=== PATIENT | female | born 1970 | race Caucasian/White ===

== ENCOUNTER 2016-12-20 18:40 | Emergency (ER) | payer SELFPAY ==
[2016-12-20 18:58] VITALS: BP 121/84; BMI 19.0
--- NOTE | 2016-12-20 19:29 | DR.GENAD ---
HPI - PCP Primary Care Physician: ELAYNE - HPI Comment HPI Comment: PATIENT FELL ONE WEEK AGO. PROGRESSIVE LOWER BACK PAIN AND RIGHT HIP PAIN. MEDS AT HOME DID NOT HELP PAIN. HISTORY BACK PAIN. - Complaint/Symptoms Chief Complaint Doctors Comments: FELL, RIGHT HIP AND LOWER BACK PAIN TIMES ONE WEEK. Chief Complaint:: BACK ,HIP, BUTT, LEG PAIN FROM FALL Self Treatment fo Chief Complaint: PT HAS BEEN TAKING ABUPROFEN AND NAPROXEN, AND PAIN PILLS FROM A PREVIOUS BROKEN ARM - Nurses notes reviewed Nurses Notes Review: Yes - Source History Provided: Patient - Mode of Arrival Mode of Arrival: Ambulatory - Timing Onset of Chief Complaint: 12/13/16 Came on: Gradually - Duration Duration: Constant Duration: Days - Severity Severity: Moderate PMH - PMH Past Medical History: Yes Past Medical History: Anxiety, Depression, Hypertension Past Medical History Comment: HIV+ Past Surgical History: Yes Surgical History: , Hysterectomy, Tonsillectomy - Family History History of Family Medical Conditions: Yes Family Medical History: Coronary Artery Disease, Hypertension - Social History Does patient currently use any type of tobacco product: Yes Have you used tobacco products in the last 12 months: Yes Type of Tobacco Use: Cigarettes Does any household member use tobacco: No Alcohol Use: None Do you use any recreational Drugs:: No Lives With: Alone Lives Where: Home - infectious screening In the last 2 months have you had wt loss of >10#?: NO Have you had fever, night sweats or hemotysis?: No Have you traveled outside the country in the last 6 months?: No Isolation: Standard ROS - Review of Systems Constitutional: No Symptoms Reported Eyes: No Symptoms Reported ENTM: No Symptoms Reported Respiratoy: No Symptoms Reported Cardiovascular: No Symptoms Reported Gastrointestinal/Abdominal: No Symptoms Reported Genitourinary: No Symptoms Reported Neurological: Problems Walking Musculoskeletal: Back Pain, Right, Back, Pelvis, Hip, Leg Integumentary: No Symptoms Reported Hematologic/Lymphatic: No Symptoms Reported Endocrine: No Symptoms Reported All Other Systems: Reviewed and Negative PE - Vital Signs Vitals: Temperature 97.6 F Pulse Rate 90 Respiratory Rate 16 Blood Pressure 121/84 O2 Sat by Pulse Oximetry 100 - General Limitations: No Limitations General Appearance: Alert - Head Head Exam: Normal Inspection - Eyes Eye exam: Normal Appearance - ENT ENT Exam: Normal External Ear Exam External Ear Exam: Normal External Inspection TM/Canal Exam: Bilateral Normal Nose Exam: Normal Nose Exam Mouth Exam: Normal Inspection Throat Exam: Normal Inspection - Neck Neck Exam: Trachea Midline - Chest Chest Inspection: Symmetric Chest Wall Rise - Respiratory Respiratory Exam: Normal Lung Sounds Bilat Respiratory Exam: Bilateral Rhonchi, Lower Rhonchi - Cardiovascular Cardiovascular Exam: Regular Rate, Normal Rhythm, Normal Heart Sounds - Abdominal Exam Abdominal Exam: Normal Bowel Sounds, Soft. negative: Tenderness - Extremities Extremities Exam: Tenderness (RIGHT HIP) - Back Back Exam: Tenderness (LOWER BACK), Paraspinal Tenderness - Neurologic Neurological Exam: Alert, Oriented X3. negative: Motor Sensory Deficit - Psychiatric Psychiatric Exam: Normal Affect, Normal Mood - Skin Skin Exam: Normal Color MDM - Differential Diagnosis Differential Diagnosis: LOWER BACK PAIN, RIGHT HIP PAIN, ARTHRITIS Course - Treatment Treatment: SEE ORDERS - Reevaluation 1st: Improved (PAIN IMPROVE WITH IM MEDS IN ED.) - Education/Counseling Education/Counseling: Patient, Education Educated On: Treatment, Diagnosis, Needs for Follow Up ROR - XRAY XRAY Findings: REPORT DISCUSS WITH PATIENT. 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 Lower back pain Qualifiers: Chronicity: acute Back pain laterality: unspecified Sciatica presence: with sciatica Sciatica laterality: bilateral sciatica Qualified Code(s): M54.42 - Lumbago with sciatica, left side; M54.41 - Lumbago with sciatica, right side - Discharge Plan Disposition: 01 HOME, SELF-CARE Condition: Stable Prescriptions: Acetaminophen W/ Codeine [Tylenol/Codeine #3 300-30 mg] 1 tab PO Q4-6H PRN #15 tab PRN Reason: Pain Cyclobenzaprine HCl [FLEXERIL 10 MG *] 10 mg PO TID PRN #20 tab PRN Reason: Ibuprofen [MOTRIN TAB 600 MG *] 600 mg PO TID PRN #20 tab PRN Reason: Pain/Inflammation - Follow ups/Referrals Follow ups/Referrals: NFD,None [Primary Care Provider] - 2 days STONEY WEEMS [STAFF PHYSICIAN] - 2 days - Instructions Instructions: Degenerative Disk Disease, Spinal Stenosis, [id number], Back Pain, Adult, [id number], Hip Pain Additional Instructions: return to ed if worse.
[2016-12-20] MEDS ORDERED: TORADOL 60 MG VIAL IM ONE (19:39)
[2016-12-20] MEDS ORDERED: NORFLEX INJ IVP ONE (19:39)
--- NOTE | 2016-12-20 20:15 | RAD ---
The three views of the right hip Indication: Hip pain after fall. Findings: No fracture, dislocation or localizing soft tissue swelling within the right hip. No signi ficant degenerative change. Pubic symphysis and SI joints are intact. There is degenerative change w ithin bilateral L5-S1 facet joints. The Impression: No radiographic abnormality within the right hip. Reported By:
[2016-12-20] MEDS ORDERED: TORADOL 60 MG VIAL ONE (20:18)
[2016-12-20] MEDS ORDERED: NORFLEX INJ ONE (20:18)
[2016-12-20] MEDS ORDERED: TYLENOL #3 TAB (W/CODEINE) PO ONE ×2 (21:08→21:09)
== END 2016-12-20 21:14 | disposition home or self-care (01) ==
LOC: ER 18:40
DX: M19.90 Unspecified osteoarthritis, unspecified site (principal); M48.06 Spinal stenosis, lumbar region; M25.551 Pain in right hip; M15.8 Other polyosteoarthritis; M54.42 Lumbago with sciatica, left side; M54.41 Lumbago with sciatica, right side; W19.XXXA Unspecified fall, initial encounter; Y92.9 Unspecified place or not applicable
CPT/HCPCS: 72110; 73501; 96372; 99282; 99283; J1885; J2360

== ENCOUNTER 2016-12-30 12:29 | Emergency (ER) | payer SELFPAY ==
[2016-12-30 12:47] VITALS: BP 109/85; BMI 19.0
[2016-12-30 14:17] LABS: BILIRUBIN,URINE NEGATIVE (NEGATIVE); BLOOD/HEMOGLOBIN,URINE NEGATIVE (NEGATIVE); GLUCOSE, URINE NEGATIVE (NEGATIVE); KETONES,URINE NEGATIVE (NEGATIVE); LEUKOCYTE ESTERASE ,URINE NEGATIVE (NEGATIVE); NITRITES,URINE NEGATIVE (NEGATIVE); PROTEIN,URINE NEGATIVE (NEGATIVE); UROBILINOGEN,URINE NORMAL (NORMAL)
[2016-12-30 14:26] LABS: APPEARANCE,URINE HAZY (CLEAR); COLOR,URINE YELLOW (YELLOW)
[2016-12-30 14:27] LABS: BACTERIA,URINE TRACE /HPF (NEGATIVE); RBC,URINE 0-2 /HPF (NEGATIVE); SQUAMOUS EPITHELIAL CELL,UR RARE /HPF (NEGATIVE)
--- NOTE | 2016-12-30 14:33 | DR.GENAD ---
HPI - PCP Primary Care Physician: ELAYNE - Complaint/Symptoms Chief Complaint Doctors Comments: History as stated. Admits to left foot pain s /p falling Chief Complaint:: PT. STATES SHE PASSED OUT AT HOME, FALLING, HURTING HER LEFT FOOT AND LOWER BACK. PT STATES SHE FEELS LIGHTHEADED AT TIME OF TRIAGE. - Source History Provided: Patient - Mode of Arrival Mode of Arrival: Ambulatory - Timing Onset of Chief Complaint: 12/30/16 PMH - PMH Past Medical History: Yes Past Medical History: Anxiety, Depression, Hypertension Past Medical History Comment: AIDS Past Surgical History: Yes Surgical History: , Hysterectomy, Tonsillectomy - Family History History of Family Medical Conditions: Yes Family Medical History: Coronary Artery Disease, Hypertension - Social History Does patient currently use any type of tobacco product: Yes Have you used tobacco products in the last 12 months: Yes Type of Tobacco Use: Cigarettes Does any household member use tobacco: No Alcohol Use: None Do you use any recreational Drugs:: No Lives With: Alone Lives Where: Home - infectious screening In the last 2 months have you had wt loss of >10#?: NO Have you had fever, night sweats or hemotysis?: No Have you traveled outside the country in the last 6 months?: No Isolation: Standard PE - Vital Signs Vitals: Temperature 98.5 F Pulse Rate 99 Respiratory Rate 16 Blood Pressure 109/85 O2 Sat by Pulse Oximetry 99 - General Limitations: No Limitations General Appearance: Alert, In No Apparent Distress - Head Head Exam: Normal Inspection, Atraumatic - Eyes Eye exam: Normal Appearance, PERRL, EOMI - ENT ENT Exam: Normal Exam External Ear Exam: Normal External Inspection TM/Canal Exam: Bilateral Normal Nose Exam: Normal Nose Exam Mouth Exam: Normal Inspection Throat Exam: Normal Inspection - Neck Neck Exam: Normal Inspection - Chest Chest Inspection: Normal Inspection - Respiratory Respiratory Exam: Normal Lung Sounds Bilat Respiratory Exam: Bilateral Clear to Auscultation - Cardiovascular Cardiovascular Exam: Regular Rate, Normal Rhythm - Abdominal Exam Abdominal Exam: Normal Inspection, Normal Bowel Sounds Abdominal Tenderness: negative: RUQ, RLQ, LUQ, LLQ, Epigastrium, Suprapubic, Diffuse, Mild, Moderate, Severe, Other - Extremities Extremities Exam: Tenderness (swelling and erythema of left foot) - Back Back Exam: Normal Inspection, Full ROM - Neurologic Neurological Exam: Alert, CN II-XII Intact ROR - Labs Reviewed Result Diagrams: 12/30/16 14:56 12/30/16 14:56 Laboratory: Sodium 143 mmol/L (136-145) 12/30/16 14:56 Corrected Sodium TNP 12/30/16 14:56 Potassium 4.2 mmol/L (3.5-5.1) 12/30/16 14:56 Chloride 107 mmol/L (98-107) 12/30/16 14:56 Carbon Dioxide 23.7 mmol/L (21-32) 12/30/16 14:56 BUN 7 mg/dL (7-18) 12/30/16 14:56 Creatinine 0.84 mg/dL (0.55-1.02) 12/30/16 14:56 Est GFR (MDRD) Af Amer > 60 (>60) 12/30/16 14:56 Est GFR (MDRD) Non-Af > 60 (>60) 12/30/16 14:56 Glucose 70 mg/dL (65-99) 12/30/16 14:56 Calcium 8.9 mg/dL (8.5-10.1) 12/30/16 14:56 Corrected Calcium TNP 12/30/16 14:56 Total Bilirubin 0.90 mg/dL (0.2-1.0) 12/30/16 14:56 AST 25 Units/L (15-37) 12/30/16 14:56 ALT 15 Units/L (12-78) 12/30/16 14:56 Alkaline Phosphatase 160 Units/L (46-116) H 12/30/16 14:56 Total Protein 8.7 g/dL (6.4-8.2) H 12/30/16 14:56 Albumin 3.8 g/dL (3.4-5.0) 12/30/16 14:56 Globulin 4.9 g/dL (2.5-4.5) H 12/30/16 14:56 Albumin/Globulin Ratio 0.8 Ratio (1.1-2.1) L 12/30/16 14:56 Specimen Type Clean catch urine 12/30/16 13:59 Urine Color Yellow (YELLOW) 12/30/16 13:59 Urine Appearance Hazy (CLEAR) 12/30/16 13:59 Urine pH 6.0 (5.0 - 8.0) 12/30/16 13:59 Ur Specific [place] 1.005 (1.000-1.030) 12/30/16 13:59 Urine Protein Negative (NEGATIVE) 12/30/16 13:59 Urine Glucose (UA) Negative (NEGATIVE) 12/30/16 13:59 Urine Ketones Negative (NEGATIVE) 12/30/16 13:59 Urine Occult Blood Negative (NEGATIVE) 12/30/16 13:59 Urine Nitrite Negative (NEGATIVE) 12/30/16 13:59 Urine Bilirubin Negative (NEGATIVE) 12/30/16 13:59 Urine Urobilinogen Normal (NORMAL) 12/30/16 13:59 Ur Leukocyte Esterase Negative (NEGATIVE) 12/30/16 13:59 Urine RBC 0-2 /HPF (NEGATIVE) 12/30/16 13:59 Urine WBC 0-2 /HPF (NEGATIVE) 12/30/16 13:59 Ur Squamous Epith Cells Rare /HPF (NEGATIVE) 12/30/16 13:59 Urine Bacteria Trace /HPF (NEGATIVE) 12/30/16 13:59 Ur Culture Indicated? No/not indicated 12/30/16 13:59 - XRAY XRAY Interpreted by: Radiologist (Degenerative changes of the left foot without acute osseous abnormality) - Diagnosis Discharge Problem: DJD (degenerative joint disease) Qualifiers: Osteoarthritis location: foot Osteoarthritis type: unspecified Laterality: left Qualified Code(s): M19.072 - Primary osteoarthritis, left ankle and foot - Discharge Plan Condition: Stable - Follow ups/Referrals Follow ups/Referrals: ARIA HOLLY [Primary Care Provider] - 3 days - Instructions
[2016-12-30] MEDS ORDERED: DEMEROL INJ IM ONE (14:36)
[2016-12-30] MEDS ORDERED: DEMEROL INJ ONE (14:50)
[2016-12-30 15:08] LABS: HEMOGLOBIN 13.6 g/dL (12.0-16.0); MONOCYTES # (AUTO) 0.4 x10^3/uL (0.3-0.8); NEUTROPHILS # (AUTO) 2.1 x10^3/uL (2.2-4.8); RED CELL DISTRIBUTION WIDTH 13.4 % (11.6-16.5)
[2016-12-30 15:12] LABS: BASOPHILS % (AUTO) 0.4 % (0.2-1.0); EOSINOPHILS # (AUTO) 0.2 x10^3/uL (0.0-0.2); EOSINOPHILS % (AUTO) 4.6 % (0.9-2.9); HEMATOCRIT 40.6 % (36.0-47.0); LYMPHOCYTES # (AUTO) 0.7 X10^3/uL (1.3-2.9); LYMPHOCYTES % (AUTO) 19.9 % (21.0-51.0); MEAN CORPUSCULAR HEMOGLOBIN 31.2 pg (27.0-34.0); MEAN CORPUSCULAR HGB CONC 33.5 g/dL (33.0-35.0); MEAN CORPUSCULAR VOLUME 93.3 fL (80.0-100.0); MEAN PLATELET VOLUME 10.4 fL (7.4-11.0); MONOCYTES % (AUTO) 11.8 % (0.0-13.0); NEUTROPHILS % (AUTO) 63.3 % (42.0-75.0); PLATELET COUNT 120 X10^3/uL (150.0-450.0); RED BLOOD COUNT 4.36 X10^6/uL (3.5-5.4)
[2016-12-30 15:15] LABS: ALANINE AMINOTRANSFERASE 15 Units/L (12-78); ALBUMIN 3.8 g/dL (3.4-5.0); ALKALINE PHOSPHATASE 160 Units/L (46-116); ASPARTATE AMINO TRANSFERASE 25 Units/L (15-37); BLOOD UREA NITROGEN 7 mg/dL (7-18); CALCIUM 8.9 mg/dL (8.5-10.1); CARBON DIOXIDE 23.7 mmol/L (21-32); CHLORIDE 107 mmol/L (98-107); CREATININE 0.84 mg/dL (0.55-1.02); GLUCOSE 70 mg/dL (65-99); SODIUM 143 mmol/L (136-145); TOTAL PROTEIN 8.7 g/dL (6.4-8.2); eGFR BLACK RACES > 60 (>60); eGFR NON BLACK RACES > 60 (>60)
--- NOTE | 2016-12-30 15:17 | RAD ---
HISTORY: Injury today, foot pain and swelling Study: Three views left foot Comparison: None Findings: Normal alignment. No acute fracture or dislocation. The soft tissues are unremarkable. There are de generative changes of the midfoot and mild calcaneal spurring at the Achilles insertion. There are m oderate degenerative changes of the 1st MTP joint. IMPRESSION: 1. Degenerative changes of the left foot without acute osseous abnormality. Reported By:
[2016-12-30] MEDS ORDERED: TORADOL 60 MG VIAL IM ONE (15:25)
[2016-12-30 15:34] LABS: WHITE BLOOD COUNT 3.4 X10^3/uL (3.6-10.0)
[2016-12-30 15:35] LABS: HYPOCHROMASIA SLIGHT; PLATELET MORPHOLOGY COMMENT NORMAL (NORMAL)
[2016-12-30] MEDS ORDERED: TORADOL 60 MG VIAL ONE (15:37)
== END 2016-12-30 15:47 | disposition home or self-care (01) ==
LOC: ER 12:54
DX: M19.072 Primary osteoarthritis, left ankle and foot (principal); W19.XXXA Unspecified fall, initial encounter; Y92.009 Unspecified place in unspecified non-institutional (private) residence as the place of occurrence of the external cause
CPT/HCPCS: 36415; 73630; 80053; 81001; 85025; 93005; 93010; 96372; 99283; J1885; J2175

== ENCOUNTER 2017-01-16 11:02 | Emergency (ER) | payer SELFPAY ==
[2017-01-16 11:10] VITALS: BMI 19.0
--- NOTE | 2017-01-16 11:55 | DR.GENAD ---
HPI - PCP Primary Care Physician: [facility] - HPI Comment HPI Comment: PATIENT HAD BLOOD WORK DONE YESTERDAY. CALL TODAY AND ASK HER TO GO TO ED FOR POTASSIUM CHECK. SHE HAVE NO COMPLAINTS EXCEPT PAIN IN EXTREMITIES FROM HEALING FRACTURES. SH WAS TOLD POTASSIUM WAS 7.3. - Complaint/Symptoms Chief Complaint Doctors Comments: ELEVATED POTASSIUM. Chief Complaint:: PT STATES SHE WAS CALLED BY THE [facility] AND WAS TOLD TO COME TO THE HOSPITAL DUE TO HER LAB RESULTS FROM YESTERDAY BEING ABNORMAL. PT STATES THEY ADILSON MY POTASSIUM WAS TO HIGH. - Nurses notes reviewed Nurses Notes Review: Yes - Source History Provided: Patient - Mode of Arrival Mode of Arrival: Ambulatory - Timing Onset of Chief Complaint: 01/16/17 Came on: Suddenly - Duration Duration: Constant Duration: Days - Severity Severity: Moderate PMH - PMH Past Medical History: Yes Past Medical History: Anxiety, Depression, Hypertension Past Medical History Comment: HIV Past Surgical History: Yes Surgical History: , Hysterectomy, Tonsillectomy - Family History History of Family Medical Conditions: Yes Family Medical History: Coronary Artery Disease, Hypertension - Social History Does patient currently use any type of tobacco product: Yes Have you used tobacco products in the last 12 months: Yes Type of Tobacco Use: Cigarettes Does any household member use tobacco: Yes Alcohol Use: None Do you use any recreational Drugs:: No Lives With: Family Lives Where: Home - infectious screening In the last 2 months have you had wt loss of >10#?: NO Have you had fever, night sweats or hemotysis?: No Have you traveled outside the country in the last 6 months?: No Isolation: Standard ROS - Review of Systems Constitutional: No Symptoms Reported Eyes: No Symptoms Reported ENTM: No Symptoms Reported Respiratoy: No Symptoms Reported Cardiovascular: No Symptoms Reported Gastrointestinal/Abdominal: No Symptoms Reported Genitourinary: No Symptoms Reported Neurological: No Symptoms Reported Musculoskeletal: Left, Wrist, Ankle Integumentary: No Symptoms Reported Hematologic/Lymphatic: No Symptoms Reported Endocrine: No Symptoms Reported All Other Systems: Reviewed and Negative PE - Vital Signs Vitals: Temperature 98.4 F Pulse Rate 102 Respiratory Rate 20 Blood Pressure [Right Arm] 129/93 Blood Pressure 157/106 O2 Sat by Pulse Oximetry 99 - General Limitations: No Limitations General Appearance: Alert - Head Head Exam: Normal Inspection - Eyes Eye exam: Normal Appearance - ENT ENT Exam: Normal External Ear Exam Mouth Exam: Normal Inspection Throat Exam: Normal Inspection - Neck Neck Exam: Trachea Midline - Chest Chest Inspection: Symmetric Chest Wall Rise - Respiratory Respiratory Exam: Bilateral Rhonchi, Lower Rhonchi - Cardiovascular Cardiovascular Exam: Regular Rate, Normal Rhythm, Normal Heart Sounds - Abdominal Exam Abdominal Exam: Normal Bowel Sounds, Soft. negative: Tenderness - Extremities Extremities Exam: Tenderness, Joint Swelling - Back Back Exam: Normal Inspection - Neurologic Neurological Exam: Alert, Oriented X3 - Psychiatric Psychiatric Exam: Normal Affect, Normal Mood - Skin Skin Exam: Normal Color MDM - Differential Diagnosis Differential Diagnosis: POSSIBLE HYPERKALEMIA. Course - Treatment Treatment: SEE ORDERS - Education/Counseling Education/Counseling: Patient Educated On: Diagnosis, Needs for Follow Up ROR - Labs Reviewed Laboratory Results Reviewed?: Yes Result Diagrams: 01/16/17 11:30 Laboratory: Potassium 4.6 mmol/L (3.5-5.1) 01/16/17 11:30 - Diagnosis Discharge Problem: Abnormal laboratory test - Discharge Plan Disposition: HOME, SELF-CARE Condition: Stable - Follow ups/Referrals Follow ups/Referrals: Jackie KONGc [Primary Care Provider] - 3 days - Instructions Instructions: Potassium (K) Test Additional Instructions: RETURN TO ED IF WORSE.
[2017-01-16 12:00] VITALS: BP 129/93
== END 2017-01-16 12:25 | disposition home or self-care (01) ==
LOC: ER 11:24
DX: R79.89 Other specified abnormal findings of blood chemistry (principal)
CPT/HCPCS: 36415; 84132; 99282

== ENCOUNTER → 2017-01-23 | Outpatient (CLI) | payer SELFPAY ==
[2017-01-16 12:00] VITALS: BP 129/93
--- NOTE | 2017-01-23 10:05 | RAD ---
HISTORY: Follow up fracture Study: Left foot three view Comparison: December 30, 2016 Findings: Fractures of the diametaphyseal regions of the 2nd, 3rd, 4th metatarsals are again identified. There is evidence for early healing in the form of resorption along the fracture lines. No callus is yet identified. The remainder of the bones and joints of the left foot are intact and normally aligned. IMPRESSION: Fractures of the distal 2nd, 3rd, 4th metatarsals unchanged in position from the prior examination d emonstrating some evidence of early healing in the form of worse or mracus along the fracture lines. N o callus as yet Reported By:
== END ==
LOC: RAD 09:32
PROVIDERS: ATTEND Specialist
DX: S99.122D Salter-Harris Type II physeal fracture of left metatarsal, subsequent encounter for fracture with routine healing (principal); X58.XXXD Exposure to other specified factors, subsequent encounter
CPT/HCPCS: 73630

== ENCOUNTER 2017-03-29 15:31 | Emergency (ER) | payer SELFPAY ==
[2017-03-29 15:35] VITALS: BP 112/73; BMI 18.8
[2017-03-29] MEDS ORDERED: TORADOL 60 MG VIAL IM ONE (17:46)
[2017-03-29] MEDS ORDERED: NORFLEX INJ IM ONE (17:47)
[2017-03-29] MEDS ORDERED: PREDNISONE TAB 20 MG PO ONE ×2 (17:48→18:00)
--- NOTE | 2017-03-29 17:51 | DR.GENAD ---
HPI - PCP Primary Care Physician: ALEJANDRA - HPI Comment HPI Comment: PAIN WORSE TODAY. HISTORY ARTHRITIS. SIMILAR PAIN IN PAST. NO TRAUMA. - Complaint/Symptoms Chief Complaint Doctors Comments: HIP AND BACK LOWER PAIN TIMES 2 DAYS. Chief Complaint:: PATIENT IS HAVING SEVERE HIP AND BACK PAIN FOR 2 DAYS - Nurses notes reviewed Nurses Notes Review: Yes - Source History Provided: Patient - Mode of Arrival Mode of Arrival: Ambulatory - Timing Onset of Chief Complaint: 03/27/17 Came on: Suddenly - Duration Duration: Constant Duration: Days - Severity Severity: Moderate PMH - PMH Past Medical History: Yes Past Medical History: Anxiety, Depression, Hypertension Past Medical History Comment: HIV/AIDS Past Surgical History: Yes Surgical History: , Hysterectomy, Tonsillectomy - Family History History of Family Medical Conditions: Yes Family Medical History: Coronary Artery Disease, Hypertension - Social History Does patient currently use any type of tobacco product: No Have you used tobacco products in the last 12 months: No Type of Tobacco Use: None Does any household member use tobacco: No Alcohol Use: None Do you use any recreational Drugs:: No Lives With: Alone Lives Where: Home - infectious screening In the last 2 months have you had wt loss of >10#?: NO Have you had fever, night sweats or hemotysis?: No Have you traveled outside the country in the last 6 months?: No Isolation: Standard ROS - Review of Systems Constitutional: No Symptoms Reported Eyes: No Symptoms Reported ENTM: No Symptoms Reported Respiratoy: No Symptoms Reported Cardiovascular: No Symptoms Reported Gastrointestinal/Abdominal: No Symptoms Reported Genitourinary: negative: Dysuria, Frequency, Hematuria Neurological: No Symptoms Reported Musculoskeletal: Back Pain, Back, Hip Integumentary: No Symptoms Reported Hematologic/Lymphatic: No Symptoms Reported Endocrine: No Symptoms Reported All Other Systems: Reviewed and Negative PE - Vital Signs Vitals: Temperature 98.7 F Pulse Rate 100 Respiratory Rate 20 Blood Pressure [Right Arm] 129/93 Blood Pressure 112/73 O2 Sat by Pulse Oximetry 97 - General Limitations: No Limitations General Appearance: Alert - Head Head Exam: Normal Inspection - Eyes Eye exam: Normal Appearance - ENT ENT Exam: Normal External Ear Exam External Ear Exam: Normal External Inspection TM/Canal Exam: Bilateral Normal Nose Exam: Normal Nose Exam Mouth Exam: Normal Inspection Throat Exam: Normal Inspection - Neck Neck Exam: Trachea Midline - Chest Chest Inspection: Symmetric Chest Wall Rise - Respiratory Respiratory Exam: Normal Lung Sounds Bilat Respiratory Exam: Bilateral Clear to Auscultation - Cardiovascular Cardiovascular Exam: Regular Rate, Normal Rhythm, Normal Heart Sounds - Abdominal Exam Abdominal Exam: Normal Inspection - Extremities Extremities Exam: Normal Inspection - Back Back Exam: Paraspinal Tenderness (LOWER BACK.), Vertebral Tenderness (LUMBER SPINE.) - Neurologic Neurological Exam: Alert, Oriented X3 - Psychiatric Psychiatric Exam: Normal Affect, Normal Mood - Skin Skin Exam: Normal Color [facility] - Additional Information Additional Information Obtained From: Family - Differential Diagnosis Differential Diagnosis: ARTHRITIS, SCIATICA, LOW BACK PAIN Course - Treatment Treatment: SEE ORDERS - Education/Counseling Education/Counseling: Patient, Family, Education Educated On: Treatment, Diagnosis, Needs for Follow Up - Diagnosis Discharge Problem: Low back pain Qualifiers: Chronicity: acute Back pain laterality: bilateral Sciatica presence: with sciatica Sciatica laterality: sciatica of right side Qualified Code(s): M54.41 - Lumbago with sciatica, right side - Discharge Plan Disposition: 01 HOME, SELF-CARE Condition: Stable - Follow ups/Referrals Follow ups/Referrals: MDMisc [Primary Care Provider] - 3 days - Instructions Instructions: Back Pain, Adult, [id number] Additional Instructions: RETURN TO ED IF WORSE. CONTINUE WITH MEDS AT HOME.
[2017-03-29] MEDS ORDERED: TORADOL 60 MG VIAL ONE (18:00)
[2017-03-29] MEDS ORDERED: NORFLEX INJ ONE (18:00)
== END 2017-03-29 19:44 | disposition home or self-care (01) ==
LOC: ER 15:52
DX: M54.41 Lumbago with sciatica, right side (principal)
CPT/HCPCS: 96372; 99282; J1885; J2360; J7506

== ENCOUNTER 2017-04-01 22:26 | Observation (INO) | payer SELFPAY ==
[2017-04-01] MEDS ORDERED: ROMAZICON INJ 0.5 MG IVP ONE (22:34)
--- NOTE | 2017-04-01 22:35 | DR.PCP ---
HPI - Time Seen Time seen: 22:30 - Complaint Chief Complaint Doctor Comments: Patient presented to the ED via EMS with c/o ingestion of some unknown medication. She was unresponsive to arousable to sternal rub but non verble. She was give narcan and flumazenil w/o response. The friend reported that patient was in her usual state of health until she had to teeth remove. She started hallucinating and at some point took the cyclobenzaprine and unknown quanity. Souleymane johnston was contacted and instruction were given for observation sine the medication has a long half life >14 hours should be in observation status. PMH - Past Surgical History Past Surgical History: Yes - Vaccines Hx Measles, Mumps, Rubella Vaccination: Yes Hx Varicella Vaccination: Yes Pneumococcal Vaccine Every 5 Yrs: Yes Hx Meningococcal Vaccination: No ROS (Ped) - Review of Systems Eyes: No Symptoms Reported ENTM: No Symptoms Reported Respiratoy: No Symptoms Reported Cardiovascular: No Symptoms Reported Gastrointestinal/Abdominal: No Symptoms Reported Genitourinary: No Symptoms Reported Neurological: No Symptoms Reported Musculoskeletal: No Symptoms Reported Integumentary: No Symptoms Reported Hematologic/Lymphatic: No Symptoms Reported Endocrine: No Symptoms Reported Psychiatric: No Symptoms Reported All Other Systems: Reviewed and Negative PE - Vitals Vitals: Temperature 97.9 F Pulse Rate [Apical] 86 Pulse Rate [Right Radial] 77 Pulse Rate 92 Respiratory Rate 14 Blood Pressure [Right Arm] 115/76 Blood Pressure 124/76 O2 Sat by Pulse Oximetry 97 - General Limitations: Language Barrier General Appearance: Obtunded, In Distress - Head Head Exam: Normal Inspection, Atraumatic - Eyes Eye exam: Normal Appearance, Other (pupils dilated) - ENT ENT Exam: Normal Exam, Mucous Membranes Dry - Chest Chest Inspection: Normal Inspection, Symmetric Chest Wall Rise - Respiratory Respiratory Exam: Normal Lung Sounds Bilat Respiratory Exam: Bilateral Clear to Auscultation - Cardiovascular Cardiovascular Exam: Regular Rate, Normal Rhythm Pulse: Normal, Radial Edema: Normal - Abdominal Exam Abdominal Exam: Normal Inspection, Normal Bowel Sounds, Dimnished Bowel Sounds Abdominal Tenderness: negative: RUQ, RLQ, LUQ, LLQ, Epigastrium, Suprapubic, Diffuse, Mild, Moderate, Severe, Other - Extremities Extremities Exam: Edema - Back Back Exam: Normal Inspection. negative: Tenderness - Neurologic Neurological Exam: Motor Sensory Deficit - Psychiatric Psychiatric Exam: Depressed - Skin Skin Exam: Warm, Dry, Intact Course - Treatment Treatment: Contacted poison control concerning the ingestion advised to observe due to prolong half life of cyclobenzaprine. ROR - Labs Reviewed Result Diagrams: 04/01/17 22:15 04/01/17 22:15 Laboratory: WBC 11.7 X10^3/uL (3.6-10.0) H 04/01/17 22:15 RBC 3.77 X10^6/uL (3.5-5.4) 04/01/17 22:15 Hgb 11.8 g/dL (12.0-16.0) L 04/01/17 22:15 Hct 34.7 % (36.0-47.0) L 04/01/17 22:15 MCV 92.1 fL (80.0-100.0) 04/01/17 22:15 MCH 31.1 pg (27.0-34.0) 04/01/17 22:15 MCHC 33.8 g/dL (33.0-35.0) 04/01/17 22:15 RDW 13.4 % (11.6-16.5) 04/01/17 22:15 Plt Count 134 X10^3/uL (150.0-450.0) L 04/01/17 22:15 MPV 10.0 fL (7.4-11.0) 04/01/17 22:15 Neut % 90.0 % (42.0-75.0) H 04/01/17 22:15 Lymph % 3.7 % (21.0-51.0) L 04/01/17 22:15 [place] % 5.5 % (0.0-13.0) 04/01/17 22:15 Eos % 0.7 % (0.9-2.9) L 04/01/17 22:15 Baso % 0.1 % (0.2-1.0) L 04/01/17 22:15 Neut # 10.6 x10^3/uL (2.2-4.8) H 04/01/17 22:15 Lymph # 0.4 X10^3/uL (1.3-2.9) L 04/01/17 22:15 [place] # 0.6 x10^3/uL (0.3-0.8) 04/01/17 22:15 Eos # 0.1 x10^3/uL (0.0-0.2) 04/01/17 22:15 Baso # 0.0 X10^3/uL (0.0-0.1) 04/01/17 22:15 Absolute Nucleated RBC 0.0 /100WBC 04/01/17 22:15 Sample Site Lb 04/01/17 22:36 ABG pH 7.420 (7.35-7.45) 04/01/17 22:36 ABG pCO2 45.0 mmHg (35.0-45.0) 04/01/17 22:36 ABG pO2 362.0 mmHg (80.0-100.0) H 04/01/17 22:36 ABG HCO3 29.2 mmol/L (22-26) H 04/01/17 22:36 ABG O2 Saturation 100.0 % (90-100) 04/01/17 22:36 ABG Base Excess 4.1 mmol/L (-2.0-2.0) H 04/01/17 22:36 Russell Test Na 04/01/17 22:36 A-a Gradient 295.0 mmHg 04/01/17 22:36 FiO2 100.000 04/01/17 22:36 Blood Gas Comments [place] well ae 04/01/17 22:36 Sodium 136 mmol/L (136-145) 04/01/17 22:15 Corrected Sodium TNP 04/01/17 22:15 Potassium 3.6 mmol/L (3.5-5.1) 04/01/17 22:15 Chloride 101 mmol/L (98-107) 04/01/17 22:15 Carbon Dioxide 26.9 mmol/L (21-32) 04/01/17 22:15 BUN 5 mg/dL (7-18) L 04/01/17 22:15 Creatinine 0.90 mg/dL (0.55-1.02) 04/01/17 22:15 Est GFR (MDRD) Af Amer > 60 (>60) 04/01/17 22:15 Est GFR (MDRD) Non-Af > 60 (>60) 04/01/17 22:15 Glucose 104 mg/dL (65-99) H 04/01/17 22:15 Lactic Acid 0.6 mmol/L (0.4-2.0) 04/02/17 00:24 Calcium 8.5 mg/dL (8.5-10.1) 04/01/17 22:15 Corrected Calcium 9.3 mg/dL (8.5-10.1) 04/01/17 22:15 Total Bilirubin 0.40 mg/dL (0.2-1.0) 04/01/17 22:15 AST 44 Units/L (15-37) H 04/01/17 22:15 ALT 41 Units/L (12-78) 04/01/17 22:15 Alkaline Phosphatase 104 Units/L (46-116) 04/01/17 22:15 Total Protein 6.7 g/dL (6.4-8.2) 04/01/17 22:15 Albumin 3.0 g/dL (3.4-5.0) L 04/01/17 22:15 Globulin 3.7 g/dL (2.5-4.5) 04/01/17 22:15 Albumin/Globulin Ratio 0.8 Ratio (1.1-2.1) L 04/01/17 22:15 Specimen Type Catherized urine 04/01/17 22:34 Urine Color Pale yellow (YELLOW) 04/01/17 22:34 Urine Appearance Slightly hazy (CLEAR) 04/01/17 22:34 Urine pH 6.0 (5.0 - 8.0) 04/01/17 22:34 Ur Specific [place] 1.010 (1.000-1.030) 04/01/17 22:34 Urine Protein Negative (NEGATIVE) 04/01/17 22:34 Urine Glucose (UA) Negative (NEGATIVE) 04/01/17 22:34 Urine Ketones Negative (NEGATIVE) 04/01/17 22:34 Urine Occult Blood 1+ (NEGATIVE) 04/01/17 22:34 Urine Nitrite Positive (NEGATIVE) 04/01/17 22:34 Urine Bilirubin Negative (NEGATIVE) 04/01/17 22:34 Urine Urobilinogen Normal (NORMAL) 04/01/17 22:34 Ur Leukocyte Esterase Negative (NEGATIVE) 04/01/17 22:34 Urine RBC 2-3 /HPF (NEGATIVE) 04/01/17 22:34 Urine WBC 3-4 /HPF (NEGATIVE) 04/01/17 22:34 Ur Squamous Epith Cells Rare /HPF (NEGATIVE) 04/01/17 22:34 Urine Bacteria 3+ /HPF (NEGATIVE) 04/01/17 22:34 Ur Culture Indicated? Yes/culture set up 04/01/17 22:34 Salicylates 3.9 mg/dL (2.8-20) 04/01/17 22:15 Urine Opiates Screen Negative (NEG=<300) 04/01/17 22:34 Urine Methadone Screen Negative (NEG=<300) 04/01/17 22:34 Acetaminophen 0.1 ug/mL (10-30) L 04/01/17 22:15 Ur Barbiturates Screen Negative (NEG=<200) 04/01/17 22:34 Ur Phencyclidine Scrn Negative (NEG=<25) 04/01/17 22:34 Ur Amphetamines Screen Negative (NEG=<1000) 04/01/17 22:34 U Benzodiazepines Scrn Negative (NEG=<200) 04/01/17 22:34 Urine Cocaine Screen Negative (NEG=<300) 04/01/17 22:34 U Marijuana (THC) Screen Negative (NEG=<50) 04/01/17 22:34 - XRAY XRAY Interpreted by: Radiologist (Chest:Focal airspace consolidation of the lower ellie thorax bilaterally; atelectasis vs infectious process; Brain CT: negative) - Diagnosis Discharge Problem: Ingestion, drug, inadvertent or accidental Qualifiers: Encounter type: initial encounter Qualified Code(s): T50.901A - Poisoning by unspecified drugs, medicaments and biological substances, accidental ( unintentional), initial encounter Lower lobe pneumonia Qualifiers: Pneumonia type: due to unspecified organism Laterality: bilateral Qualified Code(s): J18.9 - Pneumonia, unspecified organism UTI (urinary tract infection) Qualifiers: Urinary tract infection type: acute cystitis Hematuria presence: with hematuria Qualified Code(s): N30.01 - Acute cystitis with hematuria - Discharge Plan Condition: Stable - Follow ups/Referrals Follow ups/Referrals: MDMisc [Primary Care Provider] - 3 days - Instructions
[2017-04-01] MEDS ORDERED: ROMAZICON INJ 0.5 MG ONE (22:36)
[2017-04-01] MEDS ORDERED: NARCAN INJ IVP ONE (22:39)
[2017-04-01] MEDS ORDERED: NS 1000 ML 1,000 ML IV ONE (22:40)
[2017-04-01 22:41] LABS: ABG BASE EXCESS 4.1 mmol/L (-2.0-2.0); ABG HCO3 29.2 mmol/L (22-26)
[2017-04-01 22:42] LABS: BILIRUBIN,URINE NEGATIVE (NEGATIVE); BLOOD/HEMOGLOBIN,URINE 1+ (NEGATIVE); GLUCOSE, URINE NEGATIVE (NEGATIVE); KETONES,URINE NEGATIVE (NEGATIVE); LEUKOCYTE ESTERASE ,URINE NEGATIVE (NEGATIVE); NITRITES,URINE POSITIVE (NEGATIVE); PROTEIN,URINE NEGATIVE (NEGATIVE); UROBILINOGEN,URINE NORMAL (NORMAL)
[2017-04-01] MEDS ORDERED: NARCAN INJ ONE (22:45)
[2017-04-01 22:59] LABS: APPEARANCE,URINE SLIGHTLY HAZY (CLEAR); BACTERIA,URINE 3+ /HPF (NEGATIVE); COLOR,URINE PALE YELLOW (YELLOW); SQUAMOUS EPITHELIAL CELL,UR RARE /HPF (NEGATIVE)
[2017-04-01 23:10] LABS: BASOPHILS % (AUTO) 0.1 % (0.2-1.0); EOSINOPHILS # (AUTO) 0.1 x10^3/uL (0.0-0.2); EOSINOPHILS % (AUTO) 0.7 % (0.9-2.9); HEMATOCRIT 34.7 % (36.0-47.0); HEMOGLOBIN 11.8 g/dL (12.0-16.0); LYMPHOCYTES # (AUTO) 0.4 X10^3/uL (1.3-2.9); LYMPHOCYTES % (AUTO) 3.7 % (21.0-51.0); MEAN CORPUSCULAR HEMOGLOBIN 31.1 pg (27.0-34.0); MEAN CORPUSCULAR HGB CONC 33.8 g/dL (33.0-35.0); MEAN CORPUSCULAR VOLUME 92.1 fL (80.0-100.0); MONOCYTES # (AUTO) 0.6 x10^3/uL (0.3-0.8); MONOCYTES % (AUTO) 5.5 % (0.0-13.0); NEUTROPHILS # (AUTO) 10.6 x10^3/uL (2.2-4.8); PLATELET COUNT 134 X10^3/uL (150.0-450.0); RED BLOOD COUNT 3.77 X10^6/uL (3.5-5.4); RED CELL DISTRIBUTION WIDTH 13.4 % (11.6-16.5); WHITE BLOOD COUNT 11.7 X10^3/uL (3.6-10.0)
[2017-04-01 23:18] LABS: ACETAMINOPHEN 0.1 ug/mL (10-30); SALICYLATE 3.9 mg/dL (2.8-20)
--- NOTE | 2017-04-01 23:21 | CT ---
CT HEAD WITHOUT CONTRAST CLINICAL HISTORY: 47-year-old female unresponsive. COMPARISON: CT head November 11, 2012. TECHNIQUE: Multiple axial CT images were obtained from the skull base to the cranial vertex without the administration of contrast. FINDINGS: No evidence of abnormal intra- or extra axial fluid collections, midline shift, or mass ef fect. Cuevas white differentiation is maintained. Mild age advanced cortical volume loss with commensu rate ventricular and sulcal prominence. The basal cisterns are normal in appearance. The imaged paranasal sinuses, mastoid air cells, and tympanic cavities are clear. IMPRESSION: No acute intracranial process. Reported By:
[2017-04-01 23:22] LABS: ALANINE AMINOTRANSFERASE 41 Units/L (12-78); ALKALINE PHOSPHATASE 104 Units/L (46-116); ASPARTATE AMINO TRANSFERASE 44 Units/L (15-37); BLOOD UREA NITROGEN 5 mg/dL (7-18); CALCIUM 8.5 mg/dL (8.5-10.1); CARBON DIOXIDE 26.9 mmol/L (21-32); CHLORIDE 101 mmol/L (98-107); COR CA(FOR HYPOALB) 9.3 mg/dL (8.5-10.1); GLUCOSE 104 mg/dL (65-99); SODIUM 136 mmol/L (136-145); TOTAL PROTEIN 6.7 g/dL (6.4-8.2); eGFR BLACK RACES > 60 (>60); eGFR NON BLACK RACES > 60 (>60)
--- NOTE | 2017-04-01 23:36 | RAD ---
HISTORY: 47-year-old female found unresponsive. Study: Single frontal view of the chest. Comparison: None. Findings: The trachea is midline. The cardiac silhouette is unremarkable. Focal consolidations of the lower ellie thorax bilaterally without pneumothorax or large effusion. The bony thorax is unremarkable. IMPRESSION: 1. Focal airspace consolidations of the lower ellie thorax bilaterally, atelectasis versus underlyin g infectious process, correlate clinically. Reported By:
[2017-04-02] MEDS ORDERED: ROCEPHIN VIAL 1 GM 1 GM in NS 50 ML IV + SPIKE MINIBAG* 50 ML IV ONE (00:01)
[2017-04-02] MEDS ORDERED: ROCEPHIN VIAL 1 GM ONE (00:15)
[2017-04-02] MEDS ORDERED: NS 50 ML IV + SPIKE MINIBAG* 50 ML IV ONE (00:15)
[2017-04-02] MEDS ORDERED: NS 1000 ML 1,000 ML IV SCH (04:00)
[2017-04-02] MEDS ORDERED: NS 1000 ML 1,000 ML ONE (04:53)
[2017-04-02] MEDS ORDERED: NS 1/2 1000 ML IV 1,000 ML IV SCH (07:00)
[2017-04-02 07:21] LABS: BASOPHILS % (AUTO) 0.3 % (0.2-1.0); EOSINOPHILS # (AUTO) 0.1 x10^3/uL (0.0-0.2); EOSINOPHILS % (AUTO) 1.9 % (0.9-2.9); HEMATOCRIT 38.3 % (36.0-47.0); HEMOGLOBIN 12.9 g/dL (12.0-16.0); LYMPHOCYTES # (AUTO) 0.5 X10^3/uL (1.3-2.9); MEAN CORPUSCULAR HEMOGLOBIN 31.2 pg (27.0-34.0); MEAN CORPUSCULAR HGB CONC 33.7 g/dL (33.0-35.0); MEAN CORPUSCULAR VOLUME 92.6 fL (80.0-100.0); MEAN PLATELET VOLUME 9.9 fL (7.4-11.0); MONOCYTES # (AUTO) 0.5 x10^3/uL (0.3-0.8); MONOCYTES % (AUTO) 6.8 % (0.0-13.0); NEUTROPHILS # (AUTO) 5.8 x10^3/uL (2.2-4.8); PLATELET COUNT 163 X10^3/uL (150.0-450.0); RED BLOOD COUNT 4.13 X10^6/uL (3.5-5.4); RED CELL DISTRIBUTION WIDTH 13.9 % (11.6-16.5); WHITE BLOOD COUNT 6.9 X10^3/uL (3.6-10.0)
[2017-04-02 07:29] LABS: ALANINE AMINOTRANSFERASE 39 Units/L (12-78); ALBUMIN 2.9 g/dL (3.4-5.0); ALKALINE PHOSPHATASE 114 Units/L (46-116); ASPARTATE AMINO TRANSFERASE 37 Units/L (15-37); BLOOD UREA NITROGEN 4 mg/dL (7-18); CALCIUM 8.6 mg/dL (8.5-10.1); CARBON DIOXIDE 28.2 mmol/L (21-32); CHLORIDE 111 mmol/L (98-107); COR CA(FOR HYPOALB) 9.5 mg/dL (8.5-10.1); CREATININE 0.76 mg/dL (0.55-1.02); GLUCOSE 88 mg/dL (65-99); SODIUM 146 mmol/L (136-145); TOTAL PROTEIN 7.1 g/dL (6.4-8.2); eGFR BLACK RACES > 60 (>60); eGFR NON BLACK RACES > 60 (>60)
[2017-04-02] MEDS ORDERED: DUONEB 0.5 MG/3 MG ONE (08:51)
[2017-04-02 09:03] VITALS: BMI 20.1
[2017-04-02] MEDS ORDERED: NS 1/2 1000 ML IV 1,000 ML IV ONE ×2 (09:10→20:20)
[2017-04-02] MEDS: ROBITUSSIN DM PO SCH ×3 (09:51→20:24)
[2017-04-02] MEDS: LEVAQUIN PREMIX IV 750 MG 750 MG/150 ML BAG IV SCH (09:51)
[2017-04-02] MEDS: NS 1/2 1000 ML IV 1,000 ML IV SCH ×2 (11:00→20:24)
--- NOTE | 2017-04-02 11:00 | DR.H&P ---
H&P - History & Physical for Day of: H&P Date: 04/02/17 - Chief Complaint Chief Complaint: unresponsive - Allergies Allergies/Adverse Reactions: Allergies Allergy/AdvReac Type Severity Reaction Status Date / Time No Known Drug Allergies Allergy Verified 04/02/17 09:44 - History of Present Illness History of Present Illness: Patient is a 47yo female who presented to the emergency room with complaints ingestion of unknown medication, patient arrived unresponsive but arousalable to sternal rub but not verbal. Patient given narcan and flumazenil without any response. Patient friend stated that she was normal until she had her teeth removed, and stated she started having hallucinations and took cyclobenzaprine but unsure of the amount she took. Poison control was contacted and gave the instructions that she need to be observed due to the long half life of greater than 14hours. Vital signs on arrival 98.4, 92, 16, 100% on non rebreather, 124/76. Labs on arrival were within normal limits with the exception of WBC 11.7, Hgb 11.8, Hct 34.7, Plt Count 134, Neut% 90.0, Lymph% 3.7, Eos% 0.7, Baso% 0.1, Neut# 10.6, Lymph# 0.4, BUN 5, Glucose 104, AST 44. ABG within normal limits with the exception of pO2 362, HCO3 29.2, Base Excess 4.1. Brain CT shows no intracranial process. Chest Xray shows Focal airspace consolidations of the lower ellie thorax bilaterally, atelectasis versus underlying infectious process. EKG shows Sinus rhythm rate of 87, probable left atrial enlargement, left atrial enlargement, left anterior fasicular block, abnormal r-wave progression, early transition. Patient admitted as observation for drug ingestion and left lower lobe pneumonia and UTI. Patient started on Duonebs Q4hr, robitussin 10ml Po QID, Levaquin 750mg IV Daily, NS@125ml/hr, NS @ 75ml/hr. Labs this am are within normal limits with the exception of Neut% 84.0, Lymph% 7.0, Neut# 5.8, Lymph# 0.5, Sodium 146 , Chloride 111, BUN 4, Albumin 2.9, Albumin/globulin ratio 0.7. Patient is still only responsive to painful stimuli and pupil non reactive to light. We are going to continue her current treatment plan and discontinue her current fluids since her sodium and chloride are slightly elevated to just NS @ 125ml/ hr. We will follow up in the am with repeat labs. - Past Medical History Past Medical History: Anxiety, Depression, Hypertension - Past Surgical History Surgical History: [employer] Surgery, Hysterectomy - Family History Family Medical History: Cancer, Heart Failure - Social History Does patient currently use any type of tobacco product: Yes Have you used tobacco products in the last 12 months: Yes Type of Tobacco Use: Cigarettes How many years tobacco product used: 10 Packs per day or dips/chews per day: 1 Drug Use: Prescription Drugs - Medications Home Medications: Amoxicillin 1 tab PO Q6HR 04/02/17 [History Confirmed 04/02/17] Atazanavir Sulfate [Reyataz] 1 tab PO DAILY 04/02/17 [History Confirmed 04/02/17 ] Buspirone HCl 1 tab PO BID PRN 04/02/17 [History Confirmed 04/02/17] Cyclobenzaprine HCl [FLEXERIL 10 MG *] 1 tab PO TID 04/02/17 [History Confirmed 04/02/17] Duloxetine HCl [CYMBALTA 30 MG *] 1 tab PO HS 04/02/17 [History Confirmed ] Duloxetine HCl [CYMBALTA 60 MG *] 1 tab PO DAILY 04/02/17 [History Confirmed 03/14] Emtricitabine/Tenofovir (Tdf) [Truvada 200 mg-300 mg Tablet] 1 tab PO DAILY 03/14 [History Confirmed 04/02/17] Fluconazole [DIFLUCAN TAB 100 MG *] 1 tab PO DAILY 04/02/17 [History Confirmed 04/02/17] Hydrocodone/Acetaminophen [Hydrocodon-Acetaminoph 7.5-300] 1 tab PO Q4-6H PRN [History Confirmed 04/02/17] Multivitamin [Multi-Vitamin Daily] 1 tab PO DAILY 04/02/17 [History Confirmed ] Quetiapine Fumarate [Seroquel] 1 tab PO HS 04/02/17 [History Confirmed 04/02/17] Ritonavir [Norvir] 1 tab PO DAILY 04/02/17 [History Confirmed 04/02/17] Sulfamethoxazole-Trimethoprim [BACTRIM DS TAB 800/160 MG *] 1 tab PO DAILY 04/02 [History Confirmed 04/02/17] - Review of Systems Constitutional: No Symptoms Reported Eyes: No Symptoms Reported ENT: No Symptoms Reported Respiratory: No Symptoms Reported Cardiovascular: No Symptoms Reported Gastrointestinal: No Symptoms Reported Genitourinary: No Symptoms Reported Musculoskeletal: No Symptoms Reported Skin: No Symptoms Reported Neurological: No Symptoms Reported - Physical Exam Vital Signs: Temperature 97.6 F Pulse Rate [Apical] 84 Pulse Rate [Right Radial] 75 Pulse Rate 86 Respiratory Rate 15 Blood Pressure [Right Arm] 165/94 O2 Sat by Pulse Oximetry 99 Oriented: Unable to test Eyes: Normal, Other (pupils unresponsive to light) Ear: Normal Nose: Normal Throat: Normal Respiratory: Clear Throughout Cardiovascular: Normal : Normal Auscultation: Bowel Sounds: Normal Palpation: Normal Tenderness: Normal Skin: Normal Musculoskeletal: Normal Psychiatric: Other (unresponsive) Mood Description: Withdrawn (unresponsive) Affect: Normal Speech Pattern: Aphasic - Assessment/Plan (1) Ingestion, drug, inadvertent or accidental Qualifiers: Encounter type: initial encounter Qualified Code(s): T50.901A - Poisoning by unspecified drugs, medicaments and biological substances, accidental ( unintentional), initial encounter Status: Acute Plan: monitor (2) Lower lobe pneumonia Qualifiers: Pneumonia type: due to unspecified organism Aspiration pneumonia type: A Laterality: bilateral Qualified Code(s): J18.9 - Pneumonia, unspecified organism Status: Acute Plan: Duonebs Q4hr, robitussin 10ml Po QID, Levaquin 750mg IV Daily (3) UTI (urinary tract infection) Qualifiers: Urinary tract infection type: acute cystitis Hematuria presence: with hematuria Indwelling urinary catheter type: I Encounter type: E Qualified Code(s): N30.01 - Acute cystitis with hematuria Status: Acute Plan: Levaquin 750mg IV Daily
[2017-04-02] MEDS: DUONEB 0.5 MG/3 MG NEB SCH ×3 (12:10→21:30)
[2017-04-02] MEDS: ULTRAM PO PRN (19:08)
[2017-04-03] MEDS: ULTRAM PO PRN ×2 (01:10→07:51)
[2017-04-03] MEDS: DUONEB 0.5 MG/3 MG NEB SCH ×3 (01:47→09:48)
[2017-04-03] MEDS ORDERED: NS 1/2 1000 ML IV 1,000 ML IV ONE (04:08)
[2017-04-03] MEDS: NS 1/2 1000 ML IV 1,000 ML IV SCH (04:09)
[2017-04-03] MEDS: LEVAQUIN PREMIX IV 750 MG 750 MG/150 ML BAG IV SCH (07:52)
[2017-04-03] MEDS: ROBITUSSIN DM PO SCH ×2 (07:53→11:43)
[2017-04-03] MEDS ORDERED: ROCEPHIN VIAL 2 GM 2 GM in NS 50 ML IV + SPIKE MINIBAG* 50 ML IV ONE (09:07)
[2017-04-03] MEDS ORDERED: NS 50 ML IV + SPIKE MINIBAG* 50 ML IV ONE (09:16)
[2017-04-03] MEDS ORDERED: ROCEPHIN VIAL 1 GM ONE ×2 (09:17→10:16)
[2017-04-03] MEDS ORDERED: XYLOCAINE 1 % (PLAIN) ONE (10:15)
[2017-04-03 10:57] VITALS: BP 140/90
== END 2017-04-03 11:00 | disposition home or self-care (01) ==
LOC: ER 22:26 → ICU 04-02 06:28
PROVIDERS: ADMIT Obstetrics & Gynecology Obstetrics; ATTEND Obstetrics & Gynecology Obstetrics
DX: T48.1X1A Poisoning by skeletal muscle relaxants [neuromuscular blocking agents], accidental (unintentional), initial encounter (principal); Z79.899 Other long term (current) drug therapy; J18.1 Lobar pneumonia, unspecified organism; N30.01 Acute cystitis with hematuria; R94.31 Abnormal electrocardiogram [ECG] [EKG]; R41.82 Altered mental status, unspecified; B96.29 Other Escherichia coli [E. coli] as the cause of diseases classified elsewhere
CPT/HCPCS: 36415; 36600; 51702; 70450; 71010; 80053; 80307; 81001; 82803; 83605; 85025; 87040; 87086; 87088; 87186; 93005; 93010; 94640; 96365; 96367; 96372; 96374; 96375; 99284; A4222; G0378; G0434; G6038; G6039; J0696; J1956; J2001; J2310; J3490; J7620

== ENCOUNTER 2017-05-14 15:08 | Emergency (ER) | payer SELFPAY ==
[2017-05-14 15:16] VITALS: BMI 18.8
[2017-05-14] MEDS ORDERED: CATAPRES TAB 0.1 MG ONE (15:30)
[2017-05-14] MEDS ORDERED: CATAPRES TAB 0.1 MG PO ONE (15:32)
--- NOTE | 2017-05-14 16:10 | DR.HTN ---
HPI - Time Seen Time seen: 13:50 - Primary Care Physician Primary Care Physician: ELAYNE IZQUIERDO - HPI Comment HPI Comment: Pt c/o awakening this morning with severe headache and elevated BP. She denies fever, chills, nausea and vomiting. She reports dizziness, nocturia,insomnia and L arm numbness. She is HIV +. - Complaints Chief Complaint Doctors Comments: "HEADACHE" Chief Complaint:: PT STATES " I GOT UP THIS AM WITH A SEVERE ROJAS AND MY LEFT HAND STARTED TINGLING".. Self Treatment fo Chief Complaint: TYLENOL, MOTRIN - Source History Provided: Patient - Mode of Arrival Mode of Arrival: Ambulatory - Timing Onset of Chief Complaint: 05/14/17 - Severity What was the maximum recorded B/P?: 162/100 - Associated Signs and Symptoms HTN Associated Signs and Symptoms: Dizziness PMH - PMH Past Medical History: Yes Past Medical History: Anxiety, Depression, Hypertension Past Surgical History: Yes Surgical History: Hysterectomy, Tonsillectomy - Family History History of Family Medical Conditions: Yes Family Medical History: Cancer, Heart Failure - Social History Does patient currently use any type of tobacco product: Yes Have you used tobacco products in the last 12 months: Yes Type of Tobacco Use: None How many years tobacco product used: 20 Does any household member use tobacco: No Alcohol Use: None Do you use any recreational Drugs:: No Lives With: Family Lives Where: Home - infectious screening In the last 2 months have you had wt loss of >10#?: NO Have you had fever, night sweats or hemotysis?: No Have you traveled outside the country in the last 6 months?: No Isolation: Standard ROS - Review of Systems Constitutional: Malaise, Weakness Eyes: No Symptoms Reported ENTM: No Symptoms Reported Respiratoy: No Symptoms Reported Cardiovascular: No Symptoms Reported Gastrointestinal/Abdominal: No Symptoms Reported Genitourinary: No Symptoms Reported Neurological: See HPI, Headache Musculoskeletal: No Symptoms Reported Integumentary: No Symptoms Reported Hematologic/Lymphatic: No Symptoms Reported Endocrine: No Symptoms Reported Psychiatric: Anxiety All Other Systems: Reviewed and Negative PE - Vital Signs Vitals: Temperature 98.9 F Pulse Rate [Standing] 88 Pulse Rate [Sitting] 89 Pulse Rate [Lying] 88 Pulse Rate 90 Respiratory Rate 20 Blood Pressure [Right Arm] 140/90 Blood Pressure [Standing] 146/94 Blood Pressure [Sitting] 147/96 Blood Pressure [Lying] 148/88 Blood Pressure 178/95 O2 Sat by Pulse Oximetry 100 - General Limitations: No Limitations General Appearance: Alert, Anxious - Head Head Exam: Normal Inspection, Atraumatic - Eyes Eye exam: Normal Appearance, PERRL, EOMI - ENT ENT Exam: Normal Exam, Normal Oropharynx, Normal External Ear Exam, Mucous Membranes Moist - Neck Neck Exam: Normal Inspection, Full ROM, Trachea Midline - Chest Chest Inspection: Normal Inspection, Symmetric Chest Wall Rise - Respiratory Respiratory Exam: Normal Lung Sounds Bilat Respiratory Exam: Bilateral Clear to Auscultation - Cardiovascular Cardiovascular Exam: Regular Rate, Normal Rhythm, Normal Heart Sounds - Abdominal Exam Abdominal Exam: Normal Inspection, Normal Bowel Sounds, Soft - Extremities Extremities Exam: Normal Inspection, Full ROM - Back Back Exam: Normal Inspection - Neurologic Neurological Exam: Alert, Oriented X3, CN II-XII Intact - Psychiatric Psychiatric Exam: Anxious - Skin Skin Exam: Warm, Dry, Intact, Normal Color MDM - Differential Diagnosis Differential Diagnosis: Hyertension, essential, Hypertensive emergency, Pulmonary edema Course - Reevaluation 1st: Improved (Headache 3-4 josé but BP is still elevated.) ROR - Labs Reviewed Result Diagrams: 05/14/17 16:08 05/14/17 16:08 Laboratory: WBC 5.9 X10^3/uL (3.6-10.0) 05/14/17 16:08 RBC 4.12 X10^6/uL (3.5-5.4) 05/14/17 16:08 Hgb 13.4 g/dL (12.0-16.0) 05/14/17 16:08 Hct 39.0 % (36.0-47.0) 05/14/17 16:08 MCV 94.6 fL (80.0-100.0) 05/14/17 16:08 MCH 32.4 pg (27.0-34.0) 05/14/17 16:08 MCHC 34.3 g/dL (33.0-35.0) 05/14/17 16:08 RDW 15.6 % (11.6-16.5) 05/14/17 16:08 Plt Count 212 X10^3/uL (150.0-450.0) 05/14/17 16:08 MPV 8.9 fL (7.4-11.0) 05/14/17 16:08 Neut % 79.7 % (42.0-75.0) H 05/14/17 16:08 Lymph % 11.6 % (21.0-51.0) L 05/14/17 16:08 Story % 7.2 % (0.0-13.0) 05/14/17 16:08 Eos % 0.8 % (0.9-2.9) L 05/14/17 16:08 Baso % 0.7 % (0.2-1.0) 05/14/17 16:08 Neut # 4.7 x10^3/uL (2.2-4.8) 05/14/17 16:08 Lymph # 0.7 X10^3/uL (1.3-2.9) L 05/14/17 16:08 Story # 0.4 x10^3/uL (0.3-0.8) 05/14/17 16:08 Eos # 0.0 x10^3/uL (0.0-0.2) 05/14/17 16:08 Baso # 0.0 X10^3/uL (0.0-0.1) 05/14/17 16:08 Absolute Nucleated RBC 0.0 /100WBC 05/14/17 16:08 Sodium 137 mmol/L (136-145) 05/14/17 16:08 Corrected Sodium TNP 05/14/17 16:08 Potassium 5.2 mmol/L (3.5-5.1) H 05/14/17 16:08 Chloride 100 mmol/L (98-107) 05/14/17 16:08 Carbon Dioxide 31.9 mmol/L (21-32) 05/14/17 16:08 BUN 9 mg/dL (7-18) 05/14/17 16:08 Creatinine 1.01 mg/dL (0.55-1.02) 05/14/17 16:08 Est GFR (MDRD) Af Amer > 60 (>60) 05/14/17 16:08 Est GFR (MDRD) Non-Af > 60 (>60) 05/14/17 16:08 Glucose 94 mg/dL (65-99) 05/14/17 16:08 Calcium 8.4 mg/dL (8.5-10.1) L 05/14/17 16:08 Corrected Calcium TNP 05/14/17 16:08 Total Bilirubin 0.20 mg/dL (0.2-1.0) 05/14/17 16:08 AST 17 Units/L (15-37) 05/14/17 16:08 ALT 15 Units/L (12-78) 05/14/17 16:08 Alkaline Phosphatase 138 Units/L (46-116) H 05/14/17 16:08 Total Protein 7.7 g/dL (6.4-8.2) 05/14/17 16:08 Albumin 3.6 g/dL (3.4-5.0) 05/14/17 16:08 Globulin 4.1 g/dL (2.5-4.5) 05/14/17 16:08 Albumin/Globulin Ratio 0.9 Ratio (1.1-2.1) L 05/14/17 16:08 Specimen Type Clean catch urine 05/14/17 17:09 Urine Color Yellow (YELLOW) 05/14/17 17:09 Urine Appearance Clear (CLEAR) 05/14/17 17:09 Urine pH 7.0 (5.0 - 8.0) 05/14/17 17:09 Ur Specific [place] 1.005 (1.000-1.030) 05/14/17 17:09 Urine Protein Negative (NEGATIVE) 05/14/17 17:09 Urine Glucose (UA) Negative (NEGATIVE) 05/14/17 17:09 Urine Ketones Negative (NEGATIVE) 05/14/17 17:09 Urine Occult Blood Negative (NEGATIVE) 05/14/17 17:09 Urine Nitrite Negative (NEGATIVE) 05/14/17 17:09 Urine Bilirubin Negative (NEGATIVE) 05/14/17 17:09 Urine Urobilinogen Normal (NORMAL) 05/14/17 17:09 Ur Leukocyte Esterase 1+ (NEGATIVE) 05/14/17 17:09 Urine RBC 0-2 /HPF (NEGATIVE) 05/14/17 17:09 Urine WBC 0-2 /HPF (NEGATIVE) 05/14/17 17:09 Ur Squamous Epith Cells Negative /HPF (NEGATIVE) 05/14/17 17:09 Urine Bacteria Negative /HPF (NEGATIVE) 05/14/17 17:09 Ur Culture Indicated? No/not indicated 05/14/17 17:09 - Diagnosis Discharge Problem: Hyperkalemia Headache Qualifiers: Headache type: tension-type Headache chronicity pattern: acute headache Intractability: not intractable Qualified Code(s): G44.209 - Tension-type headache, unspecified, not intractable Hypertension Qualifiers: Hypertension type: other secondary hypertension Qualified Code(s): I15.8 - Other secondary hypertension - Discharge Plan Condition: Stable - Follow ups/Referrals Follow ups/Referrals: ARIA HOLLY [Primary Care Provider] - 3 days - Instructions
[2017-05-14 16:16] LABS: BASOPHILS % (AUTO) 0.7 % (0.2-1.0); EOSINOPHILS % (AUTO) 0.8 % (0.9-2.9); HEMOGLOBIN 13.4 g/dL (12.0-16.0); LYMPHOCYTES # (AUTO) 0.7 X10^3/uL (1.3-2.9); LYMPHOCYTES % (AUTO) 11.6 % (21.0-51.0); MEAN CORPUSCULAR HEMOGLOBIN 32.4 pg (27.0-34.0); MEAN CORPUSCULAR HGB CONC 34.3 g/dL (33.0-35.0); MEAN CORPUSCULAR VOLUME 94.6 fL (80.0-100.0); MEAN PLATELET VOLUME 8.9 fL (7.4-11.0); MONOCYTES # (AUTO) 0.4 x10^3/uL (0.3-0.8); MONOCYTES % (AUTO) 7.2 % (0.0-13.0); NEUTROPHILS # (AUTO) 4.7 x10^3/uL (2.2-4.8); NEUTROPHILS % (AUTO) 79.7 % (42.0-75.0); PLATELET COUNT 212 X10^3/uL (150.0-450.0); RED BLOOD COUNT 4.12 X10^6/uL (3.5-5.4); RED CELL DISTRIBUTION WIDTH 15.6 % (11.6-16.5); WHITE BLOOD COUNT 5.9 X10^3/uL (3.6-10.0)
[2017-05-14 16:29] LABS: ALANINE AMINOTRANSFERASE 15 Units/L (12-78); ALBUMIN 3.6 g/dL (3.4-5.0); ALKALINE PHOSPHATASE 138 Units/L (46-116); ASPARTATE AMINO TRANSFERASE 17 Units/L (15-37); BLOOD UREA NITROGEN 9 mg/dL (7-18); CALCIUM 8.4 mg/dL (8.5-10.1); CARBON DIOXIDE 31.9 mmol/L (21-32); CHLORIDE 100 mmol/L (98-107); CREATININE 1.01 mg/dL (0.55-1.02); GLUCOSE 94 mg/dL (65-99); SODIUM 137 mmol/L (136-145); TOTAL PROTEIN 7.7 g/dL (6.4-8.2); eGFR BLACK RACES > 60 (>60); eGFR NON BLACK RACES > 60 (>60)
[2017-05-14] MEDS ORDERED: KAYEXALATE PO ONE (16:36)
--- NOTE | 2017-05-14 16:36 | CT ---
HISTORY: headaches Study: CT brain without contrast Comparison: 04/01/2017 Technique: Multiple axial images of the brain were obtained from the skull base to the vertex without administr ation of IV contrast. Automated dose control technique was utilized. Findings: The ventricles are normal. No intracranial hemorrhage or edema is seen. There is minimal periventric ular low density bilaterally which is unchanged. No intracranial hemorrhage or edema is seen and the re is no extra-axial fluid collection or mass. The midline structures are unremarkable. IMPRESSION: Minimal chronic microischemic changes in the deep white matter which are unchanged with no acute int racranial abnormality seen. Reported By:
[2017-05-14] MEDS ORDERED: PHENERGAN INJ 25 MG IVP ONE (16:44)
[2017-05-14] MEDS ORDERED: DECADRON INJ IM ONE (16:46)
[2017-05-14] MEDS ORDERED: TORADOL 60 MG VIAL IVP ONE (16:48)
[2017-05-14] MEDS ORDERED: TORADOL 30 MG VIAL ONE (16:52)
[2017-05-14] MEDS ORDERED: PHENERGAN INJ 25 MG ONE (16:52)
[2017-05-14] MEDS ORDERED: DECADRON INJ ONE (16:53)
[2017-05-14 17:17] LABS: BILIRUBIN,URINE NEGATIVE (NEGATIVE); BLOOD/HEMOGLOBIN,URINE NEGATIVE (NEGATIVE); GLUCOSE, URINE NEGATIVE (NEGATIVE); KETONES,URINE NEGATIVE (NEGATIVE); LEUKOCYTE ESTERASE ,URINE 1+ (NEGATIVE); NITRITES,URINE NEGATIVE (NEGATIVE); PROTEIN,URINE NEGATIVE (NEGATIVE); UROBILINOGEN,URINE NORMAL (NORMAL)
[2017-05-14] MEDS ORDERED: NIFEDIPINE CAP 10 MG PO ONE (17:24)
[2017-05-14 17:46] LABS: APPEARANCE,URINE CLEAR (CLEAR); BACTERIA,URINE NEGATIVE /HPF (NEGATIVE); COLOR,URINE YELLOW (YELLOW); RBC,URINE 0-2 /HPF (NEGATIVE); SQUAMOUS EPITHELIAL CELL,UR NEGATIVE /HPF (NEGATIVE)
[2017-05-14] MEDS ORDERED: NIFEDIPINE CAP 10 MG ONE (17:54)
[2017-05-14 18:31] VITALS: BP 148/88
== END 2017-05-14 20:34 | disposition home or self-care (01) ==
LOC: ER 15:18
DX: G44.209 Tension-type headache, unspecified, not intractable (principal); E87.5 Hyperkalemia; I15.8 Other secondary hypertension
CPT/HCPCS: 36415; 70450; 80053; 81001; 85025; 93005; 93010; 96365; 96372; 96374; 96375; 99283; A4222; J1100; J1885; J2550

== ENCOUNTER 2017-06-19 13:00 | Emergency (ER) | payer SELFPAY ==
[2017-06-19 13:23] VITALS: BMI 19.1
[2017-06-19] MEDS ORDERED: DEMEROL INJ IM ONE (13:38)
[2017-06-19] MEDS ORDERED: PHENERGAN INJ 25 MG IM ONE (13:38)
--- NOTE | 2017-06-19 13:38 | DR.HEADACH ---
HPI - Time Seen Time seen: 13:35 - Primary Care Physician Primary Care Physician: ELAYNE - HPI Comment HPI Comment: WOKE UP WITH SEVERE HEADACHE THAT IS GETTING WORSE. HISTORY HEADACHE, BRAIN CT DONE ONE MONTH AGO. REPORTED NO ACUTE FINDINGS. - Complaint/Symptoms Chief Complaint Doctors Comments: HEADACHE FOR HOURS. Chief Complaint:: SEVERE PAIN TO HEAD THAT WILL NOT GO AWAY. WOKE UP AT 6AM TODAY WITH THE PAIN AND IT IS GETTING WORSE Pertinent History: Dizziness/Weakness, Headache - Reviewed Nurses Notes Reviewed: Yes - Source History Provided: Patient - Mode of Arrival Mode of Arrival: Ambulatory - Timing Onset of Chief Complaint: 06/19/17 - Duration Since Onset: Constant Duration: Hours - Location Headache Location: Generalized - Quality Quality: Throbbing - Severity Headache Severity: Like Previous Headaches - Context Headache Onset Circumstances: Spontaneous History of: Hypertension Prior Work Up: CT (ONE MONTH AGO. NO ACUTE FINDINGS) - Modifying Factors Improves With: Nothing Worsens: Nothing - Associated Signs and Symptoms Associated Symptoms: Nausea Aura: denies: Visual, Sensory, Motor, Mood PMH - PMH Past Medical History: Yes Past Medical History: Anxiety, Depression, Hypertension Past Surgical History: Yes Surgical History: Hysterectomy, Tonsillectomy - Family History History of Family Medical Conditions: Yes Family Medical History: Cancer, Heart Failure - Social History Type of Tobacco Use: Cigarettes Alcohol Use: None Do you use any recreational Drugs:: No Lives With: Alone Lives Where: Home - infectious screening In the last 2 months have you had wt loss of >10#?: NO Have you had fever, night sweats or hemotysis?: No Have you traveled outside the country in the last 6 months?: No Isolation: Standard ROS - Review of Systems Constitutional: No Symptoms Reported Eyes: Photophobia. negative: Eye Pain, Blurred Vision, Discharge ENTM: No Symptoms Reported. negative: Ear Pain, Nose Discharge, Nose Congestion , Throat Pain Respiratoy: No Symptoms Reported. negative: Productive Cough, Non-Productive Cough, Short of Breath, Wheezing, Hemoptysis Cardiovascular: No Symptoms Reported Gastrointestinal/Abdominal: Nausea Genitourinary: No Symptoms Reported. negative: Dysuria, Frequency, Hematuria Neurological: Headache, Dizziness. negative: Weakness Musculoskeletal: Muscle Pain Integumentary: No Symptoms Reported Hematologic/Lymphatic: No Symptoms Reported Endocrine: No Symptoms Reported All Other Systems: Reviewed and Negative PE - Vital Signs Vitals: Temperature 98.7 F Pulse Rate 99 Respiratory Rate 14 Blood Pressure [Right Arm] 138/93 Blood Pressure [Standing] 146/94 Blood Pressure [Sitting] 147/96 Blood Pressure [Lying] 148/88 Blood Pressure 151/94 O2 Sat by Pulse Oximetry 100 - General Limitations: No Limitations General Appearance: Alert - Head Head Exam: Normal Inspection - Eyes Eye exam: Normal Appearance, PERRL, EOMI. negative: Scleral Icterus, Conjunctival Injection, Periorbital Swelling, Periorbital Tenderness Eyelids: Normal Inspection: Bilateral Pupils: Regular, Round: Bilateral, Reactive: Bilateral Sclera/Conjunctival: Normal Inspection: Bilateral - ENT ENT Exam: Normal Exam, Normal Oropharynx, Normal External Ear Exam, Mucous Membranes Moist, TM's Normal Bilaterally External Ear Exam: Normal External Inspection TM/Canal Exam: Bilateral Normal Nose Exam: Normal Nose Exam Mouth Exam: Normal Inspection Teeth Exam: Normal Inspection Throat Exam: Normal Inspection - Neck Neck Exam: Trachea Midline - Chest Chest Inspection: Symmetric Chest Wall Rise - Respiratory Respiratory Exam: Normal Lung Sounds Bilat Respiratory Exam: Bilateral Clear to Auscultation - Cardiovascular Cardiovascular Exam: Regular Rate, Normal Heart Sounds - Abdominal Exam Abdominal Exam: Normal Bowel Sounds, Soft. negative: Tenderness - Extremities Extremities Exam: Normal Inspection - Back Back Exam: Normal Inspection - Neurologic Neurological Exam: Alert, Oriented X3, CN II-XII Intact, Normal Gait, Reflexes Normal. negative: Motor Sensory Deficit - Psychiatric Psychiatric Exam: Normal Affect, Normal Mood - Skin Skin Exam: Normal Color MDM - Differential Diagnosis Differential Diagnosis Comment: MIGRAINE HEADACHE, HYPERTENSION, SINUSITIS Course - Treatment Treatment: SEE ORDERS. IM DEMOROL AND ZOFRAM, HEADACHE NOT IMPROVE. BP HIGH. CLONIDINE PO BP IMPROVED. HEADACHE RESOLVE. - Reevaluation 1st: Improved - Education/Counseling Education/Counseling: Patient, Education Educated On: Diagnosis, Needs for Follow Up - Diagnosis Discharge Problem: Headache Qualifiers: Headache type: unspecified Headache chronicity pattern: acute headache Intractability: intractable Qualified Code(s): R51 - Headache Hypertension Qualifiers: Hypertension type: essential hypertension Qualified Code(s): I10 - Essential ( primary) hypertension - Discharge Plan Disposition: HOME, SELF-CARE Condition: Stable Prescriptions: [id number] [Fioricet Tab] 1 tab PO Q8H PRN #20 tab PRN Reason: Migraine Headache Clonidine HCl [CATAPRES 0.1 MG TAB *] 0.1 mg PO DAILY #30 tab - Follow ups/Referrals Follow ups/Referrals: N[facility],None [Primary Care Provider] - 3 days - Instructions Instructions: Headache and Arthritis, Hypertension, [id number] Additional Instructions: RETURN TO ED IF WORSE.
[2017-06-19] MEDS ORDERED: DEMEROL INJ ONE (13:41)
[2017-06-19] MEDS ORDERED: PHENERGAN INJ 25 MG ONE (13:41)
[2017-06-19] MEDS ORDERED: CATAPRES TAB 0.1 MG PO ONE (15:08)
[2017-06-19] MEDS ORDERED: CATAPRES TAB 0.1 MG ONE (15:10)
[2017-06-19 16:04] VITALS: BP 138/93
== END 2017-06-19 16:48 | disposition home or self-care (01) ==
LOC: ER 13:25
DX: R51 Headache (principal); I10 Essential (primary) hypertension
CPT/HCPCS: 96372; 99282; J2175; J2550

== ENCOUNTER 2017-06-25 05:51 | Inpatient (IN) | payer SELFPAY ==
--- NOTE | 2017-06-25 06:13 | DR.SA ---
HPI - Time Seen Time seen: 06:00 - PCP Primary Care Physician: ELAYNE - Complaint / Symptoms Chief Complaint Doctors Comments: Patient states that she was depressed and took 27 clonidine 0.1 and ~20 fioricet. She states that she gets depressed at times. The depression is dueto her in , and her two children were murdered in 2010. She states that she keeps her appointments with [facility][1]. Patient states that she took some of the medication around 2100 and the remainder around 0200. Chief Complaint:: SUICIDAL, STATES SHE TOOK 28 CLONIDINE 0.1 MG AND 20 FIORCET APROX 2 HRS AGO, Self Treatment fo Chief Complaint: NONE - Source History Provided: Patient, EMS - Mode of Arrival Mode of Arrival: EMS - Timing Onset of Chief Complaint: 06/25/17 <PEPPER GONZALEZ - Last Filed: 06/25/17 07:54> PMH - PMH Past Medical History: Yes Past Medical History: Anxiety, Depression, Hypertension Past Surgical History: Yes Surgical History: Hysterectomy, Tonsillectomy - Family History History of Family Medical Conditions: Yes Family Medical History: Cancer, Heart Failure - Social History Does patient currently use any type of tobacco product: Yes Have you used tobacco products in the last 12 months: Yes Type of Tobacco Use: Cigarettes Does any household member use tobacco: No Alcohol Use: None Do you use any recreational Drugs:: No Lives With: Alone - infectious screening In the last 2 months have you had wt loss of >10#?: NO Have you had fever, night sweats or hemotysis?: No Have you traveled outside the country in the last 6 months?: No Isolation: Standard <PEPPER GONZALEZ - Last Filed: 06/25/17 07:54> ROS - Review of Systems Eyes: No Symptoms Reported ENTM: No Symptoms Reported Respiratoy: No Symptoms Reported Cardiovascular: No Symptoms Reported Gastrointestinal/Abdominal: No Symptoms Reported Genitourinary: No Symptoms Reported Neurological: No Symptoms Reported Musculoskeletal: No Symptoms Reported Integumentary: No Symptoms Reported Hematologic/Lymphatic: No Symptoms Reported Endocrine: No Symptoms Reported Psychiatric: No Symptoms Reported All Other Systems: Reviewed and Negative <PEPPER GONZALEZ - Last Filed: 06/25/17 07:54> PE - General Limitations: No Limitations, Language Barrier General Appearance: Alert - Head Head Exam: Normal Inspection, Atraumatic - Eyes Eye exam: Normal Appearance, PERRL, EOMI Eyelids: Normal Inspection: Bilateral Pupils: Regular, Round: Left Sclera/Conjunctival: Normal Inspection: Bilateral Anterior Chamber: Normal Inspection: Bilateral - ENT ENT Exam: Normal Exam - Neck Neck Exam: Normal Inspection, Full ROM - Chest Chest Inspection: Normal Inspection, Symmetric Chest Wall Rise - Respiratory Respiratory Exam: Normal Lung Sounds Bilat Respiratory Exam: Bilateral Clear to Auscultation - Cardiovascular Cardiovascular Exam: Regular Rate, Normal Rhythm - Abdominal Exam Abdominal Exam: Normal Inspection, Normal Bowel Sounds Abdominal Tenderness: negative: RUQ, RLQ, LUQ, LLQ, Epigastrium, Suprapubic, Diffuse, Mild, Moderate, Severe, Other - Extremities Extremities Exam: Normal Inspection, Full ROM - Back Back Exam: Normal Inspection, Full ROM - Neurologic Neurological Exam: Alert, Oriented X3, CN II-XII Intact - Psychiatric Psychiatric Exam: Normal Affect, Normal Mood - Skin Skin Exam: Warm, Dry, Intact Type of Lesion: Rash Distribution: Generalized, Involves Palms/Soles Description: Size <PEPPER GONZALEZ - Last Filed: 06/25/17 07:54> - Vital Signs Vitals: Temperature 97.9 F Pulse Rate [Right Radial] 51 Pulse Rate 54 Respiratory Rate 18 Blood Pressure [Right Arm] 121/78 Blood Pressure [Standing] 146/94 Blood Pressure [Sitting] 147/96 Blood Pressure [Lying] 148/88 Blood Pressure 174/93 O2 Sat by Pulse Oximetry 100 MDM - Differential Diagnosis Differential Diagnosis: Depression, Suicidal, Other (drug overdose) <SURINDER NOGUERA - Last Filed: 06/25/17 21:55> Course - Reevaluation 1st: Improved <PEPPER GONZALEZ - Last Filed: 06/25/17 07:54> - Treatment Treatment: see orders - Consultation Consultation Comments: discuss patient with dr. guidry. he will admit patient. - Education/Counseling Education/Counseling: Education Educated On: Treatment, Diagnosis <SURINDER NOGUERA - Last Filed: 06/25/17 21:55> ROR - Labs Reviewed Result Diagrams: 06/25/17 06:20 06/25/17 06:20 - XRAY XRAY Interpreted by: Radiologist (Chest; lungs are clear ) <PEPPER GONZALEZ - Last Filed: 06/25/17 07:54> - Labs Reviewed Laboratory Results Reviewed?: Yes Result Diagrams: 06/25/17 06:20 06/25/17 06:20 - XRAY XRAY Interpreted by: Radiologist - EKG Rhythm: NSR <SURINDER NOGUERA - Last Filed: 06/25/17 21:55> - Labs Reviewed Laboratory: WBC 10.9 X10^3/uL (3.6-10.0) H 06/25/17 06:20 RBC 3.91 X10^6/uL (3.5-5.4) 06/25/17 06:20 Hgb 12.9 g/dL (12.0-16.0) 06/25/17 06:20 Hct 37.4 % (36.0-47.0) 06/25/17 06:20 MCV 95.6 fL (80.0-100.0) 06/25/17 06:20 MCH 33.0 pg (27.0-34.0) 06/25/17 06:20 MCHC 34.6 g/dL (33.0-35.0) 06/25/17 06:20 RDW 14.4 % (11.6-16.5) 06/25/17 06:20 Plt Count 174 X10^3/uL (150.0-450.0) 06/25/17 06:20 MPV 9.6 fL (7.4-11.0) 06/25/17 06:20 Neut % 83.6 % (42.0-75.0) H 06/25/17 06:20 Lymph % 7.7 % (21.0-51.0) L 06/25/17 06:20 [place] % 6.2 % (0.0-13.0) 06/25/17 06:20 Eos % 2.0 % (0.9-2.9) 06/25/17 06:20 Baso % 0.5 % (0.2-1.0) 06/25/17 06:20 Neut # 9.1 x10^3/uL (2.2-4.8) H 06/25/17 06:20 Lymph # 0.8 X10^3/uL (1.3-2.9) L 06/25/17 06:20 [place] # 0.7 x10^3/uL (0.3-0.8) 06/25/17 06:20 Eos # 0.2 x10^3/uL (0.0-0.2) 06/25/17 06:20 Baso # 0.1 X10^3/uL (0.0-0.1) 06/25/17 06:20 Absolute Nucleated RBC 0.0 /100WBC 06/25/17 06:20 Sodium 142 mmol/L (136-145) 06/25/17 06:20 Corrected Sodium 143 mmol/L (136-145) 06/25/17 06:20 Potassium 3.8 mmol/L (3.5-5.1) 06/25/17 06:20 Chloride 105 mmol/L (98-107) 06/25/17 06:20 Carbon Dioxide 28.9 mmol/L (21-32) 06/25/17 06:20 BUN 12 mg/dL (7-18) 06/25/17 06:20 Creatinine 0.97 mg/dL (0.55-1.02) 06/25/17 06:20 Est GFR (MDRD) Af Amer > 60 (>60) 06/25/17 06:20 Est GFR (MDRD) Non-Af > 60 (>60) 06/25/17 06:20 Glucose 125 mg/dL (65-99) H 06/25/17 06:20 Calcium 8.9 mg/dL (8.5-10.1) 06/25/17 06:20 Corrected Calcium 9.5 mg/dL (8.5-10.1) 06/25/17 06:20 Magnesium 1.9 mg/dL (1.7-2.9) 06/25/17 06:20 Total Bilirubin 0.50 mg/dL (0.2-1.0) 06/25/17 06:20 AST 21 Units/L (15-37) 06/25/17 06:20 ALT 19 Units/L (12-78) 06/25/17 06:20 Alkaline Phosphatase 108 Units/L (46-116) 06/25/17 06:20 Creatine Kinase 69 Units/L (26-192) 06/25/17 06:20 CK-MB (CK-2) 1.0 ng/mL (0-4.0) 06/25/17 06:20 CK/CKMB % Calc 1.5 % (<4) 06/25/17 06:20 Troponin I < 0.02 ng/mL (0-1.5) 06/25/17 06:20 Total Protein 7.0 g/dL (6.4-8.2) 06/25/17 06:20 Albumin 3.3 g/dL (3.4-5.0) L 06/25/17 06:20 Globulin 3.7 g/dL (2.5-4.5) 06/25/17 06:20 Albumin/Globulin Ratio 0.9 Ratio (1.1-2.1) L 06/25/17 06:20 Specimen Type Catherized urine 06/25/17 06:40 Urine Color Yellow (YELLOW) 06/25/17 06:40 Urine Appearance Clear (CLEAR) 06/25/17 06:40 Urine pH 7.0 (5.0 - 8.0) 06/25/17 06:40 Ur Specific [place] 1.010 (1.000-1.030) 06/25/17 06:40 Urine Protein Negative (NEGATIVE) 06/25/17 06:40 Urine Glucose (UA) Negative (NEGATIVE) 06/25/17 06:40 Urine Ketones Negative (NEGATIVE) 06/25/17 06:40 Urine Occult Blood Negative (NEGATIVE) 06/25/17 06:40 Urine Nitrite Negative (NEGATIVE) 06/25/17 06:40 Urine Bilirubin Negative (NEGATIVE) 06/25/17 06:40 Urine Urobilinogen Normal (NORMAL) 06/25/17 06:40 Ur Leukocyte Esterase Negative (NEGATIVE) 06/25/17 06:40 Urine RBC None seen /HPF (NEGATIVE) 06/25/17 06:40 Urine WBC None seen /HPF (NEGATIVE) 06/25/17 06:40 Ur Squamous Epith Cells Rare /HPF (NEGATIVE) 06/25/17 06:40 Amorphous Sediment Trace /HPF (NEGATIVE) 06/25/17 06:40 Urine Bacteria Negative /HPF (NEGATIVE) 06/25/17 06:40 Ur Culture Indicated? No/not indicated 06/25/17 06:40 Salicylates 5.6 mg/dL (2.8-20) 06/25/17 06:20 Urine Opiates Screen Negative (NEG=<300) 06/25/17 06:40 Urine Methadone Screen Negative (NEG=<300) 06/25/17 06:40 Acetaminophen 0.0 ug/mL (10-30) L 06/25/17 06:20 Ur Barbiturates Screen Positive (NEG=<200) A 06/25/17 06:40 Ur Phencyclidine Scrn Negative (NEG=<25) 06/25/17 06:40 Ur Amphetamines Screen Negative (NEG=<1000) 06/25/17 06:40 U Benzodiazepines Scrn Negative (NEG=<200) 06/25/17 06:40 Urine Cocaine Screen Negative (NEG=<300) 06/25/17 06:40 U Marijuana (THC) Screen Negative (NEG=<50) 06/25/17 06:40 <PEPPER GONZALEZ - Last Filed: 06/25/17 07:54> <SURINDER NOGUERA - Last Filed: 06/25/17 21:55> - Diagnosis Discharge Problem: Drug abuse and dependence Suicidal behavior Qualifiers: Attempted self-injury: with attempted self-injury Qualified Code(s): T14.91 - Suicide attempt Depression Qualifiers: Depression Type: major depressive disorder Major depression recurrence: recurrent Active/Remission status: currently active Major depression episode severity: unspecified Qualified Code(s): F33.9 - Major depressive disorder, recurrent, unspecified - Discharge Plan Disposition: ADMITTED INPATIENT Condition: Stable
[2017-06-25] MEDS ORDERED: ATROPINE SULFATE ABBOJECT IVP ONE (06:33)
[2017-06-25 06:40] LABS: BASOPHILS # (AUTO) 0.1 X10^3/uL (0.0-0.1); BASOPHILS % (AUTO) 0.5 % (0.2-1.0); EOSINOPHILS # (AUTO) 0.2 x10^3/uL (0.0-0.2); HEMATOCRIT 37.4 % (36.0-47.0); HEMOGLOBIN 12.9 g/dL (12.0-16.0); LYMPHOCYTES # (AUTO) 0.8 X10^3/uL (1.3-2.9); LYMPHOCYTES % (AUTO) 7.7 % (21.0-51.0); MEAN CORPUSCULAR HGB CONC 34.6 g/dL (33.0-35.0); MEAN CORPUSCULAR VOLUME 95.6 fL (80.0-100.0); MEAN PLATELET VOLUME 9.6 fL (7.4-11.0); MONOCYTES # (AUTO) 0.7 x10^3/uL (0.3-0.8); MONOCYTES % (AUTO) 6.2 % (0.0-13.0); NEUTROPHILS # (AUTO) 9.1 x10^3/uL (2.2-4.8); NEUTROPHILS % (AUTO) 83.6 % (42.0-75.0); PLATELET COUNT 174 X10^3/uL (150.0-450.0); RED BLOOD COUNT 3.91 X10^6/uL (3.5-5.4); RED CELL DISTRIBUTION WIDTH 14.4 % (11.6-16.5); WHITE BLOOD COUNT 10.9 X10^3/uL (3.6-10.0)
--- NOTE | 2017-06-25 06:45 | RAD ---
HISTORY: Drug overdose Study: Chest AP portable Comparison: April 01, 2017 Findings: The heart is within normal limits in size. The elliot are normal. The lungs are hyperinflated but free of acute alveolar infiltrates. No pleural effusions are identified. The bony thorax is unremarkable. IMPRESSION: Lungs hyperinflated but clear Reported By:
[2017-06-25 06:47] LABS: SALICYLATE 5.6 mg/dL (2.8-20)
[2017-06-25] MEDS ORDERED: ATROPINE SULFATE ABBOJECT ONE (06:48)
[2017-06-25 06:51] LABS: BILIRUBIN,URINE NEGATIVE (NEGATIVE); BLOOD/HEMOGLOBIN,URINE NEGATIVE (NEGATIVE); GLUCOSE, URINE NEGATIVE (NEGATIVE); KETONES,URINE NEGATIVE (NEGATIVE); LEUKOCYTE ESTERASE ,URINE NEGATIVE (NEGATIVE); NITRITES,URINE NEGATIVE (NEGATIVE); PROTEIN,URINE NEGATIVE (NEGATIVE); UROBILINOGEN,URINE NORMAL (NORMAL)
[2017-06-25 06:52] LABS: ALANINE AMINOTRANSFERASE 19 Units/L (12-78); ALBUMIN 3.3 g/dL (3.4-5.0); ALKALINE PHOSPHATASE 108 Units/L (46-116); ASPARTATE AMINO TRANSFERASE 21 Units/L (15-37); BLOOD UREA NITROGEN 12 mg/dL (7-18); CALCIUM 8.9 mg/dL (8.5-10.1); CARBON DIOXIDE 28.9 mmol/L (21-32); CHLORIDE 105 mmol/L (98-107); COR CA(FOR HYPOALB) 9.5 mg/dL (8.5-10.1); COR NA(FOR HYPERGLY) 143 mmol/L (136-145); CREATININE 0.97 mg/dL (0.55-1.02); SODIUM 142 mmol/L (136-145); eGFR BLACK RACES > 60 (>60); eGFR NON BLACK RACES > 60 (>60)
[2017-06-25] MEDS: NS 1000 ML 1,000 ML IV SCH ×2 (06:53→19:10)
[2017-06-25 06:58] LABS: CKMB % 1.5 % (<4); CREATINE KINASE 69 Units/L (26-192); TROPONIN I < 0.02 ng/mL (0-1.5)
[2017-06-25 07:03] LABS: APPEARANCE,URINE CLEAR (CLEAR); BACTERIA,URINE NEGATIVE /HPF (NEGATIVE); COLOR,URINE YELLOW (YELLOW); RBC,URINE NONE SEEN /HPF (NEGATIVE); SQUAMOUS EPITHELIAL CELL,UR RARE /HPF (NEGATIVE)
[2017-06-25 07:04] LABS: AMORPHOUS SEDIMENT,UR TRACE /HPF (NEGATIVE)
[2017-06-25 13:14] LABS: CKMB % 1.7 % (<4); CREATINE KINASE 58 Units/L (26-192); CREATINE KINASE MB < 1.0 ng/mL (0-4.0); TROPONIN I < 0.02 ng/mL (0-1.5)
[2017-06-25] MEDS ORDERED: PHENERGAN TAB 25 MG PO ONE (15:14)
[2017-06-25] MEDS: PHENERGAN TAB 25 MG PO PRN (15:19)
[2017-06-25 19:12] LABS: CKMB % 2.2 % (<4); CREATINE KINASE 45 Units/L (26-192); CREATINE KINASE MB < 1.0 ng/mL (0-4.0); TROPONIN I < 0.02 ng/mL (0-1.5)
[2017-06-26] MEDS ORDERED: FIORICET TAB PO PRN (01:47)
[2017-06-26] MEDS ORDERED: PHENERGAN TAB 25 MG PO PRN (01:47)
[2017-06-26] MEDS ORDERED: PATIENT'S HOME MEDICATION (Buspirone Hcl [Buspirone Hcl] 1 TAB) PO PRN (01:47)
[2017-06-26] MEDS ORDERED: ULTRAM PO PRN (01:47)
[2017-06-26] MEDS: NS 1000 ML 1,000 ML IV SCH ×5 (02:08→15:48)
[2017-06-26] MEDS: PHENERGAN TAB 25 MG PO PRN ×2 (04:41→13:14)
[2017-06-26] MEDS: NEURONTIN CAP 400 MG PO SCH ×3 (05:25→21:11)
[2017-06-26] MEDS ORDERED: PATIENT'S HOME MEDICATION (Gabapentin [Gabapentin] 800 MG) PO SCH (06:00)
[2017-06-26 06:18] LABS: EOSINOPHILS # (AUTO) 0.2 x10^3/uL (0.0-0.2); EOSINOPHILS % (AUTO) 6.3 % (0.9-2.9); HEMATOCRIT 36.5 % (36.0-47.0); HEMOGLOBIN 12.4 g/dL (12.0-16.0); LYMPHOCYTES # (AUTO) 0.7 X10^3/uL (1.3-2.9); MEAN CORPUSCULAR HEMOGLOBIN 32.9 pg (27.0-34.0); MEAN CORPUSCULAR VOLUME 96.7 fL (80.0-100.0); MEAN PLATELET VOLUME 10.6 fL (7.4-11.0); MONOCYTES # (AUTO) 0.4 x10^3/uL (0.3-0.8); MONOCYTES % (AUTO) 15.1 % (0.0-13.0); NEUTROPHILS # (AUTO) 1.5 x10^3/uL (2.2-4.8); NEUTROPHILS % (AUTO) 51.6 % (42.0-75.0); PLATELET COUNT 151 X10^3/uL (150.0-450.0); RED BLOOD COUNT 3.77 X10^6/uL (3.5-5.4); RED CELL DISTRIBUTION WIDTH 14.1 % (11.6-16.5); WHITE BLOOD COUNT 2.9 X10^3/uL (3.6-10.0)
[2017-06-26 06:22] LABS: ALANINE AMINOTRANSFERASE 14 Units/L (12-78); ALKALINE PHOSPHATASE 98 Units/L (46-116); ASPARTATE AMINO TRANSFERASE 15 Units/L (15-37); BLOOD UREA NITROGEN 6 mg/dL (7-18); CALCIUM 8.6 mg/dL (8.5-10.1); CARBON DIOXIDE 26.8 mmol/L (21-32); CHLORIDE 105 mmol/L (98-107); COR CA(FOR HYPOALB) 9.4 mg/dL (8.5-10.1); COR NA(FOR HYPERGLY) 139 mmol/L (136-145); CREATININE 0.81 mg/dL (0.55-1.02); MAGNESIUM 1.8 mg/dL (1.7-2.9); SODIUM 138 mmol/L (136-145); TOTAL PROTEIN 6.5 g/dL (6.4-8.2); eGFR BLACK RACES > 60 (>60); eGFR NON BLACK RACES > 60 (>60)
[2017-06-26] MEDS ORDERED: BUSPAR PO PRN (07:46)
[2017-06-26] MEDS ORDERED: ATAZANAVIR SULFATE PO SCH (09:00)
[2017-06-26] MEDS ORDERED: RITONAVIR PO SCH (09:00)
[2017-06-26] MEDS: TAB-A-VITE PO SCH (13:16)
--- NOTE | 2017-06-26 14:23 | DR.H&P ---
H&P - History & Physical for Day of: H&P Date: 06/25/17 - Chief Complaint Chief Complaint: Patient states that she was depressed and took 27 clonidine 0.1 and ~20 fioricet. She states that she gets depressed at times. The depression is due to her in , and her two children were murdered in 2010. She states that she keeps her appointments with [facility]. - Allergies Allergies/Adverse Reactions: Allergies Allergy/AdvReac Type Severity Reaction Status Date / Time No Known Drug Allergies Allergy Verified 06/19/17 13:15 - History of Present Illness History of Present Illness: patient is a 47-year-old white female who was an admission from the ER after presenting with suicidal ideations and suicide attempt. Patient states she ingested multiple clonidine and butalbital. The patient made it to the ICU for further cardiac monitoring, 1013 signed per ER physician on chart, patient admits to suicide attempt, patient agrees she needs help and agrees for mental health evaluation and placement. - Past Medical History Past Medical History: Anxiety, Depression, Hypertension - Past Surgical History Surgical History: Hysterectomy - Family History Family Medical History: Cancer, [place], Heart Failure, Hypertension - Social History Does patient currently use any type of tobacco product: Yes Have you used tobacco products in the last 12 months: Yes Type of Tobacco Use: Cigarettes Does any household member use tobacco: No Alcohol Use: None Drug Use: Prescription Drugs - Medications Home Medications: Promethazine HCl 1 tab PO .Q8-12HR PRN 06/25/17 [History Confirmed 06/25/17] Tramadol HCl [ULTRAM 50 MG *] 50 mg PO Q12H PRN 06/25/17 [History Confirmed ] - Review of Systems Constitutional: Malaise Eyes: No Symptoms Reported ENT: No Symptoms Reported Respiratory: Wheezing Cardiovascular: No Symptoms Reported Gastrointestinal: Nausea Genitourinary: No Symptoms Reported Musculoskeletal: No Symptoms Reported Skin: No Symptoms Reported Neurological: No Symptoms Reported - Physical Exam Vital Signs: Temperature 98.2 F Pulse Rate [Right Radial] 57 Pulse Rate 54 Respiratory Rate 21 Blood Pressure [Right Arm] 112/63 Blood Pressure [Standing] 146/94 Blood Pressure [Sitting] 147/96 Blood Pressure [Lying] 148/88 Blood Pressure 174/93 O2 Sat by Pulse Oximetry 100 Oriented: Normal Eyes: Normal Ear: Normal Nose: Normal Throat: Normal Respiratory: RLL Exp. Wheeze, LLL Exp. Wheeze Cardiovascular: Bradycardia (58/min) Auscultation: Bowel Sounds: Normal Palpation: Normal Tenderness: Normal Skin: Normal Musculoskeletal: Normal Psychiatric: Depression Mood Description: Depressed Speech Pattern: Clear, Appropriate - Assessment/Plan (1) Suicidal behavior Qualifiers: Attempted self-injury: with attempted self-injury Qualified Code(s): T14.91 - Suicide attempt Status: Acute Plan: 1013 on chart, pt to received mental health evaluation and placement after medically cleared. repeat am labs, continuous cardiac moniotring and bp monitoring, supplemental o2 as needed. resume home HIV meds (2) Depression Qualifiers: Depression Type: major depressive disorder Major depression recurrence: recurrent Active/Remission status: currently active Major depression episode severity: unspecified Qualified Code(s): F33.9 - Major depressive disorder, recurrent, unspecified Status: Acute (3) DJD (degenerative joint disease) Qualifiers: Osteoarthritis location: foot Osteoarthritis type: unspecified Laterality : left Qualified Code(s): M19.072 - Primary osteoarthritis, left ankle and foot Status: Acute (4) HIV disease Status: Acute
[2017-06-26] MEDS: CYMBALTA PO SCH ×2 (15:25→21:19)
[2017-06-26] MEDS ORDERED: QUETIAPINE FUMARATE PO SCH (21:00)
[2017-06-26] MEDS: ATAZANAVIR SULFATE PO SCH (21:09)
[2017-06-26] MEDS: RITONAVIR PO SCH (21:10)
[2017-06-26] MEDS: SEROquel TAB 100 MG PO SCH (21:11)
[2017-06-27] MEDS: NS 1000 ML 1,000 ML IV SCH ×3 (02:11→21:21)
[2017-06-27] MEDS: NEURONTIN CAP 400 MG PO SCH ×4 (06:01→21:15)
[2017-06-27 06:26] LABS: ALANINE AMINOTRANSFERASE 15 Units/L (12-78); ALBUMIN 2.7 g/dL (3.4-5.0); ALKALINE PHOSPHATASE 83 Units/L (46-116); ASPARTATE AMINO TRANSFERASE 19 Units/L (15-37); BASOPHILS % (AUTO) 0.4 % (0.2-1.0); BLOOD UREA NITROGEN 11 mg/dL (7-18); CALCIUM 8.1 mg/dL (8.5-10.1); CARBON DIOXIDE 24.9 mmol/L (21-32); CHLORIDE 112 mmol/L (98-107); COR CA(FOR HYPOALB) 9.1 mg/dL (8.5-10.1); CREATININE 0.77 mg/dL (0.55-1.02); EOSINOPHILS # (AUTO) 0.1 x10^3/uL (0.0-0.2); HEMATOCRIT 33.2 % (36.0-47.0); HEMOGLOBIN 11.4 g/dL (12.0-16.0); LYMPHOCYTES # (AUTO) 0.7 X10^3/uL (1.3-2.9); LYMPHOCYTES % (AUTO) 28.8 % (21.0-51.0); MEAN CORPUSCULAR HEMOGLOBIN 33.7 pg (27.0-34.0); MEAN CORPUSCULAR HGB CONC 34.4 g/dL (33.0-35.0); MEAN CORPUSCULAR VOLUME 97.9 fL (80.0-100.0); MEAN PLATELET VOLUME 10.9 fL (7.4-11.0); MONOCYTES # (AUTO) 0.4 x10^3/uL (0.3-0.8); MONOCYTES % (AUTO) 17.4 % (0.0-13.0); NEUTROPHILS # (AUTO) 1.1 x10^3/uL (2.2-4.8); NEUTROPHILS % (AUTO) 48.4 % (42.0-75.0); PLATELET COUNT 116 X10^3/uL (150.0-450.0); RED CELL DISTRIBUTION WIDTH 14.3 % (11.6-16.5); SODIUM 143 mmol/L (136-145); TOTAL PROTEIN 5.9 g/dL (6.4-8.2); WHITE BLOOD COUNT 2.3 X10^3/uL (3.6-10.0); eGFR BLACK RACES > 60 (>60); eGFR NON BLACK RACES > 60 (>60)
[2017-06-27 07:55] LABS: PLATELET MORPHOLOGY COMMENT NORMAL (NORMAL)
[2017-06-27] MEDS: CYMBALTA PO SCH ×2 (08:30→21:20)
[2017-06-27] MEDS: TAB-A-VITE PO SCH (08:30)
[2017-06-27] MEDS: SEROquel TAB 100 MG PO SCH (21:14)
[2017-06-27] MEDS: ATAZANAVIR SULFATE PO SCH (21:15)
[2017-06-27] MEDS: RITONAVIR PO SCH (21:17)
[2017-06-28] MEDS: NEURONTIN CAP 400 MG PO SCH ×2 (05:39→14:34)
[2017-06-28 06:46] LABS: EOSINOPHILS # (AUTO) 0.1 x10^3/uL (0.0-0.2); EOSINOPHILS % (AUTO) 4.7 % (0.9-2.9); HEMATOCRIT 35.3 % (36.0-47.0); HEMOGLOBIN 12.1 g/dL (12.0-16.0); LYMPHOCYTES # (AUTO) 0.5 X10^3/uL (1.3-2.9); LYMPHOCYTES % (AUTO) 23.5 % (21.0-51.0); MEAN CORPUSCULAR HEMOGLOBIN 32.9 pg (27.0-34.0); MEAN CORPUSCULAR HGB CONC 34.3 g/dL (33.0-35.0); MEAN PLATELET VOLUME 10.3 fL (7.4-11.0); MONOCYTES # (AUTO) 0.3 x10^3/uL (0.3-0.8); MONOCYTES % (AUTO) 15.2 % (0.0-13.0); NEUTROPHILS # (AUTO) 1.2 x10^3/uL (2.2-4.8); NEUTROPHILS % (AUTO) 55.6 % (42.0-75.0); PLATELET COUNT 140 X10^3/uL (150.0-450.0); RED BLOOD COUNT 3.68 X10^6/uL (3.5-5.4); RED CELL DISTRIBUTION WIDTH 14.3 % (11.6-16.5); WHITE BLOOD COUNT 2.2 X10^3/uL (3.6-10.0)
[2017-06-28 07:08] LABS: PLATELET MORPHOLOGY COMMENT NORMAL (NORMAL)
[2017-06-28] MEDS: TAB-A-VITE PO SCH (09:42)
[2017-06-28] MEDS: CYMBALTA PO SCH (09:45)
[2017-06-28 13:47] LABS: ALANINE AMINOTRANSFERASE 17 Units/L (12-78); ALBUMIN 2.9 g/dL (3.4-5.0); ALKALINE PHOSPHATASE 90 Units/L (46-116); ASPARTATE AMINO TRANSFERASE 19 Units/L (15-37); BLOOD UREA NITROGEN 8 mg/dL (7-18); CALCIUM 8.5 mg/dL (8.5-10.1); CHLORIDE 110 mmol/L (98-107); COR CA(FOR HYPOALB) 9.4 mg/dL (8.5-10.1); CREATININE 0.84 mg/dL (0.55-1.02); SODIUM 143 mmol/L (136-145); TOTAL PROTEIN 6.4 g/dL (6.4-8.2); eGFR BLACK RACES > 60 (>60); eGFR NON BLACK RACES > 60 (>60)
[2017-06-28] MEDS: PHENERGAN TAB 25 MG PO PRN (14:34)
[2017-06-28 18:10] VITALS: BP 155/78
== END 2017-06-28 18:45 | disposition home or self-care (01) | DRG 917 ==
LOC: ER 05:51 → ICU 11:02
PROVIDERS: ADMIT Internal Medicine; ATTEND Internal Medicine
DX: T50.992A Poisoning by other drugs, medicaments and biological substances, intentional self-harm, initial encounter (principal); B20 Human immunodeficiency virus [HIV] disease; F33.8 Other recurrent depressive disorders; F19.20 Other psychoactive substance dependence, uncomplicated; T14.91XA Suicide attempt, initial encounter; F41.8 Other specified anxiety disorders; I10 Essential (primary) hypertension; R94.31 Abnormal electrocardiogram [ECG] [EKG]; M19.072 Primary osteoarthritis, left ankle and foot; Y92.89 Other specified places as the place of occurrence of the external cause
CPT/HCPCS: 36415; 51702; 71010; 80053; 80307; 81001; 82550; 82553; 83735; 84484; 85025; 85610; 85730; 93005; 93010; 93041; 96365; 96374; 96375; 99231; 99284; Q0169; G0434; G6038; G6039

== ENCOUNTER 2017-10-27 15:39 | Emergency (ER) | payer SELFPAY ==
[2017-10-27 15:46] VITALS: BP 137/86; BMI 20.7
--- NOTE | 2017-10-27 16:23 | DR.GENAD ---
HPI - PCP Primary Care Physician: franco - Complaint/Symptoms Chief Complaint:: patient stated she feel last night and since then she has been having left knee pain,lower back pain and both hips hurts - Source History Provided: Patient - Mode of Arrival Mode of Arrival: Ambulatory - Timing Onset of Chief Complaint: 10/26/17 PMH - PMH Past Medical History: Yes Past Medical History: Anxiety, Depression, Hypertension Past Surgical History: Yes Surgical History: Hysterectomy - Family History History of Family Medical Conditions: Yes Family Medical History: Cancer, [place], Heart Failure, Hypertension - Social History Does patient currently use any type of tobacco product: No Have you used tobacco products in the last 12 months: No Type of Tobacco Use: None Does any household member use tobacco: No Alcohol Use: None Do you use any recreational Drugs:: No Lives With: Alone Lives Where: Home - infectious screening In the last 2 months have you had wt loss of >10#?: NO Have you had fever, night sweats or hemotysis?: No Have you traveled outside the country in the last 6 months?: No Isolation: Standard ROS - Review of Systems Constitutional: No Symptoms Reported Eyes: No Symptoms Reported ENTM: No Symptoms Reported Respiratoy: No Symptoms Reported Cardiovascular: No Symptoms Reported Gastrointestinal/Abdominal: No Symptoms Reported Genitourinary: No Symptoms Reported Neurological: No Symptoms Reported Musculoskeletal: No Symptoms Reported Integumentary: No Symptoms Reported Hematologic/Lymphatic: No Symptoms Reported Endocrine: No Symptoms Reported Psychiatric: No Symptoms Reported All Other Systems: Reviewed and Negative PE - Vital Signs Vitals: Temperature 98.6 F Pulse Rate 100 Respiratory Rate 18 Blood Pressure [Right Arm] 155/78 Blood Pressure [Standing] 146/94 Blood Pressure [Sitting] 147/96 Blood Pressure [Lying] 148/88 Blood Pressure 137/86 O2 Sat by Pulse Oximetry 100 - General General Appearance: Alert, In No Apparent Distress - Head Head Exam: Normal Inspection, Atraumatic - Eyes Eye exam: Normal Appearance, PERRL, EOMI - ENT ENT Exam: Normal Exam External Ear Exam: Normal External Inspection TM/Canal Exam: Bilateral Normal Nose Exam: Normal Nose Exam Mouth Exam: Normal Inspection Throat Exam: Normal Inspection - Neck Neck Exam: Normal Inspection, Full ROM - Chest Chest Inspection: Normal Inspection, Symmetric Chest Wall Rise - Respiratory Respiratory Exam: Normal Lung Sounds Bilat Respiratory Exam: Bilateral Clear to Auscultation - Cardiovascular Cardiovascular Exam: Regular Rate, Normal Rhythm - Abdominal Exam Abdominal Exam: Normal Inspection, Normal Bowel Sounds Abdominal Tenderness: negative: RUQ, RLQ, LUQ, LLQ, Epigastrium, Suprapubic, Diffuse, Mild, Moderate, Severe, Other - Extremities Extremities Exam: Normal Inspection. negative: Joint Swelling - Back Back Exam: Normal Inspection, Tenderness (mid low back) - Neurologic Neurological Exam: Alert, Oriented X3, CN II-XII Intact - Psychiatric Psychiatric Exam: Normal Affect - Skin Skin Exam: Warm, Dry, Intact - Other Exam Other Exam: wnl ROR - XRAY XRAY Interpreted by: Radiologist (The most caudal, fully intervertebral disc will be labeled L5-S1 for the purpose of this dictation. 3 views of the lumbar spine were obtained. There are 5 nonrib-bearing lumbar type vertebral bodies. Straightening of the lumbar lordosis as imaged. Vertebral body heights are maintained. Significant loss of dis space L5-S1 with endplate sclerosis and multilevel facet hypertrophy and anterior osteophytosis. No radiographic evidence of acute fracture or malalignment. There is no sacroiliac diastasis. Significant calcific atherosclerotic cysts of the aorta.) - Diagnosis Discharge Problem: DJD (degenerative joint disease) Qualifiers: Osteoarthritis location: shoulder Osteoarthritis type: unspecified Laterality: bilateral Qualified Code(s): M19.011 - Primary osteoarthritis, right shoulder; M19.012 - Primary osteoarthritis, left shoulder; M19.012 - Primary osteoarthritis, left shoulder - Discharge Plan Condition: Stable - Follow ups/Referrals Follow ups/Referrals: ARIA HOLLY [Primary Care Provider] - 3 days - Instructions
[2017-10-27] MEDS ORDERED: DEMEROL INJ IM ONE (16:41)
[2017-10-27] MEDS ORDERED: DEMEROL INJ ONE (16:45)
--- NOTE | 2017-10-27 17:37 | RAD ---
LUMBAR SPINE RADIOGRAPHS CLINICAL HISTORY: 47-year-old male status post fall last night with back pain. COMPARISON: None. FINDINGS: The most caudad, fully-formed intervertebral disc will be labeled L5-S1 for the purpose of this dictation. 3 views of the lumbar spine were obtained. There are 5 nonrib-bearing lumbar type edi tebral bodies. Straightening of the lumbar lordosis as imaged. Vertebral body heights are maintained. Significant loss of disc space L5-S1 with endplate sclerosis and multilevel facet hypertrophy and a nterior osteophytosis. No radiographic evidence of acute fracture or malalignment. There is no sacro iliac diastasis. Significant calcific atherosclerotic cysts of the aorta. IMPRESSION: 1. No radiographic evidence of acute compression fracture deformity or malalignment on screening lumb ar spine radiographs. 2. Multilevel degenerative change as described. Consider MR lumbar spine on a nonemergent outpatient basis for radicular symptoms. Reported By:
--- NOTE | 2017-10-27 17:40 | RAD ---
Indication: Pain Exam: Left knee series Technique: AP , lateral, and oblique views. Findings: There is mild joint space narrowing in the knee. No acute fracture or dislocation is seen . The bones are osteopenic. There is a 1.2 cm calcification seen just above the patella on the lateral view which appears well corticated. The patella is intact with mild soft tissue swelling anterior . There is a questionable small suprapatellar effusion. Impression: Mild joint space narrowing in the knee with no acute bony abnormality . 12 mm calcifications seen just above the patella which may represent a loose body in the joint space or possible old fracture. Suggest MRI correlation , if indicated . Mild soft tissue swelling anterior to the knee and a questionable small suprapatellar effusion. Reported By:
== END 2017-10-27 17:56 | disposition home or self-care (01) ==
LOC: ER 16:02
DX: M19.011 Primary osteoarthritis, right shoulder (principal); M19.012 Primary osteoarthritis, left shoulder
CPT/HCPCS: 72100; 73560; 96372; 99282; J2175

== ENCOUNTER 2018-02-17 17:32 | Emergency (ER) | payer SELFPAY ==
[2018-02-17 17:45] VITALS: BP 120/68; BMI 21.9
--- NOTE | 2018-02-17 18:11 | DR.GENAD ---
HPI - Complaint/Symptoms Chief Complaint Doctors Comments: History as stated Chief Complaint:: severe pain in left knee. 2009 broke knee and thigh.. knee gives out when walking. has fell and broken arm and foot before because of how knee gives out when walking. now 5 or 6 days ago she thinks she may have hurt by falling again and she is having severe pain. Self Treatment fo Chief Complaint: 800 mg ibuprofen, advil, naproxen - Source History Provided: Patient - Mode of Arrival Mode of Arrival: Ambulatory - Timing Onset of Chief Complaint: 02/12/18 PMH - PMH Past Medical History: Yes Past Medical History: Anxiety, Arthritis, CVA, Depression, Migraines, Hypertension Past Surgical History: Yes Surgical History: Hysterectomy Past Surgical History Comment: 2 c-sections - Family History History of Family Medical Conditions: Yes Family Medical History: Cancer, [place], Coronary Artery Disease, Sudden Cardiac , Hypertension - Social History Does patient currently use any type of tobacco product: Yes Have you used tobacco products in the last 12 months: Yes Type of Tobacco Use: Cigarettes Alcohol Use: None Do you use any recreational Drugs:: No Lives With: Alone Lives Where: Home - infectious screening In the last 2 months have you had wt loss of >10#?: NO Have you had fever, night sweats or hemotysis?: No Have you traveled outside the country in the last 6 months?: No Isolation: Standard PE - Vital Signs Vitals: Temperature 98.7 F Pulse Rate 111 Respiratory Rate 16 Blood Pressure [Right Arm] 155/78 Blood Pressure [Standing] 146/94 Blood Pressure [Sitting] 147/96 Blood Pressure [Lying] 148/88 Blood Pressure 120/68 O2 Sat by Pulse Oximetry 98 ROR - XRAY XRAY Interpreted by: Radiologist (Left Knee:2 views of the left knee demonstrate no acute fracture or malalignment. There is no suprapatella joint effusion. Stable calcification superolateral to the patella with re- demonstration of the fabella. There no aggressive bone lesion or abnormal periosteal reaction. There is no soft tissue calcificiation or gas. Impression : No radiographic evidence for acute fracture or osseous abnormality of the left knee.) - Diagnosis Discharge Problem: Left knee pain Qualifiers: Chronicity: chronic Qualified Code(s): M25.562 - Pain in left knee; G89.29 - Other chronic pain; G89.29 - Other chronic pain - Discharge Plan Condition: Stable - Follow ups/Referrals Follow ups/Referrals: Jackie KONGc [Primary Care Provider] - 3 days - Instructions
[2018-02-17] MEDS ORDERED: TORADOL 60 MG VIAL IM ONE (18:30)
[2018-02-17] MEDS ORDERED: TORADOL 60 MG VIAL ONE (18:35)
--- NOTE | 2018-02-17 19:23 | RAD ---
[facility] RADIOGRAPHS CLINICAL HISTORY: 47-year-old female with left knee pain status post fall on Thursday. COMPARISON: Left knee radiographs 10/27/2017. FINDINGS: 2 views of the left knee demonstrate no acute fracture or malalignment. There is no suprap atellar joint effusion. Stable calcification superolateral to the patella with re-demonstration of f ezekiel. There is no aggressive bone lesion or abnormal periosteal reaction. There is no soft tissue calcification or gas. IMPRESSION: No radiographic evidence for acute fracture or osseous abnormality of the left knee. Reported By:
[2018-02-17] MEDS ORDERED: ZOFRAN TAB 4 MG ONE (20:10)
[2018-02-17] MEDS ORDERED: ZOFRAN TAB 4 MG PO ONE (20:10)
== END 2018-02-17 20:14 | disposition home or self-care (01) ==
LOC: ER 17:47
DX: M25.562 Pain in left knee (principal); G89.29 Other chronic pain
CPT/HCPCS: 73560; 96372; 99282; S0181; J1885

== ENCOUNTER 2018-02-21 13:39 | Emergency (ER) | payer SELFPAY ==
[2018-02-21 13:45] VITALS: BP 92/52; BMI 21.9
[2018-02-21] MEDS ORDERED: TORADOL 60 MG VIAL ONE (14:55)
[2018-02-21] MEDS ORDERED: TORADOL 60 MG VIAL IM ONE (15:05)
--- NOTE | 2018-02-21 15:14 | RAD ---
Examination: Left knee, three views History: Pain, possible arthritis Comparison reference 02/17/2018 Findings: There is no evidence for fracture, dislocation or bone destruction. A well defined ossicle is present at the upper-outer margin of the patella. No synovial effusion or bone destruction. Joint spaces are maintained. Impression: No acute findings or interval change. The ossicle adjacent to the upper pole of the colon la may be of developmental or posttraumatic origin. Reported By:
[2018-02-21] MEDS ORDERED: PHENERGAN TAB 25 MG PO ONE (16:01)
== END 2018-02-21 16:22 | disposition home or self-care (01) ==
LOC: ER 13:49
DX: M25.562 Pain in left knee (principal)
CPT/HCPCS: 29530; 73564; 96372; 99282; Q0169; J1885

== ENCOUNTER 2018-02-25 13:35 | Inpatient (IN) ==
[2018-02-25 13:52] VITALS: BMI 23.5
[2018-02-25] MEDS ORDERED: NS 1000 ML 1,000 ML IV ONE ×2 (14:15→15:30)
[2018-02-25] MEDS ORDERED: NS 1000 ML 1,000 ML ONE ×3 (14:16→16:38)
[2018-02-25 14:46] LABS: BASOPHILS % (AUTO) 0.3 % (0.2-1.0); EOSINOPHILS # (AUTO) 0.2 x10^3/uL (0.0-0.2); EOSINOPHILS % (AUTO) 2.4 % (0.9-2.9); HEMATOCRIT 25.7 % (36.0-47.0); LYMPHOCYTES # (AUTO) 0.4 X10^3/uL (1.3-2.9); MEAN CORPUSCULAR HEMOGLOBIN 31.6 pg (27.0-34.0); MEAN CORPUSCULAR HGB CONC 34.8 g/dL (33.0-35.0); MEAN PLATELET VOLUME 10.3 fL (7.4-11.0); MONOCYTES # (AUTO) 0.4 x10^3/uL (0.3-0.8); NEUTROPHILS # (AUTO) 5.4 x10^3/uL (2.2-4.8); NEUTROPHILS % (AUTO) 84.3 % (42.0-75.0); PLATELET COUNT 37 X10^3/uL (150.0-450.0); RED BLOOD COUNT 2.83 X10^6/uL (3.5-5.4); RED CELL DISTRIBUTION WIDTH 13.3 % (11.6-16.5); WHITE BLOOD COUNT 6.4 X10^3/uL (3.6-10.0)
--- NOTE | 2018-02-25 14:52 | RAD ---
History: Dyspnea and respiratory distress. Exam: Single-view chest. Comparison: 06/25/2017. Findings: The trachea is midline. The cardiac silhouette is enlarged. Since the prior examination, there has be en development of diffuse ground-glass disease throughout the lung ceron with abnormal interstitial disease throughout the lung ceron as well. These findings would imply either acute interstitial alecia a or an atypical infection. Please correlate for clinical signs of volume overload. No large effusion is seen. There is no pneumothorax. Bones are stable. Impression: Since the prior examination, there has been development of diffuse ground-glass disease t hroughout the lung ceron with abnormal interstitial disease throughout the lung ceron as well. Thes e findings would imply either acute interstitial edema or an atypical infection. Please correlate for clinical signs of volume overload/infection. No large effusions. Reported By:
[2018-02-25 14:55] LABS: GIANT PLATELET FEW; PLATELET MORPHOLOGY COMMENT ABNORMAL (NORMAL)
[2018-02-25 15:02] LABS: ALANINE AMINOTRANSFERASE 8 Units/L (12-78); ALBUMIN 2.3 g/dL (3.4-5.0); ALKALINE PHOSPHATASE 85 Units/L (46-116); ASPARTATE AMINO TRANSFERASE 15 Units/L (15-37); BLOOD UREA NITROGEN 13 mg/dL (7-18); CALCIUM 6.6 mg/dL (8.5-10.1); CARBON DIOXIDE 24.6 mmol/L (21-32); CHLORIDE 101 mmol/L (98-107); CREATININE 1.41 mg/dL (0.55-1.02); SODIUM 132 mmol/L (136-145); TOTAL PROTEIN 5.5 g/dL (6.4-8.2); eGFR NON BLACK RACES 42 (>60)
[2018-02-25 15:14] LABS: CKMB % 2.2 % (<4); CREATINE KINASE 45 Units/L (26-192); CREATINE KINASE MB < 1.0 ng/mL (0-4.0); TROPONIN I < 0.02 ng/mL (0-1.5)
[2018-02-25] MEDS ORDERED: DOPAMINE IV PREMIX 400 MG/250 ML 400 MG/250 ML BAG IV ONE (15:23)
[2018-02-25] MEDS ORDERED: DOPAMINE IV PREMIX 400 MG/250 ML 400 MG/250 ML BAG IV PRN (15:30)
--- NOTE | 2018-02-25 15:35 | DR.AMS ---
HPI - PCP Primary Care Physician: YOANA - Complaint Chief Complaint:: PT C/O DIZZINESS, SHAKING, AND PASSING OUT. PT STATES SHE HAS BEEN FEELING BAD FOR A FEW DAYS. PT STATES SHE STARTED FEELING FUNNY AND SHE PASSED OUT. PT STATES SHE FELT EARLIER LIKE HER BLOOD PRESSURE WAS HIGH SO SHE TOOK A CLONIDINE 0.1MG. - Reviewed Nurses Notes Reviewed: Yes - Source History Provided: Patient - Mode of Arrival Mode of Arrival: EMS - Timing Onset of Chief Complaint: 02/25/18 PMH - PMH Past Medical History: Yes Past Medical History: Arthritis, Hypertension Past Medical History Comment: HIV, HEP C Past Surgical History: Yes Surgical History: , Hysterectomy - Family History History of Family Medical Conditions: Yes Family Medical History: Cancer, [place], Coronary Artery Disease, Sudden Cardiac , Hypertension - Social History Does patient currently use any type of tobacco product: Yes Have you used tobacco products in the last 12 months: Yes Type of Tobacco Use: Cigarettes Does any household member use tobacco: Yes Do you use any recreational Drugs:: No Lives With: Family Lives Where: Home - infectious screening In the last 2 months have you had wt loss of >10#?: NO Have you had fever, night sweats or hemotysis?: No Have you traveled outside the country in the last 6 months?: No Isolation: Standard PE - Vitals Vital Signs: Pulse Pulse Resp BP BP BP BP 02/25/18 15:20 65 16 76/50 02/25/18 15:07 67 22 79/47 02/25/18 14:13 75 18 83/45 02/25/18 14:00 74 18 73/50 02/25/18 13:35 75 18 89/52 02/21/18 13:40 92/52 06/28/17 18:00 155/78 05/14/17 18:30 148/88 147/96 BP Pulse Ox 02/25/18 15:20 94 L 02/25/18 15:07 94 L 02/25/18 14:13 95 02/25/18 14:00 95 02/25/18 13:35 16 L 02/21/18 13:40 06/28/17 18:00 05/14/17 18:30 146/94 ROR - Labs Reviewed Result Diagrams: 02/25/18 14:38 02/25/18 14:38 Laboratory: WBC 6.4 X10^3/uL (3.6-10.0) 02/25/18 14:38 RBC 2.83 X10^6/uL (3.5-5.4) L 02/25/18 14:38 Hgb 9.0 g/dL (12.0-16.0) L 02/25/18 14:38 Hct 25.7 % (36.0-47.0) L 02/25/18 14:38 MCV 91.0 fL (80.0-100.0) 02/25/18 14:38 MCH 31.6 pg (27.0-34.0) 02/25/18 14:38 MCHC 34.8 g/dL (33.0-35.0) 02/25/18 14:38 RDW 13.3 % (11.6-16.5) 02/25/18 14:38 Plt Count 37 X10^3/uL (150.0-450.0) L 02/25/18 14:38 Plt Count Comment Decreased (ADEQUATE) A 02/25/18 14:38 MPV 10.3 fL (7.4-11.0) 02/25/18 14:38 Neut % (Auto) 84.3 % (42.0-75.0) H 02/25/18 14:38 Lymph % (Auto) 7.0 % (21.0-51.0) L 02/25/18 14:38 [place] % (Auto) 6.0 % (0.0-13.0) 02/25/18 14:38 Eos % (Auto) 2.4 % (0.9-2.9) 02/25/18 14:38 Baso % (Auto) 0.3 % (0.2-1.0) 02/25/18 14:38 Neut # (Auto) 5.4 x10^3/uL (2.2-4.8) H 02/25/18 14:38 Lymph # (Auto) 0.4 X10^3/uL (1.3-2.9) L 02/25/18 14:38 [place] # (Auto) 0.4 x10^3/uL (0.3-0.8) 02/25/18 14:38 Eos # (Auto) 0.2 x10^3/uL (0.0-0.2) 02/25/18 14:38 Baso # (Auto) 0.0 X10^3/uL (0.0-0.1) 02/25/18 14:38 Absolute Nucleated RBC 0.0 /100WBC 02/25/18 14:38 Giant Platelets Few 02/25/18 14:38 Plt Morphology Comment Abnormal (NORMAL) A 02/25/18 14:38 RBC Morphology Normal (NORMAL) 02/25/18 14:38 Sodium 132 mmol/L (136-145) L 02/25/18 14:38 Corrected Sodium TNP 02/25/18 14:38 Potassium 3.6 mmol/L (3.5-5.1) 02/25/18 14:38 Chloride 101 mmol/L (98-107) 02/25/18 14:38 Carbon Dioxide 24.6 mmol/L (21-32) 02/25/18 14:38 BUN 13 mg/dL (7-18) 02/25/18 14:38 Creatinine 1.41 mg/dL (0.55-1.02) H 02/25/18 14:38 Est GFR (MDRD) Af Amer 51 (>60) L 02/25/18 14:38 Est GFR (MDRD) Non-Af 42 (>60) L 02/25/18 14:38 Glucose 72 mg/dL (65-99) 02/25/18 14:38 Calcium 6.6 mg/dL (8.5-10.1) L 02/25/18 14:38 Corrected Calcium 8.0 mg/dL (8.5-10.1) L 02/25/18 14:38 Total Bilirubin 0.30 mg/dL (0.2-1.0) 02/25/18 14:38 AST 15 Units/L (15-37) 02/25/18 14:38 ALT 8 Units/L (12-78) L 02/25/18 14:38 Alkaline Phosphatase 85 Units/L (46-116) 02/25/18 14:38 Creatine Kinase 45 Units/L (26-192) 02/25/18 14:38 CK-MB (CK-2) < 1.0 ng/mL (0-4.0) 02/25/18 14:38 CK/CKMB % Calc 2.2 % (<4) 02/25/18 14:38 Troponin I < 0.02 ng/mL (0-1.5) 02/25/18 14:38 Total Protein 5.5 g/dL (6.4-8.2) L 02/25/18 14:38 Albumin 2.3 g/dL (3.4-5.0) L 02/25/18 14:38 Globulin 3.2 g/dL (2.5-4.5) 02/25/18 14:38 Albumin/Globulin Ratio 0.7 Ratio (1.1-2.1) L 02/25/18 14:38 - Discharge Plan Condition: Stable - Follow ups/Referrals Follow ups/Referrals: ARIA HOLLY [Primary Care Provider] - 3 days - Instructions
[2018-02-25 15:53] LABS: ABG ALLEN TEST POS; ABG BASE EXCESS -3.3 mmol/L (-2.0-2.0); ABG HCO3 22.1 mmol/L (22-26)
[2018-02-25] MEDS ORDERED: ROCEPHIN 1 GRAM IV PREMIX 1 GM/50 ML IV.SOLN. IV ONE ×2 (15:55→16:12)
[2018-02-25 16:27] LABS: LACTIC ACID 0.8 mmol/L (0.4-2.0)
[2018-02-25] MEDS: NS 1000 ML 1,000 ML IV SCH (16:44)
[2018-02-25] MEDS: DUONEB 0.5 MG/3 MG NEB SCH ×3 (16:49→20:50)
[2018-02-25] MEDS ORDERED: NS 1000 ML 1,000 ML IV SCH (17:00)
[2018-02-25] MEDS ORDERED: SALINE 3% 15 ML NEB TX ONE (17:37)
[2018-02-25] MEDS: ROBITUSSIN DM PO SCH ×2 (18:11→21:57)
[2018-02-25] MEDS: LEVAQUIN PREMIX IV 750 MG 750 MG/150 ML BAG IV SCH (18:11)
[2018-02-25 19:48] LABS: BILIRUBIN,URINE NEGATIVE (NEGATIVE); BLOOD/HEMOGLOBIN,URINE NEGATIVE (NEGATIVE); GLUCOSE, URINE NEGATIVE (NEGATIVE); KETONES,URINE NEGATIVE (NEGATIVE); LEUKOCYTE ESTERASE ,URINE NEGATIVE (NEGATIVE); NITRITES,URINE NEGATIVE (NEGATIVE); PROTEIN,URINE NEGATIVE (NEGATIVE); UROBILINOGEN,URINE NORMAL (NORMAL)
[2018-02-25 19:52] LABS: APPEARANCE,URINE CLEAR (CLEAR); COLOR,URINE PALE YELLOW (YELLOW)
[2018-02-25] MEDS: TUSSIONEX PENNKINETIC SUSP PO PRN (21:58)
[2018-02-26] MEDS ORDERED: ULTRAM ONE (04:15)
[2018-02-26] MEDS ORDERED: CYMBALTA PO ONE (09:56)
[2018-02-26] MEDS ORDERED: BUSPAR ONE (09:56)
[2018-02-26] MEDS ORDERED: ULTRAM PO PRN (13:49)
[2018-02-26] MEDS ORDERED: PHENERGAN TAB 25 MG PO PRN (13:49)
[2018-02-26] MEDS ORDERED: BUSPIRONE PO PRN (13:49)
[2018-02-26] MEDS ORDERED: PATIENT'S HOME MEDICATION (Gabapentin [Gabapentin] 800 MG) PO SCH (14:00)
[2018-02-26 14:09] LABS: ALANINE AMINOTRANSFERASE 10 Units/L (12-78); ALBUMIN 2.3 g/dL (3.4-5.0); ALKALINE PHOSPHATASE 103 Units/L (46-116); ASPARTATE AMINO TRANSFERASE 23 Units/L (15-37); BLOOD UREA NITROGEN 10 mg/dL (7-18); CALCIUM 6.7 mg/dL (8.5-10.1); CARBON DIOXIDE 22.2 mmol/L (21-32); CHLORIDE 108 mmol/L (98-107); COR CA(FOR HYPOALB) 8.1 mg/dL (8.5-10.1); COR NA(FOR HYPERGLY) 141 mmol/L (136-145); CREATININE 1.12 mg/dL (0.55-1.02); SODIUM 140 mmol/L (136-145); eGFR NON BLACK RACES 55 (>60)
[2018-02-26 14:10] LABS: BASOPHILS % (AUTO) 0.2 % (0.2-1.0); EOSINOPHILS % (AUTO) 0.7 % (0.9-2.9); HEMATOCRIT 29.5 % (36.0-47.0); LYMPHOCYTES # (AUTO) 0.4 X10^3/uL (1.3-2.9); LYMPHOCYTES % (AUTO) 6.8 % (21.0-51.0); MEAN CORPUSCULAR HEMOGLOBIN 31.4 pg (27.0-34.0); MEAN CORPUSCULAR HGB CONC 33.8 g/dL (33.0-35.0); MEAN CORPUSCULAR VOLUME 92.8 fL (80.0-100.0); MEAN PLATELET VOLUME 11.8 fL (7.4-11.0); MONOCYTES # (AUTO) 0.4 x10^3/uL (0.3-0.8); MONOCYTES % (AUTO) 7.6 % (0.0-13.0); NEUTROPHILS # (AUTO) 4.5 x10^3/uL (2.2-4.8); NEUTROPHILS % (AUTO) 84.7 % (42.0-75.0); PLATELET COUNT 27 X10^3/uL (150.0-450.0); RED BLOOD COUNT 3.18 X10^6/uL (3.5-5.4); RED CELL DISTRIBUTION WIDTH 13.7 % (11.6-16.5); WHITE BLOOD COUNT 5.3 X10^3/uL (3.6-10.0)
[2018-02-26 15:35] LABS: PLATELET MORPHOLOGY COMMENT NORMAL (NORMAL)
[2018-02-26] MEDS: LEVAQUIN PREMIX IV 750 MG 750 MG/150 ML BAG IV SCH (16:05)
[2018-02-26] MEDS: ROBITUSSIN DM PO SCH ×2 (16:05→21:20)
[2018-02-26] MEDS: DUONEB 0.5 MG/3 MG NEB SCH ×2 (16:19→20:28)
[2018-02-26] MEDS: ULTRAM PO PRN (16:29)
[2018-02-26] MEDS: NORVASC TAB 5 MG PO SCH (18:09)
[2018-02-26] MEDS: TUSSIONEX PENNKINETIC SUSP PO PRN (19:37)
[2018-02-26] MEDS ORDERED: CYMBALTA PO SCH (21:00)
[2018-02-26] MEDS ORDERED: SEROquel TAB 100 MG PO ONE (21:12)
[2018-02-26] MEDS: QUETIAPINE PO SCH (21:16)
[2018-02-26] MEDS: SEROquel TAB 100 MG PO SCH (21:17)
[2018-02-26] MEDS: NEURONTIN CAP 400 MG PO SCH (21:19)
[2018-02-26] MEDS: BUSPAR PO SCH (21:19)
[2018-02-26] MEDS: CYMBALTA PO SCH (21:24)
[2018-02-26] MEDS: RITONAVIR PO SCH (21:25)
[2018-02-26] MEDS: ATAZANAVIR PO SCH (21:25)
[2018-02-26] MEDS: EMTRICITABINE TENOFOVIR PO SCH (21:26)
[2018-02-27] MEDS: DUONEB 0.5 MG/3 MG NEB SCH ×6 (01:37→20:52)
[2018-02-27] MEDS: NS 1000 ML 1,000 ML IV SCH ×3 (03:01→16:43)
[2018-02-27 06:18] LABS: BASOPHILS % (AUTO) 0.2 % (0.2-1.0); EOSINOPHILS % (AUTO) 0.8 % (0.9-2.9); HEMOGLOBIN 10.5 g/dL (12.0-16.0); LYMPHOCYTES # (AUTO) 0.4 X10^3/uL (1.3-2.9); LYMPHOCYTES % (AUTO) 8.7 % (21.0-51.0); MEAN CORPUSCULAR VOLUME 91.2 fL (80.0-100.0); MEAN PLATELET VOLUME 11.5 fL (7.4-11.0); MONOCYTES # (AUTO) 0.4 x10^3/uL (0.3-0.8); MONOCYTES % (AUTO) 9.5 % (0.0-13.0); NEUTROPHILS # (AUTO) 3.6 x10^3/uL (2.2-4.8); NEUTROPHILS % (AUTO) 80.8 % (42.0-75.0); PLATELET COUNT 48 X10^3/uL (150.0-450.0); RED BLOOD COUNT 3.39 X10^6/uL (3.5-5.4); RED CELL DISTRIBUTION WIDTH 13.5 % (11.6-16.5); WHITE BLOOD COUNT 4.5 X10^3/uL (3.6-10.0)
--- NOTE | 2018-02-27 06:21 | DR.H&P ---
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 CXR REVEALED PNEUMONIA. PT ADMITTED TO ICU FOR TREATMENT AND EVALUATION, BP AND CARDIAC MONITORING, PNEUMONIA PROTOCOL. PT HAS PMH OF HEP C, HIV AND MENTAL ILLNESS, HTN - Past Medical History Past Medical History: Arthritis, Hypertension - Past Surgical History Surgical History: , Hysterectomy - Family History Family Medical History: Cancer, [place], Coronary Artery Disease, Sudden Cardiac , Hypertension - Social History Does patient currently use any type of tobacco product: Yes Have you used tobacco products in the last 12 months: Yes Type of Tobacco Use: Cigarettes Does any household member use tobacco: No Alcohol Use: None Drug Use: Prescription Drugs - Review of Systems Constitutional: Weakness Eyes: No Symptoms Reported ENT: No Symptoms Reported Respiratory: Cough, Shortness of Breath, Wheezing Cardiovascular: No Symptoms Reported Genitourinary: No Symptoms Reported Musculoskeletal: Back Pain, Leg Pain Neurological: Weakness, Confusion - Physical Exam Vital Signs: Temperature 98.7 F Pulse Rate [Apical] 93 Pulse Rate 83 Respiratory Rate 22 Blood Pressure [Right Arm] 135/69 Blood Pressure [Standing] 146/94 Blood Pressure [Sitting] 147/96 Blood Pressure [Lying] 148/88 Blood Pressure 89/52 O2 Sat by Pulse Oximetry 96 Oriented: Person Eyes: Normal Ear: Normal Nose: Normal Throat: Normal Respiratory: Wheezes Throughout, RLL Diminished, LLL Diminished Cardiovascular: Normal : Normal Auscultation: Bowel Sounds: Normal Palpation: Normal Tenderness: Normal Skin: Normal Musculoskeletal: Back:Lumbar Psychiatric: Anxiety Affect: Depressed Speech Pattern: Delayed - Assessment/Plan (1) Altered mental status Status: Acute Plan: DUE TO HYPOTENSION AND GENERALIZED WEAKNESS, PNEUMONIA-. PT ADMITTED ICU , IV ATBX, RESP THERAPY DOPAMINE DRIP FOR BP STABILITY, CARDIAC MONITORING. VERIFY HOME MEDS, BLEEDING PRECAUTIONS. PNEUMONIA PATHWAY, HYDRATION (2) Hypotension Status: Acute (3) Thrombocytopenia Status: Acute (4) Pneumonia Status: Acute (5) Depression Qualifiers: Depression Type: major depressive disorder Major depression recurrence: recurrent Active/Remission status: currently active Major depression episode severity: unspecified Qualified Code(s): F33.9 - Major depressive disorder, recurrent, unspecified Status: Acute (6) HIV disease Status: Chronic (7) DJD (degenerative joint disease) Qualifiers: Osteoarthritis location: shoulder Osteoarthritis type: unspecified Laterality: bilateral Qualified Code(s): M19.011 - Primary osteoarthritis, right shoulder; M19.012 - Primary osteoarthritis, left shoulder; M19.012 - Primary osteoarthritis, left shoulder Status: Chronic (8) Hypertension Qualifiers: Hypertension type: essential hypertension Qualified Code(s): I10 - Essential (primary) hypertension Status: Chronic - Allergies Allergies/Adverse Reactions: Allergies Allergy/AdvReac Type Severity Reaction Status Date / Time No Known Drug Allergies Allergy Verified 10/27/17 15:40
[2018-02-27 06:49] LABS: ALBUMIN 2.5 g/dL (3.4-5.0); ALKALINE PHOSPHATASE 119 Units/L (46-116); ASPARTATE AMINO TRANSFERASE 23 Units/L (15-37); BLOOD UREA NITROGEN 6 mg/dL (7-18); CALCIUM 7.7 mg/dL (8.5-10.1); CARBON DIOXIDE 24.1 mmol/L (21-32); CHLORIDE 107 mmol/L (98-107); COR CA(FOR HYPOALB) 8.9 mg/dL (8.5-10.1); SODIUM 140 mmol/L (136-145); TOTAL PROTEIN 6.8 g/dL (6.4-8.2); eGFR NON BLACK RACES > 60 (>60)
[2018-02-27 07:24] LABS: PLATELET MORPHOLOGY COMMENT NORMAL (NORMAL)
[2018-02-27 07:28] LABS: ALANINE AMINOTRANSFERASE 12 Units/L (12-78)
--- NOTE | 2018-02-27 08:46 | RAD ---
Examination: Portable AP chest History: Pneumonia Comparison 02/25/2018 Findings: Continued normal heart size. Slight improvement in aeration of the lungs with residual cent ral vascular distention and diffuse interstitial pulmonary prominence. No localized consolidation, or pneumothorax. Impression: Slight interval improvement in appearance of the lungs. Residual central vascular congest ion. No definite pneumonia or faiza pulmonary edema. Reported By:
[2018-02-27] MEDS ORDERED: CYMBALTA PO SCH (09:00)
[2018-02-27] MEDS: ROCEPHIN 1 GRAM IV PREMIX 1 GM/50 ML IV.SOLN. IV SCH (09:24)
[2018-02-27] MEDS: LEVAQUIN PREMIX IV 750 MG 750 MG/150 ML BAG IV SCH (09:24)
[2018-02-27] MEDS: NORVASC TAB 5 MG PO SCH (09:25)
[2018-02-27] MEDS: BUSPAR PO SCH ×2 (09:25→21:34)
[2018-02-27] MEDS: TAB-A-VITE PO SCH (09:25)
[2018-02-27] MEDS: ROBITUSSIN DM PO SCH ×4 (09:25→21:31)
[2018-02-27] MEDS: CYMBALTA PO SCH ×2 (09:27→21:35)
[2018-02-27] MEDS: ULTRAM PO PRN (10:01)
--- NOTE | 2018-02-27 12:42 | PCM.PROG ---
Progress Note - Progress Note for Day of Date: 02/27/18 - Subjective Subjective: 47 WF ER ADMIT ON 02/25 WITH PNEUMONIA, CURRENTLY ON IV ATBX WITH RESP THERAPY, PENDING SPUTUM CUTLURE. PT REPORTS CONTINUED COUGH BUT IMPROVING SOB ON EXERTION AND IMPROVING SPUTUM PRODUCTION. - Past Medical Family Social History Past Med/Fam/Surg Hx: No changes since H&P Allergies: Allergies No Known Drug Allergies Allergy (Verified 10/27/17 15:40) - Review of Systems ROS: No change since H&P - Vital Signs and I&O's Vital Signs: Temperature 98.6 F Pulse Rate [Apical] 86 Pulse Rate 86 Respiratory Rate 20 Blood Pressure [Right Arm] 154/92 Blood Pressure [Standing] 146/94 Blood Pressure [Sitting] 147/96 Blood Pressure [Lying] 148/88 Blood Pressure 89/52 O2 Sat by Pulse Oximetry 100 Intake and Output: Intake & Output 02/25/18 02/26/18 02/27/18 02/28/18 11:59 11:59 11:59 11:59 Intake Total 2277 / 2277 3285 / 3285 Output Total 1800 / 1800 2200 / 2200 Balance 477 / 477 1085 / 1085 - Physical Exam Oriented: Normal Eyes: Normal Ear: Normal Nose: Normal Throat: Normal Respiratory: Diminished, Rhonchi Cardiovascular: Normal : Normal Auscultation: Bowel Sounds: Normal Tenderness: Normal Skin: Normal Musculoskeletal: Back:Lumbar Psychiatric: Anxiety Affect: Depressed Speech Pattern: Clear, Appropriate - Laboratory and Diagnostics Result Diagrams: 02/27/18 05:37 02/27/18 05:37 Labs: 02/25/18 15:57 Blood Blood Culture - Preliminary 02/25/18 15:54 Blood Blood Culture - Preliminary Laboratory WBC 4.5 X10^3/uL (3.6-10.0) 02/27/18 05:37 RBC 3.39 X10^6/uL (3.5-5.4) L 02/27/18 05:37 Hgb 10.5 g/dL (12.0-16.0) L 02/27/18 05:37 Hct 31.0 % (36.0-47.0) L 02/27/18 05:37 MCV 91.2 fL (80.0-100.0) 02/27/18 05:37 MCH 31.0 pg (27.0-34.0) 02/27/18 05:37 MCHC 34.0 g/dL (33.0-35.0) 02/27/18 05:37 RDW 13.5 % (11.6-16.5) 02/27/18 05:37 Plt Count 48 X10^3/uL (150.0-450.0) L 02/27/18 05:37 Plt Count Comment Decreased (ADEQUATE) A 02/27/18 05:37 MPV 11.5 fL (7.4-11.0) H 02/27/18 05:37 Neut % (Auto) 80.8 % (42.0-75.0) H 02/27/18 05:37 Lymph % (Auto) 8.7 % (21.0-51.0) L 02/27/18 05:37 [place] % (Auto) 9.5 % (0.0-13.0) 02/27/18 05:37 Eos % (Auto) 0.8 % (0.9-2.9) L 02/27/18 05:37 Baso % (Auto) 0.2 % (0.2-1.0) 02/27/18 05:37 Neut # (Auto) 3.6 x10^3/uL (2.2-4.8) 02/27/18 05:37 Lymph # (Auto) 0.4 X10^3/uL (1.3-2.9) L 02/27/18 05:37 [place] # (Auto) 0.4 x10^3/uL (0.3-0.8) 02/27/18 05:37 Eos # (Auto) 0.0 x10^3/uL (0.0-0.2) 02/27/18 05:37 Baso # (Auto) 0.0 X10^3/uL (0.0-0.1) 02/27/18 05:37 Absolute Nucleated RBC 0.1 /100WBC 02/27/18 05:37 Giant Platelets Few 02/25/18 14:38 Plt Morphology Comment Normal (NORMAL) 02/27/18 05:37 RBC Morphology Normal (NORMAL) 02/27/18 05:37 Sample Site Rr 02/25/18 15:34 ABG pH 7.350 (7.35-7.45) 02/25/18 15:34 ABG pCO2 40.0 mmHg (35.0-45.0) 02/25/18 15:34 ABG pO2 55.0 mmHg (80.0-100.0) L 02/25/18 15:34 ABG HCO3 22.1 mmol/L (22-26) 02/25/18 15:34 ABG O2 Saturation 86.0 % (90-100) L 02/25/18 15:34 ABG Base Excess -3.3 mmol/L (-2.0-2.0) L 02/25/18 15:34 Russell Test Pos 02/25/18 15:34 A-a Gradient 45.0 mmHg 02/25/18 15:34 FiO2 21.000 02/25/18 15:34 Blood Gas Comments Pt radha well lj 02/25/18 15:34 Sodium 140 mmol/L (136-145) 02/27/18 05:37 Corrected Sodium TNP 02/27/18 05:37 Potassium 3.9 mmol/L (3.5-5.1) 02/27/18 05:37 Chloride 107 mmol/L (98-107) 02/27/18 05:37 Carbon Dioxide 24.1 mmol/L (21-32) 02/27/18 05:37 BUN 6 mg/dL (7-18) L 02/27/18 05:37 Creatinine 0.80 mg/dL (0.55-1.02) 02/27/18 05:37 Est GFR (MDRD) Af Amer > 60 (>60) 02/27/18 05:37 Est GFR (MDRD) Non-Af > 60 (>60) 02/27/18 05:37 Glucose 95 mg/dL (65-99) 02/27/18 05:37 Lactic Acid 0.8 mmol/L (0.4-2.0) 02/25/18 15:54 Calcium 7.7 mg/dL (8.5-10.1) L 02/27/18 05:37 Corrected Calcium 8.9 mg/dL (8.5-10.1) 02/27/18 05:37 Total Bilirubin 0.30 mg/dL (0.2-1.0) 02/27/18 05:37 AST 23 Units/L (15-37) 02/27/18 05:37 ALT 12 Units/L (12-78) 02/27/18 05:37 Alkaline Phosphatase 119 Units/L (46-116) H 02/27/18 05:37 Creatine Kinase 45 Units/L (26-192) 02/25/18 14:38 CK-MB (CK-2) < 1.0 ng/mL (0-4.0) 02/25/18 14:38 CK/CKMB % Calc 2.2 % (<4) 02/25/18 14:38 Troponin I < 0.02 ng/mL (0-1.5) 02/25/18 14:38 C-Reactive Protein 73.90 mg/L (0-3.0) H 02/25/18 15:54 Total Protein 6.8 g/dL (6.4-8.2) 02/27/18 05:37 Albumin 2.5 g/dL (3.4-5.0) L 02/27/18 05:37 Globulin 4.3 g/dL (2.5-4.5) 02/27/18 05:37 Albumin/Globulin Ratio 0.6 Ratio (1.1-2.1) L 02/27/18 05:37 Specimen Type Clean catch urine 02/25/18 19:35 Urine Color Pale yellow (YELLOW) 02/25/18 19:35 Urine Appearance Clear (CLEAR) 02/25/18 19:35 Urine pH 5.0 (5.0 - 8.0) 02/25/18 19:35 Ur Specific [place] 1.005 (1.000-1.030) 02/25/18 19:35 Urine Protein Negative (NEGATIVE) 02/25/18 19:35 Urine Glucose (UA) Negative (NEGATIVE) 02/25/18 19:35 Urine Ketones Negative (NEGATIVE) 02/25/18 19:35 Urine Occult Blood Negative (NEGATIVE) 02/25/18 19:35 Urine Nitrite Negative (NEGATIVE) 02/25/18 19:35 Urine Bilirubin Negative (NEGATIVE) 02/25/18 19:35 Urine Urobilinogen Normal (NORMAL) 02/25/18 19:35 Ur Leukocyte Esterase Negative (NEGATIVE) 02/25/18 19:35 Urine Opiates Screen Negative (NEG=<300) 02/25/18 19:35 Urine Methadone Screen Negative (NEG=<300) 02/25/18 19:35 Ur Barbiturates Screen Negative (NEG=<200) 02/25/18 19:35 Ur Phencyclidine Scrn Negative (NEG=<25) 02/25/18 19:35 Ur Amphetamines Screen Negative (NEG=<1000) 02/25/18 19:35 U Benzodiazepines Scrn Negative (NEG=<200) 02/25/18 19:35 Urine Cocaine Screen Negative (NEG=<300) 02/25/18 19:35 U Marijuana (THC) Screen Negative (NEG=<50) 02/25/18 19:35 - Plan (1) Altered mental status Status: Acute Plan: DUE TO HYPOTENSION AND GENERALIZED WEAKNESS, PNEUMONIA-. PT ADMITTED ICU , IV ATBX, RESP THERAPY,. MONITOR BP STABILITY, CARDIAC MONITORING. VERIFY HOME MEDS, BLEEDING PRECAUTIONS. PNEUMONIA PATHWAY, HYDRATION (2) Hypotension Status: Acute (3) Thrombocytopenia Status: Acute (4) Pneumonia Status: Acute Plan: CONTINUE IV ATBX, RESP THERAPY (5) Depression Status: Acute Qualifiers: Depression Type: major depressive disorder Major depression recurrence: recurrent Active/Remission status: currently active Major depression episode severity: unspecified Qualified Code(s): F33.9 - Major depressive disorder, recurrent, unspecified (6) HIV disease Status: Chronic (7) DJD (degenerative joint disease) Status: Chronic Qualifiers: Osteoarthritis location: shoulder Osteoarthritis type: unspecified Laterality: bilateral Qualified Code(s): M19.011 - Primary osteoarthritis, right shoulder; M19.012 - Primary osteoarthritis, left shoulder; M19.012 - Primary osteoarthritis, left shoulder (8) Hypertension Status: Chronic Qualifiers: Hypertension type: essential hypertension Qualified Code(s): I10 - Essential (primary) hypertension
[2018-02-27] MEDS: NEURONTIN CAP 400 MG PO SCH ×2 (13:44→21:34)
[2018-02-27] MEDS: EMTRICITABINE TENOFOVIR PO SCH (21:32)
[2018-02-27] MEDS: SEROquel TAB 100 MG PO SCH (21:33)
[2018-02-27] MEDS: RITONAVIR PO SCH (21:35)
[2018-02-27] MEDS: QUETIAPINE PO SCH (21:36)
[2018-02-27] MEDS: ATAZANAVIR PO SCH (21:36)
[2018-02-28] MEDS: DUONEB 0.5 MG/3 MG NEB SCH ×6 (01:46→21:49)
[2018-02-28] MEDS: NS 1000 ML 1,000 ML IV SCH ×6 (03:13→21:09)
[2018-02-28] MEDS: NEURONTIN CAP 400 MG PO SCH ×3 (05:37→21:11)
[2018-02-28 06:13] LABS: BASOPHILS % (AUTO) 0.4 % (0.2-1.0); EOSINOPHILS # (AUTO) 0.1 x10^3/uL (0.0-0.2); EOSINOPHILS % (AUTO) 3.8 % (0.9-2.9); HEMOGLOBIN 10.2 g/dL (12.0-16.0); LYMPHOCYTES # (AUTO) 0.4 X10^3/uL (1.3-2.9); LYMPHOCYTES % (AUTO) 12.9 % (21.0-51.0); MEAN CORPUSCULAR HEMOGLOBIN 31.3 pg (27.0-34.0); MEAN CORPUSCULAR HGB CONC 34.1 g/dL (33.0-35.0); MEAN CORPUSCULAR VOLUME 91.9 fL (80.0-100.0); MONOCYTES # (AUTO) 0.4 x10^3/uL (0.3-0.8); NEUTROPHILS % (AUTO) 68.9 % (42.0-75.0); PLATELET COUNT 51 X10^3/uL (150.0-450.0); RED BLOOD COUNT 3.26 X10^6/uL (3.5-5.4); RED CELL DISTRIBUTION WIDTH 13.5 % (11.6-16.5); WHITE BLOOD COUNT 2.9 X10^3/uL (3.6-10.0)
--- NOTE | 2018-02-28 06:26 | RAD ---
Examination: Portable AP chest History: Pneumonia Comparison 02/27/2018 Findings: Continued normal heart size. Increasing interstitial densities noted in both lung bases, es pecially the left; the left diaphragm and costophrenic angle are now obscured. No large pleural effus ion or complicating pneumothorax is identified. Impression: Increasing opacity left base since 1 day earlier consistent with pneumonia or localized p ulmonary edema. Correlation with clinical findings may assist in this distinction. Reported By:
[2018-02-28 06:32] LABS: ALANINE AMINOTRANSFERASE 10 Units/L (12-78); ALBUMIN 2.5 g/dL (3.4-5.0); ALKALINE PHOSPHATASE 108 Units/L (46-116); ASPARTATE AMINO TRANSFERASE 15 Units/L (15-37); BLOOD UREA NITROGEN 7 mg/dL (7-18); CALCIUM 7.8 mg/dL (8.5-10.1); CARBON DIOXIDE 27.4 mmol/L (21-32); CHLORIDE 108 mmol/L (98-107); CREATININE 0.93 mg/dL (0.55-1.02); SODIUM 143 mmol/L (136-145); TOTAL PROTEIN 6.9 g/dL (6.4-8.2); eGFR NON BLACK RACES > 60 (>60)
[2018-02-28 07:09] LABS: GIANT PLATELET FEW
[2018-02-28 07:10] LABS: PLATELET MORPHOLOGY COMMENT NORMAL (NORMAL)
[2018-02-28] MEDS: ROBITUSSIN DM PO SCH ×4 (09:00→21:13)
[2018-02-28] MEDS: ULTRAM PO PRN ×2 (09:01→21:16)
[2018-02-28] MEDS: TAB-A-VITE PO SCH (09:01)
[2018-02-28] MEDS: LEVAQUIN PREMIX IV 750 MG 750 MG/150 ML BAG IV SCH (09:01)
[2018-02-28] MEDS: NORVASC TAB 5 MG PO SCH (09:01)
[2018-02-28] MEDS: BUSPAR PO SCH ×2 (09:02→21:10)
[2018-02-28] MEDS: ROCEPHIN 1 GRAM IV PREMIX 1 GM/50 ML IV.SOLN. IV SCH (09:02)
[2018-02-28] MEDS: CYMBALTA PO SCH ×2 (09:03→21:11)
[2018-02-28] MEDS: ATAZANAVIR PO SCH (21:12)
[2018-02-28] MEDS: RITONAVIR PO SCH (21:12)
[2018-02-28] MEDS: SEROquel TAB 100 MG PO SCH (21:12)
[2018-02-28] MEDS: QUETIAPINE PO SCH (21:12)
[2018-02-28] MEDS: EMTRICITABINE TENOFOVIR PO SCH (21:14)
[2018-02-28] MEDS ORDERED: K-LYTE EFFERVESCENT PO PRN (22:06)
[2018-02-28] MEDS ORDERED: MAGNESIUM SULFATE 1 GRAM/100 mL PREMIX 1 GM/100 ML BAG IV PRN (22:06)
[2018-02-28] MEDS ORDERED: POTASSIUM CHL 60 MEQ/NS 0.45% 500 ML IV PRN (22:06)
[2018-02-28] MEDS ORDERED: POTASSIUM CHL 40 MEQ/NS 0.45% 500 ML IV PRN (22:06)
[2018-02-28] MEDS ORDERED: K-RIDER 10 MEQ/NS 100 ML 10 MEQ/100 ML BAG IV PRN (22:06)
[2018-02-28] MEDS ORDERED: POTASSIUM CHLORIDE LIQ 20 MEQ UDC PO PRN (22:06)
[2018-03-01] MEDS: DUONEB 0.5 MG/3 MG NEB SCH ×6 (01:38→20:27)
[2018-03-01] MEDS: NEURONTIN CAP 400 MG PO SCH ×4 (05:06→21:18)
[2018-03-01] MEDS: NS 1000 ML 1,000 ML IV SCH ×3 (05:08→16:30)
[2018-03-01 06:10] LABS: BASOPHILS % (AUTO) 0.6 % (0.2-1.0); EOSINOPHILS # (AUTO) 0.1 x10^3/uL (0.0-0.2); HEMATOCRIT 29.5 % (36.0-47.0); HEMOGLOBIN 10.1 g/dL (12.0-16.0); LYMPHOCYTES # (AUTO) 0.4 X10^3/uL (1.3-2.9); LYMPHOCYTES % (AUTO) 15.8 % (21.0-51.0); MEAN CORPUSCULAR HEMOGLOBIN 31.6 pg (27.0-34.0); MEAN CORPUSCULAR HGB CONC 34.4 g/dL (33.0-35.0); MONOCYTES # (AUTO) 0.4 x10^3/uL (0.3-0.8); MONOCYTES % (AUTO) 15.8 % (0.0-13.0); NEUTROPHILS # (AUTO) 1.4 x10^3/uL (2.2-4.8); NEUTROPHILS % (AUTO) 61.8 % (42.0-75.0); PLATELET COUNT 57 X10^3/uL (150.0-450.0); RED BLOOD COUNT 3.21 X10^6/uL (3.5-5.4); RED CELL DISTRIBUTION WIDTH 13.7 % (11.6-16.5)
[2018-03-01 06:49] LABS: ALANINE AMINOTRANSFERASE 9 Units/L (12-78); ALBUMIN 2.4 g/dL (3.4-5.0); ALKALINE PHOSPHATASE 100 Units/L (46-116); ASPARTATE AMINO TRANSFERASE 14 Units/L (15-37); BLOOD UREA NITROGEN 7 mg/dL (7-18); CALCIUM 7.6 mg/dL (8.5-10.1); CARBON DIOXIDE 23.7 mmol/L (21-32); CHLORIDE 109 mmol/L (98-107); COR CA(FOR HYPOALB) 8.9 mg/dL (8.5-10.1); CREATININE 0.85 mg/dL (0.55-1.02); MAGNESIUM 1.8 mg/dL (1.7-2.9); SODIUM 143 mmol/L (136-145); TOTAL PROTEIN 6.6 g/dL (6.4-8.2); eGFR NON BLACK RACES > 60 (>60)
[2018-03-01 07:12] LABS: PLATELET MORPHOLOGY COMMENT NORMAL (NORMAL); WHITE BLOOD COUNT 2.3 X10^3/uL (3.6-10.0)
[2018-03-01] MEDS: TAB-A-VITE PO SCH (08:03)
[2018-03-01] MEDS: CYMBALTA PO SCH ×2 (08:03→21:18)
[2018-03-01] MEDS: BUSPAR PO SCH ×2 (08:03→21:17)
[2018-03-01] MEDS: ROBITUSSIN DM PO SCH ×4 (08:04→21:16)
[2018-03-01] MEDS: NORVASC TAB 5 MG PO SCH (08:04)
[2018-03-01] MEDS: ROCEPHIN 1 GRAM IV PREMIX 1 GM/50 ML IV.SOLN. IV SCH (08:05)
[2018-03-01] MEDS: LEVAQUIN PREMIX IV 750 MG 750 MG/150 ML BAG IV SCH (08:05)
[2018-03-01] MEDS: TUSSIONEX PENNKINETIC SUSP PO PRN (08:05)
[2018-03-01] MEDS: ULTRAM PO PRN ×2 (08:10→21:20)
--- NOTE | 2018-03-01 11:52 | PCM.PROG ---
Progress Note - Progress Note for Day of Date: 02/28/18 - Subjective Subjective: 47 WF ER ADMIT ON 02/25 WITH PNEUMONIA, CURRENTLY ON IV ATBX WITH RESP THERAPY, PENDING SPUTUM CUTLURE. PT REPORTS CONTINUED COUGH BUT IMPROVING SOB ON EXERTION AND IMPROVING SPUTUM PRODUCTION. - Past Medical Family Social History Past Med/Fam/Surg Hx: No changes since H&P Allergies: Allergies No Known Drug Allergies Allergy (Verified 10/27/17 15:40) - Review of Systems ROS: No change since H&P - Vital Signs and I&O's Vital Signs: Temperature 98.3 F Pulse Rate [Apical] 97 Pulse Rate 87 Respiratory Rate 16 Blood Pressure [Right Arm] 139/79 Blood Pressure [Standing] 146/94 Blood Pressure [Sitting] 147/96 Blood Pressure [Lying] 148/88 Blood Pressure 89/52 O2 Sat by Pulse Oximetry 100 Intake and Output: Intake & Output 02/26/18 02/27/18 02/28/18 03/01/18 11:59 11:59 11:59 11:59 Intake Total 2277 / 2277 3285 / 3285 3852 / 3852 4121 / 4121 Output Total 1800 / 1800 2200 / 2200 701 / 701 Balance 477 / 477 1085 / 1085 3151 / 3151 4120 / 4120 - Physical Exam Oriented: Normal Eyes: Normal Ear: Normal Nose: Normal Throat: Normal Respiratory: Diminished, Rhonchi Cardiovascular: Normal : Normal Auscultation: Bowel Sounds: Normal Tenderness: Normal Skin: Normal Musculoskeletal: Back:Lumbar Psychiatric: Anxiety Affect: Depressed Speech Pattern: Clear, Appropriate - Laboratory and Diagnostics Result Diagrams: 03/01/18 04:18 03/01/18 04:18 Labs: 02/25/18 15:57 Blood Blood Culture - Preliminary 02/25/18 15:54 Blood Blood Culture - Preliminary Laboratory WBC 2.3 X10^3/uL (3.6-10.0) L 03/01/18 04:18 RBC 3.21 X10^6/uL (3.5-5.4) L 03/01/18 04:18 Hgb 10.1 g/dL (12.0-16.0) L 03/01/18 04:18 Hct 29.5 % (36.0-47.0) L 03/01/18 04:18 MCV 92.0 fL (80.0-100.0) 03/01/18 04:18 MCH 31.6 pg (27.0-34.0) 03/01/18 04:18 MCHC 34.4 g/dL (33.0-35.0) 03/01/18 04:18 RDW 13.7 % (11.6-16.5) 03/01/18 04:18 Plt Count 57 X10^3/uL (150.0-450.0) L 03/01/18 04:18 Plt Count Comment Decreased (ADEQUATE) A 03/01/18 04:18 MPV 11.0 fL (7.4-11.0) 03/01/18 04:18 Neut % (Auto) 61.8 % (42.0-75.0) 03/01/18 04:18 Lymph % (Auto) 15.8 % (21.0-51.0) L 03/01/18 04:18 [place] % (Auto) 15.8 % (0.0-13.0) H 03/01/18 04:18 Eos % (Auto) 6.0 % (0.9-2.9) H 03/01/18 04:18 Baso % (Auto) 0.6 % (0.2-1.0) 03/01/18 04:18 Neut # (Auto) 1.4 x10^3/uL (2.2-4.8) L 03/01/18 04:18 Lymph # (Auto) 0.4 X10^3/uL (1.3-2.9) L 03/01/18 04:18 [place] # (Auto) 0.4 x10^3/uL (0.3-0.8) 03/01/18 04:18 Eos # (Auto) 0.1 x10^3/uL (0.0-0.2) 03/01/18 04:18 Baso # (Auto) 0.0 X10^3/uL (0.0-0.1) 03/01/18 04:18 Absolute Nucleated RBC 0.3 /100WBC 03/01/18 04:18 Total Counted 50 03/01/18 04:18 Neutrophils % (Manual) 71 % (39-76) 03/01/18 04:18 Lymphocytes % (Manual) 19 % (13-43) 03/01/18 04:18 Monocytes % (Manual) 4 % (4-9) 03/01/18 04:18 Eosinophils % (Manual) 6 % (0-6) 03/01/18 04:18 Giant Platelets Few 02/28/18 04:57 Plt Morphology Comment Normal (NORMAL) 03/01/18 04:18 RBC Morphology Normal (NORMAL) 03/01/18 04:18 Sample Site Rr 02/25/18 15:34 ABG pH 7.350 (7.35-7.45) 02/25/18 15:34 ABG pCO2 40.0 mmHg (35.0-45.0) 02/25/18 15:34 ABG pO2 55.0 mmHg (80.0-100.0) L 02/25/18 15:34 ABG HCO3 22.1 mmol/L (22-26) 02/25/18 15:34 ABG O2 Saturation 86.0 % (90-100) L 02/25/18 15:34 ABG Base Excess -3.3 mmol/L (-2.0-2.0) L 02/25/18 15:34 Russell Test Pos 02/25/18 15:34 A-a Gradient 45.0 mmHg 02/25/18 15:34 FiO2 21.000 02/25/18 15:34 Blood Gas Comments Pt radha well lj 02/25/18 15:34 Sodium 143 mmol/L (136-145) 03/01/18 04:18 Corrected Sodium TNP 03/01/18 04:18 Potassium 3.5 mmol/L (3.5-5.1) 03/01/18 04:18 Chloride 109 mmol/L (98-107) H 03/01/18 04:18 Carbon Dioxide 23.7 mmol/L (21-32) 03/01/18 04:18 BUN 7 mg/dL (7-18) 03/01/18 04:18 Creatinine 0.85 mg/dL (0.55-1.02) 03/01/18 04:18 Est GFR (MDRD) Af Amer > 60 (>60) 03/01/18 04:18 Est GFR (MDRD) Non-Af > 60 (>60) 03/01/18 04:18 Glucose 87 mg/dL (65-99) 03/01/18 04:18 Lactic Acid 0.8 mmol/L (0.4-2.0) 02/25/18 15:54 Calcium 7.6 mg/dL (8.5-10.1) L 03/01/18 04:18 Corrected Calcium 8.9 mg/dL (8.5-10.1) 03/01/18 04:18 Magnesium 1.8 mg/dL (1.7-2.9) 03/01/18 04:18 Total Bilirubin 0.20 mg/dL (0.2-1.0) 03/01/18 04:18 AST 14 Units/L (15-37) L 03/01/18 04:18 ALT 9 Units/L (12-78) L 03/01/18 04:18 Alkaline Phosphatase 100 Units/L (46-116) 03/01/18 04:18 Creatine Kinase 45 Units/L (26-192) 02/25/18 14:38 CK-MB (CK-2) < 1.0 ng/mL (0-4.0) 02/25/18 14:38 CK/CKMB % Calc 2.2 % (<4) 02/25/18 14:38 Troponin I < 0.02 ng/mL (0-1.5) 02/25/18 14:38 C-Reactive Protein 73.90 mg/L (0-3.0) H 02/25/18 15:54 Total Protein 6.6 g/dL (6.4-8.2) 03/01/18 04:18 Albumin 2.4 g/dL (3.4-5.0) L 03/01/18 04:18 Globulin 4.2 g/dL (2.5-4.5) 03/01/18 04:18 Albumin/Globulin Ratio 0.6 Ratio (1.1-2.1) L 03/01/18 04:18 Specimen Type Clean catch urine 02/25/18 19:35 Urine Color Pale yellow (YELLOW) 02/25/18 19:35 Urine Appearance Clear (CLEAR) 02/25/18 19:35 Urine pH 5.0 (5.0 - 8.0) 02/25/18 19:35 Ur Specific [place] 1.005 (1.000-1.030) 02/25/18 19:35 Urine Protein Negative (NEGATIVE) 02/25/18 19:35 Urine Glucose (UA) Negative (NEGATIVE) 02/25/18 19:35 Urine Ketones Negative (NEGATIVE) 02/25/18 19:35 Urine Occult Blood Negative (NEGATIVE) 02/25/18 19:35 Urine Nitrite Negative (NEGATIVE) 02/25/18 19:35 Urine Bilirubin Negative (NEGATIVE) 02/25/18 19:35 Urine Urobilinogen Normal (NORMAL) 02/25/18 19:35 Ur Leukocyte Esterase Negative (NEGATIVE) 02/25/18 19:35 Urine Opiates Screen Negative (NEG=<300) 02/25/18 19:35 Urine Methadone Screen Negative (NEG=<300) 02/25/18 19:35 Ur Barbiturates Screen Negative (NEG=<200) 02/25/18 19:35 Ur Phencyclidine Scrn Negative (NEG=<25) 02/25/18 19:35 Ur Amphetamines Screen Negative (NEG=<1000) 02/25/18 19:35 U Benzodiazepines Scrn Negative (NEG=<200) 02/25/18 19:35 Urine Cocaine Screen Negative (NEG=<300) 02/25/18 19:35 U Marijuana (THC) Screen Negative (NEG=<50) 02/25/18 19:35 - Plan (1) Altered mental status Status: Acute Plan: DUE TO HYPOTENSION AND GENERALIZED WEAKNESS, PNEUMONIA, IV ATBX, RESP THERAPY,. MONITOR BP STABILITY, CARDIAC MONITORING. VERIFY HOME MEDS, BLEEDING PRECAUTIONS. PNEUMONIA PATHWAY, HYDRATION (2) Hypotension Status: Resolved (3) Thrombocytopenia Status: Acute (4) Pneumonia Status: Acute Plan: CONTINUE IV ATBX, RESP THERAPY (5) Depression Status: Acute Qualifiers: Depression Type: major depressive disorder Major depression recurrence: recurrent Active/Remission status: currently active Major depression episode severity: unspecified Qualified Code(s): F33.9 - Major depressive disorder, recurrent, unspecified (6) HIV disease Status: Chronic (7) DJD (degenerative joint disease) Status: Chronic Qualifiers: Osteoarthritis location: shoulder Osteoarthritis type: unspecified Laterality: bilateral Qualified Code(s): M19.011 - Primary osteoarthritis, right shoulder; M19.012 - Primary osteoarthritis, left shoulder; M19.012 - Primary osteoarthritis, left shoulder (8) Hypertension Status: Chronic Qualifiers: Hypertension type: essential hypertension Qualified Code(s): I10 - Essential (primary) hypertension
[2018-03-01] MEDS: PEPCID 20 MG IV PREMIX* 20 MG/50 ML BAG IV SCH (18:24)
[2018-03-01] MEDS: SEROquel TAB 100 MG PO SCH (21:17)
[2018-03-01] MEDS: ATAZANAVIR PO SCH (21:19)
[2018-03-01] MEDS: RITONAVIR PO SCH (21:19)
[2018-03-01] MEDS: EMTRICITABINE TENOFOVIR PO SCH (21:19)
[2018-03-02] MEDS: DUONEB 0.5 MG/3 MG NEB SCH ×3 (01:25→09:47)
[2018-03-02] MEDS: NS 1000 ML 1,000 ML IV SCH ×2 (03:00→09:25)
[2018-03-02] MEDS: NEURONTIN CAP 400 MG PO SCH (05:25)
[2018-03-02 06:09] LABS: ALANINE AMINOTRANSFERASE 9 Units/L (12-78); ALBUMIN 2.6 g/dL (3.4-5.0); ALKALINE PHOSPHATASE 99 Units/L (46-116); ASPARTATE AMINO TRANSFERASE 13 Units/L (15-37); BLOOD UREA NITROGEN 7 mg/dL (7-18); CALCIUM 7.7 mg/dL (8.5-10.1); CARBON DIOXIDE 26.1 mmol/L (21-32); CHLORIDE 107 mmol/L (98-107); COR CA(FOR HYPOALB) 8.8 mg/dL (8.5-10.1); CREATININE 0.81 mg/dL (0.55-1.02); SODIUM 142 mmol/L (136-145); TOTAL PROTEIN 6.6 g/dL (6.4-8.2); eGFR NON BLACK RACES > 60 (>60)
[2018-03-02 06:24] LABS: BASOPHILS % (AUTO) 0.4 % (0.2-1.0); EOSINOPHILS # (AUTO) 0.2 x10^3/uL (0.0-0.2); EOSINOPHILS % (AUTO) 4.8 % (0.9-2.9); HEMOGLOBIN 9.9 g/dL (12.0-16.0); LYMPHOCYTES # (AUTO) 0.6 X10^3/uL (1.3-2.9); LYMPHOCYTES % (AUTO) 13.3 % (21.0-51.0); MEAN CORPUSCULAR HEMOGLOBIN 31.7 pg (27.0-34.0); MEAN CORPUSCULAR HGB CONC 34.2 g/dL (33.0-35.0); MEAN CORPUSCULAR VOLUME 92.7 fL (80.0-100.0); MEAN PLATELET VOLUME 10.1 fL (7.4-11.0); MONOCYTES # (AUTO) 0.7 x10^3/uL (0.3-0.8); MONOCYTES % (AUTO) 15.3 % (0.0-13.0); NEUTROPHILS # (AUTO) 2.8 x10^3/uL (2.2-4.8); NEUTROPHILS % (AUTO) 66.2 % (42.0-75.0); PLATELET COUNT 58 X10^3/uL (150.0-450.0); RED BLOOD COUNT 3.13 X10^6/uL (3.5-5.4); RED CELL DISTRIBUTION WIDTH 13.2 % (11.6-16.5); WHITE BLOOD COUNT 4.3 X10^3/uL (3.6-10.0)
[2018-03-02] MEDS ORDERED: NS 100 ML IV 100 ML IV ONE (06:24)
[2018-03-02 07:09] LABS: PLATELET MORPHOLOGY COMMENT NORMAL (NORMAL)
--- NOTE | 2018-03-02 07:48 | CT ---
HISTORY: Pneumonia, shortness of breath Study: CT chest with IV contrast Comparison: No priors Technique: Multiple axial images of the chest were obtained from the thoracic inlet to the upper abdo men during the administration of IV contrast. In addition to standard multi planar reconstructions, M IP reconstructions were performed in the axial plane. Dose reduction techniques utilized automatic ex posure control. Findings: The mediastinum does not demonstrate significant pathological lymphadenopathy. There is no pericardi al effusion observed. The thoracic aorta is normal in its contour without evidence for aneurysmal di latation. There are bilateral coronary artery calcifications. There is insufficient opacification of the pulmonary arteries to exclude small branch emboli. No large central pulmonary embolus is seen. Evaluation of the lung parenchyma reveals changes of moderately severe COPD with cylindrical bronchie ctasis, centrilobular and paraseptal emphysema and interstitial fibrotic change. There is some honeyc ombing present in the lung bases. Faint ground-glass opacities present bilaterally, likely indicating mild inflammation. No dense consolidation is seen.. No pulmonary nodule or mass can be identified. The bony thorax is unremarkable in its appearance. The visualized portions of the upper abdomen are grossly unremarkable. IMPRESSION: No evidence of thoracic aortic aneurysm or central pulmonary embolus. The smaller pulmonary artery br anches are insufficiently opacified to exclude small emboli. Moderately severe COPD as described. There are faint ground-glass opacities bilaterally which likely represent mild inflammation. No dense consolidation is seen. Reported By:
[2018-03-02] MEDS: ROBITUSSIN DM PO SCH ×2 (09:24→13:21)
[2018-03-02] MEDS: TAB-A-VITE PO SCH (09:24)
[2018-03-02] MEDS: BUSPAR PO SCH (09:24)
[2018-03-02] MEDS: ULTRAM PO PRN (09:24)
[2018-03-02] MEDS: NORVASC TAB 5 MG PO SCH (09:24)
[2018-03-02] MEDS: TUSSIONEX PENNKINETIC SUSP PO PRN (09:25)
[2018-03-02] MEDS: ROCEPHIN 1 GRAM IV PREMIX 1 GM/50 ML IV.SOLN. IV SCH (09:25)
[2018-03-02] MEDS: LEVAQUIN PREMIX IV 750 MG 750 MG/150 ML BAG IV SCH (09:25)
[2018-03-02] MEDS: PEPCID 20 MG IV PREMIX* 20 MG/50 ML BAG IV SCH (09:25)
[2018-03-02] MEDS: CYMBALTA PO SCH (09:27)
[2018-03-02 13:21] VITALS: BP 159/88
--- NOTE | 2018-03-23 22:51 | PCM.DCPLAN ---
Discharge Summary - Admission Date Date of Admission: 02/25/18 - Discharge Date Discharge Date: 03/02/18 - Admission Diagnoses (1) Altered mental status Status: Acute (2) Pneumonia Status: Acute (3) HIV disease Status: Chronic (4) Hypertension Status: Chronic - Discharge Diagnoses Discharge Diagnosis: SAME ADMISSION DIAGNOSIS - Discharge Medications Discharge Medications: Prescriptions: - Hospital Course Vital Signs: Temperature 98.6 F Pulse Rate [Apical] 85 Pulse Rate 82 Respiratory Rate 17 Blood Pressure [Right Arm] 159/88 Blood Pressure [Standing] 146/94 Blood Pressure [Sitting] 147/96 Blood Pressure [Lying] 148/88 Blood Pressure 89/52 O2 Sat by Pulse Oximetry 97 Latest Lab Results: Laboratory Last Values WBC 4.3 X10^3/uL (3.6-10.0) 03/02/18 04:11 RBC 3.13 X10^6/uL (3.5-5.4) L 03/02/18 04:11 Hgb 9.9 g/dL (12.0-16.0) L 03/02/18 04:11 Hct 29.0 % (36.0-47.0) L 03/02/18 04:11 MCV 92.7 fL (80.0-100.0) 03/02/18 04:11 MCH 31.7 pg (27.0-34.0) 03/02/18 04:11 MCHC 34.2 g/dL (33.0-35.0) 03/02/18 04:11 RDW 13.2 % (11.6-16.5) 03/02/18 04:11 Plt Count 58 X10^3/uL (150.0-450.0) L 03/02/18 04:11 Plt Count Comment Decreased (ADEQUATE) A 03/02/18 04:11 MPV 10.1 fL (7.4-11.0) 03/02/18 04:11 Neut % (Auto) 66.2 % (42.0-75.0) 03/02/18 04:11 Lymph % (Auto) 13.3 % (21.0-51.0) L 03/02/18 04:11 [place] % (Auto) 15.3 % (0.0-13.0) H 03/02/18 04:11 Eos % (Auto) 4.8 % (0.9-2.9) H 03/02/18 04:11 Baso % (Auto) 0.4 % (0.2-1.0) 03/02/18 04:11 Neut # (Auto) 2.8 x10^3/uL (2.2-4.8) 03/02/18 04:11 Lymph # (Auto) 0.6 X10^3/uL (1.3-2.9) L 03/02/18 04:11 [place] # (Auto) 0.7 x10^3/uL (0.3-0.8) 03/02/18 04:11 Eos # (Auto) 0.2 x10^3/uL (0.0-0.2) 03/02/18 04:11 Baso # (Auto) 0.0 X10^3/uL (0.0-0.1) 03/02/18 04:11 Absolute Nucleated RBC 0.0 /100WBC 03/02/18 04:11 Total Counted 50 03/01/18 04:18 Neutrophils % (Manual) 71 % (39-76) 03/01/18 04:18 Lymphocytes % (Manual) 19 % (13-43) 03/01/18 04:18 Monocytes % (Manual) 4 % (4-9) 03/01/18 04:18 Eosinophils % (Manual) 6 % (0-6) 03/01/18 04:18 Plt Clumps, EDTA Few 03/02/18 04:11 Giant Platelets Few 02/28/18 04:57 Plt Morphology Comment Normal (NORMAL) 03/02/18 04:11 RBC Morphology Normal (NORMAL) 03/02/18 04:11 Sample Site Rr 02/25/18 15:34 ABG pH 7.350 (7.35-7.45) 02/25/18 15:34 ABG pCO2 40.0 mmHg (35.0-45.0) 02/25/18 15:34 ABG pO2 55.0 mmHg (80.0-100.0) L 02/25/18 15:34 ABG HCO3 22.1 mmol/L (22-26) 02/25/18 15:34 ABG O2 Saturation 86.0 % (90-100) L 02/25/18 15:34 ABG Base Excess -3.3 mmol/L (-2.0-2.0) L 02/25/18 15:34 Russell Test Pos 02/25/18 15:34 A-a Gradient 45.0 mmHg 02/25/18 15:34 FiO2 21.000 02/25/18 15:34 Blood Gas Comments Pt radha well lj 02/25/18 15:34 Sodium 142 mmol/L (136-145) 03/02/18 04:11 Corrected Sodium TNP 03/02/18 04:11 Potassium 3.3 mmol/L (3.5-5.1) L 03/02/18 04:11 Chloride 107 mmol/L (98-107) 03/02/18 04:11 Carbon Dioxide 26.1 mmol/L (21-32) 03/02/18 04:11 BUN 7 mg/dL (7-18) 03/02/18 04:11 Creatinine 0.81 mg/dL (0.55-1.02) 03/02/18 04:11 Est GFR (MDRD) Af Amer > 60 (>60) 03/02/18 04:11 Est GFR (MDRD) Non-Af > 60 (>60) 03/02/18 04:11 Glucose 92 mg/dL (65-99) 03/02/18 04:11 Lactic Acid 0.8 mmol/L (0.4-2.0) 02/25/18 15:54 Calcium 7.7 mg/dL (8.5-10.1) L 03/02/18 04:11 Corrected Calcium 8.8 mg/dL (8.5-10.1) 03/02/18 04:11 Magnesium 1.8 mg/dL (1.7-2.9) 03/01/18 04:18 Total Bilirubin 0.20 mg/dL (0.2-1.0) 03/02/18 04:11 AST 13 Units/L (15-37) L 03/02/18 04:11 ALT 9 Units/L (12-78) L 03/02/18 04:11 Alkaline Phosphatase 99 Units/L (46-116) 03/02/18 04:11 Creatine Kinase 45 Units/L (26-192) 02/25/18 14:38 CK-MB (CK-2) < 1.0 ng/mL (0-4.0) 02/25/18 14:38 CK/CKMB % Calc 2.2 % (<4) 02/25/18 14:38 Troponin I < 0.02 ng/mL (0-1.5) 02/25/18 14:38 C-Reactive Protein 73.90 mg/L (0-3.0) H 02/25/18 15:54 Total Protein 6.6 g/dL (6.4-8.2) 03/02/18 04:11 Albumin 2.6 g/dL (3.4-5.0) L 03/02/18 04:11 Globulin 4.0 g/dL (2.5-4.5) 03/02/18 04:11 Albumin/Globulin Ratio 0.7 Ratio (1.1-2.1) L 03/02/18 04:11 Specimen Type Clean catch urine 02/25/18 19:35 Urine Color Pale yellow (YELLOW) 02/25/18 19:35 Urine Appearance Clear (CLEAR) 02/25/18 19:35 Urine pH 5.0 (5.0 - 8.0) 02/25/18 19:35 Ur Specific [place] 1.005 (1.000-1.030) 02/25/18 19:35 Urine Protein Negative (NEGATIVE) 02/25/18 19:35 Urine Glucose (UA) Negative (NEGATIVE) 02/25/18 19:35 Urine Ketones Negative (NEGATIVE) 02/25/18 19:35 Urine Occult Blood Negative (NEGATIVE) 02/25/18 19:35 Urine Nitrite Negative (NEGATIVE) 02/25/18 19:35 Urine Bilirubin Negative (NEGATIVE) 02/25/18 19:35 Urine Urobilinogen Normal (NORMAL) 02/25/18 19:35 Ur Leukocyte Esterase Negative (NEGATIVE) 02/25/18 19:35 Urine Opiates Screen Negative (NEG=<300) 02/25/18 19:35 Urine Methadone Screen Negative (NEG=<300) 02/25/18 19:35 Ur Barbiturates Screen Negative (NEG=<200) 02/25/18 19:35 Ur Phencyclidine Scrn Negative (NEG=<25) 02/25/18 19:35 Ur Amphetamines Screen Negative (NEG=<1000) 02/25/18 19:35 U Benzodiazepines Scrn Negative (NEG=<200) 02/25/18 19:35 Urine Cocaine Screen Negative (NEG=<300) 02/25/18 19:35 U Marijuana (THC) Screen Negative (NEG=<50) 02/25/18 19:35 Hospital Course: 47 WF ER ADMISSION AFTER PRESENTING WITH DIFFUSE WEAKNESS PT STATES SHE TOOK [employer] THINKING HER BP WAS ELEVATED, HOWEVER IT WAS LOW AND CAUSED DIFFUSE WEAKNESS, HYPOTENSION. CXR REVEALED PNEUMONIA. PT ADMITTED TO ICU FOR TREATMENT AND EVALUATION, BP AND CARDIAC MONITORING, PNEUMONIA PROTOCOL WERE INITIATED. PT HAS PMH OF HEP C, HIV AND MENTAL ILLNESS, HTN. PATIENT WAS GIVEN IV ANTIBIOTICS AND NEB TREATMENTS. DID HAVE IMPROVEMENT OF SYMPTOMS AND WAS DISCHARGED TO BE FOLLOWED ON OP BASIS. - Discharge Plan Disposition: HOME, SELF-CARE Condition: Stable - Follow ups/Referrals Follow ups/Referrals: ARIA HOLLY [Primary Care Provider] - 03/11/18 9:30 am - Instructions Instructions: Steps to Quit Smoking, [id number], How to Take Your Blood Pressure, [id number], How to Use a Nebulizer, Adult, Hypertension, Easy-to- Read, Community-Acquired Pneumonia, Adult, [id number] Additional Instructions: increase po fluids, rest jet nebs qid resume home meds levaquin 500mg po dailyx 7 days Forms: Patient Portal
== END 2018-03-02 13:15 | disposition home or self-care (01) | DRG 975 ==
LOC: ER 13:35 → ICU 16:26
PROVIDERS: ADMIT Internal Medicine; ATTEND Internal Medicine
DX: R09.02 Hypoxemia; I95.89 Other hypotension; R26.89 Other abnormalities of gait and mobility; F33.8 Other recurrent depressive disorders; J18.8 Other pneumonia, unspecified organism; I10 Essential (primary) hypertension; F41.8 Other specified anxiety disorders; M19.011 Primary osteoarthritis, right shoulder; R41.82 Altered mental status, unspecified; D69.6 Thrombocytopenia, unspecified; B20 Human immunodeficiency virus [HIV] disease; M19.012 Primary osteoarthritis, left shoulder; R79.82 Elevated C-reactive protein (CRP)
CPT/HCPCS: 36415; 36600; 71010; 71045; 71260; 80053; 80307; 81003; 82550; 82553; 82803; 83605; 83735; 84484; 85025; 86140; 87040; 93005; 93010; 94640; 94669; 96365; 96367; 96374; 96375; 97162; 97165; 99231; 99284; A4222; S0028; G0434; J0696; J1265; J1956; J7030; J7050; J7620; J8499

== ENCOUNTER 2018-04-10 13:30 | Inpatient (IN) ==
--- NOTE | 2018-04-10 14:03 | DR.GENAD ---
HPI - PCP Primary Care Physician: ELAYNE - Complaint/Symptoms Chief Complaint Doctors Comments: Patient is complaining of jerking spells, dizziness and falling a lot recently. states she has fallen in the grocery store and [employer] recently. States she had a mini stroke in 2013 that affected her right side. States she is a patient of Dr. Chapa from [facility]. States he is treating her for her HIV and she is going to a clinic for her nerves since she has lost so many family members recently due to . States she is taking Seroquel 600mg qhs, Cymbalta; Tenex, Prozac and nebulizer treatment every four hours. States she has been forgetting a lot. states she has family members to stay with her recenlty and help her. States the jerking in her legs has gotten worst since she started on the Tenex to help keep her focused. She denies any recent trauma. She denies cold, cough, fever or chills. Chief Complaint:: PT. C/O FREQUENT FALLS, POSSIBLE SYNCOPE, WEAKNESS, FEELING JITTERY AND SHAKY, AND SHORTNESS OF BREATH. PT. STATES THIS HAS BEEN GOING ON FOR 2-3 WEEKS BUT HER FALLS HAVE BECOME MORE FREQUENT. PT. C/O GENERALIZED PAIN. - Nurses notes reviewed Nurses Notes Review: Yes - Source History Provided: Patient, EMS - Mode of Arrival Mode of Arrival: EMS - Timing Onset of Chief Complaint: 03/27/18 Came on: Gradually - Duration Duration: Constant How lon Duration: Weeks - Location Location: dizziness with jerking - Severity Severity: Moderate - Modifying Factors Worsens:: nothing Improves:: nothing PMH - PMH Past Medical History: Yes Past Medical History: Arthritis, Hypertension Past Medical History Comment: HIV Past Surgical History: Yes Surgical History: , Hysterectomy - Family History History of Family Medical Conditions: Yes Family Medical History: Cancer, [place], Coronary Artery Disease, Sudden Cardiac , Hypertension - Social History Does patient currently use any type of tobacco product: No Have you used tobacco products in the last 12 months: No Type of Tobacco Use: None Does any household member use tobacco: No Alcohol Use: None Do you use any recreational Drugs:: No Lives With: Alone Lives Where: Home - infectious screening In the last 2 months have you had wt loss of >10#?: NO Have you had fever, night sweats or hemotysis?: No Have you traveled outside the country in the last 6 months?: No Isolation: Standard ROS - Review of Systems Constitutional: No Symptoms Reported, Weakness. negative: See HPI, Chills, Diaphoresis, Fever, Malaise, Irritable, Fatigue, Loss of Appetite, Other Eyes: No Symptoms Reported ENTM: No Symptoms Reported Respiratoy: No Symptoms Reported Cardiovascular: No Symptoms Reported, Syncope Gastrointestinal/Abdominal: No Symptoms Reported. negative: See HPI, Abdominal Pain, Constipation, Diarrhea, Nausea, Vomiting, Food Intolerance, Other Genitourinary: No Symptoms Reported. negative: See HPI, Discharge, Dysuria, Frequency, Hematuria, Pain, Bleeding, Other Neurological: No Symptoms Reported, Depressed, Tremors, Dizziness Musculoskeletal: No Symptoms Reported Integumentary: No Symptoms Reported. negative: See HPI, Change in Color, Change in Hair/Nails, Dryness, Lesions, Lumps, Rash, Itching, Wound, Bruises, Juandice, Other Hematologic/Lymphatic: No Symptoms Reported Endocrine: No Symptoms Reported Psychiatric: No Symptoms Reported, Depression PE - General Limitations: No Limitations General Appearance: Alert, In No Apparent Distress - Head Head Exam: Normal Inspection, Atraumatic, Normocephalic - Eyes Eye exam: Normal Appearance, PERRL, EOMI. negative: Scleral Icterus, Conjunctival Injection, Nystagmus, Miosis, Mydrasis, Periorbital Swelling, Periorbital Tenderness, Other - ENT ENT Exam: Normal Exam, Normal Oropharynx, Normal External Ear Exam, Mucous Membranes Moist, TM's Normal Bilaterally External Ear Exam: Normal External Inspection TM/Canal Exam: Bilateral Normal Nose Exam: Normal Nose Exam Mouth Exam: Normal Inspection. negative: Drooling, Trismus, Lip Swelling, Tongue Elevation, Tongue Swelling, Laceration, Other Throat Exam: Normal Inspection - Neck Neck Exam: Normal Inspection, Full ROM, Trachea Midline - Chest Chest Inspection: Normal Inspection, Symmetric Chest Wall Rise - Respiratory Respiratory Exam: Normal Lung Sounds Bilat Respiratory Exam: Bilateral Clear to Auscultation - Cardiovascular Cardiovascular Exam: Regular Rate, Normal Rhythm, Normal Heart Sounds - Abdominal Exam Abdominal Exam: Normal Inspection, Normal Bowel Sounds, Soft Abdominal Tenderness: negative: RUQ, RLQ, LUQ, LLQ, Epigastrium, Suprapubic, Diffuse, Mild, Moderate, Severe, Other - Extremities Extremities Exam: Normal Inspection, Full ROM, Normal Capillary Refill. negative: Tenderness, Edema, Joint Swelling, Calf Tenderness, Other - Back Back Exam: Normal Inspection, Full ROM. negative: Tenderness, (R) CVA Tenderness, (L) CVA Tenderness, Muscle Spasm, Paraspinal Tenderness, Vertebral Tenderness, Rashes, (R) Sciatic Notch Tenderness, (L) Sciatic Notch Tendern, (R ) Straight Leg Raise, (L) Straight Leg Raise, Other - Neurologic Neurological Exam: Alert, Oriented X3, CN II-XII Intact, Reflexes Normal. negative: Normal Gait (gait not tested) - Psychiatric Psychiatric Exam: Normal Affect, Normal Mood - Skin Skin Exam: Warm, Dry, Intact, Normal Color - Vital Signs Vitals: Temperature 99.4 F Pulse Rate [Left Brachial] 76 Pulse Rate 86 Respiratory Rate 17 Blood Pressure [Right Arm] 114/52 Blood Pressure [Standing] 146/94 Blood Pressure [Sitting] 147/96 Blood Pressure [Lying] 148/88 Blood Pressure 114/68 O2 Sat by Pulse Oximetry 99 Course - Consultation Called: 16:23 Call Returned: 16:24 (Patient to be admitted per case management) - Education/Counseling Education/Counseling: Patient, Family Educated On: Treatment, Diagnosis, Needs for Follow Up ROR - Labs Reviewed Laboratory Results Reviewed?: Yes (All labs and x-ray results reviewed and discussed with patient) Result Diagrams: 04/10/18 14:15 04/10/18 14:15 - XRAY XRAY Interpreted by: Radiologist (CT brain: No acute intracranial process identified.) XRAY Findings: CXR: Persistent pulmonary vascular distention. Bibasal infiltrates - EKG Rate: 84 [place]: Normal Rhythm: NSR Block: None ST: Old, Ant, Infarct - Labs Reviewed Laboratory: WBC 8.1 X10^3/uL (3.6-10.0) 04/10/18 14:15 RBC 3.18 X10^6/uL (3.5-5.4) L 04/10/18 14:15 Hgb 10.1 g/dL (12.0-16.0) L 04/10/18 14:15 Hct 29.7 % (36.0-47.0) L 04/10/18 14:15 MCV 93.3 fL (80.0-100.0) 04/10/18 14:15 MCH 31.8 pg (27.0-34.0) 04/10/18 14:15 MCHC 34.1 g/dL (33.0-35.0) 04/10/18 14:15 RDW 15.6 % (11.6-16.5) 04/10/18 14:15 Plt Count 52 X10^3/uL (150.0-450.0) L 04/10/18 14:15 Plt Count Comment Decreased (ADEQUATE) A 04/10/18 14:15 MPV 12.0 fL (7.4-11.0) H 04/10/18 14:15 Neut % (Auto) 92.0 % (42.0-75.0) H 04/10/18 14:15 Lymph % (Auto) 3.4 % (21.0-51.0) L 04/10/18 14:15 [place] % (Auto) 3.8 % (0.0-13.0) 04/10/18 14:15 Eos % (Auto) 0.6 % (0.9-2.9) L 04/10/18 14:15 Baso % (Auto) 0.2 % (0.2-1.0) 04/10/18 14:15 Neut # (Auto) 7.5 x10^3/uL (2.2-4.8) H 04/10/18 14:15 Lymph # (Auto) 0.3 X10^3/uL (1.3-2.9) L 04/10/18 14:15 [place] # (Auto) 0.3 x10^3/uL (0.3-0.8) 04/10/18 14:15 Eos # (Auto) 0.1 x10^3/uL (0.0-0.2) 04/10/18 14:15 Baso # (Auto) 0.0 X10^3/uL (0.0-0.1) 04/10/18 14:15 Absolute Nucleated RBC 0.0 /100WBC 04/10/18 14:15 Total Counted 100 04/10/18 14:15 Neutrophils % (Manual) 80 % (39-76) H 04/10/18 14:15 Band Neutrophils % 14 % (0-10) H 04/10/18 14:15 Lymphocytes % (Manual) 4 % (13-43) L 04/10/18 14:15 Eosinophils % (Manual) 2 % (0-6) 04/10/18 14:15 Plt Morphology Comment Normal (NORMAL) 04/10/18 14:15 RBC Morphology Normal (NORMAL) 04/10/18 14:15 INR Target Range - 04/10/18 14:15 INR 0.96 (0.8-1.3) 04/10/18 14:15 APTT 29.5 SECONDS (22.9-36.5) 04/10/18 14:15 PTT Comment - 04/10/18 14:15 D-Dimer 578 ng/mL (0-400) H* 04/10/18 14:15 Sodium 137 mmol/L (136-145) 04/10/18 14:15 Corrected Sodium 137 mmol/L (136-145) 04/10/18 14:15 Potassium 3.7 mmol/L (3.5-5.1) 04/10/18 14:15 Chloride 103 mmol/L (98-107) 04/10/18 14:15 Carbon Dioxide 21.9 mmol/L (21-32) 04/10/18 14:15 BUN 21 mg/dL (7-18) H 04/10/18 14:15 Creatinine 2.00 mg/dL (0.55-1.02) H 04/10/18 14:15 Est GFR (MDRD) Af Amer 34 (>60) L 04/10/18 14:15 Est GFR (MDRD) Non-Af 28 (>60) L 04/10/18 14:15 Glucose 118 mg/dL (65-99) H 04/10/18 14:15 Calcium 8.8 mg/dL (8.5-10.1) 04/10/18 14:15 Corrected Calcium TNP 04/10/18 14:15 Magnesium 1.9 mg/dL (1.7-2.9) 04/10/18 14:15 Total Bilirubin 0.60 mg/dL (0.2-1.0) 04/10/18 14:15 AST 15 Units/L (15-37) 04/10/18 14:15 ALT 7 Units/L (12-78) L 04/10/18 14:15 Alkaline Phosphatase 104 Units/L (46-116) 04/10/18 14:15 Creatine Kinase 51 Units/L (26-192) 04/10/18 14:15 CK-MB (CK-2) < 1.0 ng/mL (0-4.0) 04/10/18 14:15 CK/CKMB % Calc 2.0 % (<4) 04/10/18 14:15 Troponin I < 0.02 ng/mL (0-1.5) 04/10/18 14:15 Total Protein 7.7 g/dL (6.4-8.2) 04/10/18 14:15 Albumin 3.4 g/dL (3.4-5.0) 04/10/18 14:15 Globulin 4.3 g/dL (2.5-4.5) 04/10/18 14:15 Albumin/Globulin Ratio 0.8 Ratio (1.1-2.1) L 04/10/18 14:15 - Diagnosis Discharge Problem: Pulmonary infiltrates on CXR, Syncope and collapse, Thrombocytopenia, HIV disease, Hyperglycemia Chronic kidney disease Qualifiers: Chronic kidney disease stage: stage 3 (moderate) Qualified Code(s): N18.3 - Chronic kidney disease, stage 3 (moderate) COPD (chronic obstructive pulmonary disease) Qualifiers: COPD type: unspecified COPD Qualified Code(s): J44.9 - Chronic obstructive pulmonary disease, unspecified Dyspnea Qualifiers: Dyspnea type: shortness of breath Qualified Code(s): R06.02 - Shortness of breath; R06.00 - Dyspnea, unspecified; R06.01 - Orthopnea - Discharge Plan Disposition: ADMITTED INPATIENT Condition: Stable - Follow ups/Referrals Follow ups/Referrals: ARIA HOLLY [Primary Care Provider] - 3 days - Instructions
[2018-04-10] MEDS ORDERED: BENADRYL INJ 50 MG VIAL IM STA (14:05)
[2018-04-10 14:29] LABS: BASOPHILS % (AUTO) 0.2 % (0.2-1.0); EOSINOPHILS # (AUTO) 0.1 x10^3/uL (0.0-0.2); EOSINOPHILS % (AUTO) 0.6 % (0.9-2.9); HEMATOCRIT 29.7 % (36.0-47.0); HEMOGLOBIN 10.1 g/dL (12.0-16.0); LYMPHOCYTES # (AUTO) 0.3 X10^3/uL (1.3-2.9); LYMPHOCYTES % (AUTO) 3.4 % (21.0-51.0); MEAN CORPUSCULAR HEMOGLOBIN 31.8 pg (27.0-34.0); MEAN CORPUSCULAR HGB CONC 34.1 g/dL (33.0-35.0); MEAN CORPUSCULAR VOLUME 93.3 fL (80.0-100.0); MONOCYTES # (AUTO) 0.3 x10^3/uL (0.3-0.8); MONOCYTES % (AUTO) 3.8 % (0.0-13.0); NEUTROPHILS # (AUTO) 7.5 x10^3/uL (2.2-4.8); PLATELET COUNT 52 X10^3/uL (150.0-450.0); RED BLOOD COUNT 3.18 X10^6/uL (3.5-5.4); RED CELL DISTRIBUTION WIDTH 15.6 % (11.6-16.5); WHITE BLOOD COUNT 8.1 X10^3/uL (3.6-10.0)
[2018-04-10] MEDS ORDERED: BENADRYL INJ 50 MG VIAL ONE (14:31)
--- NOTE | 2018-04-10 14:40 | RAD ---
Examination: AP chest, portable History: Falls, syncope, weakness Comparison reference 02/28/2018 Findings: Continued normal heart size with significant distention of central pulmonary vessels. Persi stent airspace disease left base obscuring the diaphragm and retrocardiac area. Interval development of similar process at the right lower lung as well. No large pleural effusion or pneumothorax. Impression: Persistent pulmonary vascular distention. Bibasal infiltrates may represent pneumonia/pul monary edema, increasing in the right lung since prior study. Reported By:
--- NOTE | 2018-04-10 14:41 | CT ---
HISTORY: Subacute progressive frequent falls with weakness, tremors, dyspnea, generalized pain Study: CT brain without contrast Comparison: May 14, 2017 Technique: Multiple axial images of the brain were obtained from the skull base to the vertex withou t administration of IV contrast. AEC was utilized. Findings: No acute intraparenchymal hemorrhage or mass can be identified. No extra-axial fluid collections are seen. No alteration in the attenuation of the brain parenchyma can be identified to suggest acute o r subacute ischemic change. The ventricular system is symmetric and nondilated. The extracranial st ructures are grossly unremarkable. IMPRESSION: No acute intracranial process can be identified. Reported By:
[2018-04-10 14:53] LABS: BLOOD UREA NITROGEN 21 mg/dL (7-18); CALCIUM 8.8 mg/dL (8.5-10.1); CARBON DIOXIDE 21.9 mmol/L (21-32); CHLORIDE 103 mmol/L (98-107); COR NA(FOR HYPERGLY) 137 mmol/L (136-145); SODIUM 137 mmol/L (136-145); TROPONIN I < 0.02 ng/mL (0-1.5); eGFR NON BLACK RACES 28 (>60)
[2018-04-10 14:57] LABS: ALANINE AMINOTRANSFERASE 7 Units/L (12-78); ALBUMIN 3.4 g/dL (3.4-5.0); ALKALINE PHOSPHATASE 104 Units/L (46-116); ASPARTATE AMINO TRANSFERASE 15 Units/L (15-37); CREATINE KINASE 51 Units/L (26-192); CREATINE KINASE MB < 1.0 ng/mL (0-4.0); MAGNESIUM 1.9 mg/dL (1.7-2.9); TOTAL PROTEIN 7.7 g/dL (6.4-8.2)
[2018-04-10 14:59] LABS: BAND NEUTROPHILS % 14 % (0-10)
[2018-04-10 15:00] LABS: PLATELET MORPHOLOGY COMMENT NORMAL (NORMAL)
[2018-04-10] MEDS ORDERED: ROCEPHIN 1 GRAM IV PREMIX 1 G/50 ML IV.SOLN. IV ONE (15:30)
[2018-04-10] MEDS ORDERED: ROCEPHIN VIAL 1 GRAM ONE (15:35)
[2018-04-10] MEDS ORDERED: NS 1000 ML 1,000 ML ONE ×2 (15:35→17:52)
[2018-04-10] MEDS ORDERED: NS 100 ML IV 100 ML IV ONE (15:35)
[2018-04-10] MEDS ORDERED: TUSSIONEX PENNKINETIC SUSP PO PRN (16:34)
[2018-04-10] MEDS ORDERED: NS 1000 ML 1,000 ML IV ONE ×3 (16:45→19:43)
[2018-04-10] MEDS ORDERED: ROBITUSSIN DM PO SCH (17:00)
[2018-04-10] MEDS ORDERED: SALINE 3% 15 ML NEB TX ONE (17:28)
[2018-04-10] MEDS: DUONEB 0.5 MG/3 MG NEB SCH ×2 (17:35→20:15)
[2018-04-10] MEDS ORDERED: SALINE 3% 15 ML NEB TX NEB ONE (17:50)
[2018-04-10] MEDS ORDERED: MERREM PREMIX IV 500 MG 500 MG/50 ML BAG IV SCH (19:00)
[2018-04-10] MEDS ORDERED: NS 1/2 1000 ML IV 1,000 ML IV ONE (19:32)
[2018-04-10] MEDS ORDERED: LEVAQUIN PREMIX IV 250 MG 250 MG/50 ML BAG IV ONE (19:32)
[2018-04-10] MEDS: NS 1/2 1000 ML IV 1,000 ML IV SCH (19:39)
[2018-04-10] MEDS: LEVAQUIN PREMIX IV 250 MG 250 MG/50 ML BAG IV SCH (19:39)
[2018-04-10 21:03] LABS: APPEARANCE,URINE CLEAR (CLEAR); BILIRUBIN,URINE NEGATIVE (NEGATIVE); BLOOD/HEMOGLOBIN,URINE NEGATIVE (NEGATIVE); COLOR,URINE YELLOW (YELLOW); GLUCOSE, URINE NEGATIVE (NEGATIVE); KETONES,URINE NEGATIVE (NEGATIVE); LEUKOCYTE ESTERASE ,URINE NEGATIVE (NEGATIVE); NITRITES,URINE NEGATIVE (NEGATIVE); PROTEIN,URINE 1+ (NEGATIVE); UROBILINOGEN,URINE NORMAL (NORMAL)
[2018-04-10 21:11] LABS: BACTERIA,URINE TRACE /HPF (NEGATIVE); RBC,URINE NONE SEEN /HPF (NONE SEEN); SQUAMOUS EPITHELIAL CELL,UR FEW /HPF (NEGATIVE)
[2018-04-10] MEDS: RITONAVIR PO SCH (23:12)
[2018-04-10] MEDS: EMTRICITABINE TENOFOVIR PO SCH (23:12)
[2018-04-10] MEDS: ATAZANAVIR PO SCH (23:12)
[2018-04-10] MEDS ORDERED: MERREM VIAL ONE (23:30)
[2018-04-10] MEDS ORDERED: NS 100 ML IV + SPIKE MINIBAG* 100 ML IV ONE (23:30)
[2018-04-10] MEDS: SPIKE MINIBAG IV SCH (23:36)
[2018-04-10] MEDS: MERREM IV SCH (23:36)
[2018-04-10] MEDS: NS IV SCH (23:36)
[2018-04-11] MEDS: DUONEB 0.5 MG/3 MG NEB SCH ×6 (00:25→21:30)
[2018-04-11 05:19] LABS: BASOPHILS % (AUTO) 0.3 % (0.2-1.0); EOSINOPHILS # (AUTO) 0.1 x10^3/uL (0.0-0.2); EOSINOPHILS % (AUTO) 1.3 % (0.9-2.9); HEMOGLOBIN 8.9 g/dL (12.0-16.0); LYMPHOCYTES # (AUTO) 0.5 X10^3/uL (1.3-2.9); LYMPHOCYTES % (AUTO) 9.1 % (21.0-51.0); MEAN CORPUSCULAR HEMOGLOBIN 32.5 pg (27.0-34.0); MEAN CORPUSCULAR HGB CONC 34.3 g/dL (33.0-35.0); MEAN CORPUSCULAR VOLUME 94.6 fL (80.0-100.0); MEAN PLATELET VOLUME 12.5 fL (7.4-11.0); MONOCYTES # (AUTO) 0.3 x10^3/uL (0.3-0.8); MONOCYTES % (AUTO) 5.1 % (0.0-13.0); NEUTROPHILS # (AUTO) 4.4 x10^3/uL (2.2-4.8); NEUTROPHILS % (AUTO) 84.2 % (42.0-75.0); PLATELET COUNT 40 X10^3/uL (150.0-450.0); RED BLOOD COUNT 2.75 X10^6/uL (3.5-5.4); RED CELL DISTRIBUTION WIDTH 15.8 % (11.6-16.5); WHITE BLOOD COUNT 5.2 X10^3/uL (3.6-10.0)
[2018-04-11 05:31] LABS: BLOOD UREA NITROGEN 18 mg/dL (7-18); CALCIUM 8.1 mg/dL (8.5-10.1); CARBON DIOXIDE 22.4 mmol/L (21-32); CHLORIDE 110 mmol/L (98-107); SODIUM 143 mmol/L (136-145); eGFR NON BLACK RACES 32 (>60)
[2018-04-11] MEDS ORDERED: NS 1/2 1000 ML IV 1,000 ML IV ONE ×2 (05:48→15:23)
[2018-04-11 05:49] LABS: PLATELET MORPHOLOGY COMMENT NORMAL (NORMAL)
[2018-04-11 05:58] LABS: CKMB % 1.8 % (<4); CREATINE KINASE 55 Units/L (26-192); CREATINE KINASE MB < 1.0 ng/mL (0-4.0); TROPONIN I < 0.02 ng/mL (0-1.5)
[2018-04-11] MEDS: NS 1/2 1000 ML IV 1,000 ML IV SCH ×3 (06:09→21:30)
--- NOTE | 2018-04-11 06:17 | RAD ---
Examination: Chest, PA and lateral views History: Follow-up infiltrate, SOB Comparison reference 04/10/2018 Findings: Continued normal heart size. Persistent bibasal infiltrates and vascular congestion althoug h interval improvement of the lower lobes is noted since 1 day earlier. No new abnormality demonstrat ed. Impression: Slight improvement in appearance of the bibasal infiltrates since 04/10/2018. Reported By:
[2018-04-11] MEDS ORDERED: NS 100 ML IV 100 ML IV ONE (07:13)
[2018-04-11] MEDS ORDERED: MERREM VIAL ONE (07:13)
[2018-04-11] MEDS: MILK OF MAGNESIA PO SCH (09:20)
[2018-04-11] MEDS: SOLU-Medrol 40 MG VIAL IVP SCH ×2 (09:20→16:47)
[2018-04-11] MEDS: LEVAQUIN PREMIX IV 250 MG 250 MG/50 ML BAG IV SCH (09:20)
[2018-04-11] MEDS ORDERED: PHENERGAN TAB 25 MG PO PRN (10:47)
[2018-04-11] MEDS ORDERED: ZOFRAN TAB 4 MG PO PRN (10:47)
[2018-04-11] MEDS ORDERED: ULTRAM PO PRN (10:47)
[2018-04-11] MEDS ORDERED: BUSPAR PO PRN (10:47)
[2018-04-11] MEDS: NS IV SCH ×2 (10:48→23:00)
[2018-04-11] MEDS: SPIKE MINIBAG IV SCH ×2 (10:48→23:00)
[2018-04-11] MEDS: MERREM IV SCH ×2 (10:48→23:00)
[2018-04-11] MEDS ORDERED: ZOFRAN INJ 4 MG VIAL IVP PRN (10:48)
[2018-04-11] MEDS: CYMBALTA PO SCH ×2 (10:49→20:34)
[2018-04-11] MEDS: TAB-A-VITE PO SCH (10:50)
[2018-04-11] MEDS: ULTRAM PO PRN (10:53)
[2018-04-11 12:25] VITALS: BMI 21.1
--- NOTE | 2018-04-11 14:23 | VAS ---
HISTORY: Elevated D-dimer, syncope Study: Right lower extremity venous Doppler ultrasound Comparison: None TECHNIQUE: Multiple arora scale and color flow Doppler images of the deep venous system were obtained of the right lower extremity. FINDINGS: The deep venous system of the right lower extremity was evaluated from the level of the common femora l vein through the popliteal vein. Normal color flow and augmentation can be observed. In addition, normal compression is seen throughout the deep venous system. IMPRESSION: 1. Negative for DVT. Reported By:
[2018-04-11] MEDS: HumuLIN R SC PRN ×2 (16:48→20:35)
--- NOTE | 2018-04-11 18:40 | DR.H&P ---
H&P - History & Physical for Day of: H&P Date: 04/10/18 - Chief Complaint Chief Complaint: weakness, pain, near syncope, cough, short of breath - History of Present Illness History of Present Illness: is a 48 year old white female who presented to the emergency room via EMS with reports of jerking, dizziness and frequent falls. Patient reports symptoms started a few weeks ago and have worsened since onset. Associated symptoms include weakness, feeling faint, generalized weakness, cough, and shortness of breath. Patient has a medical history significant for a TIA in 2012 that affected her right side. Other medical history includes HIV, COPD, depression, anxiety, arthritis, and hypertension. On arrival, vitals were 99.4, 86, 18, 100% 2L NC, 114/68. Labs were obtained. Abnormal lab values include the following: RBC 3.18, Hgb 10.1, Hct 29.7, Plt Count 52, MPV 12.0, D-Dimer 578, BUN 21, Creatinine 2.00, GFR af 34, GFR non 28, Glucose 118, ALT 7, A/G Ratio 0.8. Blood Cultures x2 and urine culture Pending. Chest x-ray was obtained and revealed: persistent pulmonary vascular distention and bibasilar infiltrates representing pneumonia or pulmonary edema. Brain CT revealed: No acute intracranial process can be identified. EKG revealed: Sinus Rhythm. Rate=84. Patient admitted to the hospital and started on IV fluids, IV antibiotics and aggressive neb treatments. Will follow up with labs and chest xray in the morning. - Past Medical History Past Medical History: Anxiety, Arthritis, COPD, Depression, Hypertension Additional Medical History: HIV, TIA - Past Surgical History Surgical History: , Hysterectomy - Family History Family Medical History: Cancer, [place], Coronary Artery Disease, Sudden Cardiac , Hypertension - Social History Does patient currently use any type of tobacco product: Yes Have you used tobacco products in the last 12 months: Yes Type of Tobacco Use: Cigarettes How many years tobacco product used: 30 Does any household member use tobacco: No Alcohol Use: None Drug Use: Prescription Drugs - Medications Home Medications: No Known Drug Allergies Allergy (Verified 04/10/18 13:38) - Review of Systems Constitutional: Weakness Eyes: No Symptoms Reported ENT: No Symptoms Reported Respiratory: See HPI, Cough, Shortness of Breath Cardiovascular: Light Headedness Gastrointestinal: No Symptoms Reported Genitourinary: No Symptoms Reported Musculoskeletal: Leg Pain (RIGHT LEG PAIN AND SWELLING ) Skin: No Symptoms Reported Neurological: Weakness - Physical Exam Vital Signs: Temperature 99.1 F Pulse Rate [Left Brachial] 79 Pulse Rate 70 Respiratory Rate 20 Blood Pressure [Left Arm] 120/61 Blood Pressure [Right Arm] 94/55 Blood Pressure [Standing] 146/94 Blood Pressure [Sitting] 147/96 Blood Pressure [Lying] 148/88 Blood Pressure 114/68 O2 Sat by Pulse Oximetry 98 Oriented: Normal Eyes: Normal Ear: Normal Nose: Normal Throat: Normal Respiratory: Diminished Throughout Cardiovascular: Normal. negative: S3, S4, Murmur : Normal Auscultation: Bowel Sounds: Normal Palpation: Normal Tenderness: Normal Skin: Normal Musculoskeletal: Right, Leg, Swelling, Tender Psychiatric: Normal Mood Description: Calm Affect: Depressed Speech Pattern: Clear - Assessment/Plan (1) Pneumonia Qualifiers: Pneumonia type: due to unspecified organism Laterality: bilateral Lung location: lower lobe of lung Qualified Code(s): J18.1 - Lobar pneumonia, unspecified organism Status: Acute Plan: ADMIT, IV ANTIBIOTICS, RESPIRATORY TREATMENTS, SUPPLEMENTAL OXYGEN, CONTINUE TO MONITOR (2) COPD (chronic obstructive pulmonary disease) Qualifiers: COPD type: unspecified COPD Qualified Code(s): J44.9 - Chronic obstructive pulmonary disease, unspecified Status: Acute Plan: ADMIT, IV ANTIBIOTICS, SOLU-MEDROL 80MG IV Q8H, RESPIRATORY TREATMENTS, SUPPLEMENTAL OXYGEN, CONTINUE TO MONITOR - Allergies Allergies/Adverse Reactions: Allergies Allergy/AdvReac Type Severity Reaction Status Date / Time No Known Drug Allergies Allergy Verified 04/10/18 13:38
--- NOTE | 2018-04-11 18:50 | PCM.PROG ---
Progress Note - Progress Note for Day of Date of Exam: 04/11/18 - Subjective Subjective: WAS ADMITTED FOR PNEUMONIA AND COPD EXACERBATION. TODAY , SHE IS ALERT AND ORIENTED, SITTING UP IN BED ON MORNING ROUNDS. SHE CONTINUES WITH COMPLAINTS OF WEAKNESS, A NON-PRODUCTIVE COUGH, SHORTNESS OF BREATH, AND RIGHT LEG PAIN. ON EXAMINATION, HEART IS REGULAR IN RATE AND RHYTHM. BILATERAL LUNGS ARE NOTED WITH SCATTERED WHEEZING THROUGHOUT. ABDOMEN IS ROUND, SOFT, AND NON-TENDER WITH NORMAL BOWEL SOUNDS NOTED IN ALL QUADRANTS. RIGHT LEG IS NOTED WITH TRACE EDEMA AND REDNESS. HER VITALS THIS MORNING ARE 97.6-68-18-100%-95/ 50. LABS WERE OBTAINED. ABNORMAL LAB VALUES INCLUDE THE FOLLOWING: RBC 2.75, HGB 8.9, HCT 26.0, PLT COUNT 40, CHLORIDE 110, CREATININE 1.80, GLUCOSE 107, CALCIUM 8.1. URINE CULTURE AND BLOOD CULTURES ARE PENDING. A CHEST XRAY WAS OBTAINED AND REVEALED: Slight improvement in appearance of the bibasal infiltrates since 04/10/2018. TODAY, WE WILL CONTINUE WITH IV ANTIBIOTICS, RESPIRATORY TREATMENTS, AND SUPPLEMENTAL OXYGEN. WE WILL OBTAIN A RIGHT LOWER EXTREMITY VENOUS DOPPLER. OTHERWISE, WE WILL CONTINUE WITH CURRENT PLAN OF CARE AND CONTINUE TO MONITOR PATIENT. - Past Medical Family Social History Past Med/Fam/Surg Hx: No changes since H&P Allergies: Allergies No Known Drug Allergies Allergy (Verified 04/10/18 13:38) - Review of Systems ROS: No change since H&P - Vital Signs and I&O's Vital Signs: Temperature 99.1 F Pulse Rate [Left Brachial] 79 Pulse Rate 70 Respiratory Rate 20 Blood Pressure [Left Arm] 120/61 Blood Pressure [Right Arm] 94/55 Blood Pressure [Standing] 146/94 Blood Pressure [Sitting] 147/96 Blood Pressure [Lying] 148/88 Blood Pressure 114/68 O2 Sat by Pulse Oximetry 98 Intake and Output: Intake & Output 04/09/18 04/10/18 04/11/18 04/12/18 11:59 11:59 11:59 11:59 Intake Total 1932 1700 / 1700 Balance 1932 / 1699 - Physical Exam Oriented: Normal Eyes: Normal Ear: Normal Nose: Normal Throat: Normal Respiratory: Generalized, Wheezes Cardiovascular: Normal. negative: S3, S4, Murmur : Normal Auscultation: Bowel Sounds: Normal Palpation: Normal Tenderness: Normal Skin: Normal Musculoskeletal: Right, Leg, Swelling, Tender Psychiatric: Normal Mood Description: Calm Affect: Depressed Speech Pattern: Clear - Laboratory and Diagnostics Result Diagrams: 04/11/18 04:14 04/11/18 04:14 Labs: 04/10/18 20:37 Urine,Clean Catch Urine Culture - Preliminary Laboratory WBC 5.2 X10^3/uL (3.6-10.0) 04/11/18 04:14 RBC 2.75 X10^6/uL (3.5-5.4) L 04/11/18 04:14 Hgb 8.9 g/dL (12.0-16.0) L 04/11/18 04:14 Hct 26.0 % (36.0-47.0) L 04/11/18 04:14 MCV 94.6 fL (80.0-100.0) 04/11/18 04:14 MCH 32.5 pg (27.0-34.0) 04/11/18 04:14 MCHC 34.3 g/dL (33.0-35.0) 04/11/18 04:14 RDW 15.8 % (11.6-16.5) 04/11/18 04:14 Plt Count 40 X10^3/uL (150.0-450.0) L 04/11/18 04:14 Plt Count Comment Decreased (ADEQUATE) A 04/11/18 04:14 MPV 12.5 fL (7.4-11.0) H 04/11/18 04:14 Neut % (Auto) 84.2 % (42.0-75.0) H 04/11/18 04:14 Lymph % (Auto) 9.1 % (21.0-51.0) L 04/11/18 04:14 [place] % (Auto) 5.1 % (0.0-13.0) 04/11/18 04:14 Eos % (Auto) 1.3 % (0.9-2.9) 04/11/18 04:14 Baso % (Auto) 0.3 % (0.2-1.0) 04/11/18 04:14 Neut # (Auto) 4.4 x10^3/uL (2.2-4.8) 04/11/18 04:14 Lymph # (Auto) 0.5 X10^3/uL (1.3-2.9) L 04/11/18 04:14 [place] # (Auto) 0.3 x10^3/uL (0.3-0.8) 04/11/18 04:14 Eos # (Auto) 0.1 x10^3/uL (0.0-0.2) 04/11/18 04:14 Baso # (Auto) 0.0 X10^3/uL (0.0-0.1) 04/11/18 04:14 Absolute Nucleated RBC 0.0 /100WBC 04/11/18 04:14 Total Counted 100 04/10/18 14:15 Neutrophils % (Manual) 80 % (39-76) H 04/10/18 14:15 Band Neutrophils % 14 % (0-10) H 04/10/18 14:15 Lymphocytes % (Manual) 4 % (13-43) L 04/10/18 14:15 Eosinophils % (Manual) 2 % (0-6) 04/10/18 14:15 Plt Morphology Comment Normal (NORMAL) 04/11/18 04:14 RBC Morphology Normal (NORMAL) 04/11/18 04:14 INR Target Range - 04/10/18 14:15 INR 0.96 (0.8-1.3) 04/10/18 14:15 APTT 29.5 SECONDS (22.9-36.5) 04/10/18 14:15 PTT Comment - 04/10/18 14:15 D-Dimer 578 ng/mL (0-400) H* 04/10/18 14:15 Sodium 143 mmol/L (136-145) 04/11/18 04:14 Corrected Sodium TNP 04/11/18 04:14 Potassium 3.6 mmol/L (3.5-5.1) 04/11/18 04:14 Chloride 110 mmol/L (98-107) H 04/11/18 04:14 Carbon Dioxide 22.4 mmol/L (21-32) 04/11/18 04:14 BUN 18 mg/dL (7-18) 04/11/18 04:14 Creatinine 1.80 mg/dL (0.55-1.02) H 04/11/18 04:14 Est GFR (MDRD) Af Amer 38 (>60) L 04/11/18 04:14 Est GFR (MDRD) Non-Af 32 (>60) L 04/11/18 04:14 Glucose 107 mg/dL (65-99) H 04/11/18 04:14 POC Glucose (mg/dL) 224 mg/dL (65-99) H 04/11/18 16:43 Calcium 8.1 mg/dL (8.5-10.1) L 04/11/18 04:14 Corrected Calcium TNP 04/10/18 14:15 Magnesium 1.9 mg/dL (1.7-2.9) 04/10/18 14:15 Total Bilirubin 0.60 mg/dL (0.2-1.0) 04/10/18 14:15 AST 15 Units/L (15-37) 04/10/18 14:15 ALT 7 Units/L (12-78) L 04/10/18 14:15 Alkaline Phosphatase 104 Units/L (46-116) 04/10/18 14:15 Creatine Kinase 55 Units/L (26-192) 04/11/18 04:14 CK-MB (CK-2) < 1.0 ng/mL (0-4.0) 04/11/18 04:14 CK/CKMB % Calc 1.8 % (<4) 04/11/18 04:14 Troponin I < 0.02 ng/mL (0-1.5) 04/11/18 04:14 Total Protein 7.7 g/dL (6.4-8.2) 04/10/18 14:15 Albumin 3.4 g/dL (3.4-5.0) 04/10/18 14:15 Globulin 4.3 g/dL (2.5-4.5) 04/10/18 14:15 Albumin/Globulin Ratio 0.8 Ratio (1.1-2.1) L 04/10/18 14:15 Specimen Type Clean catch urine 04/10/18 20:37 Urine Color Yellow (YELLOW) 04/10/18 20:37 Urine Appearance Clear (CLEAR) 04/10/18 20:37 Urine pH 6.0 (5.0 - 8.0) 04/10/18 20:37 Ur Specific [place] 1.005 (1.000-1.030) 04/10/18 20:37 Urine Protein 1+ (NEGATIVE) 04/10/18 20:37 Urine Glucose (UA) Negative (NEGATIVE) 04/10/18 20:37 Urine Ketones Negative (NEGATIVE) 04/10/18 20:37 Urine Occult Blood Negative (NEGATIVE) 04/10/18 20:37 Urine Nitrite Negative (NEGATIVE) 04/10/18 20:37 Urine Bilirubin Negative (NEGATIVE) 04/10/18 20:37 Urine Urobilinogen Normal (NORMAL) 04/10/18 20:37 Ur Leukocyte Esterase Negative (NEGATIVE) 04/10/18 20:37 Urine RBC None seen /HPF (NONE SEEN) 04/10/18 20:37 Urine WBC None seen /HPF (NONE SEEN) 04/10/18 20:37 Ur Squamous Epith Cells Few /HPF (NEGATIVE) 04/10/18 20:37 Urine Bacteria Trace /HPF (NEGATIVE) 04/10/18 20:37 Ur Culture Indicated? Yes/culture set up 04/10/18 20:37 Urine Opiates Screen Positive (NEG=<300) A 04/10/18 20:37 Urine Methadone Screen Negative (NEG=<300) 04/10/18 20:37 Ur Barbiturates Screen Negative (NEG=<200) 04/10/18 20:37 Ur Phencyclidine Scrn Negative (NEG=<25) 04/10/18 20:37 Ur Amphetamines Screen Negative (NEG=<1000) 04/10/18 20:37 U Benzodiazepines Scrn Negative (NEG=<200) 04/10/18 20:37 Urine Cocaine Screen Negative (NEG=<300) 04/10/18 20:37 U Marijuana (THC) Screen Negative (NEG=<50) 04/10/18 20:37 - Plan (1) Pneumonia Status: Acute Qualifiers: Pneumonia type: due to unspecified organism Laterality: bilateral Lung location: lower lobe of lung Qualified Code(s): J18.1 - Lobar pneumonia, unspecified organism Plan: IV ANTIBIOTICS, RESPIRATORY TREATMENTS, SUPPLEMENTAL OXYGEN, CONTINUE TO MONITOR (2) COPD (chronic obstructive pulmonary disease) Status: Acute Qualifiers: COPD type: unspecified COPD Qualified Code(s): J44.9 - Chronic obstructive pulmonary disease, unspecified Plan: ADMIT, IV ANTIBIOTICS, SOLU-MEDROL 80MG IV Q8H, RESPIRATORY TREATMENTS, SUPPLEMENTAL OXYGEN, CONTINUE TO MONITOR (3) Right leg pain Status: Acute Plan: RIGHT LOWER EXTREMITY VENOUS DOPPLER, CONTINUE TO MONITOR
[2018-04-11] MEDS: COLACE CAP 100 MG PO SCH (20:33)
[2018-04-11] MEDS: ATAZANAVIR PO SCH (20:34)
[2018-04-11] MEDS: EMTRICITABINE TENOFOVIR PO SCH (20:34)
[2018-04-11] MEDS: RITONAVIR PO SCH (20:35)
[2018-04-12] MEDS: DUONEB 0.5 MG/3 MG NEB SCH ×6 (00:45→21:13)
[2018-04-12] MEDS ORDERED: NS 1/2 1000 ML IV 1,000 ML IV ONE ×3 (01:48→22:39)
[2018-04-12] MEDS: SOLU-Medrol 40 MG VIAL IVP SCH ×3 (01:58→17:43)
[2018-04-12 05:33] LABS: BASOPHILS % (AUTO) 0.1 % (0.2-1.0); HEMATOCRIT 26.7 % (36.0-47.0); HEMOGLOBIN 9.2 g/dL (12.0-16.0); LYMPHOCYTES # (AUTO) 0.1 X10^3/uL (1.3-2.9); LYMPHOCYTES % (AUTO) 1.5 % (21.0-51.0); MEAN CORPUSCULAR HEMOGLOBIN 32.2 pg (27.0-34.0); MEAN CORPUSCULAR HGB CONC 34.5 g/dL (33.0-35.0); MEAN CORPUSCULAR VOLUME 93.5 fL (80.0-100.0); MEAN PLATELET VOLUME 13.3 fL (7.4-11.0); MONOCYTES # (AUTO) 0.1 x10^3/uL (0.3-0.8); MONOCYTES % (AUTO) 1.1 % (0.0-13.0); NEUTROPHILS # (AUTO) 7.1 x10^3/uL (2.2-4.8); NEUTROPHILS % (AUTO) 97.3 % (42.0-75.0); PLATELET COUNT 54 X10^3/uL (150.0-450.0); RED BLOOD COUNT 2.86 X10^6/uL (3.5-5.4); RED CELL DISTRIBUTION WIDTH 15.7 % (11.6-16.5); WHITE BLOOD COUNT 7.3 X10^3/uL (3.6-10.0)
[2018-04-12 05:44] LABS: ALBUMIN 2.5 g/dL (3.4-5.0); CALCIUM 8.5 mg/dL (8.5-10.1); CARBON DIOXIDE 20.4 mmol/L (21-32); COR CA(FOR HYPOALB) 9.7 mg/dL (8.5-10.1); CREATININE 1.57 mg/dL (0.55-1.02); TOTAL PROTEIN 6.6 g/dL (6.4-8.2)
[2018-04-12 06:28] LABS: PLATELET MORPHOLOGY COMMENT NORMAL (NORMAL)
--- NOTE | 2018-04-12 07:41 | RAD ---
HISTORY: Follow-up lung infiltrates Study: Chest AP portable Comparison: 04/11/2018 Findings: The heart is within normal limits in size. The elliot are normal. The lungs are well inflated. Improvem ent is noted in the right basilar lung infiltrate being followed. Residual infiltrate remains. The pr eviously noted left basilar infiltrate has resolved. The upper lung ceron are clear. No pleural effu sions are identified. IMPRESSION: Improving right basilar lung infiltrate Left basilar infiltrate resolved Reported By:
[2018-04-12] MEDS: MILK OF MAGNESIA PO SCH (09:11)
[2018-04-12] MEDS: LEVAQUIN PREMIX IV 250 MG 250 MG/50 ML BAG IV SCH (09:11)
[2018-04-12] MEDS: TAB-A-VITE PO SCH (09:11)
[2018-04-12] MEDS: CYMBALTA PO SCH ×2 (09:12→20:58)
[2018-04-12] MEDS: MERREM IV SCH (10:58)
[2018-04-12] MEDS: NS 1/2 1000 ML IV 1,000 ML IV SCH (10:58)
[2018-04-12] MEDS: SPIKE MINIBAG IV SCH (10:58)
[2018-04-12] MEDS: NS IV SCH (10:58)
[2018-04-12] MEDS: ULTRAM PO PRN (14:42)
[2018-04-12] MEDS ORDERED: MAALOX or MYLANTA PO PRN (17:25)
--- NOTE | 2018-04-12 20:51 | PCM.PROG ---
Progress Note - Progress Note for Day of Date of Exam: 04/12/18 - Subjective Subjective: WAS ADMITTED FOR PNEUMONIA AND COPD EXACERBATION. TODAY , SHE IS ALERT AND ORIENTED, SITTING UP IN BED ON MORNING ROUNDS. SHE CONTINUES WITH COMPLAINTS OF WEAKNESS, A NON-PRODUCTIVE COUGH, SHORTNESS OF BREATH. ON EXAMINATION, HEART IS REGULAR IN RATE AND RHYTHM. BILATERAL LUNGS ARE NOTED WITH SCATTERED WHEEZING THROUGHOUT. ABDOMEN IS ROUND, SOFT, AND NON-TENDER WITH NORMAL BOWEL SOUNDS NOTED IN ALL QUADRANTS. HER VITALS THIS MORNING ARE 97.6-83- 18-100%-116/61. LABS WERE OBTAINED. ABNORMAL LAB VALUES INCLUDE THE FOLLOWING: RBC 2.86, HGB 9.2, HCT 26.7, PLT COUNT 54, CHLORIDE 109, CARBON DIOXIDE 20.4, BUN 22, CREATININE 1.57, GFR 37, GLUCOSE 171, AST 10, ALT 10, ALBUMIN 2.5. URINE CULTURE AND BLOOD CULTURES ARE PENDING. A CHEST XRAY WAS OBTAINED AND REVEALED: Improving right basilar lung infiltrate. Left basilar infiltrate resolved. TODAY, WE WILL CONTINUE WITH IV ANTIBIOTICS, RESPIRATORY TREATMENTS, AND SUPPLEMENTAL OXYGEN. OTHERWISE, WE WILL CONTINUE WITH CURRENT PLAN OF CARE, FOLLOW UP WITH AM LABS AND CHEST XRAY, AND CONTINUE TO MONITOR PATIENT. - Past Medical Family Social History Past Med/Fam/Surg Hx: No changes since H&P Allergies: Allergies No Known Drug Allergies Allergy (Verified 04/10/18 13:38) - Review of Systems ROS: No change since H&P - Vital Signs and I&O's Vital Signs: Temperature 98.3 F Pulse Rate [Left Brachial] 83 Pulse Rate 80 Respiratory Rate 18 Blood Pressure [Left Arm] 117/70 Blood Pressure [Right Arm] 94/55 Blood Pressure [Standing] 146/94 Blood Pressure [Sitting] 147/96 Blood Pressure [Lying] 148/88 Blood Pressure 114/68 O2 Sat by Pulse Oximetry 99 Intake and Output: Intake & Output 04/10/18 04/11/18 04/12/18 04/13/18 11:59 11:59 11:59 11:59 Intake Total 1932 3540 / 3540 600 / 600 Balance 1932 3540 / 3540 600 / 600 - Physical Exam Oriented: Normal Eyes: Normal Ear: Normal Nose: Normal Throat: Normal Respiratory: Generalized, Wheezes Cardiovascular: Normal. negative: S3, S4, Murmur : Normal Auscultation: Bowel Sounds: Normal Palpation: Normal Tenderness: Normal Skin: Normal Musculoskeletal: Right, Leg, Swelling, Tender Psychiatric: Normal Mood Description: Calm Affect: Depressed Speech Pattern: Clear, Appropriate - Laboratory and Diagnostics Result Diagrams: 04/12/18 04:20 04/12/18 04:20 Labs: 04/10/18 15:40 Blood Blood Culture - Preliminary 04/10/18 15:25 Blood Blood Culture - Preliminary 04/10/18 20:37 Urine,Clean Catch Urine Culture - Final Laboratory WBC 7.3 X10^3/uL (3.6-10.0) 04/12/18 04:20 RBC 2.86 X10^6/uL (3.5-5.4) L 04/12/18 04:20 Hgb 9.2 g/dL (12.0-16.0) L 04/12/18 04:20 Hct 26.7 % (36.0-47.0) L 04/12/18 04:20 MCV 93.5 fL (80.0-100.0) 04/12/18 04:20 MCH 32.2 pg (27.0-34.0) 04/12/18 04:20 MCHC 34.5 g/dL (33.0-35.0) 04/12/18 04:20 RDW 15.7 % (11.6-16.5) 04/12/18 04:20 Plt Count 54 X10^3/uL (150.0-450.0) L 04/12/18 04:20 Plt Count Comment Decreased (ADEQUATE) A 04/12/18 04:20 MPV 13.3 fL (7.4-11.0) H 04/12/18 04:20 Neut % (Auto) 97.3 % (42.0-75.0) H 04/12/18 04:20 Lymph % (Auto) 1.5 % (21.0-51.0) L 04/12/18 04:20 [place] % (Auto) 1.1 % (0.0-13.0) 04/12/18 04:20 Eos % (Auto) 0.0 % (0.9-2.9) L 04/12/18 04:20 Baso % (Auto) 0.1 % (0.2-1.0) L 04/12/18 04:20 Neut # (Auto) 7.1 x10^3/uL (2.2-4.8) H 04/12/18 04:20 Lymph # (Auto) 0.1 X10^3/uL (1.3-2.9) L 04/12/18 04:20 [place] # (Auto) 0.1 x10^3/uL (0.3-0.8) L 04/12/18 04:20 Eos # (Auto) 0.0 x10^3/uL (0.0-0.2) 04/12/18 04:20 Baso # (Auto) 0.0 X10^3/uL (0.0-0.1) 04/12/18 04:20 Absolute Nucleated RBC 0.0 /100WBC 04/12/18 04:20 Total Counted 100 04/12/18 04:20 Neutrophils % (Manual) 99 % (39-76) H 04/12/18 04:20 Band Neutrophils % 14 % (0-10) H 04/10/18 14:15 Lymphocytes % (Manual) 1 % (13-43) L 04/12/18 04:20 Eosinophils % (Manual) 2 % (0-6) 04/10/18 14:15 Plt Morphology Comment Normal (NORMAL) 04/12/18 04:20 RBC Morphology Normal (NORMAL) 04/12/18 04:20 INR Target Range - 04/10/18 14:15 INR 0.96 (0.8-1.3) 04/10/18 14:15 APTT 29.5 SECONDS (22.9-36.5) 04/10/18 14:15 PTT Comment - 04/10/18 14:15 D-Dimer 578 ng/mL (0-400) H* 04/10/18 14:15 Sodium 142 mmol/L (136-145) 04/12/18 04:20 Corrected Sodium 144 mmol/L (136-145) 04/12/18 04:20 Potassium 3.6 mmol/L (3.5-5.1) 04/12/18 04:20 Chloride 109 mmol/L (98-107) H 04/12/18 04:20 Carbon Dioxide 20.4 mmol/L (21-32) L 04/12/18 04:20 BUN 22 mg/dL (7-18) H 04/12/18 04:20 Creatinine 1.57 mg/dL (0.55-1.02) H 04/12/18 04:20 Est GFR (MDRD) Af Amer 45 (>60) L 04/12/18 04:20 Est GFR (MDRD) Non-Af 37 (>60) L 04/12/18 04:20 Glucose 171 mg/dL (65-99) H 04/12/18 04:20 POC Glucose (mg/dL) 239 mg/dL (65-99) H 04/12/18 19:28 Calcium 8.5 mg/dL (8.5-10.1) 04/12/18 04:20 Corrected Calcium 9.7 mg/dL (8.5-10.1) 04/12/18 04:20 Magnesium 1.9 mg/dL (1.7-2.9) 04/10/18 14:15 Total Bilirubin 0.20 mg/dL (0.2-1.0) 04/12/18 04:20 AST 10 Units/L (15-37) L 04/12/18 04:20 ALT 10 Units/L (12-78) L 04/12/18 04:20 Alkaline Phosphatase 84 Units/L (46-116) 04/12/18 04:20 Creatine Kinase 55 Units/L (26-192) 04/11/18 04:14 CK-MB (CK-2) < 1.0 ng/mL (0-4.0) 04/11/18 04:14 CK/CKMB % Calc 1.8 % (<4) 04/11/18 04:14 Troponin I < 0.02 ng/mL (0-1.5) 04/11/18 04:14 Total Protein 6.6 g/dL (6.4-8.2) 04/12/18 04:20 Albumin 2.5 g/dL (3.4-5.0) L 04/12/18 04:20 Globulin 4.1 g/dL (2.5-4.5) 04/12/18 04:20 Albumin/Globulin Ratio 0.6 Ratio (1.1-2.1) L 04/12/18 04:20 Specimen Type Clean catch urine 04/10/18 20:37 Urine Color Yellow (YELLOW) 04/10/18 20:37 Urine Appearance Clear (CLEAR) 04/10/18 20:37 Urine pH 6.0 (5.0 - 8.0) 04/10/18 20:37 Ur Specific [place] 1.005 (1.000-1.030) 04/10/18 20:37 Urine Protein 1+ (NEGATIVE) 04/10/18 20:37 Urine Glucose (UA) Negative (NEGATIVE) 04/10/18 20:37 Urine Ketones Negative (NEGATIVE) 04/10/18 20:37 Urine Occult Blood Negative (NEGATIVE) 04/10/18 20:37 Urine Nitrite Negative (NEGATIVE) 04/10/18 20:37 Urine Bilirubin Negative (NEGATIVE) 04/10/18 20:37 Urine Urobilinogen Normal (NORMAL) 04/10/18 20:37 Ur Leukocyte Esterase Negative (NEGATIVE) 04/10/18 20:37 Urine RBC None seen /HPF (NONE SEEN) 04/10/18 20:37 Urine WBC None seen /HPF (NONE SEEN) 04/10/18 20:37 Ur Squamous Epith Cells Few /HPF (NEGATIVE) 04/10/18 20:37 Urine Bacteria Trace /HPF (NEGATIVE) 04/10/18 20:37 Ur Culture Indicated? Yes/culture set up 04/10/18 20:37 Urine Opiates Screen Positive (NEG=<300) A 04/10/18 20:37 Urine Methadone Screen Negative (NEG=<300) 04/10/18 20:37 Ur Barbiturates Screen Negative (NEG=<200) 04/10/18 20:37 Ur Phencyclidine Scrn Negative (NEG=<25) 04/10/18 20:37 Ur Amphetamines Screen Negative (NEG=<1000) 04/10/18 20:37 U Benzodiazepines Scrn Negative (NEG=<200) 04/10/18 20:37 Urine Cocaine Screen Negative (NEG=<300) 04/10/18 20:37 U Marijuana (THC) Screen Negative (NEG=<50) 04/10/18 20:37 - Plan (1) Pneumonia Status: Acute Qualifiers: Pneumonia type: due to unspecified organism Laterality: bilateral Lung location: lower lobe of lung Qualified Code(s): J18.1 - Lobar pneumonia, unspecified organism Plan: IV ANTIBIOTICS, RESPIRATORY TREATMENTS, SUPPLEMENTAL OXYGEN, CONTINUE TO MONITOR (2) COPD (chronic obstructive pulmonary disease) Status: Acute Qualifiers: COPD type: unspecified COPD Qualified Code(s): J44.9 - Chronic obstructive pulmonary disease, unspecified Plan: ADMIT, IV ANTIBIOTICS, SOLU-MEDROL 80MG IV Q8H, RESPIRATORY TREATMENTS, SUPPLEMENTAL OXYGEN, CONTINUE TO MONITOR (3) Right leg pain Status: Resolved Plan: RIGHT LOWER EXTREMITY VENOUS DOPPLER, CONTINUE TO MONITOR (4) HIV disease Status: Chronic Plan: CONTINUE ANTIVIRAL MEDICATION (5) Hypertension Status: Chronic Qualifiers: Hypertension type: essential hypertension Qualified Code(s): I10 - Essential (primary) hypertension Plan: CONTINUE HOME MEDS
[2018-04-12] MEDS: MERREM VIAL 500 MG in NS 100 ML IV + SPIKE MINIBAG* 100 ML IV SCH (20:59)
[2018-04-12] MEDS: COLACE CAP 100 MG PO SCH (20:59)
[2018-04-12] MEDS: HumuLIN R SC PRN (21:00)
[2018-04-13] MEDS: NS 1/2 1000 ML IV 1,000 ML IV SCH ×2 (00:31→09:28)
[2018-04-13] MEDS: DUONEB 0.5 MG/3 MG NEB SCH ×4 (00:55→13:00)
[2018-04-13] MEDS: SOLU-Medrol 40 MG VIAL IVP SCH ×2 (01:30→09:42)
[2018-04-13 05:20] LABS: BASOPHILS % (AUTO) 0 % (0.2-1.0); HEMATOCRIT 26.3 % (36.0-47.0); HEMOGLOBIN 9.1 g/dL (12.0-16.0); LYMPHOCYTES # (AUTO) 0.2 X10^3/uL (1.3-2.9); LYMPHOCYTES % (AUTO) 1.6 % (21.0-51.0); MEAN CORPUSCULAR HEMOGLOBIN 32.4 pg (27.0-34.0); MEAN CORPUSCULAR HGB CONC 34.5 g/dL (33.0-35.0); MEAN CORPUSCULAR VOLUME 93.8 fL (80.0-100.0); MEAN PLATELET VOLUME 12.3 fL (7.4-11.0); MONOCYTES # (AUTO) 0.2 x10^3/uL (0.3-0.8); MONOCYTES % (AUTO) 2.2 % (0.0-13.0); NEUTROPHILS # (AUTO) 10.5 x10^3/uL (2.2-4.8); NEUTROPHILS % (AUTO) 96.2 % (42.0-75.0); PLATELET COUNT 96 X10^3/uL (150.0-450.0); RED CELL DISTRIBUTION WIDTH 16.2 % (11.6-16.5); WHITE BLOOD COUNT 10.9 X10^3/uL (3.6-10.0)
[2018-04-13 05:32] LABS: ALBUMIN 2.5 g/dL (3.4-5.0); CALCIUM 8.3 mg/dL (8.5-10.1); CARBON DIOXIDE 24.7 mmol/L (21-32); COR CA(FOR HYPOALB) 9.5 mg/dL (8.5-10.1); CREATININE 1.39 mg/dL (0.55-1.02); TOTAL PROTEIN 6.1 g/dL (6.4-8.2)
[2018-04-13 05:41] LABS: BAND NEUTROPHILS % 1 % (0-10); PLATELET MORPHOLOGY COMMENT NORMAL (NORMAL)
--- NOTE | 2018-04-13 06:57 | RAD ---
HISTORY: Follow-up lung infiltrates Study: Chest AP portable Comparison: 04/12/2018 Findings: The heart is within normal limits in size. The elliot are normal. The lungs are well inflated. Intersti tial lung changes are present. Right basilar lung infiltrate is unchanged from the prior examination. A small right pleural effusion is likely present. The left lung is clear. The bony thorax is unremar kable. IMPRESSION: No change right basilar lung infiltrate Reported By:
[2018-04-13] MEDS ORDERED: NS 1/2 1000 ML IV 1,000 ML IV ONE (09:09)
[2018-04-13] MEDS: MILK OF MAGNESIA PO SCH (09:28)
[2018-04-13] MEDS: CYMBALTA PO SCH (09:28)
[2018-04-13] MEDS: TAB-A-VITE PO SCH (09:29)
[2018-04-13] MEDS: MERREM VIAL 500 MG in NS 100 ML IV + SPIKE MINIBAG* 100 ML IV SCH (09:29)
[2018-04-13] MEDS: LEVAQUIN PREMIX IV 250 MG 250 MG/50 ML BAG IV SCH (10:59)
[2018-04-13 14:11] VITALS: BP 148/76
--- NOTE | 2018-04-26 23:23 | DR.CARTERD ---
- Discharge Summary for: Discharge Summary for Date of:: 04/13/18 - Admission Date Date of Admission: 04/10/18 - Admission Diagnoses Admission Diagnosis: (1) Pneumonia (2) COPD exacerbation - Discharge Date Discharge Date: 04/13/18 - Discharge Diagnoses Discharge Diagnosis: (1) Pneumonia (2) COPD exacerbation (3) Right leg pain (4) HIV disease (5) Hypertension - Hospital Course Hospital Course: DAY ONE, MS. JURADO IS A 48 YEAR OLD WHITE FEMALE WHO PRESENTED TO THE EMERGENCY ROOM VIA EMS WITH REPORTS OF JERKING, DIZZINESS, AND FREQUENT FALLS. PATIENT REPORTED SYMPTOMS STARTED A FEW WEEKS PRIOR AND HAD WORSENED SINCE ONSET. ASSOCIATED SYMPTOMS INCLUDED WEAKNESS, FEELING FAINT, GENERALIZED WEAKNESS, COUGH, AND SHORTNESS OF BREATH. PATIENT HAD A MEDICAL HISTORY OF A TIA IN 2012 THAT AFFECTED HER RIGHT SIDE. OTHER MEDICAL HISTORY INCLUDED HIV, COPD, DEPRESSION, ANXIETY, ARTHRITIS, AND HYPERTENSION. ON ARRIVAL, VITALS WERE 99.4-86-18-100% 2L NC, 114/68. ABNORMAL LABS WERE: RBC 3.18, HGB 10.1, HCT 29.7 , PLT COUNT 52, MPV 12.0, D-DIMER 578, BUN 21, CREATININE 2.00, GLUCOSE 118. BLOOD AND URINE CULTURES OBTAINED. CHEST XRAY REPORTED PERSISTENT PULMONARY DISTENTION AND BIBASILAR INFILTRATES REPRESENTING PNEUMONIA OR PULMONARY EDEMA. BRAIN CT REPORTED: NO ACUTE INTRACRANIAL PROCESS. EKG: SINUS RHYTHM, RATE 84. PATIENT WAS ADMITTED TO THE HOSPITAL AND STARTED ON IV FLUIDS, IV ANTIBIOTICS, AND AGGRESSIVE NEB TREATMENTS. DAY TWO, MS. JURADO WAS ADMITTED FOR PNEUMONIA AND COPD EXACERBATION. SHE WAS ALERT AND ORIENTED, SITTING UP IN BED ON MORNING ROUNDS. SHE CONTINUED WITH COMPLAINTS OF WEAKNESS, A NON-PRODUCTIVE COUGH, SHORTNESS OF BREATH, AND RIGHT LEG PAIN. ON EXAMINATION, HEART WAS REGULAR IN RATE AND RHYTHM. BILATERAL LUNGS WERE NOTED WITH SCATTERED WHEEZING THROUGHOUT. ABDOMEN WAS ROUND, SOFT, AND NON- TENDER WITH NORMAL BOWEL SOUNDS NOTED IN ALL QUADRANTS. RIGHT LEG WAS NOTED WITH TRACE EDEMA AND REDNESS. HER VITALS WERE 97.6-68-18-100%-95/50. LABS WERE OBTAINED. ABNORMAL LAB VALUES INCLUDED THE FOLLOWING: RBC 2.75, HGB 8.9, HCT 26.0, PLT COUNT 40, CHLORIDE 110, CREATININE 1.80, GLUCOSE 107, CALCIUM 8.1. A CHEST XRAY WAS OBTAINED AND REVEALED: SLIGHT IMPROVEMENT IN APPEARANCE OF THE BIBASAL INFILTRATES SEEN ON 04/10/18. WE CONTINUED WITH IV ANTIBIOTICS, RESPIRATORY TREATMENTS, AND SUPPLEMENTAL OXYGEN. DAY THREE, SHE WAS ALERT AND ORIENTED, SITTING UP IN BED ON MORNING ROUNDS. SHE CONTINUED WITH COMPLAINTS OF WEAKNESS, A NON-PRODUCTIVE COUGH, SHORTNESS OF BREATH. ON EXAMINATION, HEART WAS REGULAR IN RATE AND RHYTHM. BILATERAL LUNGS WERE NOTED WITH SCATTERED WHEEZING THROUGHOUT. ABDOMEN WAS ROUND, SOFT, AND NON- TENDER WITH NORMAL BOWEL SOUNDS NOTED IN ALL QUADRANTS. HER VITALS WERE 97.6-83- 18-100%-116/61. LABS WERE OBTAINED. ABNORMAL LAB VALUES INCLUDED THE FOLLOWING: RBC 2.86, HGB 9.2, HCT 26.7, PLT COUNT 54, CHLORIDE 109, CARBON DIOXIDE 20.4, BUN 22, CREATININE 1.57, GFR 37, GLUCOSE 171, AST 10, ALT 10, ALBUMIN 2.5. A CHEST XRAY WAS OBTAINED AND REVEALED: IMPROVING RIGHT BASILAR LUNG INFILTRATE; LEFT BASILAR INFILTRATE RESOLVED. WE CONTINUED WITH IV ANTIBIOTICS, RESPIRATORY TREATMENTS, AND SUPPLEMENTAL OXYGEN. DAY FOUR, PATIENT REPORTED SIGNIFICANT IMPROVEMENT IN SYMPTOMS. SHE DENIED SHORTNESS OF BREATH OR DIZZINESS. SHE REPORTED COUGH HAD IMPROVED AND WAS INTERMITTENT. FINAL BLOOD AND URINE CULTURES WERE NEGATIVE FOR GROWTH. ON AUSCULTATION, LUNGS WERE NOTED WITH SCATTERED RHONCHI. VITAL SIGNS STABLE. LABS WNL. WE PLANNED FOR DISCHARGE. INSTRUCTIONS FOR MEDICATIONS AND FOLLOW UP WERE DISCUSSED WITH PATIENT AND FAMILY, BOTH VOICED UNDERSTANDING. PATIENT WAS DISCHARGED HOME IN STABLE CONDITION WITH FAMILY. - Discharge Medications Discharge Medications: Home Medication List benzonatate [Tessalon Perles] 200 mg PO TID PRN #30 cap 04/13/18 [Rx] ipratropium-albuterol 1 ea NEB TID #50 ml 04/13/18 [Rx] levofloxacin [Levaquin] 750 mg PO DAILY #10 tab 04/13/18 [Rx] Prescriptions: benzonatate [Tessalon Perles] [place] ipratropium-albuterol [place] levofloxacin [Levaquin] [place] Home medications atazanavir [Reyataz] 1 tab PO 2100 04/02/17 buspirone 1 tab PO BID PRN 04/02/17 duloxetine 1 tab PO DAILY 04/02/17 duloxetine 1 tab PO HS 04/02/17 emtricitabine-tenofovir (TDF) [Truvada] 1 tab PO 2100 04/02/17 gabapentin 800 mg PO TID 04/02/17 multivitamin [Daily Multi-Vitamin] 1 tab PO DAILY 04/02/17 quetiapine [Seroquel] 2 tab PO HS 04/02/17 ritonavir [Norvir] 1 tab PO 209904/02/17 tramadol 50 mg PO Q12H PRN 06/25/17 promethazine 25 mg PO Q6H PRN #14 tab 02/17/18 - Discharge Disposition Discharge Disposition: PATIENT IS TO FOLLOW UP WITH DR. MARIA C HOLLY IN ONE WEEK.
== END 2018-04-13 16:00 | disposition home or self-care (01) | DRG 193 ==
LOC: ER 13:30 → MED/SURG 16:30
PROVIDERS: ADMIT Internal Medicine; ATTEND Internal Medicine
DX: B20 Human immunodeficiency virus [HIV] disease; F41.8 Other specified anxiety disorders; R42 Dizziness and giddiness; R06.02 Shortness of breath; R73.09 Other abnormal glucose; M79.604 Pain in right leg; R29.6 Repeated falls; R55 Syncope and collapse; D69.6 Thrombocytopenia, unspecified; J18.0 Bronchopneumonia, unspecified organism; J44.1 Chronic obstructive pulmonary disease with (acute) exacerbation; R53.1 Weakness; R94.31 Abnormal electrocardiogram [ECG] [EKG]; I10 Essential (primary) hypertension
CPT/HCPCS: 36415; 70450; 71010; 71020; 71045; 71046; 80048; 80053; 80307; 81001; 82550; 82553; 83735; 84484; 85025; 85378; 85610; 85730; 86361; 87040; 87086; 93005; 93971; 94640; 94669; 94760; 96365; 96367; 96372; 96374; 96375; 97161; 97166; 97535; 99284; A4216; A4222; Q0169; G0434; J0696; J1200; J1815; J1956; J2185; J2920; J7030; J7050; J7620; S0181

== ENCOUNTER 2018-11-18 16:37 | Inpatient (IN) ==
--- NOTE | 2018-11-18 17:46 | DR.WEAKNES ---
HPI Time Seen Time Seen by Provider: 11/18/18 16:53 Primary Care Physician Primary Care Physician: ELAYNE IZQUIERDO HPI Comment HPI Comment: PATIENT LAYING ON FLOOR FOR SEVERAL HOURS AND APPEAR TO HAVE UNCLEAR SPEECH. SHE IS WEAK. SHE IS TRYING TO ANSWER QUESTIONS AND FOLLOW COMMAND. NO FEVER. NO DYSURIA. PATIENT HAVE POSITIVE HIV AND HEP C. Complaints Chief Complaint Doctors Comments: AMS, SPEECH NOT CLEAR. Chief Complaint:: PT C/O BIENG WEAK PT DOES APPEAR TO BE UNDER THE INFLUENCE OF AN UNKNOWN SUBSTANCE , PT HAS A SORE TO PTS NOSE AND PTS HAS A BLISTER TO LEFT HAND, Self Treatment fo Chief Complaint: PT MOVES ALL EXTS WELL Reviewed Nurses Notes Reviewed: Yes Source History Provided: Patient Mode of Arrival Mode of Arrival: Wheelchair Timing Onset of Chief Complaint: 11/18/18 Since onset, symptoms are:: Worsened Symptom Onset: Unknown Duration Duration: Constant Duration: Hours Context Onset: Spontaneous Symptoms: Weakness; denies Slurred Speech (SLOW UNCLEAR SPEECH.) History of: Hypoglycemia Stroke Symptoms: Dizziness Location Weakness Location: Generalized Associated Signs and Symptoms Associated Signs and Symptoms: Altered Mental Status PMH PMH Past Medical History: Yes Past Medical History: Anxiety, Arthritis, COPD, Depression and Hypertension Past Medical History Comment: HIV, HEPATITIS Past Surgical History: Yes Surgical History: and Hysterectomy Family History History of Family Medical Conditions: Yes Family Medical History: Cancer, ID, Coronary Artery Disease, Sudden Cardiac and Hypertension Social History Does patient currently use any type of tobacco product: Yes Have you used tobacco products in the last 12 months: Yes Type of Tobacco Use: Cigarettes Does any household member use tobacco: No Alcohol Use: None Do you use any recreational Drugs:: No Lives With: Family Lives Where: Home infectious screening In the last 2 months have you had wt loss of >10#?: NO Have you had fever, night sweats or hemotysis?: No Have you traveled outside the country in the last 6 months?: No ROS Review of Systems Constitutional: Weakness and Fatigue; negative Fever Eyes: No Symptoms Reported ENTM: Nose Congestion Respiratoy: Moist Cough and Short of Breath Cardiovascular: No Symptoms Reported Gastrointestinal/Abdominal: No Symptoms Reported Genitourinary: No Symptoms Reported Neurological: No Symptoms Reported, Headache and Weakness Musculoskeletal: Muscle Pain Integumentary: No Symptoms Reported Hematologic/Lymphatic: No Symptoms Reported Endocrine: No Symptoms Reported Psychiatric: No Symptoms Reported All Other Systems: Reviewed and Negative Unable to Obtain Due To: Altered mental status PE Vital Signs Vitals: Temperature 97.6 F Pulse Rate [Brachial] 75 Pulse Rate 76 Respiratory Rate 20 Blood Pressure [Left Arm] 125/66 Blood Pressure [Right Arm] 117/63 Blood Pressure [Standing] 146/94 Blood Pressure [Sitting] 147/96 Blood Pressure [Lying] 148/88 Blood Pressure 108/69 O2 Sat by Pulse Oximetry 96 General Limitations: Altered Mental Status General Appearance: Alert and In No Apparent Distress Head Head Exam: Normal Inspection Head Exam Physical: Other (NONE NOTED.) Eyes Eye exam: Normal Appearance Eyelids: Normal Inspection: Bilateral Pupils: Regular, Round: Bilateral and Reactive: Bilateral Sclera/Conjunctival: Normal Inspection: Bilateral ENT ENT Exam: Normal External Ear Exam Mouth Exam: negative Trismus Throat Exam: Normal Inspection Neck Neck Exam: Normal Inspection Chest Chest Inspection: Normal Inspection Respiratory Respiratory Exam: Normal Lung Sounds Bilat Respiratory Exam: Bilateral: Wheezing and Bilateral: Rhonchi, Upper: Rhonchi and Lower: Wheezing and Lower: Rhonchi Cardiovascular Cardiovascular Exam: Regular Rate and Normal Rhythm Abdominal Exam Abdominal Exam: Normal Inspection, Normal Bowel Sounds and Soft Extremities Extremities Exam: Normal Inspection Back Back Exam: Normal Inspection Neurologic Neurological Exam: Alert, Oriented X3 and CN II-XII Intact; negative Motor Sensory Deficit Patient Oriented To: Person and Place Speech: Fluid Speech (SPEECH NOT CLEAR.) Cranial Nerve Exam: Gag reflex (XI): Normal Motor Strength - LUE: 5/5 Motor Strength - RUE: 5/5 Motor Strength - LLE: 5/5 Motor Strength - RLE: 5/5 Psychiatric Psychiatric Exam: Normal Affect and Anxious Skin Skin Exam: Dry MDM Differential Diagnosis Differential Diagnosis: CVA, Electrolyte Disorder, Hypoglycemia, Mass Lesion and TIA Differential Diagnosis Comment: ID. PNEUMONIA, UTI, COURSE Treatment Treatment: SEE ORDERS. IV NS IN ED. Consultation Consultation Comments: DISCUSS PATIENT WITH DR. WEEMS. HE WILL ADMIT PATIENT. Education/Counseling Education/Counseling: Patient Educated On: Diagnosis ROR Labs Reviewed Laboratory Results Reviewed?: Yes Result Diagrams: 11/18/18 18:02 11/18/18 18:02 Laboratory: WBC 5.4 X10^3/uL (3.6-10.0) 11/18/18 18:02 RBC 3.78 X10^6/uL (3.5-5.4) 11/18/18 18:02 Hgb 12.4 g/dL (12.0-16.0) 11/18/18 18:02 Hct 35.6 % (36.0-47.0) L 11/18/18 18:02 MCV 94.0 fL (80.0-100.0) 11/18/18 18:02 MCH 32.7 pg (27.0-34.0) 11/18/18 18:02 MCHC 34.8 g/dL (33.0-35.0) 11/18/18 18:02 RDW 12.9 % (11.6-16.5) 11/18/18 18:02 Plt Count 183 X10^3/uL (150.0-450.0) 11/18/18 18:02 MPV 8.5 fL (7.4-11.0) 11/18/18 18:02 Neut % (Auto) 83.7 % (42.0-75.0) H 11/18/18 18:02 Lymph % (Auto) 4.3 % (21.0-51.0) L 11/18/18 18:02 [place] % (Auto) 9.5 % (0.0-13.0) 11/18/18 18:02 Eos % (Auto) 2.3 % (0.9-2.9) 11/18/18 18:02 Baso % (Auto) 0.2 % (0.2-1.0) 11/18/18 18:02 Neut # (Auto) 4.5 x10^3/uL (2.2-4.8) 11/18/18 18:02 Lymph # (Auto) 0.2 X10^3/uL (1.3-2.9) L 11/18/18 18:02 [place] # (Auto) 0.5 x10^3/uL (0.3-0.8) 11/18/18 18:02 Eos # (Auto) 0.1 x10^3/uL (0.0-0.2) 11/18/18 18:02 Baso # (Auto) 0.0 X10^3/uL (0.0-0.1) 11/18/18 18:02 Absolute Nucleated RBC 0.0 /100WBC 11/18/18 18:02 Sodium 132 mmol/L (136-145) L 11/18/18 18:02 Corrected Sodium TNP 11/18/18 18:02 Potassium 4.9 mmol/L (3.5-5.1) 11/18/18 18:02 Chloride 94 mmol/L (98-107) L 11/18/18 18:02 Carbon Dioxide 19.5 mmol/L (21-32) L 11/18/18 18:02 BUN 113 mg/dL (7-18) H 11/18/18 18:02 Creatinine 6.24 mg/dL (0.55-1.02) H 11/18/18 18:02 Est GFR (MDRD) Af Amer 9 (>60) L 11/18/18 18:02 Est GFR (MDRD) Non-Af 8 (>60) L 11/18/18 18:02 Glucose 69 mg/dL (65-99) 11/18/18 18:02 Calcium 7.6 mg/dL (8.5-10.1) L 11/18/18 18:02 Corrected Calcium 8.3 mg/dL (8.5-10.1) L 11/18/18 18:02 Total Bilirubin 1.20 mg/dL (0.2-1.0) H 11/18/18 18:02 AST 262 Units/L (15-37) H 11/18/18 18:02 ALT 160 Units/L (12-78) H 11/18/18 18:02 Alkaline Phosphatase 125 Units/L (46-116) H 11/18/18 18:02 Creatine Kinase 4143 Units/L (26-192) H 11/18/18 18:02 CK-MB (CK-2) 69.9 ng/mL (0-4.0) H* 11/18/18 18:02 CK/CKMB % Calc 1.7 % (<4) 11/18/18 18:02 Troponin I < 0.02 ng/mL (0-1.5) 11/18/18 18:02 Total Protein 7.3 g/dL (6.4-8.2) 11/18/18 18:02 Albumin 3.1 g/dL (3.4-5.0) L 11/18/18 18:02 Globulin 4.2 g/dL (2.5-4.5) 11/18/18 18:02 Albumin/Globulin Ratio 0.7 Ratio (1.1-2.1) L 11/18/18 18:02 Specimen Type Catherized urine 11/18/18 19:00 Urine Color [place] (YELLOW) 11/18/18 19: Urine Appearance Slightly hazy (CLEAR) 11/18/18 19: Urine pH 5.0 (5.0 - 8.0) 11/18/18 19: Ur Specific [place] 1.015 (1.000-1.030) 11/18/18 19: Urine Protein 2+ (NEGATIVE) 11/18/18 19: Urine Glucose (UA) Negative (NEGATIVE) 11/18/18: Urine Ketones 1+ (NEGATIVE) 11/18/18 19: Urine Occult Blood 4+ (NEGATIVE) 11/18/18 19: Urine Nitrite Negative (NEGATIVE) 11/18/18: Urine Bilirubin 1+ (NEGATIVE) 11/18/18 19: Urine Urobilinogen Normal (NORMAL) 11/18/18 19:00 Ur Leukocyte Esterase 1+ (NEGATIVE) 11/18/18 19:00 Urine RBC 0-2 /HPF (NONE SEEN) 11/18/18 19:00 Urine WBC 0-2 /HPF (NONE SEEN) 11/18/18 19:00 Ur Squamous Epith Cells Negative /HPF (NEGATIVE) 11/18/18 19:00 Ur Transition Epith Cell Rare /HPF (NEGATIVE) 11/18/18 19: Amorphous Sediment 2+ /HPF (NEGATIVE) 11/18/18 19: Urine Bacteria Trace /HPF (NEGATIVE) 11/18/18 19:00 Hyaline Casts Rare /LPF (NEGATIVE) 11/18/18 19:00 Ur Culture Indicated? Yes/culture set up 11/18/18 19:00 Urine Opiates Screen Positive (NEG=<300) A 11/18/18 19: Urine Methadone Screen Negative (NEG=<300) 11/18/18 19:00 Ur Barbiturates Screen Negative (NEG=<200) 11/18/18 19:00 Ur Phencyclidine Scrn Negative (NEG=<25) 11/18/18 19: Ur Amphetamines Screen Negative (NEG=<1000) 11/18/18 19:00 U Benzodiazepines Scrn Positive (NEG=<200) A 11/18/18 19:00 Urine Cocaine Screen Negative (NEG=<300) 11/18/18 19:00 U Marijuana (THC) Screen Negative (NEG=<50) 11/18/18 19:00 XRAY XRAY Interpreted by: Radiologist XRAY Findings: REPORT ON RECORD NOTED AND DISCUSS WITH PATIENT. EKG Rate: 82 [place]: Normal Rhythm: NSR Block: LBBB ST: Nonsp
[2018-11-18 18:09] LABS: BASOPHILS % (AUTO) 0.2 % (0.2-1.0); EOSINOPHILS # (AUTO) 0.1 x10^3/uL (0.0-0.2); EOSINOPHILS % (AUTO) 2.3 % (0.9-2.9); HEMATOCRIT 35.6 % (36.0-47.0); HEMOGLOBIN 12.4 g/dL (12.0-16.0); LYMPHOCYTES # (AUTO) 0.2 X10^3/uL (1.3-2.9); LYMPHOCYTES % (AUTO) 4.3 % (21.0-51.0); MEAN CORPUSCULAR HEMOGLOBIN 32.7 pg (27.0-34.0); MEAN CORPUSCULAR HGB CONC 34.8 g/dL (33.0-35.0); MEAN PLATELET VOLUME 8.5 fL (7.4-11.0); MONOCYTES # (AUTO) 0.5 x10^3/uL (0.3-0.8); MONOCYTES % (AUTO) 9.5 % (0.0-13.0); NEUTROPHILS # (AUTO) 4.5 x10^3/uL (2.2-4.8); NEUTROPHILS % (AUTO) 83.7 % (42.0-75.0); PLATELET COUNT 183 X10^3/uL (150.0-450.0); RED BLOOD COUNT 3.78 X10^6/uL (3.5-5.4); RED CELL DISTRIBUTION WIDTH 12.9 % (11.6-16.5); WHITE BLOOD COUNT 5.4 X10^3/uL (3.6-10.0)
--- NOTE | 2018-11-18 18:21 | CT ---
CT HEAD WITHOUT CONTRAST CLINICAL HISTORY: 48-year-old female with weakness. Appears intoxicated. COMPARISON: CT head 06/19/2018. TECHNIQUE: Multiple, non-contrasted axial CT images were obtained from the skull base to the cranial vertex. Coronal and sagittal reformats were performed. FINDINGS: There are no abnormal intra- or extra-axial fluid collections, midline shift, or mass effect. Cuevas-white differentiation is normal. Global cortical involutional changes are present that are within normal limits for the patient's stated age. The ventricular system is mildly enlarged but commensurate with the degree of sulcal prominence. Periventricular and supraventricular white matter hypodensity is present that is nonspecific in appearance, but most likely to represent microvascular ischemic changes. Atherosclerotic vascular calcification is present within the carotid siphons and distal vertebral arteries. The imaged paranasal sinuses, mastoid air cells, and tympanic spaces are clear. IMPRESSION: 1. No definite evidence of an acute intracranial process. If clinical concern persists for acute stroke and it would alter patient management, consider MRI/MRA brain. 2. Mild microvascular white matter ischemic changes, with associated volume loss. Reported By:
[2018-11-18 18:29] LABS: BLOOD UREA NITROGEN 113 mg/dL (7-18); CALCIUM 7.6 mg/dL (8.5-10.1); CARBON DIOXIDE 19.5 mmol/L (21-32); CHLORIDE 94 mmol/L (98-107); CREATININE 6.24 mg/dL (0.55-1.02); SODIUM 132 mmol/L (136-145); TROPONIN I < 0.02 ng/mL (0-1.5); eGFR NON BLACK RACES 8 (>60)
--- NOTE | 2018-11-18 18:29 | RAD ---
HISTORY: 48-year-old female with weakness and history of COPD. Patient with HIV and hepatitis. Study: Frontal view of the chest. Comparison: Chest radiograph 04/13/2018 Findings: The trachea is midline. The cardiac silhouette is stable. The lungs are clear without focal consolidation, effusion or pneumothorax. Soft tissues are unremarkable. Osseous structures are unremarkable. IMPRESSION: 1. No acute cardiopulmonary disease. Reported By:
[2018-11-18 18:48] LABS: ALANINE AMINOTRANSFERASE 160 Units/L (12-78); ALBUMIN 3.1 g/dL (3.4-5.0); ALKALINE PHOSPHATASE 125 Units/L (46-116); ASPARTATE AMINO TRANSFERASE 262 Units/L (15-37); COR CA(FOR HYPOALB) 8.3 mg/dL (8.5-10.1); TOTAL PROTEIN 7.3 g/dL (6.4-8.2)
[2018-11-18 18:49] LABS: CKMB % 1.7 % (<4); CREATINE KINASE 4143 Units/L (26-192); CREATINE KINASE MB 69.9 ng/mL (0-4.0)
[2018-11-18 19:19] LABS: BILIRUBIN,URINE 1+ (NEGATIVE); BLOOD/HEMOGLOBIN,URINE 4+ (NEGATIVE); GLUCOSE, URINE NEGATIVE (NEGATIVE); KETONES,URINE 1+ (NEGATIVE); LEUKOCYTE ESTERASE ,URINE 1+ (NEGATIVE); NITRITES,URINE NEGATIVE (NEGATIVE); PROTEIN,URINE 2+ (NEGATIVE); UROBILINOGEN,URINE NORMAL (NORMAL)
[2018-11-18 19:29] LABS: APPEARANCE,URINE SLIGHTLY HAZY (CLEAR); COLOR,URINE AMBER (YELLOW); RBC,URINE 0-2 /HPF (NONE SEEN)
[2018-11-18 19:30] LABS: BACTERIA,URINE TRACE /HPF (NEGATIVE); SQUAMOUS EPITHELIAL CELL,UR NEGATIVE /HPF (NEGATIVE)
[2018-11-18 19:31] LABS: AMORPHOUS SEDIMENT,UR 2+ /HPF (NEGATIVE); HYALINE CASTS, URINE RARE /LPF (NEGATIVE); TRANSITIONAL EPI CELLS,URINE RARE /HPF (NEGATIVE)
[2018-11-18] MEDS ORDERED: NS 1000 ML 1,000 ML IV ONE (23:04)
[2018-11-18] MEDS ORDERED: NS 1000 ML 1,000 ML ONE (23:06)
[2018-11-19] MEDS ORDERED: NS 1000 ML 1,000 ML ONE (04:05)
[2018-11-19] MEDS: NS 1000 ML 1,000 ML IV SCH ×3 (04:23→21:26)
[2018-11-19 05:32] LABS: BASOPHILS % (AUTO) 0.3 % (0.2-1.0); EOSINOPHILS # (AUTO) 0.1 x10^3/uL (0.0-0.2); EOSINOPHILS % (AUTO) 3.1 % (0.9-2.9); HEMATOCRIT 29.7 % (36.0-47.0); HEMOGLOBIN 10.4 g/dL (12.0-16.0); LYMPHOCYTES # (AUTO) 0.1 X10^3/uL (1.3-2.9); LYMPHOCYTES % (AUTO) 2.6 % (21.0-51.0); MEAN CORPUSCULAR HEMOGLOBIN 33.1 pg (27.0-34.0); MEAN CORPUSCULAR VOLUME 94.3 fL (80.0-100.0); MEAN PLATELET VOLUME 8.9 fL (7.4-11.0); MONOCYTES # (AUTO) 0.4 x10^3/uL (0.3-0.8); MONOCYTES % (AUTO) 8.9 % (0.0-13.0); NEUTROPHILS % (AUTO) 85.1 % (42.0-75.0); PLATELET COUNT 157 X10^3/uL (150.0-450.0); RED BLOOD COUNT 3.15 X10^6/uL (3.5-5.4); RED CELL DISTRIBUTION WIDTH 12.6 % (11.6-16.5); WHITE BLOOD COUNT 4.7 X10^3/uL (3.6-10.0)
[2018-11-19 05:36] LABS: ALANINE AMINOTRANSFERASE 125 Units/L (12-78); ALBUMIN 2.5 g/dL (3.4-5.0); ALKALINE PHOSPHATASE 103 Units/L (46-116); ASPARTATE AMINO TRANSFERASE 191 Units/L (15-37); BLOOD UREA NITROGEN 104 mg/dL (7-18); CALCIUM 7.1 mg/dL (8.5-10.1); CARBON DIOXIDE 17.5 mmol/L (21-32); CHLORIDE 99 mmol/L (98-107); COR CA(FOR HYPOALB) 8.3 mg/dL (8.5-10.1); CREATININE 5.15 mg/dL (0.55-1.02); SODIUM 135 mmol/L (136-145); eGFR NON BLACK RACES 9 (>60)
[2018-11-19 06:07] LABS: CREATINE KINASE MB 53.9 ng/mL (0-4.0)
[2018-11-19 06:42] LABS: BILIRUBIN,URINE 1+ (NEGATIVE); BLOOD/HEMOGLOBIN,URINE 3+ (NEGATIVE); GLUCOSE, URINE NEGATIVE (NEGATIVE); KETONES,URINE 1+ (NEGATIVE); LEUKOCYTE ESTERASE ,URINE 1+ (NEGATIVE); NITRITES,URINE NEGATIVE (NEGATIVE); PROTEIN,URINE 2+ (NEGATIVE); UROBILINOGEN,URINE NORMAL (NORMAL)
[2018-11-19 06:49] LABS: APPEARANCE,URINE SLIGHTLY HAZY (CLEAR); COLOR,URINE DARK YELLOW (YELLOW)
[2018-11-19 06:50] LABS: AMORPHOUS SEDIMENT,UR TRACE /HPF (NEGATIVE); BACTERIA,URINE TRACE /HPF (NEGATIVE); SQUAMOUS EPITHELIAL CELL,UR RARE /HPF (NEGATIVE)
[2018-11-19] MEDS: CYMBALTA PO SCH ×2 (08:57→21:27)
[2018-11-19] MEDS ORDERED: WELLBUTRIN IR (PLAIN) PO SCH (09:00)
[2018-11-19] MEDS: ATOMOXETINE 40 MG PO SCH (10:53)
[2018-11-19] MEDS: PERCOCET TAB 5/325 MG PO PRN ×2 (11:40→21:35)
[2018-11-19] MEDS: BACTROBAN TOPICAL OINT TOP SCH ×2 (13:35→21:26)
--- NOTE | 2018-11-19 18:15 | DR.H&P ---
H&P - History & Physical for Day of: H&P Date: 11/18/18 - Chief Complaint Chief Complaint: ams - History of Present Illness History of Present Illness: 48WF ER ADMISSION AFTER PRESENTING WITH REPORTS PATIENT LAYING ON FLOOR FOR SEVERAL HOURS AND APPEAR TO HAVE UNCLEAR SPEECH. SHE IS WEAK. SHE IS TRYING TO ANSWER QUESTIONS AND FOLLOW COMMANDS.NO FEVER. NO DYSURIA. PATIENT HAVE POSITIVE HIV AND HEP C. PT CREAT IN ER 6.23 WITH NO HISTORY OF RENAL INSUFFICIENCY. PT ADMITTED FOR TREATMENT OF ARF. - Past Medical History Past Medical History: Hypertension, Depression, Anxiety, COPD, Arthritis Additional Medical History: HIV, TIA. HEP C - Past Surgical History Surgical History: , Hysterectomy - Family History Family Medical History: Cancer, [place], Coronary Artery Disease, Sudden Cardiac , Hypertension - Social History Does patient currently use any type of tobacco product: Yes Have you used tobacco products in the last 12 months: Yes Type of Tobacco Use: Cigarettes Does any household member use tobacco: No Alcohol Use: None Drug Use: None - Medications Home Medications: No Known Drug Allergies Allergy (Verified 11/18/18 16:45) CONTINUE taking the following medications atomoxetine [Strattera] 40 mg PO DAILY 11/18/18 [History] bupropion HCl 100 mg PO DAILY 11/18/18 [History] duloxetine [Cymbalta] 30 mg PO HS 11/18/18 [History] duloxetine [Cymbalta] 90 mg PO DAILY 11/18/18 [History] quetiapine 2 tab PO HS 11/18/18 [History] atazanavir [Reyataz] 300 mg PO DAILY 11/19/18 [History] emtricitabine-tenofovir alafen [Descovy] 1 mg PO DAILY 11/19/18 [History] fluconazole [Diflucan] 100 mg PO DAILY 11/19/18 [History] ritonavir [Norvir] 100 mg PO DAILY 11/19/18 [History] sulfamethoxazole-trimethoprim 1 tab PO Q4HR 11/19/18 [History] - Review of Systems Constitutional: Weakness, Malaise Eyes: No Symptoms Reported ENT: No Symptoms Reported Respiratory: No Symptoms Reported Cardiovascular: No Symptoms Reported, Edema Gastrointestinal: No Symptoms Reported Genitourinary: No Symptoms Reported Musculoskeletal: Leg Pain Skin: Wound (BLISTERS TO BILATERAL TOES) Neurological: Weakness, Confusion - Physical Exam Vital Signs: Temperature 98.6 F Pulse Rate [Brachial] 80 Pulse Rate 76 Respiratory Rate 18 Blood Pressure [Left Arm] 125/66 Blood Pressure [Right Arm] 106/62 Blood Pressure [Standing] 146/94 Blood Pressure [Sitting] 147/96 Blood Pressure [Lying] 148/88 Blood Pressure 108/69 O2 Sat by Pulse Oximetry 96 Oriented: Person Eyes: Normal Nose: Normal Throat: Normal Respiratory: RML Diminished, RLL Diminished, LML Diminished, LLL Diminished Cardiovascular: Normal : Normal Auscultation: Bowel Sounds: Normal Palpation: Normal Tenderness: Normal Skin: Decreased Turgur Musculoskeletal: Normal Mood Description: Flat Speech Pattern: Delayed - Assessment/Plan (1) Altered mental status Status: Acute Plan: ADMIT, CT HEAD IN ER WITHOUT ACUTE FINDINGS. GENTLE IV HYDRATION, HIL[place]AN CATH, STRICT I & O. SUPPLEMENTAL O2. BLOOD PRESSURE MONITORING, REPEAT AM LABS. EKG ON ADMISSION AND CXR ON ADMISSION, VERIFY HOME MEDICATION. RESUME ANTIVIRAL MEDICATION (2) Acute renal failure Status: Acute (3) Weakness Status: Acute (4) HIV disease Status: Chronic (5) Hypertension Status: Chronic - Allergies Allergies/Adverse Reactions: Allergies Allergy/AdvReac Type Severity Reaction Status Date / Time No Known Drug Allergies Allergy Verified 11/18/18 16:45
--- NOTE | 2018-11-19 18:18 | PCM.PROG ---
Progress Note - Progress Note for Day of Date of Exam: 11/19/18 - Subjective Subjective: 48 WF ER ADMISSION LAST PM WITH WEAKNESS, AMS AND ACUTE RENAL FAILURE, CREAT IMPROVED THIS AM 5.15. PT IS AWAKE AND ORIENTED WITH CO GENERALIZED PAIN, DENIES N/V. PT HIV HOME MEDICATION VERIFIED AND RESUMED. WILL CONTINUE GENTLE IV AND PO HYDRATION, REPEAT AM LABS - Past Medical Family Social History Past Med/Fam/Surg Hx: No changes since H&P Allergies: Allergies No Known Drug Allergies Allergy (Verified 11/18/18 16:45) - Review of Systems ROS: No change since H&P - Vital Signs and I&O's Vital Signs: Temperature 98.6 F Pulse Rate [Brachial] 80 Pulse Rate 76 Respiratory Rate 18 Blood Pressure [Left Arm] 125/66 Blood Pressure [Right Arm] 106/62 Blood Pressure [Standing] 146/94 Blood Pressure [Sitting] 147/96 Blood Pressure [Lying] 148/88 Blood Pressure 108/69 O2 Sat by Pulse Oximetry 96 Intake and Output: Intake & Output 11/17/18 11/18/18 11/19/18 11/20/18 11:59 11:59 11:59 11:59 Intake Total 220 / 220 979 / 979 Output Total 0 / 0 Balance 220 / 220 979 / 979 - Physical Exam Oriented: Person Eyes: Normal Nose: Normal Throat: Normal Respiratory: Diminished Cardiovascular: Normal : Normal Auscultation: Bowel Sounds: Normal Tenderness: Normal Skin: Decreased Turgur Musculoskeletal: Normal Mood Description: Flat Speech Pattern: Delayed - Laboratory and Diagnostics Result Diagrams: 11/19/18 04:50 11/19/18 04:50 Labs: 11/18/18 19:00 Urine,Catheterized Urine Culture - Preliminary Laboratory WBC 4.7 X10^3/uL (3.6-10.0) 11/19/18 04:50 RBC 3.15 X10^6/uL (3.5-5.4) L 11/19/18 04:50 Hgb 10.4 g/dL (12.0-16.0) L D 11/19/18 04:50 Hct 29.7 % (36.0-47.0) L 11/19/18 04:50 MCV 94.3 fL (80.0-100.0) 11/19/18 04:50 MCH 33.1 pg (27.0-34.0) 11/19/18 04:50 MCHC 35.0 g/dL (33.0-35.0) 11/19/18 04:50 RDW 12.6 % (11.6-16.5) 11/19/18 04:50 Plt Count 157 X10^3/uL (150.0-450.0) 11/19/18 04:50 MPV 8.9 fL (7.4-11.0) 11/19/18 04:50 Neut % (Auto) 85.1 % (42.0-75.0) H 11/19/18 04:50 Lymph % (Auto) 2.6 % (21.0-51.0) L 11/19/18 04:50 [place] % (Auto) 8.9 % (0.0-13.0) 11/19/18 04:50 Eos % (Auto) 3.1 % (0.9-2.9) H 11/19/18 04:50 Baso % (Auto) 0.3 % (0.2-1.0) 11/19/18 04:50 Neut # (Auto) 4.0 x10^3/uL (2.2-4.8) 11/19/18 04:50 Lymph # (Auto) 0.1 X10^3/uL (1.3-2.9) L 11/19/18 04:50 [place] # (Auto) 0.4 x10^3/uL (0.3-0.8) 11/19/18 04:50 Eos # (Auto) 0.1 x10^3/uL (0.0-0.2) 11/19/18 04:50 Baso # (Auto) 0.0 X10^3/uL (0.0-0.1) 11/19/18 04:50 Absolute Nucleated RBC 0.0 /100WBC 11/19/18 04:50 Sodium 135 mmol/L (136-145) L 11/19/18 04:50 Corrected Sodium TNP 11/19/18 04:50 Potassium 4.2 mmol/L (3.5-5.1) 11/19/18 04:50 Chloride 99 mmol/L (98-107) 11/19/18 04:50 Carbon Dioxide 17.5 mmol/L (21-32) L 11/19/18 04:50 BUN 104 mg/dL (7-18) H 11/19/18 04:50 Creatinine 5.15 mg/dL (0.55-1.02) H 11/19/18 04:50 Est GFR (MDRD) Af Amer 11 (>60) L 11/19/18 04:50 Est GFR (MDRD) Non-Af 9 (>60) L 11/19/18 04:50 Glucose 69 mg/dL (65-99) 11/19/18 04:50 Calcium 7.1 mg/dL (8.5-10.1) L 11/19/18 04:50 Corrected Calcium 8.3 mg/dL (8.5-10.1) L 11/19/18 04:50 Total Bilirubin 0.90 mg/dL (0.2-1.0) 11/19/18 04:50 AST 191 Units/L (15-37) H 11/19/18 04:50 ALT 125 Units/L (12-78) H 11/19/18 04:50 Alkaline Phosphatase 103 Units/L (46-116) 11/19/18 04:50 Creatine Kinase 4143 Units/L (26-192) H 11/18/18 18:02 CK-MB (CK-2) 53.9 ng/mL (0-4.0) H* 11/19/18 04:50 CK/CKMB % Calc 1.7 % (<4) 11/18/18 18:02 Troponin I < 0.02 ng/mL (0-1.5) 11/18/18 18:02 Total Protein 6.0 g/dL (6.4-8.2) L 11/19/18 04:50 Albumin 2.5 g/dL (3.4-5.0) L 11/19/18 04:50 Globulin 3.5 g/dL (2.5-4.5) 11/19/18 04:50 Albumin/Globulin Ratio 0.7 Ratio (1.1-2.1) L 11/19/18 04:50 Amylase 28 Units/L (25-115) 11/19/18 04:50 Lipase 190 Units/L (73-393) 11/19/18 04:50 Specimen Type Catherized urine 11/19/18 06:10 Urine Color Dark yellow (YELLOW) 11/19/18 06:10 Urine Appearance Slightly hazy (CLEAR) 11/19/18 06:10 Urine pH 5.0 (5.0 - 8.0) 11/19/18 06:10 Ur Specific [place] 1.020 (1.000-1.030) 11/19/18 06:10 Urine Protein 2+ (NEGATIVE) 11/19/18 06:10 Urine Glucose (UA) Negative (NEGATIVE) 11/19/18 06:10 Urine Ketones 1+ (NEGATIVE) 11/19/18 06:10 Urine Occult Blood 3+ (NEGATIVE) 11/19/18 06:10 Urine Nitrite Negative (NEGATIVE) 11/19/18 06:10 Urine Bilirubin 1+ (NEGATIVE) 11/19/18 06:10 Urine Urobilinogen Normal (NORMAL) 11/19/18 06:10 Ur Leukocyte Esterase 1+ (NEGATIVE) 11/19/18 06:10 Urine RBC 3-5 /HPF (NONE SEEN) 11/19/18 06:10 Urine WBC 0-2 /HPF (NONE SEEN) 11/19/18 06:10 Ur Squamous Epith Cells Rare /HPF (NEGATIVE) 11/19/18 06:10 Ur Transition Epith Cell Rare /HPF (NEGATIVE) 11/18/18 19:00 Amorphous Sediment Trace /HPF (NEGATIVE) 11/19/18 06:10 Urine Bacteria Trace /HPF (NEGATIVE) 11/19/18 06:10 Hyaline Casts Rare /LPF (NEGATIVE) 11/18/18 19:00 Ur Culture Indicated? No/not indicated 11/19/18 06:10 Urine Opiates Screen Positive (NEG=<300) A 11/18/18 19:00 Urine Methadone Screen Negative (NEG=<300) 11/18/18 19:00 Ur Barbiturates Screen Negative (NEG=<200) 11/18/18 19:00 Ur Phencyclidine Scrn Negative (NEG=<25) 11/18/18 19:00 Ur Amphetamines Screen Negative (NEG=<1000) 11/18/18 19:00 U Benzodiazepines Scrn Positive (NEG=<200) A 11/18/18 19:00 Urine Cocaine Screen Negative (NEG=<300) 11/18/18 19:00 U Marijuana (THC) Screen Negative (NEG=<50) 11/18/18 19:00 - Plan (1) Altered mental status Status: Acute Plan: AMS IMPROVED WITH HYDRATION. CT HEAD IN ER WITHOUT ACUTE FINDINGS. GENTL E IV HYDRATION, HILLMAN CATH, STRICT I & O. SUPPLEMENTAL O2. BLOOD PRESSURE MONITORING, REPEAT AM LABS. EKG ON ADMISSION AND CXR ON ADMISSION, VERIFY HOME MEDICATION. RESUME ANTIVIRAL MEDICATION (2) Acute renal failure Status: Acute (3) Weakness Status: Acute (4) HIV disease Status: Chronic (5) Hypertension Status: Chronic
[2018-11-19] MEDS ORDERED: QUETIAPINE PO SCH (21:00)
[2018-11-19] MEDS: SEROQUEL 300 MG PO SCH (21:27)
[2018-11-19] MEDS: LOVENOX INJ 30 MG SYR SC SCH (21:34)
[2018-11-20] MEDS: NS 1000 ML 1,000 ML IV SCH ×2 (05:33→15:10)
[2018-11-20 06:38] LABS: BASOPHILS % (AUTO) 0.2 % (0.2-1.0); EOSINOPHILS # (AUTO) 0.1 x10^3/uL (0.0-0.2); EOSINOPHILS % (AUTO) 4.5 % (0.9-2.9); HEMATOCRIT 26.1 % (36.0-47.0); LYMPHOCYTES # (AUTO) 0.3 X10^3/uL (1.3-2.9); LYMPHOCYTES % (AUTO) 9.7 % (21.0-51.0); MEAN CORPUSCULAR HEMOGLOBIN 33.2 pg (27.0-34.0); MEAN CORPUSCULAR HGB CONC 34.6 g/dL (33.0-35.0); MEAN CORPUSCULAR VOLUME 95.9 fL (80.0-100.0); MEAN PLATELET VOLUME 8.9 fL (7.4-11.0); MONOCYTES # (AUTO) 0.4 x10^3/uL (0.3-0.8); MONOCYTES % (AUTO) 13.4 % (0.0-13.0); NEUTROPHILS # (AUTO) 2.1 x10^3/uL (2.2-4.8); NEUTROPHILS % (AUTO) 72.2 % (42.0-75.0); PLATELET COUNT 157 X10^3/uL (150.0-450.0); RED BLOOD COUNT 2.72 X10^6/uL (3.5-5.4); RED CELL DISTRIBUTION WIDTH 12.9 % (11.6-16.5); WHITE BLOOD COUNT 2.9 X10^3/uL (3.6-10.0)
[2018-11-20 06:49] LABS: ALANINE AMINOTRANSFERASE 92 Units/L (12-78); ALBUMIN 2.1 g/dL (3.4-5.0); ALKALINE PHOSPHATASE 84 Units/L (46-116); ASPARTATE AMINO TRANSFERASE 105 Units/L (15-37); BLOOD UREA NITROGEN 78 mg/dL (7-18); CALCIUM 7.6 mg/dL (8.5-10.1); CARBON DIOXIDE 22.3 mmol/L (21-32); CHLORIDE 107 mmol/L (98-107); COR CA(FOR HYPOALB) 9.1 mg/dL (8.5-10.1); SODIUM 141 mmol/L (136-145); TOTAL PROTEIN 5.3 g/dL (6.4-8.2); eGFR NON BLACK RACES 15 (>60)
[2018-11-20 08:43] VITALS: BMI 21.4
[2018-11-20] MEDS: ATOMOXETINE 40 MG PO SCH (08:52)
[2018-11-20] MEDS: BACTROBAN TOPICAL OINT TOP SCH ×2 (08:53→20:26)
[2018-11-20] MEDS: PATIENT'S HOME MEDICATION PO SCH ×4 (08:54→09:01)
[2018-11-20] MEDS: CYMBALTA PO SCH ×2 (08:55→20:29)
[2018-11-20] MEDS: LOVENOX INJ 30 MG SYR SC SCH (09:01)
[2018-11-20] MEDS: PERCOCET TAB 5/325 MG PO PRN ×2 (15:10→20:26)
[2018-11-20] MEDS: SEROQUEL 300 MG PO SCH (20:27)
[2018-11-21 05:34] LABS: BASOPHILS % (AUTO) 0.3 % (0.2-1.0); EOSINOPHILS # (AUTO) 0.1 x10^3/uL (0.0-0.2); EOSINOPHILS % (AUTO) 5.4 % (0.9-2.9); HEMATOCRIT 29.5 % (36.0-47.0); HEMOGLOBIN 10.1 g/dL (12.0-16.0); LYMPHOCYTES # (AUTO) 0.3 X10^3/uL (1.3-2.9); LYMPHOCYTES % (AUTO) 12.4 % (21.0-51.0); MEAN CORPUSCULAR HEMOGLOBIN 32.8 pg (27.0-34.0); MEAN CORPUSCULAR HGB CONC 34.3 g/dL (33.0-35.0); MEAN CORPUSCULAR VOLUME 95.4 fL (80.0-100.0); MEAN PLATELET VOLUME 8.5 fL (7.4-11.0); MONOCYTES # (AUTO) 0.5 x10^3/uL (0.3-0.8); NEUTROPHILS # (AUTO) 1.7 x10^3/uL (2.2-4.8); NEUTROPHILS % (AUTO) 64.9 % (42.0-75.0); PLATELET COUNT 170 X10^3/uL (150.0-450.0); RED BLOOD COUNT 3.09 X10^6/uL (3.5-5.4); RED CELL DISTRIBUTION WIDTH 12.9 % (11.6-16.5); WHITE BLOOD COUNT 2.7 X10^3/uL (3.6-10.0)
[2018-11-21 05:52] LABS: ALANINE AMINOTRANSFERASE 74 Units/L (12-78); ALBUMIN 2.2 g/dL (3.4-5.0); ALKALINE PHOSPHATASE 85 Units/L (46-116); ASPARTATE AMINO TRANSFERASE 66 Units/L (15-37); BLOOD UREA NITROGEN 63 mg/dL (7-18); CALCIUM 8.2 mg/dL (8.5-10.1); CARBON DIOXIDE 22.1 mmol/L (21-32); CHLORIDE 113 mmol/L (98-107); COR CA(FOR HYPOALB) 9.6 mg/dL (8.5-10.1); CREATININE 2.57 mg/dL (0.55-1.02); SODIUM 144 mmol/L (136-145); TOTAL PROTEIN 5.4 g/dL (6.4-8.2); eGFR NON BLACK RACES 21 (>60)
[2018-11-21] MEDS: NS 1000 ML 1,000 ML IV SCH ×5 (06:22→20:00)
[2018-11-21] MEDS: PATIENT'S HOME MEDICATION PO SCH ×4 (09:14→10:29)
[2018-11-21] MEDS: ATOMOXETINE 40 MG PO SCH (09:18)
[2018-11-21] MEDS: BACTROBAN TOPICAL OINT TOP SCH ×2 (09:20→20:35)
[2018-11-21] MEDS: CYMBALTA PO SCH ×2 (09:21→20:36)
[2018-11-21] MEDS: LOVENOX INJ 30 MG SYR SC SCH (09:23)
--- NOTE | 2018-11-21 16:07 | CT ---
HISTORY: Acute renal failure, dehydration Study: CT abdomen without contrast Comparison: None Technique: Multiple axial images of the abdomen were obtained from the lung bases to the iliac crests without the administration of IV contrast. Findings: Chronic appearing changes are seen within the visualized lungs. The liver is prominent in appearance. The spleen, pancreas, adrenals, and kidneys are grossly unremarkable in appearance given the limitations of this noncontrast exam. No CT evidence of hydronephrosis is identified. There is questionable gastric wall thickening however this may in part be due to lack of distention. Correlation with endoscopy may be helpful as clinically indicated. The gallbladder is somewhat distended with questionable layering debris. If there is clinical concern for gallbladder disease follow-up ultrasound may be performed for further evaluation. A moderate to large amount of stool is seen within the visualized colon. IMPRESSION: Distended appearance of the gallbladder with questionable layering debris. Correlation with ultrasound may be helpful as clinically indicated. Moderate to large amount of stool within the visualized colon suggesting constipation. Correlate clinically. Other findings as noted above. Reported By:
[2018-11-21] MEDS: PERCOCET TAB 5/325 MG PO PRN ×2 (16:27→22:49)
[2018-11-21] MEDS: SEROQUEL 300 MG PO SCH (20:35)
[2018-11-21] MEDS: COLACE CAP 100 MG PO PRN (20:36)
[2018-11-22] MEDS: NS 1000 ML 1,000 ML IV SCH ×4 (05:21→20:00)
[2018-11-22 06:19] LABS: BASOPHILS % (AUTO) 0.4 % (0.2-1.0); EOSINOPHILS # (AUTO) 0.2 x10^3/uL (0.0-0.2); HEMATOCRIT 29.4 % (36.0-47.0); HEMOGLOBIN 10.1 g/dL (12.0-16.0); LYMPHOCYTES # (AUTO) 0.4 X10^3/uL (1.3-2.9); LYMPHOCYTES % (AUTO) 19.4 % (21.0-51.0); MEAN CORPUSCULAR HEMOGLOBIN 32.5 pg (27.0-34.0); MEAN CORPUSCULAR HGB CONC 34.3 g/dL (33.0-35.0); MEAN CORPUSCULAR VOLUME 94.9 fL (80.0-100.0); MEAN PLATELET VOLUME 8.3 fL (7.4-11.0); MONOCYTES # (AUTO) 0.5 x10^3/uL (0.3-0.8); MONOCYTES % (AUTO) 20.9 % (0.0-13.0); NEUTROPHILS # (AUTO) 1.1 x10^3/uL (2.2-4.8); NEUTROPHILS % (AUTO) 49.3 % (42.0-75.0); PLATELET COUNT 164 X10^3/uL (150.0-450.0); RED CELL DISTRIBUTION WIDTH 12.8 % (11.6-16.5); WHITE BLOOD COUNT 2.3 X10^3/uL (3.6-10.0)
[2018-11-22 06:36] LABS: ALANINE AMINOTRANSFERASE 51 Units/L (12-78); ALBUMIN 1.8 g/dL (3.4-5.0); ALKALINE PHOSPHATASE 72 Units/L (46-116); ASPARTATE AMINO TRANSFERASE 40 Units/L (15-37); BLOOD UREA NITROGEN 45 mg/dL (7-18); CALCIUM 8.3 mg/dL (8.5-10.1); CARBON DIOXIDE 20.6 mmol/L (21-32); COR CA(FOR HYPOALB) 10.1 mg/dL (8.5-10.1); CREATINE KINASE 217 Units/L (26-192); CREATININE 2.06 mg/dL (0.55-1.02); SODIUM 147 mmol/L (136-145); TOTAL PROTEIN 4.7 g/dL (6.4-8.2); eGFR NON BLACK RACES 27 (>60)
[2018-11-22 06:49] LABS: CHLORIDE 116 mmol/L (98-107)
[2018-11-22 07:03] LABS: PLATELET MORPHOLOGY COMMENT NORMAL (NORMAL)
[2018-11-22] MEDS: CYMBALTA PO SCH ×2 (09:16→20:35)
[2018-11-22] MEDS: COLACE CAP 100 MG PO PRN (09:17)
[2018-11-22] MEDS: LOVENOX INJ 30 MG SYR SC SCH (09:17)
[2018-11-22] MEDS: BACTROBAN TOPICAL OINT TOP SCH ×2 (09:18→20:36)
[2018-11-22] MEDS: ATOMOXETINE 40 MG PO SCH (09:19)
[2018-11-22] MEDS: PATIENT'S HOME MEDICATION PO SCH ×4 (09:19→09:22)
--- NOTE | 2018-11-22 09:36 | PCM.PROG ---
Progress Note - Progress Note for Day of Date of Exam: 11/20/18 - Subjective Subjective: 48 WF ER ADMISSION LAST PM WITH WEAKNESS, AMS AND ACUTE RENAL FAILURE, RHABDO. WITH GENTLE IV HYDRATION, CREAT 3.50 IMPROVED THIS AM, BUN 78. NA IMPROVED TO 141. PT IS AWAKE AND ORIENTED WITH CO GENERALIZED PAIN, DENIES N/V. PT HIV HOME MEDICATION VERIFIED AND RESUMED. WILL CONTINUE GENTLE IV AND PO HYDRATION, REPEAT AM LABS - Past Medical Family Social History Past Med/Fam/Surg Hx: No changes since H&P Allergies: Allergies No Known Drug Allergies Allergy (Verified 11/18/18 16:45) - Review of Systems ROS: No change since H&P - Vital Signs and I&O's Vital Signs: Temperature 97.8 F Pulse Rate [Right Brachial] 82 Pulse Rate [Brachial] 79 Pulse Rate 76 Respiratory Rate 18 Blood Pressure [Left Arm] 125/66 Blood Pressure [Right Arm] 141/85 Blood Pressure [Standing] 146/94 Blood Pressure [Sitting] 147/96 Blood Pressure [Lying] 148/88 Blood Pressure 108/69 O2 Sat by Pulse Oximetry 97 Intake and Output: Intake & Output 11/19/18 11/20/18 11/21/18 11/22/18 11:59 11:59 11:59 11:59 Intake Total 220 / 220 3176 / 3176 2705 / 2705 4075 / 4075 Output Total 0 / 0 1350 / 1350 1300 / 1300 1550 / 1550 Balance 220 / 220 1826 / 1826 1405 / 1405 2525 / 2525 - Physical Exam Oriented: Person Eyes: Normal Nose: Normal Throat: Normal Respiratory: Diminished Cardiovascular: Normal : Normal Auscultation: Bowel Sounds: Normal Tenderness: Normal Skin: Decreased Turgur, Vesicular (BLOOD BLISTER TO BILATERAL FEET, LEFT HAND, INTACT W/O LOCALIZED REDNESS) Musculoskeletal: Normal Psychiatric: Anxiety Affect: Anxious Speech Pattern: Clear, Appropriate - Laboratory and Diagnostics Result Diagrams: 11/22/18 05:24 11/22/18 05:24 Labs: 11/18/18 19:00 Urine,Catheterized Urine Culture - Final Laboratory WBC 2.3 X10^3/uL (3.6-10.0) L 11/22/18 05:24 RBC 3.10 X10^6/uL (3.5-5.4) L 11/22/18 05:24 Hgb 10.1 g/dL (12.0-16.0) L 11/22/18 05:24 Hct 29.4 % (36.0-47.0) L 11/22/18 05:24 MCV 94.9 fL (80.0-100.0) 11/22/18 05:24 MCH 32.5 pg (27.0-34.0) 11/22/18 05:24 MCHC 34.3 g/dL (33.0-35.0) 11/22/18 05:24 RDW 12.8 % (11.6-16.5) 11/22/18 05:24 Plt Count 164 X10^3/uL (150.0-450.0) 11/22/18 05:24 Plt Count Comment Adequate (ADEQUATE) 11/22/18 05:24 MPV 8.3 fL (7.4-11.0) 11/22/18 05:24 Neut % (Auto) 49.3 % (42.0-75.0) 11/22/18 05:24 Lymph % (Auto) 19.4 % (21.0-51.0) L 11/22/18 05:24 [place] % (Auto) 20.9 % (0.0-13.0) H 11/22/18 05:24 Eos % (Auto) 10.0 % (0.9-2.9) H 11/22/18 05:24 Baso % (Auto) 0.4 % (0.2-1.0) 11/22/18 05:24 Neut # (Auto) 1.1 x10^3/uL (2.2-4.8) L 11/22/18 05:24 Lymph # (Auto) 0.4 X10^3/uL (1.3-2.9) L 11/22/18 05:24 [place] # (Auto) 0.5 x10^3/uL (0.3-0.8) 11/22/18 05:24 Eos # (Auto) 0.2 x10^3/uL (0.0-0.2) 11/22/18 05:24 Baso # (Auto) 0.0 X10^3/uL (0.0-0.1) 11/22/18 05:24 Absolute Nucleated RBC 0.3 /100WBC 11/22/18 05:24 Total Counted 100 11/22/18 05:24 Neutrophils % (Manual) 48 % (39-76) 11/22/18 05:24 Lymphocytes % (Manual) 30 % (13-43) 11/22/18 05:24 Monocytes % (Manual) 14 % (4-9) H 11/22/18 05:24 Eosinophils % (Manual) 8 % (0-6) H 11/22/18 05:24 Plt Morphology Comment Normal (NORMAL) 11/22/18 05:24 RBC Morphology Normal (NORMAL) 11/22/18 05:24 Sodium 147 mmol/L (136-145) H 11/22/18 05:24 Corrected Sodium TNP 11/22/18 05:24 Potassium 4.2 mmol/L (3.5-5.1) 11/22/18 05:24 Chloride 116 mmol/L (98-107) H* 11/22/18 05:24 Carbon Dioxide 20.6 mmol/L (21-32) L 11/22/18 05:24 BUN 45 mg/dL (7-18) H 11/22/18 05:24 Creatinine 2.06 mg/dL (0.55-1.02) H 11/22/18 05:24 Est GFR (MDRD) Af Amer 33 (>60) L 11/22/18 05:24 Est GFR (MDRD) Non-Af 27 (>60) L 11/22/18 05:24 Glucose 75 mg/dL (65-99) 11/22/18 05:24 Calcium 8.3 mg/dL (8.5-10.1) L 11/22/18 05:24 Corrected Calcium 10.1 mg/dL (8.5-10.1) 11/22/18 05:24 Total Bilirubin 1.00 mg/dL (0.2-1.0) 11/22/18 05:24 AST 40 Units/L (15-37) H 11/22/18 05:24 ALT 51 Units/L (12-78) 11/22/18 05:24 Alkaline Phosphatase 72 Units/L (46-116) 11/22/18 05:24 Creatine Kinase 217 Units/L (26-192) H 11/22/18 05:24 CK-MB (CK-2) 53.9 ng/mL (0-4.0) H* 11/19/18 04:50 CK/CKMB % Calc 1.7 % (<4) 11/18/18 18:02 Troponin I < 0.02 ng/mL (0-1.5) 11/18/18 18:02 Total Protein 4.7 g/dL (6.4-8.2) L 11/22/18 05:24 Albumin 1.8 g/dL (3.4-5.0) L 11/22/18 05:24 Globulin 2.9 g/dL (2.5-4.5) 11/22/18 05:24 Albumin/Globulin Ratio 0.6 Ratio (1.1-2.1) L 11/22/18 05:24 Amylase 28 Units/L (25-115) 11/19/18 04:50 Lipase 190 Units/L (73-393) 11/19/18 04:50 Specimen Type Catherized urine 11/19/18 06:10 Urine Color Dark yellow (YELLOW) 11/19/18 06:10 Urine Appearance Slightly hazy (CLEAR) 11/19/18 06:10 Urine pH 5.0 (5.0 - 8.0) 11/19/18 06:10 Ur Specific [place] 1.020 (1.000-1.030) 11/19/18 06:10 Urine Protein 2+ (NEGATIVE) 11/19/18 06:10 Urine Glucose (UA) Negative (NEGATIVE) 11/19/18 06:10 Urine Ketones 1+ (NEGATIVE) 11/19/18 06:10 Urine Occult Blood 3+ (NEGATIVE) 11/19/18 06:10 Urine Nitrite Negative (NEGATIVE) 11/19/18 06:10 Urine Bilirubin 1+ (NEGATIVE) 11/19/18 06:10 Urine Urobilinogen Normal (NORMAL) 11/19/18 06:10 Ur Leukocyte Esterase 1+ (NEGATIVE) 11/19/18 06:10 Urine RBC 3-5 /HPF (NONE SEEN) 11/19/18 06:10 Urine WBC 0-2 /HPF (NONE SEEN) 11/19/18 06:10 Ur Squamous Epith Cells Rare /HPF (NEGATIVE) 11/19/18 06:10 Ur Transition Epith Cell Rare /HPF (NEGATIVE) 11/18/18 19:00 Amorphous Sediment Trace /HPF (NEGATIVE) 11/19/18 06:10 Urine Bacteria Trace /HPF (NEGATIVE) 11/19/18 06:10 Hyaline Casts Rare /LPF (NEGATIVE) 11/18/18 19:00 Ur Culture Indicated? No/not indicated 11/19/18 06:10 Urine Opiates Screen Positive (NEG=<300) A 11/18/18 19:00 Urine Methadone Screen Negative (NEG=<300) 11/18/18 19:00 Ur Barbiturates Screen Negative (NEG=<200) 11/18/18 19:00 Ur Phencyclidine Scrn Negative (NEG=<25) 11/18/18 19:00 Ur Amphetamines Screen Negative (NEG=<1000) 11/18/18 19:00 U Benzodiazepines Scrn Positive (NEG=<200) A 11/18/18 19:00 Urine Cocaine Screen Negative (NEG=<300) 11/18/18 19:00 U Marijuana (THC) Screen Negative (NEG=<50) 11/18/18 19:00 - Plan (1) Altered mental status Status: Acute Plan: AMS IMPROVED WITH HYDRATION. CT HEAD IN ER WITHOUT ACUTE FINDINGS. GENTLE IV HYDRATION, HILLMAN CATH, STRICT I & O. SUPPLEMENTAL O2. BLOOD PRESSURE MONITORING, REPEAT AM LABS. EKG ON ADMISSION AND CXR ON ADMISSION, VERIFY HOME MEDICATION. RESUME ANTIVIRAL MEDICATION (2) Acute renal failure Status: Acute (3) Weakness Status: Acute (4) HIV disease Status: Chronic (5) Hypertension Status: Chronic (6) Rhabdomyolysis Status: Acute Plan: GENTLE PO AND IV HYDRATION, REPEAT AM CK
[2018-11-22] MEDS: MILK OF MAGNESIA PO SCH ×2 (09:57→20:35)
[2018-11-22] MEDS: PERCOCET TAB 5/325 MG PO PRN ×2 (10:44→20:44)
[2018-11-22] MEDS: SEROQUEL 300 MG PO SCH (20:36)
[2018-11-23] MEDS: NS 1000 ML 1,000 ML IV SCH ×2 (04:43→15:03)
[2018-11-23 06:32] LABS: BASOPHILS % (AUTO) 0.7 % (0.2-1.0); EOSINOPHILS # (AUTO) 0.2 x10^3/uL (0.0-0.2); EOSINOPHILS % (AUTO) 10.5 % (0.9-2.9); HEMATOCRIT 33.1 % (36.0-47.0); HEMOGLOBIN 11.3 g/dL (12.0-16.0); LYMPHOCYTES # (AUTO) 0.4 X10^3/uL (1.3-2.9); LYMPHOCYTES % (AUTO) 20.1 % (21.0-51.0); MEAN CORPUSCULAR HEMOGLOBIN 32.6 pg (27.0-34.0); MEAN CORPUSCULAR HGB CONC 34.1 g/dL (33.0-35.0); MEAN CORPUSCULAR VOLUME 95.7 fL (80.0-100.0); MEAN PLATELET VOLUME 8.4 fL (7.4-11.0); MONOCYTES # (AUTO) 0.3 x10^3/uL (0.3-0.8); MONOCYTES % (AUTO) 17.1 % (0.0-13.0); NEUTROPHILS % (AUTO) 51.6 % (42.0-75.0); PLATELET COUNT 189 X10^3/uL (150.0-450.0); RED BLOOD COUNT 3.47 X10^6/uL (3.5-5.4); RED CELL DISTRIBUTION WIDTH 12.9 % (11.6-16.5)
[2018-11-23 06:48] LABS: ALANINE AMINOTRANSFERASE 53 Units/L (12-78); ALBUMIN 2.2 g/dL (3.4-5.0); ALKALINE PHOSPHATASE 83 Units/L (46-116); ASPARTATE AMINO TRANSFERASE 39 Units/L (15-37); BLOOD UREA NITROGEN 33 mg/dL (7-18); CALCIUM 8.6 mg/dL (8.5-10.1); CARBON DIOXIDE 21.8 mmol/L (21-32); CHLORIDE 113 mmol/L (98-107); CREATININE 1.78 mg/dL (0.55-1.02); SODIUM 144 mmol/L (136-145); TOTAL PROTEIN 5.4 g/dL (6.4-8.2); eGFR NON BLACK RACES 32 (>60)
[2018-11-23] MEDS ORDERED: MILK OF MAGNESIA PO SCH (09:00)
[2018-11-23] MEDS ORDERED: CYMBALTA PO SCH (09:00)
[2018-11-23] MEDS: COLACE CAP 100 MG PO PRN (09:20)
[2018-11-23] MEDS: LOVENOX INJ 30 MG SYR SC SCH (09:21)
[2018-11-23] MEDS: BACTROBAN TOPICAL OINT TOP SCH (09:22)
[2018-11-23] MEDS: ATOMOXETINE 40 MG PO SCH (09:23)
[2018-11-23] MEDS: PATIENT'S HOME MEDICATION PO SCH ×4 (09:25→09:27)
[2018-11-23] MEDS: PERCOCET TAB 5/325 MG PO PRN (09:28)
[2018-11-23 10:03] VITALS: BP 126/69
--- NOTE | 2018-11-23 12:45 | PCM.PROG ---
Progress Note - Progress Note for Day of Date of Exam: 11/21/18 - Subjective Subjective: 48 WF ER ADMISSION LAST PM WITH WEAKNESS, AMS AND ACUTE RENAL FAILURE, RHABDO. WITH GENTLE IV HYDRATION, BUN 63, CREAT 2.57. PT IS AWAKE AND ORIENTED WITH CO GENERALIZED PAIN, DENIES N/V. PT HIV HOME MEDICATION VERIFIED AND RESUMED. WILL CONTINUE GENTLE IV AND PO HYDRATION, REPEAT AM LABS - Past Medical Family Social History Past Med/Fam/Surg Hx: No changes since H&P Allergies: Allergies No Known Drug Allergies Allergy (Verified 11/18/18 16:45) - Review of Systems ROS: No change since H&P - Vital Signs and I&O's Vital Signs: Temperature 97.9 F Pulse Rate [Right Brachial] 81 Pulse Rate [Brachial] 79 Pulse Rate 76 Respiratory Rate 18 Blood Pressure [Left Arm] 125/66 Blood Pressure [Right Arm] 126/69 Blood Pressure [Standing] 146/94 Blood Pressure [Sitting] 147/96 Blood Pressure [Lying] 148/88 Blood Pressure 108/69 O2 Sat by Pulse Oximetry 98 Intake and Output: Intake & Output 11/21/18 11/22/18 11/23/18 11/24/18 11:59 11:59 11:59 11:59 Intake Total 2705 / 2705 4075 / 4075 2440 / 2440 Output Total 1300 / 1300 1550 / 1550 1950 / 1950 Balance 1405 / 1405 2525 / 2525 490 / 490 - Physical Exam Oriented: Person Eyes: Normal Nose: Normal Throat: Normal Respiratory: Diminished Cardiovascular: Normal : Normal Auscultation: Bowel Sounds: Normal Tenderness: Normal Skin: Decreased Turgur, Vesicular (BLOOD BLISTER TO BILATERAL FEET, LEFT HAND, INTACT W/O LOCALIZED REDNESS) Musculoskeletal: Normal Psychiatric: Anxiety Mood Description: Flat Affect: Anxious Speech Pattern: Clear, Appropriate - Laboratory and Diagnostics Result Diagrams: 11/23/18 05:28 11/23/18 05:28 Labs: 11/18/18 19:00 Urine,Catheterized Urine Culture - Final Laboratory WBC 2.0 X10^3/uL (3.6-10.0) L 11/23/18 05:28 RBC 3.47 X10^6/uL (3.5-5.4) L 11/23/18 05:28 Hgb 11.3 g/dL (12.0-16.0) L 11/23/18 05:28 Hct 33.1 % (36.0-47.0) L 11/23/18 05:28 MCV 95.7 fL (80.0-100.0) 11/23/18 05:28 MCH 32.6 pg (27.0-34.0) 11/23/18 05:28 MCHC 34.1 g/dL (33.0-35.0) 11/23/18 05:28 RDW 12.9 % (11.6-16.5) 11/23/18 05:28 Plt Count 189 X10^3/uL (150.0-450.0) 11/23/18 05:28 Plt Count Comment Adequate (ADEQUATE) 11/22/18 05:24 MPV 8.4 fL (7.4-11.0) 11/23/18 05:28 Neut % (Auto) 51.6 % (42.0-75.0) 11/23/18 05:28 Lymph % (Auto) 20.1 % (21.0-51.0) L 11/23/18 05:28 [place] % (Auto) 17.1 % (0.0-13.0) H 11/23/18 05:28 Eos % (Auto) 10.5 % (0.9-2.9) H 11/23/18 05:28 Baso % (Auto) 0.7 % (0.2-1.0) 11/23/18 05:28 Neut # (Auto) 1.0 x10^3/uL (2.2-4.8) L 11/23/18 05:28 Lymph # (Auto) 0.4 X10^3/uL (1.3-2.9) L 11/23/18 05:28 [place] # (Auto) 0.3 x10^3/uL (0.3-0.8) 11/23/18 05:28 Eos # (Auto) 0.2 x10^3/uL (0.0-0.2) 11/23/18 05:28 Baso # (Auto) 0.0 X10^3/uL (0.0-0.1) 11/23/18 05:28 Absolute Nucleated RBC 0.4 /100WBC 11/23/18 05:28 Total Counted 100 11/22/18 05:24 Neutrophils % (Manual) 48 % (39-76) 11/22/18 05:24 Lymphocytes % (Manual) 30 % (13-43) 11/22/18 05:24 Monocytes % (Manual) 14 % (4-9) H 11/22/18 05:24 Eosinophils % (Manual) 8 % (0-6) H 11/22/18 05:24 Plt Morphology Comment Normal (NORMAL) 11/22/18 05:24 RBC Morphology Normal (NORMAL) 11/22/18 05:24 Sodium 144 mmol/L (136-145) 11/23/18 05:28 Corrected Sodium TNP 11/23/18 05:28 Potassium 4.2 mmol/L (3.5-5.1) 11/23/18 05:28 Chloride 113 mmol/L (98-107) H 11/23/18 05:28 Carbon Dioxide 21.8 mmol/L (21-32) 11/23/18 05:28 BUN 33 mg/dL (7-18) H 11/23/18 05:28 Creatinine 1.78 mg/dL (0.55-1.02) H 11/23/18 05:28 Est GFR (MDRD) Af Amer 39 (>60) L 11/23/18 05:28 Est GFR (MDRD) Non-Af 32 (>60) L 11/23/18 05:28 Glucose 100 mg/dL (65-99) H 11/23/18 05:28 Calcium 8.6 mg/dL (8.5-10.1) 11/23/18 05:28 Corrected Calcium 10.0 mg/dL (8.5-10.1) 11/23/18 05:28 Total Bilirubin 1.50 mg/dL (0.2-1.0) H 11/23/18 05:28 AST 39 Units/L (15-37) H 11/23/18 05:28 ALT 53 Units/L (12-78) 11/23/18 05:28 Alkaline Phosphatase 83 Units/L (46-116) 11/23/18 05:28 Creatine Kinase 217 Units/L (26-192) H 11/22/18 05:24 CK-MB (CK-2) 53.9 ng/mL (0-4.0) H* 11/19/18 04:50 CK/CKMB % Calc 1.7 % (<4) 11/18/18 18:02 Troponin I < 0.02 ng/mL (0-1.5) 11/18/18 18:02 Total Protein 5.4 g/dL (6.4-8.2) L 11/23/18 05:28 Albumin 2.2 g/dL (3.4-5.0) L 11/23/18 05:28 Globulin 3.2 g/dL (2.5-4.5) 11/23/18 05:28 Albumin/Globulin Ratio 0.7 Ratio (1.1-2.1) L 11/23/18 05:28 Amylase 28 Units/L (25-115) 11/19/18 04:50 Lipase 190 Units/L (73-393) 11/19/18 04:50 Specimen Type Catherized urine 11/19/18 06:10 Urine Color Dark yellow (YELLOW) 11/19/18 06:10 Urine Appearance Slightly hazy (CLEAR) 11/19/18 06:10 Urine pH 5.0 (5.0 - 8.0) 11/19/18 06:10 Ur Specific [place] 1.020 (1.000-1.030) 11/19/18 06:10 Urine Protein 2+ (NEGATIVE) 11/19/18 06:10 Urine Glucose (UA) Negative (NEGATIVE) 11/19/18 06:10 Urine Ketones 1+ (NEGATIVE) 11/19/18 06:10 Urine Occult Blood 3+ (NEGATIVE) 11/19/18 06:10 Urine Nitrite Negative (NEGATIVE) 11/19/18 06:10 Urine Bilirubin 1+ (NEGATIVE) 11/19/18 06:10 Urine Urobilinogen Normal (NORMAL) 11/19/18 06:10 Ur Leukocyte Esterase 1+ (NEGATIVE) 11/19/18 06:10 Urine RBC 3-5 /HPF (NONE SEEN) 11/19/18 06:10 Urine WBC 0-2 /HPF (NONE SEEN) 11/19/18 06:10 Ur Squamous Epith Cells Rare /HPF (NEGATIVE) 11/19/18 06:10 Ur Transition Epith Cell Rare /HPF (NEGATIVE) 11/18/18 19:00 Amorphous Sediment Trace /HPF (NEGATIVE) 11/19/18 06:10 Urine Bacteria Trace /HPF (NEGATIVE) 11/19/18 06:10 Hyaline Casts Rare /LPF (NEGATIVE) 11/18/18 19:00 Ur Culture Indicated? No/not indicated 11/19/18 06:10 Urine Opiates Screen Positive (NEG=<300) A 11/18/18 19:00 Urine Methadone Screen Negative (NEG=<300) 11/18/18 19:00 Ur Barbiturates Screen Negative (NEG=<200) 11/18/18 19:00 Ur Phencyclidine Scrn Negative (NEG=<25) 11/18/18 19:00 Ur Amphetamines Screen Negative (NEG=<1000) 11/18/18 19:00 U Benzodiazepines Scrn Positive (NEG=<200) A 11/18/18 19:00 Urine Cocaine Screen Negative (NEG=<300) 11/18/18 19:00 U Marijuana (THC) Screen Negative (NEG=<50) 11/18/18 19:00 - Plan (1) Altered mental status Status: Acute Plan: AMS IMPROVED WITH HYDRATION. CT HEAD IN ER WITHOUT ACUTE FINDINGS. GENTLE IV HYDRATION, HILLMAN CATH, STRICT I & O. SUPPLEMENTAL O2. BLOOD PRESSURE MONITORING, REPEAT AM LABS. EKG ON ADMISSION AND CXR ON ADMISSION, VERIFY HOME MEDICATION. RESUME ANTIVIRAL MEDICATION (2) Acute renal failure Status: Acute (3) Weakness Status: Acute (4) HIV disease Status: Chronic (5) Hypertension Status: Chronic (6) Rhabdomyolysis Status: Acute Plan: GENTLE PO AND IV HYDRATION, REPEAT AM CK
--- NOTE | 2018-11-23 12:49 | PCM.PROG ---
Progress Note - Progress Note for Day of Date of Exam: 11/22/18 - Subjective Subjective: 48 WF ER ADMISSION LAST PM WITH WEAKNESS, AMS AND ACUTE RENAL FAILURE, RHABDO. WITH GENTLE IV HYDRATION, BUN 45, CREAT 2.06, CK 217DOWN FROM 4143 ON ADMISSION. PT IS AWAKE AND ORIENTED WITH CO GENERALIZED PAIN, DENIES N/V. PT STATES SHE HAS NOT TAKE BM, CT ON 11/20 WITH CONSTIPATION, PT ON COLACE WILL ADD MOM. PT HIV HOME MEDICATION VERIFIED AND RESUMED. WILL CONTINUE GENTLE IV AND PO HYDRATION, REPEAT AM LABS POSSIBLE DC HOME TOMORROW. - Past Medical Family Social History Past Med/Fam/Surg Hx: No changes since H&P Allergies: Allergies No Known Drug Allergies Allergy (Verified 11/18/18 16:45) - Review of Systems ROS: No change since H&P - Vital Signs and I&O's Vital Signs: Temperature 97.9 F Pulse Rate [Right Brachial] 81 Pulse Rate [Brachial] 79 Pulse Rate 76 Respiratory Rate 18 Blood Pressure [Left Arm] 125/66 Blood Pressure [Right Arm] 126/69 Blood Pressure [Standing] 146/94 Blood Pressure [Sitting] 147/96 Blood Pressure [Lying] 148/88 Blood Pressure 108/69 O2 Sat by Pulse Oximetry 98 Intake and Output: Intake & Output 11/21/18 11/22/18 11/23/18 11/24/18 11:59 11:59 11:59 11:59 Intake Total 2705 / 2705 4075 / 4075 2440 / 2440 Output Total 1300 / 1300 1550 / 1550 1950 / 1950 Balance 1405 / 1405 2525 / 2525 490 / 490 - Physical Exam Oriented: Person Eyes: Normal Nose: Normal Throat: Normal Respiratory: Diminished Cardiovascular: Normal : Normal Auscultation: Bowel Sounds: Normal Tenderness: Normal Skin: Decreased Turgur, Vesicular (BLOOD BLISTER TO BILATERAL FEET, LEFT HAND, INTACT W/O LOCALIZED REDNESS) Musculoskeletal: Normal Psychiatric: Anxiety Mood Description: Flat Affect: Anxious Speech Pattern: Clear, Appropriate - Laboratory and Diagnostics Result Diagrams: 11/23/18 05:28 11/23/18 05:28 Labs: 11/18/18 19:00 Urine,Catheterized Urine Culture - Final Laboratory WBC 2.0 X10^3/uL (3.6-10.0) L 11/23/18 05:28 RBC 3.47 X10^6/uL (3.5-5.4) L 11/23/18 05:28 Hgb 11.3 g/dL (12.0-16.0) L 11/23/18 05:28 Hct 33.1 % (36.0-47.0) L 11/23/18 05:28 MCV 95.7 fL (80.0-100.0) 11/23/18 05:28 MCH 32.6 pg (27.0-34.0) 11/23/18 05:28 MCHC 34.1 g/dL (33.0-35.0) 11/23/18 05:28 RDW 12.9 % (11.6-16.5) 11/23/18 05:28 Plt Count 189 X10^3/uL (150.0-450.0) 11/23/18 05:28 Plt Count Comment Adequate (ADEQUATE) 11/22/18 05:24 MPV 8.4 fL (7.4-11.0) 11/23/18 05:28 Neut % (Auto) 51.6 % (42.0-75.0) 11/23/18 05:28 Lymph % (Auto) 20.1 % (21.0-51.0) L 11/23/18 05:28 [place] % (Auto) 17.1 % (0.0-13.0) H 11/23/18 05:28 Eos % (Auto) 10.5 % (0.9-2.9) H 11/23/18 05:28 Baso % (Auto) 0.7 % (0.2-1.0) 11/23/18 05:28 Neut # (Auto) 1.0 x10^3/uL (2.2-4.8) L 11/23/18 05:28 Lymph # (Auto) 0.4 X10^3/uL (1.3-2.9) L 11/23/18 05:28 [place] # (Auto) 0.3 x10^3/uL (0.3-0.8) 11/23/18 05:28 Eos # (Auto) 0.2 x10^3/uL (0.0-0.2) 11/23/18 05:28 Baso # (Auto) 0.0 X10^3/uL (0.0-0.1) 11/23/18 05:28 Absolute Nucleated RBC 0.4 /100WBC 11/23/18 05:28 Total Counted 100 11/22/18 05:24 Neutrophils % (Manual) 48 % (39-76) 11/22/18 05:24 Lymphocytes % (Manual) 30 % (13-43) 11/22/18 05:24 Monocytes % (Manual) 14 % (4-9) H 11/22/18 05:24 Eosinophils % (Manual) 8 % (0-6) H 11/22/18 05:24 Plt Morphology Comment Normal (NORMAL) 11/22/18 05:24 RBC Morphology Normal (NORMAL) 11/22/18 05:24 Sodium 144 mmol/L (136-145) 11/23/18 05:28 Corrected Sodium TNP 11/23/18 05:28 Potassium 4.2 mmol/L (3.5-5.1) 11/23/18 05:28 Chloride 113 mmol/L (98-107) H 11/23/18 05:28 Carbon Dioxide 21.8 mmol/L (21-32) 11/23/18 05:28 BUN 33 mg/dL (7-18) H 11/23/18 05:28 Creatinine 1.78 mg/dL (0.55-1.02) H 11/23/18 05:28 Est GFR (MDRD) Af Amer 39 (>60) L 11/23/18 05:28 Est GFR (MDRD) Non-Af 32 (>60) L 11/23/18 05:28 Glucose 100 mg/dL (65-99) H 11/23/18 05:28 Calcium 8.6 mg/dL (8.5-10.1) 11/23/18 05:28 Corrected Calcium 10.0 mg/dL (8.5-10.1) 11/23/18 05:28 Total Bilirubin 1.50 mg/dL (0.2-1.0) H 11/23/18 05:28 AST 39 Units/L (15-37) H 11/23/18 05:28 ALT 53 Units/L (12-78) 11/23/18 05:28 Alkaline Phosphatase 83 Units/L (46-116) 11/23/18 05:28 Creatine Kinase 217 Units/L (26-192) H 11/22/18 05:24 CK-MB (CK-2) 53.9 ng/mL (0-4.0) H* 11/19/18 04:50 CK/CKMB % Calc 1.7 % (<4) 11/18/18 18:02 Troponin I < 0.02 ng/mL (0-1.5) 11/18/18 18:02 Total Protein 5.4 g/dL (6.4-8.2) L 11/23/18 05:28 Albumin 2.2 g/dL (3.4-5.0) L 11/23/18 05:28 Globulin 3.2 g/dL (2.5-4.5) 11/23/18 05:28 Albumin/Globulin Ratio 0.7 Ratio (1.1-2.1) L 11/23/18 05:28 Amylase 28 Units/L (25-115) 11/19/18 04:50 Lipase 190 Units/L (73-393) 11/19/18 04:50 Specimen Type Catherized urine 11/19/18 06:10 Urine Color Dark yellow (YELLOW) 11/19/18 06:10 Urine Appearance Slightly hazy (CLEAR) 11/19/18 06:10 Urine pH 5.0 (5.0 - 8.0) 11/19/18 06:10 Ur Specific [place] 1.020 (1.000-1.030) 11/19/18 06:10 Urine Protein 2+ (NEGATIVE) 11/19/18 06:10 Urine Glucose (UA) Negative (NEGATIVE) 11/19/18 06:10 Urine Ketones 1+ (NEGATIVE) 11/19/18 06:10 Urine Occult Blood 3+ (NEGATIVE) 11/19/18 06:10 Urine Nitrite Negative (NEGATIVE) 11/19/18 06:10 Urine Bilirubin 1+ (NEGATIVE) 11/19/18 06:10 Urine Urobilinogen Normal (NORMAL) 11/19/18 06:10 Ur Leukocyte Esterase 1+ (NEGATIVE) 11/19/18 06:10 Urine RBC 3-5 /HPF (NONE SEEN) 11/19/18 06:10 Urine WBC 0-2 /HPF (NONE SEEN) 11/19/18 06:10 Ur Squamous Epith Cells Rare /HPF (NEGATIVE) 11/19/18 06:10 Ur Transition Epith Cell Rare /HPF (NEGATIVE) 11/18/18 19:00 Amorphous Sediment Trace /HPF (NEGATIVE) 11/19/18 06:10 Urine Bacteria Trace /HPF (NEGATIVE) 11/19/18 06:10 Hyaline Casts Rare /LPF (NEGATIVE) 11/18/18 19:00 Ur Culture Indicated? No/not indicated 11/19/18 06:10 Urine Opiates Screen Positive (NEG=<300) A 11/18/18 19:00 Urine Methadone Screen Negative (NEG=<300) 11/18/18 19:00 Ur Barbiturates Screen Negative (NEG=<200) 11/18/18 19:00 Ur Phencyclidine Scrn Negative (NEG=<25) 11/18/18 19:00 Ur Amphetamines Screen Negative (NEG=<1000) 11/18/18 19:00 U Benzodiazepines Scrn Positive (NEG=<200) A 11/18/18 19:00 Urine Cocaine Screen Negative (NEG=<300) 11/18/18 19:00 U Marijuana (THC) Screen Negative (NEG=<50) 11/18/18 19:00 - Plan (1) Altered mental status Status: Acute Plan: AMS IMPROVED WITH HYDRATION. CT HEAD IN ER WITHOUT ACUTE FINDINGS. GENTLE IV HYDRATION, HILLMAN CATH, STRICT I & O. SUPPLEMENTAL O2. BLOOD PRESSURE MONITORING, REPEAT AM LABS. EKG ON ADMISSION AND CXR ON ADMISSION, VERIFY HOME MEDICATION. RESUME ANTIVIRAL MEDICATION (2) Acute renal failure Status: Acute (3) Weakness Status: Acute (4) HIV disease Status: Chronic (5) Hypertension Status: Chronic (6) Rhabdomyolysis Status: Acute Plan: GENTLE PO AND IV HYDRATION, REPEAT AM CK (7) Distended abdomen Status: Acute Plan: HX HEP C. CONSTIPATION, TREAT WITH COLACE AND MOM
--- NOTE | 2018-11-23 12:53 | PCM.DCPLAN ---
Discharge Summary - Admission Date Date of Admission: 11/18/18 - Discharge Date Discharge Date: 11/23/18 - Admission Diagnoses (1) Altered mental status Status: Acute (2) Acute renal failure Status: Acute (3) Weakness Status: Acute (4) HIV disease Status: Chronic (5) Hypertension Status: Chronic (6) Rhabdomyolysis Status: Acute (7) Distended abdomen Status: Acute - Discharge Diagnoses Discharge Diagnosis: SAME ADMISSION WITH IMPROVED ACUTE RENAL FAILURE - Discharge Medications Discharge Medications: Home Medication List atomoxetine [Strattera] 40 mg PO DAILY 11/18/18 [History] bupropion HCl 100 mg PO DAILY 11/18/18 [History] duloxetine [Cymbalta] 30 mg PO HS 11/18/18 [History] duloxetine [Cymbalta] 90 mg PO DAILY 11/18/18 [History] quetiapine 2 tab PO HS 11/18/18 [History] Descovy 1 mg PO DAILY 11/19/18 [History] atazanavir [Reyataz] 300 mg PO DAILY 11/19/18 [History] fluconazole [Diflucan] 100 mg PO DAILY 11/19/18 [History] ritonavir [Norvir] 100 mg PO DAILY 11/19/18 [History] Prescriptions: - Hospital Course Vital Signs: Temperature 97.9 F Pulse Rate [Right Brachial] 81 Pulse Rate [Brachial] 79 Pulse Rate 76 Respiratory Rate 18 Blood Pressure [Left Arm] 125/66 Blood Pressure [Right Arm] 126/69 Blood Pressure [Standing] 146/94 Blood Pressure [Sitting] 147/96 Blood Pressure [Lying] 148/88 Blood Pressure 108/69 O2 Sat by Pulse Oximetry 98 Latest Lab Results: Laboratory Last Values WBC 2.0 X10^3/uL (3.6-10.0) L 11/23/18 05:28 RBC 3.47 X10^6/uL (3.5-5.4) L 11/23/18 05:28 Hgb 11.3 g/dL (12.0-16.0) L 11/23/18 05:28 Hct 33.1 % (36.0-47.0) L 11/23/18 05:28 MCV 95.7 fL (80.0-100.0) 11/23/18 05:28 MCH 32.6 pg (27.0-34.0) 11/23/18 05:28 MCHC 34.1 g/dL (33.0-35.0) 11/23/18 05:28 RDW 12.9 % (11.6-16.5) 11/23/18 05:28 Plt Count 189 X10^3/uL (150.0-450.0) 11/23/18 05:28 Plt Count Comment Adequate (ADEQUATE) 11/22/18 05:24 MPV 8.4 fL (7.4-11.0) 11/23/18 05:28 Neut % (Auto) 51.6 % (42.0-75.0) 11/23/18 05:28 Lymph % (Auto) 20.1 % (21.0-51.0) L 11/23/18 05:28 [place] % (Auto) 17.1 % (0.0-13.0) H 11/23/18 05:28 Eos % (Auto) 10.5 % (0.9-2.9) H 11/23/18 05:28 Baso % (Auto) 0.7 % (0.2-1.0) 11/23/18 05:28 Neut # (Auto) 1.0 x10^3/uL (2.2-4.8) L 11/23/18 05:28 Lymph # (Auto) 0.4 X10^3/uL (1.3-2.9) L 11/23/18 05:28 [place] # (Auto) 0.3 x10^3/uL (0.3-0.8) 11/23/18 05:28 Eos # (Auto) 0.2 x10^3/uL (0.0-0.2) 11/23/18 05:28 Baso # (Auto) 0.0 X10^3/uL (0.0-0.1) 11/23/18 05:28 Absolute Nucleated RBC 0.4 /100WBC 11/23/18 05:28 Total Counted 100 11/22/18 05:24 Neutrophils % (Manual) 48 % (39-76) 11/22/18 05:24 Lymphocytes % (Manual) 30 % (13-43) 11/22/18 05:24 Monocytes % (Manual) 14 % (4-9) H 11/22/18 05:24 Eosinophils % (Manual) 8 % (0-6) H 11/22/18 05:24 Plt Morphology Comment Normal (NORMAL) 11/22/18 05:24 RBC Morphology Normal (NORMAL) 11/22/18 05:24 Sodium 144 mmol/L (136-145) 11/23/18 05:28 Corrected Sodium TNP 11/23/18 05:28 Potassium 4.2 mmol/L (3.5-5.1) 11/23/18 05:28 Chloride 113 mmol/L (98-107) H 11/23/18 05:28 Carbon Dioxide 21.8 mmol/L (21-32) 11/23/18 05:28 BUN 33 mg/dL (7-18) H 11/23/18 05:28 Creatinine 1.78 mg/dL (0.55-1.02) H 11/23/18 05:28 Est GFR (MDRD) Af Amer 39 (>60) L 11/23/18 05:28 Est GFR (MDRD) Non-Af 32 (>60) L 11/23/18 05:28 Glucose 100 mg/dL (65-99) H 11/23/18 05:28 Calcium 8.6 mg/dL (8.5-10.1) 11/23/18 05:28 Corrected Calcium 10.0 mg/dL (8.5-10.1) 11/23/18 05:28 Total Bilirubin 1.50 mg/dL (0.2-1.0) H 11/23/18 05:28 AST 39 Units/L (15-37) H 11/23/18 05:28 ALT 53 Units/L (12-78) 11/23/18 05:28 Alkaline Phosphatase 83 Units/L (46-116) 11/23/18 05:28 Creatine Kinase 217 Units/L (26-192) H 11/22/18 05:24 CK-MB (CK-2) 53.9 ng/mL (0-4.0) H* 11/19/18 04:50 CK/CKMB % Calc 1.7 % (<4) 11/18/18 18:02 Troponin I < 0.02 ng/mL (0-1.5) 11/18/18 18:02 Total Protein 5.4 g/dL (6.4-8.2) L 11/23/18 05:28 Albumin 2.2 g/dL (3.4-5.0) L 11/23/18 05:28 Globulin 3.2 g/dL (2.5-4.5) 11/23/18 05:28 Albumin/Globulin Ratio 0.7 Ratio (1.1-2.1) L 11/23/18 05:28 Amylase 28 Units/L (25-115) 11/19/18 04:50 Lipase 190 Units/L (73-393) 11/19/18 04:50 Specimen Type Catherized urine 11/19/18 06:10 Urine Color Dark yellow (YELLOW) 11/19/18 06:10 Urine Appearance Slightly hazy (CLEAR) 11/19/18 06:10 Urine pH 5.0 (5.0 - 8.0) 11/19/18 06:10 Ur Specific [place] 1.020 (1.000-1.030) 11/19/18 06:10 Urine Protein 2+ (NEGATIVE) 11/19/18 06:10 Urine Glucose (UA) Negative (NEGATIVE) 11/19/18 06:10 Urine Ketones 1+ (NEGATIVE) 11/19/18 06:10 Urine Occult Blood 3+ (NEGATIVE) 11/19/18 06:10 Urine Nitrite Negative (NEGATIVE) 11/19/18 06:10 Urine Bilirubin 1+ (NEGATIVE) 11/19/18 06:10 Urine Urobilinogen Normal (NORMAL) 11/19/18 06:10 Ur Leukocyte Esterase 1+ (NEGATIVE) 11/19/18 06:10 Urine RBC 3-5 /HPF (NONE SEEN) 11/19/18 06:10 Urine WBC 0-2 /HPF (NONE SEEN) 11/19/18 06:10 Ur Squamous Epith Cells Rare /HPF (NEGATIVE) 11/19/18 06:10 Ur Transition Epith Cell Rare /HPF (NEGATIVE) 11/18/18 19:00 Amorphous Sediment Trace /HPF (NEGATIVE) 11/19/18 06:10 Urine Bacteria Trace /HPF (NEGATIVE) 11/19/18 06:10 Hyaline Casts Rare /LPF (NEGATIVE) 11/18/18 19:00 Ur Culture Indicated? No/not indicated 11/19/18 06:10 Urine Opiates Screen Positive (NEG=<300) A 11/18/18 19:00 Urine Methadone Screen Negative (NEG=<300) 11/18/18 19:00 Ur Barbiturates Screen Negative (NEG=<200) 11/18/18 19:00 Ur Phencyclidine Scrn Negative (NEG=<25) 11/18/18 19:00 Ur Amphetamines Screen Negative (NEG=<1000) 11/18/18 19:00 U Benzodiazepines Scrn Positive (NEG=<200) A 11/18/18 19:00 Urine Cocaine Screen Negative (NEG=<300) 11/18/18 19:00 U Marijuana (THC) Screen Negative (NEG=<50) 11/18/18 19:00 Hospital Course: PT IS 48 WF ER ADMISSION AFTER PRESENTING PER EMS WITH CO PATIENT LAYING ON FLOOR FOR SEVERAL HOURS AND APPEAR TO HAVE UNCLEAR SPEECH. SHE IS WEAK. SHE IS TRYING TO ANSWER QUESTIONS AND FOLLOW COMMAND. NO FEVER. NO DYSURIA. PATIENT HAVE POSITIVE HIV AND HEP C. PT CREAT IN ER 6.23 WITH NO HISTORY OF RENAL INSUFFICIENCY. PT ADMITTED FOR TREATMENT OF ARF. PT RECEIVED SEVERAL DAYS OF GENTLE IV HYDRATION AND PO HYDRATION WITH IMPROVEMENT IN RENAL FUNCTION, BUN 33 CREAT 1.78 THIS AM, WITH CK DOWN FROM 4143 TO 217. PT STATES SHE FEEL BETTER. PT HAD HAD CONSTIPATION AND CURRENTLY ON COLACE AND MOM. PLAN TO D/C HOME WITH F/U ONE WEEK TO REPEAT CMP. PT INSTRUCTED TO REST, INCREASE PO HYDRATION. - Discharge Plan Disposition: 01 HOME, SELF-CARE Condition: Stable - Follow ups/Referrals Follow ups/Referrals: ARIA GAMEZ [Primary Care Provider] - 11/30/18 2:30 pm - Instructions Instructions: Steps to Quit Smoking, [id number], Acute Kidney Injury, Adult, Fall Prevention in the Home, [id number], Coping with Quitting Smoking, Rhabdomyolysis, Stroke Prevention, [id number], Personal Hygiene, Weakness, [id number]-[id number], Hand Washing, [id number], Hypertension, [id number], Infection Control in the Home, Syncope, [id number] Additional Instructions: dc home to resume home medication increase po water intake rest, follow up with dr gamez in one week for repeat cmp wound care Forms: Patient Portal
== END 2018-11-23 16:10 | disposition home or self-care (01) | DRG 948 ==
LOC: ER 16:38 → MED/SURG 23:11
PROVIDERS: ADMIT Internal Medicine; ATTEND Internal Medicine
DX: N17.8 Other acute kidney failure; E86.0 Dehydration; R41.82 Altered mental status, unspecified; I10 Essential (primary) hypertension; R94.31 Abnormal electrocardiogram [ECG] [EKG]; R26.89 Other abnormalities of gait and mobility; J44.9 Chronic obstructive pulmonary disease, unspecified; M62.82 Rhabdomyolysis; R94.4 Abnormal results of kidney function studies; B20 Human immunodeficiency virus [HIV] disease
CPT/HCPCS: 36415; 51701; 70450; 71010; 71045; 74150; 80053; 80307; 81001; 82150; 82550; 82553; 83690; 84484; 85025; 87086; 93005; 96365; 97162; 97166; 97530; 97535; 99284; A4222; G0434; J1650; J3490; J7030

== ENCOUNTER 2022-08-04 11:52 | Inpatient (IN) ==
[2022-08-04 11:56] VITALS: BMI 18.0
--- NOTE | 2022-08-04 12:41 | DR.EXTPAIN ---
HPI Time seen Time Seen by Provider: 08/04/22 12:39 PCP Primary Care Physician: TARSHA Complaint/Symptoms Chief Complaint:: PATIENT C/O BILATERAL FEET BLISTER AND PAIN. PATIENT STATES SHE HAS BEEN TAKING DOXYCYCLINE AND SHE WAS OUTSIDE AND HER FEET WAS EXOSED TO THE SUN. NOTED LARGE BLISTERS TO BILATERAL FEET. COVID-19 Coronavirus risk:travel/contact w/high risk person: No Has patient experienced Coronavirus symptoms: No Source History Provided: Patient Mode of arrival Mode of Arrival: Ambulatory Timing Onset of Chief Complaint: 07/30/22 PMH PMH Past Medical History: Yes Past Medical History: Anxiety, Arthritis, COPD, Depression and Hypertension Past Medical History Comment: HIV Past Surgical History: Yes Surgical History: and Hysterectomy Family History History of Family Medical Conditions: Yes Family Medical History: Cancer, [place], Coronary Artery Disease, Sudden Cardiac and Hypertension Social History Does patient currently use any type of tobacco product: Yes Have you used tobacco products in the last 12 months: Yes Type of Tobacco Use: Cigarettes Alcohol Use: None Do you use any recreational Drugs:: No Lives With: Family Lives Where: Home Travel Risk Coronavirus risk:travel/contact w/high risk person: No Has patient experienced Coronavirus symptoms: No Infectious screening In the last 2 months have you had wt loss of >10#?: NO Have you had fever, night sweats or hemotysis?: No Have you traveled outside the country in the last 6 months?: No Isolation: Standard PE Vital Signs Vitals: Temperature 98.0 F Pulse Rate [Right Brachial] 68 Pulse Rate 86 Respiratory Rate 17 Blood Pressure [Left Arm] 132/68 Blood Pressure [Right Arm] 127/81 Blood Pressure [Standing] 146/94 Blood Pressure [Sitting] 147/96 Blood Pressure [Lying] 148/88 Blood Pressure 143/91 O2 Sat by Pulse Oximetry 100 ROR Labs Reviewed Result Diagrams: 08/05/22 05:20 08/05/22 05:20 Laboratory: WBC 3.7 X10^3/uL (3.6-10.0) 08/04/22 13:02 RBC 3.88 X10^6/uL (3.5-5.4) 08/04/22 13:02 Hgb 13.7 g/dL (12.0-16.0) 08/04/22 13:02 Hct 39.2 % (36.0-47.0) 08/04/22 13:02 MCV 101.2 fL (80.0-100.0) H 08/04/22 13:02 MCH 35.2 pg (27.0-34.0) H 08/04/22 13:02 MCHC 34.8 g/dL (33.0-35.0) 08/04/22 13:02 RDW 12.2 % (11.6-16.5) 08/04/22 13:02 Plt Count 121 X10^3/uL (150.0-450.0) L 08/04/22 13:02 MPV 9.4 fL (7.4-11.0) 08/04/22 13:02 Neut % (Auto) 75.8 % (42.0-75.0) H 08/04/22 13:02 Lymph % (Auto) 10.6 % (21.0-51.0) L 08/04/22 13:02 [place] % (Auto) 11.8 % (0.0-13.0) 08/04/22 13:02 Eos % (Auto) 1.2 % (0.9-2.9) 08/04/22 13:02 Baso % (Auto) 0.6 % (0.2-1.0) 08/04/22 13:02 Neut # (Auto) 2.8 x10^3/uL (2.2-4.8) 08/04/22 13:02 Lymph # (Auto) 0.4 X10^3/uL (1.3-2.9) L 08/04/22 13:02 [place] # (Auto) 0.4 x10^3/uL (0.3-0.8) 08/04/22 13:02 Eos # (Auto) 0.0 x10^3/uL (0.0-0.2) 08/04/22 13:02 Baso # (Auto) 0.0 X10^3/uL (0.0-0.1) 08/04/22 13:02 Absolute Nucleated RBC 0.1 /100WBC 08/04/22 13:02 Sodium 136 mmol/L (136-145) 08/04/22 13:02 Corrected Sodium TNP 08/04/22 13:02 Potassium 5.0 mmol/L (3.5-5.1) 08/04/22 13:02 Chloride 101 mmol/L (98-107) 08/04/22 13:02 Carbon Dioxide 26.3 mmol/L (21-32) 08/04/22 13:02 BUN 8 mg/dL (7-18) 08/04/22 13:02 Creatinine 1.00 mg/dL (0.55-1.02) 08/04/22 13:02 Est GFR (MDRD) Af Amer > 60 (>60) 08/04/22 13:02 Est GFR (MDRD) Non-Af > 60 (>60) 08/04/22 13:02 Glucose 91 mg/dL (65-99) 08/04/22 13:02 Calcium 9.1 mg/dL (8.5-10.1) 08/04/22 13:02 Corrected Calcium TNP 08/04/22 13:02 Total Bilirubin 0.30 mg/dL (0.2-1.0) 08/04/22 13:02 AST 22 Units/L (15-37) 08/04/22 13:02 ALT 14 Units/L (12-78) 08/04/22 13:02 Alkaline Phosphatase 124 Units/L (46-116) H 08/04/22 13:02 Total Protein 7.7 g/dL (6.4-8.2) 08/04/22 13:02 Albumin 3.7 g/dL (3.4-5.0) 08/04/22 13:02 Globulin 4.0 g/dL (2.5-4.5) 08/04/22 13:02 Albumin/Globulin Ratio 0.9 Ratio (1.1-2.1) L 08/04/22 13:02 Opioid Opioid Risk Tool Age (Zafar box if 16-45): No History of Preadolescent Sexual Abuse: No Total: 0 Total Score Risk Category: Low Risk Copyright: Willy MEAD predicting aberrant behaviors Discharge Plan Diagnosis Discharge Problem: Cellulitis Discharge Plan Patient Disposition: ADMITTED INPATIENT Condition: Stable
[2022-08-04 13:14] LABS: BASOPHILS % (AUTO) 0.6 % (0.2-1.0); EOSINOPHILS % (AUTO) 1.2 % (0.9-2.9); HEMATOCRIT 39.2 % (36.0-47.0); HEMOGLOBIN 13.7 g/dL (12.0-16.0); LYMPHOCYTES # (AUTO) 0.4 X10^3/uL (1.3-2.9); LYMPHOCYTES % (AUTO) 10.6 % (21.0-51.0); MEAN CORPUSCULAR HEMOGLOBIN 35.2 pg (27.0-34.0); MEAN CORPUSCULAR HGB CONC 34.8 g/dL (33.0-35.0); MEAN CORPUSCULAR VOLUME 101.2 fL (80.0-100.0); MEAN PLATELET VOLUME 9.4 fL (7.4-11.0); MONOCYTES # (AUTO) 0.4 x10^3/uL (0.3-0.8); MONOCYTES % (AUTO) 11.8 % (0.0-13.0); NEUTROPHILS # (AUTO) 2.8 x10^3/uL (2.2-4.8); NEUTROPHILS % (AUTO) 75.8 % (42.0-75.0); RED BLOOD COUNT 3.88 X10^6/uL (3.5-5.4); RED CELL DISTRIBUTION WIDTH 12.2 % (11.6-16.5); WHITE BLOOD COUNT 3.7 X10^3/uL (3.6-10.0)
[2022-08-04 13:25] LABS: ALANINE AMINOTRANSFERASE 14 Units/L (12-78); ALBUMIN 3.7 g/dL (3.4-5.0); ALKALINE PHOSPHATASE 124 Units/L (46-116); ASPARTATE AMINO TRANSFERASE 22 Units/L (15-37); BLOOD UREA NITROGEN 8 mg/dL (7-18); CALCIUM 9.1 mg/dL (8.5-10.1); CARBON DIOXIDE 26.3 mmol/L (21-32); CHLORIDE 101 mmol/L (98-107); SODIUM 136 mmol/L (136-145); TOTAL PROTEIN 7.7 g/dL (6.4-8.2); eGFR NON BLACK RACES > 60 (>60)
[2022-08-04] MEDS ORDERED: TORADOL 60 MG VIAL IM ONE (14:37)
[2022-08-04] MEDS ORDERED: TORADOL 60 MG VIAL ONE (15:00)
[2022-08-04] MEDS ORDERED: NICOTINE PATCH TD ONE (23:37)
[2022-08-05 05:59] LABS: BASOPHILS % (AUTO) 0.9 % (0.2-1.0); EOSINOPHILS # (AUTO) 0.1 x10^3/uL (0.0-0.2); EOSINOPHILS % (AUTO) 4.1 % (0.9-2.9); HEMATOCRIT 33.7 % (36.0-47.0); HEMOGLOBIN 11.8 g/dL (12.0-16.0); LYMPHOCYTES # (AUTO) 0.4 X10^3/uL (1.3-2.9); LYMPHOCYTES % (AUTO) 21.3 % (21.0-51.0); MEAN CORPUSCULAR HEMOGLOBIN 35.5 pg (27.0-34.0); MEAN CORPUSCULAR VOLUME 101.4 fL (80.0-100.0); MEAN PLATELET VOLUME 10.5 fL (7.4-11.0); MONOCYTES # (AUTO) 0.3 x10^3/uL (0.3-0.8); MONOCYTES % (AUTO) 14.4 % (0.0-13.0); NEUTROPHILS # (AUTO) 1.2 x10^3/uL (2.2-4.8); NEUTROPHILS % (AUTO) 59.3 % (42.0-75.0); RED BLOOD COUNT 3.32 X10^6/uL (3.5-5.4); RED CELL DISTRIBUTION WIDTH 12.2 % (11.6-16.5); WHITE BLOOD COUNT 2.1 X10^3/uL (3.6-10.0)
[2022-08-05 06:10] LABS: ALANINE AMINOTRANSFERASE 12 Units/L (12-78); ALBUMIN 2.7 g/dL (3.4-5.0); ALKALINE PHOSPHATASE 94 Units/L (46-116); ASPARTATE AMINO TRANSFERASE 19 Units/L (15-37); BLOOD UREA NITROGEN 9 mg/dL (7-18); CALCIUM 8.2 mg/dL (8.5-10.1); CARBON DIOXIDE 24.8 mmol/L (21-32); CHLORIDE 101 mmol/L (98-107); COR CA(FOR HYPOALB) 9.2 mg/dL (8.5-10.1); CREATININE 0.99 mg/dL (0.55-1.02); SODIUM 134 mmol/L (136-145); TOTAL PROTEIN 5.9 g/dL (6.4-8.2); eGFR NON BLACK RACES > 60 (>60)
[2022-08-05 06:37] LABS: PLATELET MORPHOLOGY COMMENT NORMAL (NORMAL)
[2022-08-05] MEDS ORDERED: ANCEF VIAL 1 GRAM IVP SCH (09:00)
[2022-08-05] MEDS: ANCEF VIAL 1 GRAM 1 G in NS 100 ML IV 100 ML IV SCH ×3 (09:01→22:00)
[2022-08-05] MEDS: NICOTINE PATCH TD SCH (09:01)
[2022-08-05] MEDS: D5 1/2 NS 1,000 ML 1,000 ML IV SCH ×3 (09:01→22:20)
[2022-08-05] MEDS: SOLU-Medrol 40 MG VIAL IVP SCH ×3 (09:01→22:19)
[2022-08-05] MEDS ORDERED: DEMEROL INJ IVP PRN (11:57)
[2022-08-05] MEDS ORDERED: PATIENT'S HOME MEDICATION PO SCH (12:00)
--- NOTE | 2022-08-05 12:04 | DR.H&P ---
H&P History & Physical for Day of: H&P Date: 08/05/22 Chief Complaint Chief Complaint: foot blisters and redness Allergies Allergies Allergy/AdvReac Type Severity Reaction Status Date / Time No Known Drug Allergies Allergy Verified 11/22/19 12:29 History of Present Illness History of Present Illness: Ms Conrad is a 52y/o female with a PMH of chronic pain disorder due to DDD, arthritis, HIV, severe anxiety, COPD and HTN presented with worsening b/l feet pain and blistering. She initially presents to the office due to blister in both feet and redness. She reports noticing it about a week ago and has progressed. She had similar blister on her lips prior to that w hich resolved with topical abx cream. She states she was in the sun couple weeks ago and noticed it later that evening. She reports increased pain, redness and swelling. The blisters have not popped and there's no drainage. She was sent to the ER from clinic and after further evaluation, admitted for management. Dr Gu was also consulted. Patient reports pain with walking. She was started on Ancef and solumedrol. Patient has a hx of HIV, sees ID. She reports taking doxycycline and Bactrim for prophylaxis. Denies any allergies. Labs reviewed Plan: continue wound care management as per Dr Gu. Continue Ancef and Solumedrol. Keep legs elevated. Continue pain control. Resume home medications. Patient will take her own HIV medication. Send wound cultures if possible. Monitor AM labs. Past Medical History Past Medical History: Anxiety, Arthritis, COPD, Depression and Hypertension Additional Medical History: HIV, TIA HEP C Past Surgical History Surgical History: and Hysterectomy Family History Family Medical History: Cancer, [place], Coronary Artery Disease, Sudden Cardiac and Hypertension Social History Does patient currently use any type of tobacco product: Yes Have you used tobacco products in the last 12 months: Yes Type of Tobacco Use: None Alcohol Use: None Drug Use: None Medications Home Medications: No Known Drug Allergies Allergy (Verified 11/22/19 12:29) Labs Result Diagrams: 08/05/22 05:20 08/05/22 05:20 Labs: Laboratory WBC 2.1 X10^3/uL (3.6-10.0) L 08/05/22 05:20 RBC 3.32 X10^6/uL (3.5-5.4) L 08/05/22 05:20 Hgb 11.8 g/dL (12.0-16.0) L 08/05/22 05:20 Hct 33.7 % (36.0-47.0) L 08/05/22 05:20 MCV 101.4 fL (80.0-100.0) H 08/05/22 05:20 MCH 35.5 pg (27.0-34.0) H 08/05/22 05:20 MCHC 35.0 g/dL (33.0-35.0) 08/05/22 05:20 RDW 12.2 % (11.6-16.5) 08/05/22 05:20 Plt Count 95 X10^3/uL (150.0-450.0) L 08/05/22 05:20 Plt Count Comment Decreased (ADEQUATE) A 08/05/22 05:20 MPV 10.5 fL (7.4-11.0) 08/05/22 05:20 Neut % (Auto) 59.3 % (42.0-75.0) 08/05/22 05:20 Lymph % (Auto) 21.3 % (21.0-51.0) 08/05/22 05:20 Coal % (Auto) 14.4 % (0.0-13.0) H 08/05/22 05:20 Eos % (Auto) 4.1 % (0.9-2.9) H 08/05/22 05:20 Baso % (Auto) 0.9 % (0.2-1.0) 08/05/22 05:20 Neut # (Auto) 1.2 x10^3/uL (2.2-4.8) L 08/05/22 05:20 Lymph # (Auto) 0.4 X10^3/uL (1.3-2.9) L 08/05/22 05:20 Coal # (Auto) 0.3 x10^3/uL (0.3-0.8) 08/05/22 05:20 Eos # (Auto) 0.1 x10^3/uL (0.0-0.2) 08/05/22 05:20 Baso # (Auto) 0.0 X10^3/uL (0.0-0.1) 08/05/22 05:20 Absolute Nucleated RBC 0.1 /100WBC 08/05/22 05:20 Total Counted 100 08/05/22 05:20 Neutrophils % (Manual) 66 % (39-76) 08/05/22 05:20 Lymphocytes % (Manual) 18 % (13-43) 08/05/22 05:20 Monocytes % (Manual) 11 % (4-9) H 08/05/22 05:20 Eosinophils % (Manual) 5 % (0-6) 08/05/22 05:20 Plt Morphology Comment Normal (NORMAL) 08/05/22 05:20 RBC Morphology Normal (NORMAL) 08/05/22 05:20 Sodium 134 mmol/L (136-145) L 08/05/22 05:20 Corrected Sodium TNP 08/05/22 05:20 Potassium 4.1 mmol/L (3.5-5.1) 08/05/22 05:20 Chloride 101 mmol/L (98-107) 08/05/22 05:20 Carbon Dioxide 24.8 mmol/L (21-32) 08/05/22 05:20 BUN 9 mg/dL (7-18) 08/05/22 05:20 Creatinine 0.99 mg/dL (0.55-1.02) 08/05/22 05:20 Est GFR (MDRD) Af Amer > 60 (>60) 08/05/22 05:20 Est GFR (MDRD) Non-Af > 60 (>60) 08/05/22 05:20 Glucose 88 mg/dL (65-99) 08/05/22 05:20 Calcium 8.2 mg/dL (8.5-10.1) L 08/05/22 05:20 Corrected Calcium 9.2 mg/dL (8.5-10.1) 08/05/22 05:20 Total Bilirubin 0.20 mg/dL (0.2-1.0) 08/05/22 05:20 AST 19 Units/L (15-37) 08/05/22 05:20 ALT 12 Units/L (12-78) 08/05/22 05:20 Alkaline Phosphatase 94 Units/L (46-116) 08/05/22 05:20 Total Protein 5.9 g/dL (6.4-8.2) L 08/05/22 05:20 Albumin 2.7 g/dL (3.4-5.0) L 08/05/22 05:20 Globulin 3.2 g/dL (2.5-4.5) 08/05/22 05:20 Albumin/Globulin Ratio 0.8 Ratio (1.1-2.1) L 08/05/22 05:20 Review of Systems Constitutional: No Symptoms Reported Eyes: No Symptoms Reported ENT: No Symptoms Reported Respiratory: No Symptoms Reported Cardiovascular: No Symptoms Reported Gastrointestinal: No Symptoms Reported Musculoskeletal: Foot Pain Skin: Lesions (large blisters on both feet, surrounding erythema ) Neurological: No Symptoms Reported Physical Exam Vital Signs: Temperature 97.8 F Pulse Rate [Right Brachial] 78 Pulse Rate 86 Respiratory Rate 20 Blood Pressure [Left Arm] 133/80 Blood Pressure [Right Arm] 139/81 Blood Pressure [Standing] 146/94 Blood Pressure [Sitting] 147/96 Blood Pressure [Lying] 148/88 Blood Pressure 143/91 O2 Sat by Pulse Oximetry 100 Oriented: Normal Eyes: Normal Ear: Normal Nose: Normal Throat: Normal Respiratory: Clear Throughout Cardiovascular: Normal Auscultation: Bowel Sounds: Normal Palpation: Normal Tenderness: Normal Skin: Other (2 large blisters in both feet with surrounding erythema, tender, no obvious drainage ) Musculoskeletal: Normal Psychiatric: Anxiety Mood Description: Anxious Affect: Anxious Speech Pattern: Clear and Appropriate Assessment/Plan (1) Cellulitis: Status: Acute (2) Drug reaction: Status: Acute (3) HIV (human immunodeficiency virus infection): Status: Acute (4) Neutropenia: Status: Acute (5) Hypertension: Status: Chronic (6) Anxiety: Status: Acute (7) DJD (degenerative joint disease): Status: Chronic
[2022-08-05] MEDS: NEURONTIN CAP 400 MG PO SCH ×2 (14:06→22:00)
--- NOTE | 2022-08-05 17:25 | DR.PROGNOT ---
Hospital Progress Notes - Progress Note for Day of: Progress Note Date: 08/05/22 - Chief Complaint Chief Complaint: feeling better . the burning feeling and pain is subsiding .. - Past Medical Family Social History Past Med/Fam/Surg Hx: No changes since H&P Allergies: Allergies No Known Drug Allergies Allergy (Verified 11/22/19 12:29) - Review Of Systems ROS: No change since H&P - Vital Signs Vital Signs: Temperature 98.4 F Pulse Rate [Right Brachial] 71 Pulse Rate 86 Respiratory Rate 18 Blood Pressure [Left Arm] 132/77 Blood Pressure [Right Arm] 139/81 Blood Pressure [Standing] 146/94 Blood Pressure [Sitting] 147/96 Blood Pressure [Lying] 148/88 Blood Pressure 143/91 O2 Sat by Pulse Oximetry 99 - Physical Exam Oriented: Normal Eyes: Normal Ear: Normal Nose: Normal Throat: Normal Cardiovascular: Normal GI:Auscultation: Normal GI:Palpation: Normal GI: Tenderness: Normal Skin: Other (2 large blisters in both feet with surrounding erythema, tender, no obvious drainage) Musculoskeletal: Normal Psychiatric: Anxiety Mood Description: Anxious Affect: Anxious Speech Pattern: Clear, Appropriate - Laboratory and Diagnostics Result Diagrams: 08/05/22 05:20 08/05/22 05:20 Labs: Laboratory WBC 2.1 X10^3/uL (3.6-10.0) L 08/05/22 05:20 RBC 3.32 X10^6/uL (3.5-5.4) L 08/05/22 05:20 Hgb 11.8 g/dL (12.0-16.0) L 08/05/22 05:20 Hct 33.7 % (36.0-47.0) L 08/05/22 05:20 MCV 101.4 fL (80.0-100.0) H 08/05/22 05:20 MCH 35.5 pg (27.0-34.0) H 08/05/22 05:20 MCHC 35.0 g/dL (33.0-35.0) 08/05/22 05:20 RDW 12.2 % (11.6-16.5) 08/05/22 05:20 Plt Count 95 X10^3/uL (150.0-450.0) L 08/05/22 05:20 Plt Count Comment Decreased (ADEQUATE) A 08/05/22 05:20 MPV 10.5 fL (7.4-11.0) 08/05/22 05:20 Neut % (Auto) 59.3 % (42.0-75.0) 08/05/22 05:20 Lymph % (Auto) 21.3 % (21.0-51.0) 08/05/22 05:20 [place] % (Auto) 14.4 % (0.0-13.0) H 08/05/22 05:20 Eos % (Auto) 4.1 % (0.9-2.9) H 08/05/22 05:20 Baso % (Auto) 0.9 % (0.2-1.0) 08/05/22 05:20 Neut # (Auto) 1.2 x10^3/uL (2.2-4.8) L 08/05/22 05:20 Lymph # (Auto) 0.4 X10^3/uL (1.3-2.9) L 08/05/22 05:20 [place] # (Auto) 0.3 x10^3/uL (0.3-0.8) 08/05/22 05:20 Eos # (Auto) 0.1 x10^3/uL (0.0-0.2) 08/05/22 05:20 Baso # (Auto) 0.0 X10^3/uL (0.0-0.1) 08/05/22 05:20 Absolute Nucleated RBC 0.1 /100WBC 08/05/22 05:20 Total Counted 100 08/05/22 05:20 Neutrophils % (Manual) 66 % (39-76) 08/05/22 05:20 Lymphocytes % (Manual) 18 % (13-43) 08/05/22 05:20 Monocytes % (Manual) 11 % (4-9) H 08/05/22 05:20 Eosinophils % (Manual) 5 % (0-6) 08/05/22 05:20 Plt Morphology Comment Normal (NORMAL) 08/05/22 05:20 RBC Morphology Normal (NORMAL) 08/05/22 05:20 Sodium 134 mmol/L (136-145) L 08/05/22 05:20 Corrected Sodium TNP 08/05/22 05:20 Potassium 4.1 mmol/L (3.5-5.1) 08/05/22 05:20 Chloride 101 mmol/L (98-107) 08/05/22 05:20 Carbon Dioxide 24.8 mmol/L (21-32) 08/05/22 05:20 BUN 9 mg/dL (7-18) 08/05/22 05:20 Creatinine 0.99 mg/dL (0.55-1.02) 08/05/22 05:20 Est GFR (MDRD) Af Amer > 60 (>60) 08/05/22 05:20 Est GFR (MDRD) Non-Af > 60 (>60) 08/05/22 05:20 Glucose 88 mg/dL (65-99) 08/05/22 05:20 Calcium 8.2 mg/dL (8.5-10.1) L 08/05/22 05:20 Corrected Calcium 9.2 mg/dL (8.5-10.1) 08/05/22 05:20 Total Bilirubin 0.20 mg/dL (0.2-1.0) 08/05/22 05:20 AST 19 Units/L (15-37) 08/05/22 05:20 ALT 12 Units/L (12-78) 08/05/22 05:20 Alkaline Phosphatase 94 Units/L (46-116) 08/05/22 05:20 Total Protein 5.9 g/dL (6.4-8.2) L 08/05/22 05:20 Albumin 2.7 g/dL (3.4-5.0) L 08/05/22 05:20 Globulin 3.2 g/dL (2.5-4.5) 08/05/22 05:20 Albumin/Globulin Ratio 0.8 Ratio (1.1-2.1) L 08/05/22 05:20 - Assessment and Plan 1: allergic reaction . multiple skin blisters both feet . HIV positive .. mild ma cytopenia . same local care and IV ABT . - Problem Patient Problems: Patient Problems Cellulitis (Acute) L03.90
[2022-08-05] MEDS: PATIENT'S HOME MEDICATION PO SCH (21:59)
[2022-08-05] MEDS: XANAX PO PRN (22:05)
[2022-08-05] MEDS: NORCO 10/325 TAB PO PRN (22:06)
[2022-08-06] MEDS: D5 1/2 NS 1,000 ML 1,000 ML IV SCH ×3 (05:01→21:24)
[2022-08-06] MEDS: NEURONTIN CAP 400 MG PO SCH ×3 (05:01→21:17)
[2022-08-06] MEDS: SOLU-Medrol 40 MG VIAL IVP SCH ×3 (05:01→21:23)
[2022-08-06] MEDS: ANCEF VIAL 1 GRAM 1 G in NS 100 ML IV 100 ML IV SCH ×3 (05:01→21:19)
[2022-08-06 06:25] LABS: BASOPHILS % (AUTO) 0 % (0.2-1.0); HEMATOCRIT 36.3 % (36.0-47.0); LYMPHOCYTES # (AUTO) 0.2 X10^3/uL (1.3-2.9); LYMPHOCYTES % (AUTO) 2.6 % (21.0-51.0); MEAN CORPUSCULAR HEMOGLOBIN 35.5 pg (27.0-34.0); MEAN CORPUSCULAR HGB CONC 35.8 g/dL (33.0-35.0); MEAN CORPUSCULAR VOLUME 99.3 fL (80.0-100.0); MEAN PLATELET VOLUME 10.4 fL (7.4-11.0); MONOCYTES # (AUTO) 0.1 x10^3/uL (0.3-0.8); MONOCYTES % (AUTO) 1.5 % (0.0-13.0); NEUTROPHILS # (AUTO) 7.7 x10^3/uL (2.2-4.8); NEUTROPHILS % (AUTO) 95.9 % (42.0-75.0); RED BLOOD COUNT 3.65 X10^6/uL (3.5-5.4); WHITE BLOOD COUNT 8.1 X10^3/uL (3.6-10.0)
[2022-08-06 06:43] LABS: ALANINE AMINOTRANSFERASE 10 Units/L (12-78); ALBUMIN 2.9 g/dL (3.4-5.0); ALKALINE PHOSPHATASE 104 Units/L (46-116); ASPARTATE AMINO TRANSFERASE 18 Units/L (15-37); BLOOD UREA NITROGEN 7 mg/dL (7-18); CALCIUM 8.8 mg/dL (8.5-10.1); CARBON DIOXIDE 24.4 mmol/L (21-32); CHLORIDE 100 mmol/L (98-107); COR CA(FOR HYPOALB) 9.7 mg/dL (8.5-10.1); COR NA(FOR HYPERGLY) 136 mmol/L (136-145); CREATININE 0.97 mg/dL (0.55-1.02); SODIUM 134 mmol/L (136-145); TOTAL PROTEIN 6.6 g/dL (6.4-8.2); eGFR NON BLACK RACES > 60 (>60)
[2022-08-06 07:16] LABS: BAND NEUTROPHILS % 5 % (0-10); PLATELET MORPHOLOGY COMMENT NORMAL (NORMAL)
[2022-08-06] MEDS: NORCO 10/325 TAB PO PRN ×3 (08:27→23:27)
[2022-08-06] MEDS: NICOTINE PATCH TD SCH (08:27)
--- NOTE | 2022-08-06 10:05 | DR.PROGNOT ---
Hospital Progress Notes - Progress Note for Day of: Progress Note Date: 08/06/22 - Chief Complaint Chief Complaint: c/o pain both feet with burning and heaviness today .. all blisters were aspirated and cultured .. afebrile . - Past Medical Family Social History Past Med/Fam/Surg Hx: No changes since H&P Allergies: Allergies No Known Drug Allergies Allergy (Verified 11/22/19 12:29) - Review Of Systems ROS: No change since H&P - Vital Signs Vital Signs: Temperature 98.6 F Pulse Rate [Right Brachial] 78 Pulse Rate 86 Respiratory Rate 20 Blood Pressure [Left Arm] 121/64 Blood Pressure [Right Arm] 139/81 Blood Pressure [Standing] 146/94 Blood Pressure [Sitting] 147/96 Blood Pressure [Lying] 148/88 Blood Pressure 143/91 O2 Sat by Pulse Oximetry 99 - Physical Exam Oriented: Normal Eyes: Normal Ear: Normal Nose: Normal Throat: Normal Cardiovascular: Normal GI:Auscultation: Normal GI:Palpation: Normal GI: Tenderness: Normal Skin: Other (all blisters were draind without debridement to keep the wounds covered .. ) Musculoskeletal: Normal Psychiatric: Anxiety Mood Description: Anxious Affect: Anxious Speech Pattern: Clear, Appropriate - Laboratory and Diagnostics Result Diagrams: 08/06/22 05:41 08/06/22 05:41 Labs: Laboratory WBC 8.1 X10^3/uL (3.6-10.0) 08/06/22 05:41 RBC 3.65 X10^6/uL (3.5-5.4) 08/06/22 05:41 Hgb 13.0 g/dL (12.0-16.0) 08/06/22 05:41 Hct 36.3 % (36.0-47.0) 08/06/22 05:41 MCV 99.3 fL (80.0-100.0) 08/06/22 05:41 MCH 35.5 pg (27.0-34.0) H 08/06/22 05:41 MCHC 35.8 g/dL (33.0-35.0) H 08/06/22 05:41 RDW 12.0 % (11.6-16.5) 08/06/22 05:41 Plt Count 115 X10^3/uL (150.0-450.0) L 08/06/22 05:41 Plt Count Comment Decreased (ADEQUATE) A 08/06/22 05:41 MPV 10.4 fL (7.4-11.0) 08/06/22 05:41 Neut % (Auto) 95.9 % (42.0-75.0) H 08/06/22 05:41 Lymph % (Auto) 2.6 % (21.0-51.0) L 08/06/22 05:41 [place] % (Auto) 1.5 % (0.0-13.0) 08/06/22 05:41 Eos % (Auto) 0.0 % (0.9-2.9) L 08/06/22 05:41 Baso % (Auto) 0 % (0.2-1.0) L 08/06/22 05:41 Neut # (Auto) 7.7 x10^3/uL (2.2-4.8) H 08/06/22 05:41 Lymph # (Auto) 0.2 X10^3/uL (1.3-2.9) L 08/06/22 05:41 [place] # (Auto) 0.1 x10^3/uL (0.3-0.8) L 08/06/22 05:41 Eos # (Auto) 0.0 x10^3/uL (0.0-0.2) 08/06/22 05:41 Baso # (Auto) 0.0 X10^3/uL (0.0-0.1) 08/06/22 05:41 Absolute Nucleated RBC 0.0 /100WBC 08/06/22 05:41 Total Counted 100 08/06/22 05:41 Neutrophils % (Manual) 89 % (39-76) H 08/06/22 05:41 Band Neutrophils % 5 % (0-10) 08/06/22 05:41 Lymphocytes % (Manual) 6 % (13-43) L 08/06/22 05:41 Monocytes % (Manual) 11 % (4-9) H 08/05/22 05:20 Eosinophils % (Manual) 5 % (0-6) 08/05/22 05:20 Plt Morphology Comment Normal (NORMAL) 08/06/22 05:41 RBC Morphology Normal (NORMAL) 08/06/22 05:41 Sodium 134 mmol/L (136-145) L 08/06/22 05:41 Corrected Sodium 136 mmol/L (136-145) 08/06/22 05:41 Potassium 4.4 mmol/L (3.5-5.1) 08/06/22 05:41 Chloride 100 mmol/L (98-107) 08/06/22 05:41 Carbon Dioxide 24.4 mmol/L (21-32) 08/06/22 05:41 BUN 7 mg/dL (7-18) 08/06/22 05:41 Creatinine 0.97 mg/dL (0.55-1.02) 08/06/22 05:41 Est GFR (MDRD) Af Amer > 60 (>60) 08/06/22 05:41 Est GFR (MDRD) Non-Af > 60 (>60) 08/06/22 05:41 Glucose 165 mg/dL (65-99) H 08/06/22 05:41 Calcium 8.8 mg/dL (8.5-10.1) 08/06/22 05:41 Corrected Calcium 9.7 mg/dL (8.5-10.1) 08/06/22 05:41 Total Bilirubin 0.20 mg/dL (0.2-1.0) 08/06/22 05:41 AST 18 Units/L (15-37) 08/06/22 05:41 ALT 10 Units/L (12-78) L 08/06/22 05:41 Alkaline Phosphatase 104 Units/L (46-116) 08/06/22 05:41 Total Protein 6.6 g/dL (6.4-8.2) 08/06/22 05:41 Albumin 2.9 g/dL (3.4-5.0) L 08/06/22 05:41 Globulin 3.7 g/dL (2.5-4.5) 08/06/22 05:41 Albumin/Globulin Ratio 0.8 Ratio (1.1-2.1) L 08/06/22 05:41 - Assessment and Plan 1: allergic reaction . multiple skin blisters both feet .( aspirated and cultured ). HIV positive .. mild ma cytopenia . same local care and IV ABT . could be d/c in AM and use Silvadene cream daily - Problem Patient Problems: Patient Problems Cellulitis (Acute) L03.90
--- NOTE | 2022-08-06 13:20 | PCM.PROG ---
Progress Note Progress Note for Day of Date of Exam: 08/06/22 Subjective Subjective: Patient seen at bedside, no events overnight. She continues to have pain in both feet. The blisters are still intact with no drainage. She reports pressure when ambulating to the bathroom. The redness around the blisters is about the same. Labs reviewed Plan: wound care as per Dr Gu, possible aspiration of fluid to send for culture. Continue solumedrol and abx. Continue pain medications. Continue home medications. Monitor AM labs/imaging. Past Medical Family Social History Past Med/Fam/Surg Hx: No changes since H&P Allergies: Allergies No Known Drug Allergies Allergy (Verified 11/22/19 12:29) Review of Systems ROS: No change since H&P Vital Signs and I&O's Vital Signs: Temperature 98.1 F Pulse Rate [Right Brachial] 65 Pulse Rate 86 Respiratory Rate 20 Blood Pressure [Left Arm] 138/82 Blood Pressure [Right Arm] 139/81 Blood Pressure [Standing] 146/94 Blood Pressure [Sitting] 147/96 Blood Pressure [Lying] 148/88 Blood Pressure 143/91 O2 Sat by Pulse Oximetry 100 Intake and Output: Intake & Output 08/03/22 08/04/22 08/05/22 08/06/22 23:59 23:59 23:59 23:59 Intake Total 440 / 440 3134 / 3134 1055 / 1055 Balance 440 / 440 3134 / 3134 1055 / 1055 Physical Exam Oriented: Normal Eyes: Normal Ear: Normal Nose: Normal Throat: Normal Cardiovascular: Normal Auscultation: Bowel Sounds: Normal Tenderness: Normal Skin: Other (both blisters noted on b/l feet with slight surrounding erythema, limited ROM ) Musculoskeletal: Normal Psychiatric: Anxiety Mood Description: Anxious Affect: Anxious Speech Pattern: Clear and Appropriate Laboratory and Diagnostics Result Diagrams: 08/06/22 05:41 08/06/22 05:41 Labs: Laboratory WBC 8.1 X10^3/uL (3.6-10.0) 08/06/22 05:41 RBC 3.65 X10^6/uL (3.5-5.4) 08/06/22 05:41 Hgb 13.0 g/dL (12.0-16.0) 08/06/22 05:41 Hct 36.3 % (36.0-47.0) 08/06/22 05:41 MCV 99.3 fL (80.0-100.0) 08/06/22 05:41 MCH 35.5 pg (27.0-34.0) H 08/06/22 05:41 MCHC 35.8 g/dL (33.0-35.0) H 08/06/22 05:41 RDW 12.0 % (11.6-16.5) 08/06/22 05:41 Plt Count 115 X10^3/uL (150.0-450.0) L 08/06/22 05:41 Plt Count Comment Decreased (ADEQUATE) A 08/06/22 05:41 MPV 10.4 fL (7.4-11.0) 08/06/22 05:41 Neut % (Auto) 95.9 % (42.0-75.0) H 08/06/22 05:41 Lymph % (Auto) 2.6 % (21.0-51.0) L 08/06/22 05:41 [place] % (Auto) 1.5 % (0.0-13.0) 08/06/22 05:41 Eos % (Auto) 0.0 % (0.9-2.9) L 08/06/22 05:41 Baso % (Auto) 0 % (0.2-1.0) L 08/06/22 05:41 Neut # (Auto) 7.7 x10^3/uL (2.2-4.8) H 08/06/22 05:41 Lymph # (Auto) 0.2 X10^3/uL (1.3-2.9) L 08/06/22 05:41 [place] # (Auto) 0.1 x10^3/uL (0.3-0.8) L 08/06/22 05:41 Eos # (Auto) 0.0 x10^3/uL (0.0-0.2) 08/06/22 05:41 Baso # (Auto) 0.0 X10^3/uL (0.0-0.1) 08/06/22 05:41 Absolute Nucleated RBC 0.0 /100WBC 08/06/22 05:41 Total Counted 100 08/06/22 05:41 Neutrophils % (Manual) 89 % (39-76) H 08/06/22 05:41 Band Neutrophils % 5 % (0-10) 08/06/22 05:41 Lymphocytes % (Manual) 6 % (13-43) L 08/06/22 05:41 Monocytes % (Manual) 11 % (4-9) H 08/05/22 05:20 Eosinophils % (Manual) 5 % (0-6) 08/05/22 05:20 Plt Morphology Comment Normal (NORMAL) 08/06/22 05:41 RBC Morphology Normal (NORMAL) 08/06/22 05:41 Sodium 134 mmol/L (136-145) L 08/06/22 05:41 Corrected Sodium 136 mmol/L (136-145) 08/06/22 05:41 Potassium 4.4 mmol/L (3.5-5.1) 08/06/22 05:41 Chloride 100 mmol/L (98-107) 08/06/22 05:41 Carbon Dioxide 24.4 mmol/L (21-32) 08/06/22 05:41 BUN 7 mg/dL (7-18) 08/06/22 05:41 Creatinine 0.97 mg/dL (0.55-1.02) 08/06/22 05:41 Est GFR (MDRD) Af Amer > 60 (>60) 08/06/22 05:41 Est GFR (MDRD) Non-Af > 60 (>60) 08/06/22 05:41 Glucose 165 mg/dL (65-99) H 08/06/22 05:41 Calcium 8.8 mg/dL (8.5-10.1) 08/06/22 05:41 Corrected Calcium 9.7 mg/dL (8.5-10.1) 08/06/22 05:41 Total Bilirubin 0.20 mg/dL (0.2-1.0) 08/06/22 05:41 AST 18 Units/L (15-37) 08/06/22 05:41 ALT 10 Units/L (12-78) L 08/06/22 05:41 Alkaline Phosphatase 104 Units/L (46-116) 08/06/22 05:41 Total Protein 6.6 g/dL (6.4-8.2) 08/06/22 05:41 Albumin 2.9 g/dL (3.4-5.0) L 08/06/22 05:41 Globulin 3.7 g/dL (2.5-4.5) 08/06/22 05:41 Albumin/Globulin Ratio 0.8 Ratio (1.1-2.1) L 08/06/22 05:41 Plan (1) Cellulitis: Status: Acute (2) Drug reaction: Status: Acute (3) HIV (human immunodeficiency virus infection): Status: Acute (4) Neutropenia: Status: Acute (5) Hypertension: Status: Chronic (6) Anxiety: Status: Acute (7) DJD (degenerative joint disease): Status: Chronic
[2022-08-06] MEDS: XANAX PO PRN (21:17)
[2022-08-06] MEDS: PATIENT'S HOME MEDICATION PO SCH (21:18)
[2022-08-07] MEDS: D5 1/2 NS 1,000 ML 1,000 ML IV SCH (00:09)
[2022-08-07] MEDS: ANCEF VIAL 1 GRAM 1 G in NS 100 ML IV 100 ML IV SCH (05:07)
[2022-08-07] MEDS: NEURONTIN CAP 400 MG PO SCH (05:07)
[2022-08-07] MEDS: SOLU-Medrol 40 MG VIAL IVP SCH (05:08)
[2022-08-07 06:26] LABS: ALANINE AMINOTRANSFERASE 11 Units/L (12-78); ALBUMIN 3.4 g/dL (3.4-5.0); ALKALINE PHOSPHATASE 108 Units/L (46-116); ASPARTATE AMINO TRANSFERASE 18 Units/L (15-37); BLOOD UREA NITROGEN 10 mg/dL (7-18); CALCIUM 8.7 mg/dL (8.5-10.1); CHLORIDE 100 mmol/L (98-107); COR NA(FOR HYPERGLY) 137 mmol/L (136-145); CREATININE 0.96 mg/dL (0.55-1.02); SODIUM 136 mmol/L (136-145); TOTAL PROTEIN 7.2 g/dL (6.4-8.2); eGFR NON BLACK RACES > 60 (>60)
[2022-08-07 06:56] LABS: BASOPHILS % (AUTO) 0.1 % (0.2-1.0); HEMATOCRIT 39.4 % (36.0-47.0); HEMOGLOBIN 13.6 g/dL (12.0-16.0); LYMPHOCYTES # (AUTO) 0.2 X10^3/uL (1.3-2.9); LYMPHOCYTES % (AUTO) 1.6 % (21.0-51.0); MEAN CORPUSCULAR HEMOGLOBIN 34.8 pg (27.0-34.0); MEAN CORPUSCULAR HGB CONC 34.4 g/dL (33.0-35.0); MEAN PLATELET VOLUME 9.7 fL (7.4-11.0); MONOCYTES # (AUTO) 0.3 x10^3/uL (0.3-0.8); MONOCYTES % (AUTO) 2.4 % (0.0-13.0); NEUTROPHILS # (AUTO) 13.6 x10^3/uL (2.2-4.8); NEUTROPHILS % (AUTO) 95.9 % (42.0-75.0); RED CELL DISTRIBUTION WIDTH 12.2 % (11.6-16.5); WHITE BLOOD COUNT 14.1 X10^3/uL (3.6-10.0)
[2022-08-07 07:22] LABS: PLATELET MORPHOLOGY COMMENT NORMAL (NORMAL)
[2022-08-07] MEDS: NORCO 10/325 TAB PO PRN (07:55)
[2022-08-07] MEDS: NICOTINE PATCH TD SCH (08:03)
[2022-08-07 08:22] VITALS: BP 149/81
[2022-08-07] MEDS ORDERED: SILVADENE TOP SCH (09:00)
--- NOTE | 2022-08-07 10:23 | W.DIS.FURT ---
Summary of Discharge Admission Diagnosis Patient Problems (Updated 08/05/22 @ 12:52 by Beverly Borjas) Cellulitis (Acute) L03.90 Vital Signs: Vital Signs (72 hours) 08/04/22 11:52 08/04/22 15:12 08/04/22 16:35 Temperature 98.0 F Pulse Rate 86 Pulse Rate [Right Brachial] 68 Respiratory Rate 20 16 17 Blood Pressure 143/91 Blood Pressure [Left Arm] Blood Pressure [Right Arm] 127/81 O2 Sat by Pulse Oximetry 99 100 Oxygen Delivery Method Room Air Room Air 08/04/22 17:15 08/04/22 17:15 08/04/22 18:00 Temperature 97.1 F L Pulse Rate Pulse Rate [Right Brachial] 63 Respiratory Rate 18 Blood Pressure Blood Pressure [Left Arm] Blood Pressure [Right Arm] 139/81 O2 Sat by Pulse Oximetry 100 Oxygen Delivery Method Room Air Room Air Room Air 08/04/22 19:00 08/04/22 20:00 08/05/22 00:00 Temperature 97.6 F 97.5 F L Pulse Rate Pulse Rate [Right Brachial] 57 L 66 Respiratory Rate 22 20 Blood Pressure Blood Pressure [Left Arm] 154/79 113/69 Blood Pressure [Right Arm] O2 Sat by Pulse Oximetry 100 100 Oxygen Delivery Method Room Air Room Air Room Air 08/05/22 03:58 08/05/22 07:00 08/05/22 08:00 Temperature 97.6 F 97.8 F Pulse Rate Pulse Rate [Right Brachial] 73 78 Respiratory Rate 18 20 Blood Pressure Blood Pressure [Left Arm] 95/57 133/80 Blood Pressure [Right Arm] O2 Sat by Pulse Oximetry 99 100 Oxygen Delivery Method Room Air Room Air Room Air 08/05/22 12:00 08/05/22 16:00 08/05/22 19:00 Temperature 98.4 F 98.8 F Pulse Rate Pulse Rate [Right Brachial] 71 76 Respiratory Rate 18 20 Blood Pressure Blood Pressure [Left Arm] 132/77 125/76 Blood Pressure [Right Arm] O2 Sat by Pulse Oximetry 99 98 Oxygen Delivery Method Room Air Room Air Room Air 08/05/22 20:00 08/05/22 22:06 08/05/22 23:06 Temperature 98.5 F Pulse Rate Pulse Rate [Right Brachial] 74 Respiratory Rate 22 20 20 Blood Pressure Blood Pressure [Left Arm] 130/75 Blood Pressure [Right Arm] O2 Sat by Pulse Oximetry 98 Oxygen Delivery Method 08/05/22 23:57 08/06/22 00:00 08/06/22 03:33 Temperature 97.8 F 97.8 F 97.7 F Pulse Rate Pulse Rate [Right Brachial] 66 66 70 Respiratory Rate 20 20 20 Blood Pressure Blood Pressure [Left Arm] 140/84 140/84 130/77 Blood Pressure [Right Arm] O2 Sat by Pulse Oximetry 100 100 99 Oxygen Delivery Method Room Air 08/06/22 07:00 08/06/22 08:00 08/06/22 08:27 Temperature 98.6 F Pulse Rate Pulse Rate [Right Brachial] 78 Respiratory Rate 20 20 Blood Pressure Blood Pressure [Left Arm] 121/64 Blood Pressure [Right Arm] O2 Sat by Pulse Oximetry 99 Oxygen Delivery Method Room Air Room Air 08/06/22 09:27 08/06/22 12:00 08/06/22 16:00 Temperature 98.1 F 98.5 F Pulse Rate Pulse Rate [Right Brachial] 65 70 Respiratory Rate 20 20 18 Blood Pressure Blood Pressure [Left Arm] 138/82 136/85 Blood Pressure [Right Arm] O2 Sat by Pulse Oximetry 100 100 Oxygen Delivery Method Room Air Room Air 08/06/22 17:32 08/06/22 18:28 08/06/22 19:00 Temperature Pulse Rate Pulse Rate [Right Brachial] Respiratory Rate 18 20 Blood Pressure Blood Pressure [Left Arm] Blood Pressure [Right Arm] O2 Sat by Pulse Oximetry Oxygen Delivery Method Room Air 08/06/22 20:00 08/06/22 23:27 08/06/22 23:52 Temperature 97.5 F L 97.7 F Pulse Rate Pulse Rate [Right Brachial] 73 75 Respiratory Rate 18 19 18 Blood Pressure Blood Pressure [Left Arm] Blood Pressure [Right Arm] 130/82 137/77 O2 Sat by Pulse Oximetry 100 100 Oxygen Delivery Method Room Air Room Air 08/07/22 00:27 08/07/22 04:00 08/07/22 07:55 Temperature 97.6 F Pulse Rate Pulse Rate [Right Brachial] 77 Respiratory Rate 22 18 20 Blood Pressure Blood Pressure [Left Arm] Blood Pressure [Right Arm] 119/74 O2 Sat by Pulse Oximetry 99 Oxygen Delivery Method Room Air 08/07/22 07:00 08/07/22 08:00 Temperature 97.7 F Pulse Rate Pulse Rate [Right Brachial] 70 Respiratory Rate 18 Blood Pressure Blood Pressure [Left Arm] Blood Pressure [Right Arm] 149/81 O2 Sat by Pulse Oximetry 100 Oxygen Delivery Method Room Air Room Air Labs: Laboratory Last Values WBC 14.1 X10^3/uL (3.6-10.0) H 08/07/22 06:44 RBC 3.90 X10^6/uL (3.5-5.4) 08/07/22 06:44 Hgb 13.6 g/dL (12.0-16.0) 08/07/22 06:44 Hct 39.4 % (36.0-47.0) 08/07/22 06:44 MCV 101.0 fL (80.0-100.0) H 08/07/22 06:44 MCH 34.8 pg (27.0-34.0) H 08/07/22 06:44 MCHC 34.4 g/dL (33.0-35.0) 08/07/22 06:44 RDW 12.2 % (11.6-16.5) 08/07/22 06:44 Plt Count 146 X10^3/uL (150.0-450.0) L 08/07/22 06:44 Plt Count Comment Decreased (ADEQUATE) A 08/07/22 06:44 MPV 9.7 fL (7.4-11.0) 08/07/22 06:44 Neut % (Auto) 95.9 % (42.0-75.0) H 08/07/22 06:44 Lymph % (Auto) 1.6 % (21.0-51.0) L 08/07/22 06:44 [place] % (Auto) 2.4 % (0.0-13.0) 08/07/22 06:44 Eos % (Auto) 0.0 % (0.9-2.9) L 08/07/22 06:44 Baso % (Auto) 0.1 % (0.2-1.0) L 08/07/22 06:44 Neut # (Auto) 13.6 x10^3/uL (2.2-4.8) H 08/07/22 06:44 Lymph # (Auto) 0.2 X10^3/uL (1.3-2.9) L 08/07/22 06:44 [place] # (Auto) 0.3 x10^3/uL (0.3-0.8) 08/07/22 06:44 Eos # (Auto) 0.0 x10^3/uL (0.0-0.2) 08/07/22 06:44 Baso # (Auto) 0.0 X10^3/uL (0.0-0.1) 08/07/22 06:44 Absolute Nucleated RBC 0.0 /100WBC 08/07/22 06:44 Total Counted 100 08/07/22 06:44 Neutrophils % (Manual) 95 % (39-76) H 08/07/22 06:44 Band Neutrophils % 5 % (0-10) 08/06/22 05:41 Lymphocytes % (Manual) 1 % (13-43) L 08/07/22 06:44 Monocytes % (Manual) 4 % (4-9) 08/07/22 06:44 Eosinophils % (Manual) 5 % (0-6) 08/05/22 05:20 Plt Morphology Comment Normal (NORMAL) 08/07/22 06:44 RBC Morphology Normal (NORMAL) 08/07/22 06:44 Sodium 136 mmol/L (136-145) 08/07/22 05:33 Corrected Sodium 137 mmol/L (136-145) 08/07/22 05:33 Potassium 4.4 mmol/L (3.5-5.1) 08/07/22 05:33 Chloride 100 mmol/L (98-107) 08/07/22 05:33 Carbon Dioxide 26.0 mmol/L (21-32) 08/07/22 05:33 BUN 10 mg/dL (7-18) 08/07/22 05:33 Creatinine 0.96 mg/dL (0.55-1.02) 08/07/22 05:33 Est GFR (MDRD) Af Amer > 60 (>60) 08/07/22 05:33 Est GFR (MDRD) Non-Af > 60 (>60) 08/07/22 05:33 Glucose 129 mg/dL (65-99) H 08/07/22 05:33 Calcium 8.7 mg/dL (8.5-10.1) 08/07/22 05:33 Corrected Calcium TNP 08/07/22 05:33 Total Bilirubin 0.20 mg/dL (0.2-1.0) 08/07/22 05:33 AST 18 Units/L (15-37) 08/07/22 05:33 ALT 11 Units/L (12-78) L 08/07/22 05:33 Alkaline Phosphatase 108 Units/L (46-116) 08/07/22 05:33 Total Protein 7.2 g/dL (6.4-8.2) 08/07/22 05:33 Albumin 3.4 g/dL (3.4-5.0) 08/07/22 05:33 Globulin 3.8 g/dL (2.5-4.5) 08/07/22 05:33 Albumin/Globulin Ratio 0.9 Ratio (1.1-2.1) L 08/07/22 05:33 Reason For Visit: CELLULITIS LOWER EXTREMITIES,ALLERIGIC REACTION. Discharge Diagnosis All Active Problems (Updated 08/05/22 @ 12:52 by Beverly Borjas) Anxiety (Acute) HIV (human immunodeficiency virus infection) (Acute) Drug reaction (Acute) Cellulitis (Acute) Left knee pain (Acute) Altered mental status (Acute) Thrombocytopenia (Acute) Pneumonia (Acute) Pulmonary infiltrates on CXR (Acute) Syncope and collapse (Acute) Chronic kidney disease (Acute) COPD (chronic obstructive pulmonary disease) (Acute) Hyperglycemia (Acute) Dyspnea (Acute) Weakness (Acute) Falls (Acute) Noncompliance with medication treatment due to abuse of medication (Acute) Contusion of multiple sites of right shoulder and upper arm (Acute) Contusion of forearm, right (Acute) Acute renal failure (Acute) Rhabdomyolysis (Acute) Distended abdomen (Acute) Abdominal pain (Acute) Constipation (Acute) Neutropenia (Acute) Contusion of hip, left (Acute) Abrasion of knee, left (Acute) Cellulitis (Acute) UTI (urinary tract infection) (Acute) Cellulitis of left lower leg (Acute) Cellulitis of left foot (Acute) Acute pain of right knee (Acute) Effusion of knee joint right (Acute) Cellulitis (Acute) Suicidal behavior (Acute) Depression (Acute) Narcotic abuse (Acute) HIV disease (Chronic) Drug abuse and dependence (Chronic) Degenerative arthritis of right hand (Chronic) Arthritis (Chronic) DJD (degenerative joint disease) (Chronic) Spinal stenosis of lumbar region (Chronic) Right hip pain (Chronic) Lower back pain (Chronic) Hypertension (Chronic) Plan of Treatment: Continue with present treatment and follow up plan. Pt is to keep follow up appointment as instructed and take medications as ordered. Discharge Medications Discharge Medications: No Known Drug Allergies Allergy (Verified 11/22/19 12:29) CONTINUE taking the following medications alprazolam 1 mg tablet (Xanax) 1.5 mg PO HS PRN 08/05/22 [History] bictegravir 50 mg-emtricitabine 200 mg-tenofovir alafenam 25 mg tablet (Biktarvy) 1 tab PO DAILY 08/05/22 [History] folic acid 1 mg tablet 1 mg PO DAILY 08/05/22 [History] gabapentin 600 mg tablet (Neurontin) 600 mg PO TID 08/05/22 [History] hydrocodone 10 mg-acetaminophen 325 mg tablet 1 tab PO TID PRN 08/05/22 [History] New Prescriptions ciprofloxacin HCl 500 mg tablet 500 mg PO BID 10 days #20 tabs 08/07/22 [Rx] methylprednisolone 4 mg tablets in a dose pack (Medrol (Jaden)) See Rx Instructio ns .Route .COMPLEX #1 ea 08/07/22 [Rx] Discharge Disposition Assessment: Stable no acute distress noted at time of discharge. Discharge Plan Discharge Plan Patient Disposition: 01 HOME, SELF-CARE Condition: Stable Health Concerns: Post Hospitalization: new medications and changes needed to prevent readmission or further decline. Pt educated and given instructions on all concerns. Care Plan Goals: Problem: Pain/Alteration in Comfort Goal: Improve/ Resolve Pain; Achieve Pain Tolerance Instructions: Take pain medications as prescribed. Contact your primary care provider if your pain is unrelieved or worsens. Follow up with primary care provider as directed. Plan of Treatment: Continue with present treatment and follow up plan. Pt is to keep follow up appointment as instructed and take medications as ordered. Assessment: Stable no acute distress noted at time of discharge. Prescriptions: New ciprofloxacin HCl 500 mg Tablet 500 mg PO BID 10 Days Qty: 20 0RF methylprednisolone [Medrol (Jaden)] 4 mg Tablets,Dose Pack See Rx Instructions .ROUTE .COMPLEX Qty: 1 0RF Rx Instructions: orally per package directions No Action gabapentin [Neurontin] 600 mg Tablet 600 mg PO TID alprazolam [Xanax] 1 mg Tablet 1.5 mg PO HS PRN hydrocodone-acetaminophen [Hodges] 10-325 mg Tablet 1 tab PO TID PRN folic acid 1 mg Tablet 1 mg PO DAILY Biktarvy 50-200-25 mg Tablet 1 tab PO DAILY duloxetine [Cymbalta] 60 mg Capsule,Delayed Release(Dr/Ec) 60 mg PO DAILY Follow ups/Referrals Follow ups/Referrals: Rodri Murphy [Primary Care Provider] - 08/14/22 2:20 pm IRENA SINGER [STAFF PHYSICIAN] - 08/14/22 1:00 pm Instructions Instructions: Steps to Quit Smoking, [id number], Managing Pain Without Opioids, Health Risks of Smoking, Cellulitis, Adult, [id number], How to Change Your Wound Dressing, [id number], Antibiotic Medicine, Adult, Blisters, Adult, You've Been Prescribed an Antibiotic in the Hospital for an Infection - CDC Activity Restrictions/Additional Instructions: Apply Silvadene cream to both feet wound sites daily cover with gauze. Take medication as directed. Follow up with Dr. Mansfield and Dr. Murphy as scheduled. Stand Alone Forms: Precautions for [facility], Patient Portal, Social Distancing
== END 2022-08-07 11:00 | disposition home or self-care (01) | DRG 607 ==
LOC: ER 11:52 → MED/SURG 16:45
PROVIDERS: ADMIT Internal Medicine; ATTEND Internal Medicine
DX: F41.8 Other specified anxiety disorders; T50.905A Adverse effect of unspecified drugs, medicaments and biological substances, initial encounter; D70.8 Other neutropenia; B20 Human immunodeficiency virus [HIV] disease; S90.822A Blister (nonthermal), left foot, initial encounter; J44.9 Chronic obstructive pulmonary disease, unspecified; I10 Essential (primary) hypertension; L03.116 Cellulitis of left lower limb; Z72.0 Tobacco use; M19.90 Unspecified osteoarthritis, unspecified site; S90.821A Blister (nonthermal), right foot, initial encounter; X58.XXXA Exposure to other specified factors, initial encounter

== ENCOUNTER 2025-06-28 09:48 | Observation (INO) ==
--- NOTE | 2025-06-28 11:26 | CT ---
EXAMINATION: BRAIN W/O CON HISTORY: acute cva; COMPARISON: CT brain 11/18/2018 TECHNIQUE: Contiguous noncontrast axial CT images of the brain. Images reviewed in the axial imaging plane with reformatted sagittal and coronal images.The above CT scan was done with automated exposure control and the mA and kV was adjusted to obtain quality images according to patient size. FINDINGS: No evidence of acute intracranial hemorrhage, mass effect, or midline shift. 0.8 x 0.9 x 0.9 cm focal area of decreased density central measurement 6.5 Hounsfield units along the left superior cerebellum. Consider area of encephalomalacia or adjacent arachnoid cyst. The ventricles are normal size and shape. Calvarium appears intact. IMPRESSION: No acute intracranial hemorrhage or mass effect. Subcentimeter region of decreased density along the left superior cerebellum. Recommend follow-up MRI of the brain. THIS IS AN ELECTRONICALLY VERIFIED FINAL REPORT 06/28/2025 11:23 AM - Electronically signed by Sadia Saldivar MD
[2025-06-28 13:11] VITALS: BMI 18.0
[2025-06-28 13:18] LABS: MEAN PLATELET VOLUME 8.8 fL (7.4-11.0); RED CELL DISTRIBUTION WIDTH 13.8 % (11.6-16.5)
[2025-06-28] MEDS: ASPIRIN PO ONE (13:28)
[2025-06-28 13:40] LABS: CHOL/HDL RATIO 2.3 (0.0-5.0)
[2025-06-28 13:49] LABS: CREATININE 1.09 mg/dL (0.55-1.02); TSH (3RD GENERATION) 0.466 uIU/mL (0.358-3.74); eGFR NON BLACK RACES 55 (>60)
[2025-06-28] MEDS ORDERED: NORCO 10/325 TAB PO PRN (14:21)
[2025-06-28] MEDS: MULTIHANCE INJ VIAL ONE (15:19)
--- NOTE | 2025-06-28 17:54 | MRI ---
EXAM: BRAIN W&W/O CON HISTORY: stroke/hx of stroke CONTRAST-MULTIHANCE 12CC RT AC ; COMPARISON: CT head without contrast from June 28, 2025 TECHNIQUE: MRI images of the brain were obtained prior to and after the administration of 12 mL MultiHance intravenous contrast utilizing a routine protocol. FINDINGS: No abnormal enhancement. Few tiny foci of increased T2 signal likely represent mild microvascular disease. No abnormal signal in the dural sinuses on the sagittal T1 sequence. Pituitary gland and stalk appear normal. No mass effect on the optic chiasm. No Chiari 1 malformation. Imaged portion of the spine and spinal cord appear grossly normal. No restricted diffusion. Flow voids appear normal on the T2 sequence. No intracranial, extra-axial, fluid collection. No mass, mass effect or midline shift. No abnormal areas of acute T2 signal in the brain parenchyma. No blooming artifact in the brain parenchyma. Sinuses are well aerated Mastoid air cells are well aerated. Globes and intra-orbital contents appear normal. No ventriculomegaly. IMPRESSION: 1. No acute intracranial abnormality identified. 2. Few tiny foci of increased T2 signal likely represent mild microvascular disease. THIS IS AN ELECTRONICALLY VERIFIED FINAL REPORT 06/28/2025 5:51 PM - Electronically signed by Jayme Rueda MD
[2025-06-28] MEDS: COLACE CAP 100 MG PO SCH (20:34)
[2025-06-29 04:44] VITALS: TEMP 98
[2025-06-29 04:47] LABS: MEAN PLATELET VOLUME 9.3 fL (7.4-11.0); RED CELL DISTRIBUTION WIDTH 14.6 % (11.6-16.5)
[2025-06-29 04:59] LABS: COR CA(FOR HYPOALB) 9.1 mg/dL (8.5-10.1); CREATININE 1.04 mg/dL (0.55-1.02); eGFR NON BLACK RACES 58 (>60)
[2025-06-29] MEDS ORDERED: ZOLOFT ONE (08:34)
[2025-06-29] MEDS: ASPIRIN EC 81 MG PO SCH (08:44)
[2025-06-29] MEDS: ZOLOFT PO SCH (08:44)
[2025-06-29] MEDS: FOLIC ACID TAB 1 MG PO SCH (08:44)
[2025-06-29 09:14] VITALS: BP 129/67; PULSE 60; RESP 20; O2SAT 100
--- NOTE | 2025-06-29 10:08 | DR.H&P ---
H&P History & Physical for Day of: H&P Date: 06/28/25 Chief Complaint Chief Complaint: right hand weakness History of Present Illness History of Present Illness: Patient is a 55-year-old female presenting as a direct admit after reporting right hand weakness for the past week. She states that she woke up one morning and over 5 days ago and felt that her right hand was significantly weak. She did not seek any medical attention at that time. In the clinic she was noted to have right hand weakness. No other focal neurological deficits. She was admitted for stroke/TIA rule out. Labs/imaging: WBC 3.7, hemoglobin 12, platelets 182, sodium 141, potassium 3.7, creatinine 1.09, glucose 81, TSH 0.46, LDL 90. CT of the head was obtained that revealed subcentimeter region of decreased density along the left superior cerebellum. Recommend follow-up MRI of the brain. Will order MRI of the brain, echo, carotid ultrasound. Patient was given aspirin 325mg and will continue 81 mg daily. Otherwise we will continue with current treatment plan. Restart home medications. Neurochecks. Permissive hypertension. Continue closely monitor and follow-up labs/imaging. Time spent for clinical assessment, reviewing labs/imaging, physical exam, decision making and documentation greater than 45 mins. Past Medical History Past Medical History: Anxiety, Arthritis, COPD, CVA, Depression, Headaches, Hypertension and Renal Disease Additional Medical History: HIV, TIA HEP C Past Surgical History Surgical History: , Hysterectomy and Tonsillectomy Family History Family Medical History: IA, Coronary Artery Disease, Heart Failure, Sudden Cardiac and Hypertension Social History Type of Tobacco Use: Cigarettes Alcohol Use: None Drug Use: None Medications Home Medications: Home Medications Medication Instructions Recorded Confirmed Type bictegravir 50 mg-emtricitabine 1 tab PO DAILY 5 06/28/25 History 200 mg-tenofovir alafenam 25 mg tablet (Biktarvy) promethazine 25 mg tablet See Rx Instructions .Route 1 06/28/25 History .COMPLEX PRN sulfamethoxazole 800 1 tab PO DAILY 06/28/2510/22 History mg-trimethoprim 160 mg tablet (Bactrim DS) sulfamethoxazole 800 1 tab PO DAILY 06/28/2510/22 History mg-trimethoprim 160 mg tablet (Bactrim DS) Allergies Allergies Allergy/AdvReac Type Severity Reaction Status Date / Time No Known Drug Allergies Allergy Unknown Verified 06/28/25 09:08 Labs 06/29/25 04:31 06/29/25 04:31 Labs: Laboratory WBC 2.6 X10^3/uL (3.6-10.0) L 06/29/25 04:31 RBC 3.02 X10^6/uL (3.5-5.4) L 06/29/25 04:31 Hgb 10.7 g/dL (12.0-16.0) L 06/29/25 04:31 Hct 30.9 % (36.0-47.0) L 06/29/25 04:31 MCV 102.3 fL (80.0-100.0) H 06/29/25 04:31 MCH 35.4 pg (27.0-34.0) H 06/29/25 04:31 MCHC 34.6 g/dL (33.0-35.0) 06/29/25 04:31 RDW 14.6 % (11.6-16.5) 06/29/25 04:31 Plt Count 188 X10^3/uL (150.0-450.0) 06/29/25 04:31 MPV 9.3 fL (7.4-11.0) 06/29/25 04:31 Neut % (Auto) 55.6 % (42.0-75.0) 06/29/25 04:31 Lymph % (Auto) 24.9 % (21.0-51.0) 06/29/25 04:31 Waldo % (Auto) 14.3 % (0.0-13.0) H 06/29/25 04:31 Eos % (Auto) 4.0 % (0.9-2.9) H 06/29/25 04:31 Baso % (Auto) 1.2 % (0.2-1.0) H 06/29/25 04:31 Neut # (Auto) 1.4 x10^3/uL (2.2-4.8) L 06/29/25 04:31 Lymph # (Auto) 0.7 X10^3/uL (1.3-2.9) L 06/29/25 04:31 Waldo # (Auto) 0.4 x10^3/uL (0.3-0.8) 06/29/25 04:31 Eos # (Auto) 0.1 x10^3/uL (0.0-0.2) 06/29/25 04:31 Baso # (Auto) 0.0 X10^3/uL (0.0-0.1) 06/29/25 04:31 Absolute Nucleated RBC 0.1 /100WBC 06/29/25 04:31 Sodium 145 mmol/L (136-145) 06/29/25 04:31 Corrected Sodium TNP 06/29/25 04:31 Potassium 4.0 mmol/L (3.5-5.1) 06/29/25 04:31 Chloride 109 mmol/L (98-107) H 06/29/25 04:31 Carbon Dioxide 30.6 mmol/L (21-32) 06/29/25 04:31 BUN 10 mg/dL (7-18) 06/29/25 04:31 Creatinine 1.04 mg/dL (0.55-1.02) H 06/29/25 04:31 Est GFR (MDRD) Af Amer > 60 (>60) 06/29/25 04:31 Est GFR (MDRD) Non-Af 58 (>60) L 06/29/25 04:31 Glucose 66 mg/dL (65-99) 06/29/25 04:31 Calcium 8.0 mg/dL (8.5-10.1) L 06/29/25 04:31 Corrected Calcium 9.1 mg/dL (8.5-10.1) 06/29/25 04:31 Magnesium 2.2 mg/dL (2.0-2.9) 06/29/25 04:31 Total Bilirubin 0.20 mg/dL (0.2-1.0) 06/29/25 04:31 AST 23 Units/L (15-37) 06/29/25 04:31 ALT 12 Units/L (12-78) 06/29/25 04:31 Alkaline Phosphatase 92 Units/L (46-116) 06/29/25 04:31 Total Protein 6.0 g/dL (6.4-8.2) L 06/29/25 04:31 Albumin 2.6 g/dL (3.4-5.0) L 06/29/25 04:31 Globulin 3.4 g/dL (2.5-4.5) 06/29/25 04:31 Albumin/Globulin Ratio 0.8 Ratio (1.1-2.1) L 06/29/25 04:31 Triglycerides 75 mg/dL (0-150) 06/28/25 13:05 Cholesterol 184 mg/dL (0-200) 06/28/25 13:05 LDL Cholesterol, Calc 90 mg/dL (0-100) 06/28/25 13:05 HDL Cholesterol 79 mg/dL (40-60) H 06/28/25 13:05 Cholesterol/HDL Ratio 2.3 (0.0-5.0) 06/28/25 13:05 TSH 3rd Generation 0.466 uIU/mL (0.358-3.74) 06/28/25 13:05 Review of Systems Constitutional: No Symptoms Reported Eyes: No Symptoms Reported ENT: No Symptoms Reported Respiratory: No Symptoms Reported Cardiovascular: No Symptoms Reported Gastrointestinal: No Symptoms Reported Genitourinary: No Symptoms Reported Musculoskeletal: Hand Pain (weakness, numbness on right) Skin: No Symptoms Reported Neurological: No Symptoms Reported Physical Exam Vital Signs: Vital Signs Temperature 98.0 F Temperature 98.0 F Pulse Rate [Radial] 60 Pulse Rate [Radial] 54 Respiratory Rate 20 Respiratory Rate 16 Blood Pressure [Left Arm] 129/67 Blood Pressure [Left Arm] 107/55 O2 Sat by Pulse Oximetry 100 O2 Sat by Pulse Oximetry 99 Oriented: Normal Eyes: Normal Ear: Normal Nose: Normal Throat: Normal Respiratory: Clear Throughout Cardiovascular: Normal : Normal Auscultation: Bowel Sounds: Normal Palpation: Normal Tenderness: Normal Skin: Normal Musculoskeletal: Hand (right hand decreased sensation, strength, and range of motion) Psychiatric: Normal Mood Description: Calm and Appropriate Affect: Normal Speech Pattern: Clear and Appropriate Assessment/Plan (1) Acute CVA (cerebrovascular accident): Status: Acute Plan: Order MRI, echo, carotid ultrasound. (2) TIA (transient ischemic attack): Status: Acute (3) Right hand weakness: Status: Acute (4) Degeneration of intervertebral disc of lumbar region: Qualifiers: Disc-related pain type: discogenic back pain only Qualified Code(s): M 51.360 - Other intervertebral disc degeneration, lumbar region with discogenic back pain only Status: None (5) Anxiety and depression: Status: None (6) HIV disease: Status: None Review H&P Reviewed: Yes Patient was examined?: Yes
--- NOTE | 2025-06-29 10:12 | W.DIS.FURT ---
Summary of Discharge Discharge Summary of Date Date of Exam: 06/29/25 Admission Date Date of Admission: 06/28/25 Admission Diagnosis Hospital Course: Patient is a 55-year-old female that was admitted for acute CVA/TIA due to right hand weakness. Her hospital/treatment course did include CT and MRI of the brain. MRI of the brain did not find any evidence of acute CVA. Echo revealed preserved ejection fraction. Carotid ultrasound is also pending. Patient does continue to have some weakness in the right hand. She is otherwise stable. We will discharge her in stable condition. We will have her set up with physical therapy outpatient. And we will also get her in to be follow-up with a neurologist outpatient for further evaluation. Case management to set up. Instructed to follow-up with PCP in 1 week. Continue aspirin 81 mg daily. Vital Signs: Vital Signs (72 hours) 06/28/25 09:09 06/28/25 10:33 06/28/25 12:00 Temperature 98.1 F Pulse Rate [Radial] 55 L Respiratory Rate 18 Blood Pressure 133/82 Blood Pressure [Left Arm] 123/73 O2 Sat by Pulse Oximetry 100 Oxygen Delivery Method Room Air Room Air 06/28/25 16:00 06/28/25 19:00 06/28/25 19:54 Temperature 98.2 F 98.1 F Pulse Rate [Radial] 55 L 61 Respiratory Rate 19 15 Blood Pressure Blood Pressure [Left Arm] 101/57 102/55 O2 Sat by Pulse Oximetry 100 98 Oxygen Delivery Method Room Air Room Air Room Air 06/28/25 23:41 06/28/25 23:42 06/29/25 04:00 Temperature 98.3 F 98.0 F Pulse Rate [Radial] 56 L 54 L Respiratory Rate 13 16 Blood Pressure Blood Pressure [Left Arm] 85/53 98/60 107/55 O2 Sat by Pulse Oximetry 100 99 Oxygen Delivery Method Room Air Room Air 06/29/25 07:00 06/29/25 08:00 Temperature 98.0 F Pulse Rate [Radial] 60 Respiratory Rate 20 Blood Pressure Blood Pressure [Left Arm] 129/67 O2 Sat by Pulse Oximetry 100 Oxygen Delivery Method Room Air Room Air Labs: Laboratory Last Values WBC 2.6 X10^3/uL (3.6-10.0) L 06/29/25 04:31 RBC 3.02 X10^6/uL (3.5-5.4) L 06/29/25 04:31 Hgb 10.7 g/dL (12.0-16.0) L 06/29/25 04:31 Hct 30.9 % (36.0-47.0) L 06/29/25 04:31 MCV 102.3 fL (80.0-100.0) H 06/29/25 04:31 MCH 35.4 pg (27.0-34.0) H 06/29/25 04:31 MCHC 34.6 g/dL (33.0-35.0) 06/29/25 04:31 RDW 14.6 % (11.6-16.5) 06/29/25 04:31 Plt Count 188 X10^3/uL (150.0-450.0) 06/29/25 04:31 MPV 9.3 fL (7.4-11.0) 06/29/25 04:31 Neut % (Auto) 55.6 % (42.0-75.0) 06/29/25 04:31 Lymph % (Auto) 24.9 % (21.0-51.0) 06/29/25 04:31 Trigg % (Auto) 14.3 % (0.0-13.0) H 06/29/25 04:31 Eos % (Auto) 4.0 % (0.9-2.9) H 06/29/25 04:31 Baso % (Auto) 1.2 % (0.2-1.0) H 06/29/25 04:31 Neut # (Auto) 1.4 x10^3/uL (2.2-4.8) L 06/29/25 04:31 Lymph # (Auto) 0.7 X10^3/uL (1.3-2.9) L 06/29/25 04:31 Trigg # (Auto) 0.4 x10^3/uL (0.3-0.8) 06/29/25 04:31 Eos # (Auto) 0.1 x10^3/uL (0.0-0.2) 06/29/25 04:31 Baso # (Auto) 0.0 X10^3/uL (0.0-0.1) 06/29/25 04:31 Absolute Nucleated RBC 0.1 /100WBC 06/29/25 04:31 Sodium 145 mmol/L (136-145) 06/29/25 04:31 Corrected Sodium TNP 06/29/25 04:31 Potassium 4.0 mmol/L (3.5-5.1) 06/29/25 04:31 Chloride 109 mmol/L (98-107) H 06/29/25 04:31 Carbon Dioxide 30.6 mmol/L (21-32) 06/29/25 04:31 BUN 10 mg/dL (7-18) 06/29/25 04:31 Creatinine 1.04 mg/dL (0.55-1.02) H 06/29/25 04:31 Est GFR (MDRD) Af Amer > 60 (>60) 06/29/25 04:31 Est GFR (MDRD) Non-Af 58 (>60) L 06/29/25 04:31 Glucose 66 mg/dL (65-99) 06/29/25 04:31 Calcium 8.0 mg/dL (8.5-10.1) L 06/29/25 04:31 Corrected Calcium 9.1 mg/dL (8.5-10.1) 06/29/25 04:31 Magnesium 2.2 mg/dL (2.0-2.9) 06/29/25 04:31 Total Bilirubin 0.20 mg/dL (0.2-1.0) 06/29/25 04:31 AST 23 Units/L (15-37) 06/29/25 04:31 ALT 12 Units/L (12-78) 06/29/25 04:31 Alkaline Phosphatase 92 Units/L (46-116) 06/29/25 04:31 Total Protein 6.0 g/dL (6.4-8.2) L 06/29/25 04:31 Albumin 2.6 g/dL (3.4-5.0) L 06/29/25 04:31 Globulin 3.4 g/dL (2.5-4.5) 06/29/25 04:31 Albumin/Globulin Ratio 0.8 Ratio (1.1-2.1) L 06/29/25 04:31 Triglycerides 75 mg/dL (0-150) 06/28/25 13:05 Cholesterol 184 mg/dL (0-200) 06/28/25 13:05 LDL Cholesterol, Calc 90 mg/dL (0-100) 06/28/25 13:05 HDL Cholesterol 79 mg/dL (40-60) H 06/28/25 13:05 Cholesterol/HDL Ratio 2.3 (0.0-5.0) 06/28/25 13:05 TSH 3rd Generation 0.466 uIU/mL (0.358-3.74) 06/28/25 13:05 Reason For Visit: ACUTE CVA Discharge Date Discharge Date: 06/29/25 Discharge Diagnosis All Active Problems (Updated 06/29/25 @ 10:07 by Rodri Murphy MD) Right hand weakness (Acute) TIA (transient ischemic attack) (Acute) Acute CVA (cerebrovascular accident) (Acute) Chronic left hip pain (Acute) Nausea (Acute) Leg edema, left (Acute) Plantar fasciitis, bilateral (Acute) Knee pain, bilateral (Acute) Annual physical exam (Acute) Gout (Acute) Acute pain of left foot (Acute) Foot pain, left (Acute) Skin lesion of chest wall (Acute) Blister of lower extremity with infection (Acute) Skin infection (Acute) Blister of right hand (Acute) Contusion of right shoulder (Acute) Fatigue (Acute) Smoker (Acute) BENJAMIN (dyspnea on exertion) (Acute) Atypical chest pain (Acute) Folliculitis (Acute) Right hip pain (Acute) Right knee sprain (Acute) Sprain, lumbosacral (Acute) Anxiety (Chronic) HIV (human immunodeficiency virus infection) (Chronic) Drug reaction (Acute) Cellulitis (Acute) Thrombocytopenia (Chronic) Chronic kidney disease (Chronic) COPD (chronic obstructive pulmonary disease) (Chronic) Constipation (Chronic) Neutropenia (Chronic) Depression (Chronic) Narcotic abuse (Chronic) HIV disease (Chronic) Drug abuse and dependence (Chronic) Arthritis (Chronic) DJD (degenerative joint disease) (Chronic) Spinal stenosis of lumbar region (Chronic) Right hip pain (Chronic) Lower back pain (Chronic) Hypertension (Chronic) Plan of Treatment: Continue with present treatment and follow up plan. Pt is to keep follow up appointment as instructed and take medications as ordered. Discharge Medications Discharge Medications: No Known Drug Allergies Allergy (Unknown, Verified 06/28/25 09:08) CONTINUE taking the following medications promethazine 25 mg tablet See Rx Instructions .Route .COMPLEX PRN 10/01/25 [History] sulfamethoxazole 800 mg-trimethoprim 160 mg tablet (Bactrim DS) 1 tab PO DAILY 06/28/25 [History] sulfamethoxazole 800 mg-trimethoprim 160 mg tablet (Bactrim DS) 1 tab PO DAILY 06/28/25 [History] Discharge Disposition Assessment: No distress noted. Discharge Plan Discharge Plan Hospital Course: Patient is a 55-year-old female that was admitted for acute CVA/TIA due to right hand weakness. Her hospital/treatment course did include CT and MRI of the brain. MRI of the brain did not find any evidence of acute CVA. Echo revealed preserved ejection fraction. Carotid ultrasound is also pending. Patient does continue to have some weakness in the right hand. She is otherwise stable. We will discharge her in stable condition. We will have her set up with physical therapy outpatient. And we will also get her in to be follow-up with a neurologist outpatient for further evaluation. Case management to set up. Instructed to follow-up with PCP in 1 week. Continue aspirin 81 mg daily. Patient Disposition: HOME, SELF-CARE Condition: Stable Health Concerns: Post Hospitalization: new medications and changes needed to prevent readmission or further decline. Pt educated and given instructions on all concerns. Care Plan Goals: Problem: Activity Intolerance Goal: Increased tolerance to activity Instructions: Follow provided instructions. Follow up with primary physician as directed. Contact primary care physician or report to the closest Emergency Room if condition worsens. Plan of Treatment: Continue with present treatment and follow up plan. Pt is to keep follow up appointment as instructed and take medications as ordered. Assessment: No distress noted. Prescriptions: Continued amlodipine 5 mg tablet 5 mg PO QDAY Qty: 30 2RF alprazolam 0.5 mg tablet 0.25 - 0.5 mg PO HS MDD 1 PRN (Reason: Anxiety) 30 Days Qty: 45 0RF hydrocodone-acetaminophen 10-325 mg tablet 1 tab PO QID MDD 4 PRN (Reason: Pain) 30 Days Qty: 120 0RF sertraline 100 mg tablet 100 mg PO QDAY Qty: 30 2RF gabapentin 800 mg tablet 800 mg PO TID 30 Days Qty: 90 2RF Biktarvy 50-200-25 mg Tablet 1 tab PO DAILY sulfamethoxazole-trimethoprim [Bactrim DS] 800-160 mg Tablet 1 tab PO DAILY sulfamethoxazole-trimethoprim [Bactrim DS] 800-160 mg Tablet 1 tab PO DAILY promethazine 25 mg tablet See Rx Instructions .ROUTE .COMPLEX PRN Rx Instructions: 25 mg orally every 8-12 hours as needed for nausea Orders to Discharge Patient Discharge Orders: Discharge (Routine); Ordered 06/29/25 Ordered By: Rodri Murphy Follow ups/Referrals Follow ups/Referrals: Rodri Murphy MD [Primary Care Provider, MEDICAL] - 07/11/25 2:20 pm NADINE EARL [REFERRING, MEDICAL] Referral Note: Referral request prior to office scheduling appointment. Referral faxed at discharge. Instructions Instructions: Fall Prevention in the Home, Adult, [id number], Health Risks of Smoking, Stroke Prevention, [id number], Understanding Your Risk for Falls Activity Restrictions/Additional Instructions: Out patient therapy. Neurology follow up. Stand Alone Forms: Find Help Web Site, Post Hospital Follow Up Care Print Language: ESTONIAN
--- NOTE | 2025-06-29 12:13 | VAS ---
EXAM: CAROTID US HISTORY: Acute CVA; . COMPARISON: None. TECHNIQUE: Ultrasound of the carotid arteries was performed. Color and spectral doppler imaging was utilized. Subjective analysis from arora-scale and color flow imaging was used to estimate degree of stenosis. Velocity measurements with ICA / CCA ratios were also utilized. FINDINGS: RIGHT: There is mild eccentric atherosclerotic plaque at the carotid bifurcation. Velocity measurements are obtained and show peak systolic velocity in the ICA is 124 cm/sec. ICA/CCA ratio is calculated at 1.4. Velocity parameters and subjective analysis correlate with estimated degree of stenosis of LEFT: There is mild eccentric atherosclerotic plaque at the carotid bifurcation. Velocity measurements are obtained and show peak systolic velocity in the ICA is 80 cm/sec. ICA/CCA ratio is calculated at 1.6. Velocity parameters and subjective analysis correlate with estimated degree of stenosis of VERTEBRAL ARTERIES: Antegrade flow is seen bilaterally. IMPRESSION: 1. No hemodynamically significant carotid artery stenosis. 2. Antegrade vertebral artery flow. THIS IS AN ELECTRONICALLY VERIFIED FINAL REPORT 06/29/2025 12:10 PM - Electronically signed by Venkata Irvin MD
== END 2025-06-29 12:15 | disposition home or self-care (01) ==
LOC: MED/SURG
PROVIDERS: ADMIT Family Medicine; ATTEND Family Medicine
DX: R20.2 Paresthesia of skin; B20 Human immunodeficiency virus [HIV] disease; R29.898 Other symptoms and signs involving the musculoskeletal system; M51.360 Other intervertebral disc degeneration, lumbar region with discogenic back pain only; M19.90 Unspecified osteoarthritis, unspecified site; Z72.0 Tobacco use; F32.89 Other specified depressive episodes; J44.9 Chronic obstructive pulmonary disease, unspecified; G45.8 Other transient cerebral ischemic attacks and related syndromes; E83.51 Hypocalcemia; F41.8 Other specified anxiety disorders; Z86.73 Personal history of transient ischemic attack (TIA), and cerebral infarction without residual deficits; I10 Essential (primary) hypertension; Z59.869 Financial insecurity, unspecified